=== PATIENT | male | born 1930 | race Caucasian/White ===

== ENCOUNTER → 2016-05-09 | Outpatient (CLI) | payer MEDICARE, BC ==
[2016-05-09 14:53] LABS: CHLORIDE,CL 103 mmol/L (98-110); SODIUM,NA 140 mmol/L (136-146)
== END ==
LOC: MW.CHIM 14:20
PROVIDERS: ATTEND Internal Medicine
DX: E11.9 Type 2 diabetes mellitus without complications (principal); I10 Essential (primary) hypertension; M19.90 Unspecified osteoarthritis, unspecified site; J44.9 Chronic obstructive pulmonary disease, unspecified; M25.511 Pain in right shoulder
CPT/HCPCS: 36415; 80053; 80061; 85025; 85652; 86140; 93005; 99214

== ENCOUNTER → 2016-05-18 | Outpatient (CLI) | payer MEDICARE, BC ==
--- NOTE | 2016-05-18 11:11 | NM ---
EXAMINATION: Nuclear medicine myocardial perfusion study HISTORY: Angina. PROCEDURE: Following intravenous administration of 0.4 mg of Lexiscan and 26.9 mCi of technetium 99m sestamib i, stress SPECT images including gating imaging was performed. FINDINGS: Stress myocardial SPECT images demonstrates mildly decreased perfusion along the inferior wall. This may represent diaphragmatic attenuation. Review of gated images demonstrates normal wall motion, contractility and wall thickening. The left ventricular ejection fraction is 56 %. The left ventricular chamber size is normal. IMPRESSION: 1. Mildly decreased uptake along the inferior wall, correlate with rest imaging. 2. Normal ventricular chamber size and function with ejection fraction of 56 %.
--- NOTE | 2016-05-18 16:37 | PCM.PRNOTE ---
- Free Text/Narrative Note: Lexiscan Indication SOB Patient was supervised today during infusion portion of the stress test. The patient received Regadenoson 0.4 mg IV and nuclear agent using standard protocol. Sestamibi Tm99 25 Mci was gievn afterwards Baseline blood pressure is 145/59 with a heart rate 63 EKG sinus rhythm cRBBB without ST abnormalities Vital signs at injection: Peak blood pressure 125/68 with a heart rate of 78 Vital signs at 4 minutes post injection: Peak blood pressure 147/59 with a heart rate of 65 EKG sinus rhythm without further ST changes Patient complains of abdominal cramps and headaches spontaneously resolved Adverse effects from Justa scan none Test done due to end of protocol Impression 1. electrocardiographically nondiagnostic for ischemia due to chemical protocol 2. nuclear imaging pending
== END ==
LOC: MW.NM 08:17
PROVIDERS: ATTEND Internal Medicine
DX: R07.9 Chest pain, unspecified (principal); I20.9 Angina pectoris, unspecified; R06.02 Shortness of breath
CPT/HCPCS: 78451; 93017; A9500; J2785

== ENCOUNTER → 2016-05-25 | Outpatient (CLI) | payer MEDICARE, BC ==
--- NOTE | 2016-05-30 11:39 | NM ---
Addendum: Additional imaging was obtained at rest following the administration of 27.5 mCi of Tech 99m labeled sestamibi. FINDINGS/IMPRESSION: There is stable decreased perfusion along the inferior wall. No evidence of reversible perfusion to suggest myocardial ischemia. Ejection fraction is 58%, wall motion appears similar.
== END ==
LOC: MW.NM 10:58
PROVIDERS: ATTEND Internal Medicine
DX: R07.9 Chest pain, unspecified (principal); I20.9 Angina pectoris, unspecified
CPT/HCPCS: 78451; A9500

== ENCOUNTER → 2016-05-31 | Outpatient (CLI) | payer MEDICARE, BC ==
[2016-05-31 11:35] LABS: CHLORIDE,CL 104 mmol/L (98-110); SODIUM,NA 141 mmol/L (136-146)
== END ==
LOC: MW.CHIM 10:46
PROVIDERS: ATTEND Internal Medicine
DX: I20.9 Angina pectoris, unspecified (principal); I10 Essential (primary) hypertension; E11.9 Type 2 diabetes mellitus without complications; J44.1 Chronic obstructive pulmonary disease with (acute) exacerbation
CPT/HCPCS: 36415; 80048; 85025; 85610; 99215

== ENCOUNTER 2016-06-28 10:36 | Emergency (ER) | payer MEDICARE, BC ==
[2016-06-28] MEDS ORDERED: Aspirin 81 MG Tab.Chew ONE (10:41)
[2016-06-28] MEDS ORDERED: Nitroglycerin 0.4 MG Tab.SL ONE (10:41)
[2016-06-28] MEDS: Nitroglycerin 0.4 MG Tab.SL SL PRN ×3 (10:51→12:03)
[2016-06-28] MEDS ORDERED: Ondansetron 4 MG/2 ML SDV IVPUSH ONE (10:53)
[2016-06-28] MEDS ORDERED: Morphine 2 MG/ML Syringe IVPUSH ONE (10:53)
[2016-06-28] MEDS ORDERED: Aspirin 81 MG Tab.Chew PO ONE (10:54)
--- NOTE | 2016-06-28 10:55 | EDM.PDOC ---
ED HISTORY OF PRESENT ILLNESS - General Chief Complaint: Chest Pain Stated Complaint: CHEST PAIN Time Seen by Provider: 06/28/16 10:40 Source of Information: Reports: Patient History Limitations: Reports: No limitations - History of Present Illness INITIAL COMMENTS - FREE TEXT/NARRATIVE: History of present illness: [] Patient was sitting at home at 8 this morning looking count of a window when he developed sudden chest pain rated 10/10. He says it's worse when he takes a breath. He denies cough. Patient has a history of cardiac disease and is scheduled to go to [facility] on the of this month see a manager compensation. Patient has an ejection fraction of 56% and decreased uptake on the inferior wall on nuclear perfusion scan done in May. Review of systems: As per history of present illness and below otherwise all systems reviewed and negative. Past medical history: As per history of present illness and as reviewed below otherwise noncontributory. Surgical history: As per history of present illness and as reviewed below otherwise noncontributory. Social history: No reported history of drug or alcohol abuse. Family history: As per history of present illness and as reviewed below otherwise noncontributory. Physical exam: General: Well developed, well nourished in NAD HEENT: Atraumatic, normocephalic, pupils reactive, negative for conjunctival pallor or scleral icterus, mucous membranes moist, throat clear, neck supple, nontender, trachea midline. Lungs: Clear to auscultation, breath sounds equal bilaterally, chest nontender. Heart: S1S2, regular, negative for clicks, rubs, or JVD. Abdomen: Soft, nondistended, nontender. Negative for masses or hepatosplenomegaly. Negative for costovertebral tenderness. Pelvis: Stable nontender. Genitourinary: Deferred. Rectal: Deferred. Extremities: Atraumatic, negative for cords or calf pain. Neurovascular unremarkable. Neuro: Awake, alert, oriented. Cranial nerves II through XII unremarkable. Cerebellum unremarkable. Motor and sensory unremarkable throughout. Exam nonfocal. Diagnostics: [] Labs and imaging were done ruled out showing a negative troponin at this time , negative dissection. Therapeutics: [] Aspirin nitroglycerin and pain medicines given minimal relief of his pain. Impression: [] Unstable angina Plan: [] Transfer to [facility], Dr. Cintron accepting. Definitive disposition and diagnosis as appropriate pending reevaluation and review of above. - Related Data Allergies/ADRs: Allergies Allergy/AdvReac Type Severity Reaction Status Date / Time Animal Dander Allergy Mild Cough Uncoded 06/28/16 10:49 smoke Allergy Cough Uncoded 06/28/16 10:49 Home Meds: Home Meds Aspirin [Adult Low Dose Aspirin EC] 81 mg PO DAILY 12/21/13 [History] Latanoprost [Xalatan 0.005% Ophth Soln] 1 drop EYEBOTH BEDTIME 12/21/13 [History ] Multivit-Min/FA/Lycopene/Lut [Centrum Silver] 1 each PO DAILY 12/21/13 [History] Albuterol Sulfate 2.5 mg IH QID PRN 04/15/14 [History] Fluticasone/Salmeterol [Advair 250-50] 1 inhalation IH BID 04/15/14 [History] Ascorbate Calcium [Vitamin C] 500 mg PO DAILY 07/18/14 [History] Lutein 20 mg PO DAILY 07/18/14 [History] Brimonidine Tartrate [Alphagan P] 1 drop EYEBOTH DAILY 08/23/15 [History] Albuterol Sulfate [Proair Hfa] 2 puff IH QID 06/28/16 [History] Erythromycin Base [Erythromycin 0.5% Ophth Oint] 1 applic EYEBOTH BEDTIME [History] Umeclidinium Dexter [Incruse Ellipta] 1 inhalation IH DAILY 06/28/16 [History] Past Medical History HEENT History: Reports: Glaucoma, Macular degeneration Other HEENT History: wears glasses, top and bottom dentures Cardiovascular History: Reports: None Respiratory History: Reports: COPD Other Respiratory History: continuous 02 3l at home Gastrointestinal History: Other Gastrointestinal History: esophogeal cancer, epigastric pain Genitourinary History: Reports: None Musculoskeletal History: Reports: Arthritis Other Musculoskeletal History: neck pain, rt elbow pain Neurological History: Reports: None Psychiatric History: Reports: None Endocrine/Metabolic History: Reports: None Hematologic History: Reports: None Immunologic History: Reports: None 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 Dermatologic History: Reports: Other (see below) Other Dermatologic History: dermatitis - Past Surgical History Head Surgeries/Procedures: Reports: None HEENT Surgical History: Reports: Cataract surgery Other HEENT Surgeries/Procedures: hx sinus surgery GI Surgical History: Reports: Appendectomy Other GI Surgeries/Procedures: 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 Social & Family History - Tobacco Use Smoking Status *Q: Former Smoker Years of Tobacco use: 40 Used Tobacco, but Quit: Yes Month Tobacco Last Used: 1983 Second Hand Smoke Exposure: No - Alcohol Use Days Per Week of Alcohol Use: 3 Number of Drinks Per Day: 1 Total Drinks Per Week: 3 - Recreational Drug Use Recreational Drug Use: No Drug Use in Last 12 Months: No ED ROS GENERAL - Review of Systems Review Of Systems: See Below (See history of present illness) ED EXAM, GENERAL - Physical Exam Exam: See Below (See history of present illness) Course - Vital Signs Last Recorded V/S: Last Vital Signs Temp 36.6 C 06/28/16 10:49 Pulse 78 06/28/16 10:49 Resp 18 06/28/16 12:02 BP 110/61 06/28/16 12:03 Pulse Ox 98 06/28/16 12:02 - Orders/Labs/Meds Orders: Active Orders 24 hr Category Date Time Status EKG 12 Lead [EKG Documentation Completion] [RC] STAT Care 06/28/16 11:13 Active RT Aerosol Therapy [RC] ASDIRECTED Care 06/28/16 12:54 Active HYDROmorphone [Dilaudid] Med 06/28/16 11:21 Active 0.5 mg IVPUSH Q1H PRN Nitroglycerin/D5W [Nitroglycerin 25 MG/D5W 250 ML] 250 Med 06/28/16 12:45 Ordered ml IV TITRATE Medication Orders Hydromorphone HCl (Dilaudid) 0.5 mg IVPUSH Q1H PRN PRN Reason: Pain Last Admin: 06/28/16 11:27 Dose: 0.5 mg Nitroglycerin/Dextrose (Nitroglycerin 25 Mg/D5w 250 Ml) 250 mls @ 3 mls/hr IV TITRATE SHANELL PRN Reason: 5 MCG/MIN Labs: Laboratory Tests 06/28/16 06/28/16 06/28/16 Range/Units 10:40 10:40 10:40 WBC 12.01 H (4.0-11.0) K/uL RBC 4.13 L (4.50-5.90) M/uL Hgb 12.7 L (13.0-17.0) g/dL Hct 38.5 (38.0-50.0) % MCV 93.2 (80.0-98.0) fL MCH 30.8 (27.0-32.0) pg MCHC 33.0 (31.0-37.0) g/dL RDW Std Deviation 44.1 (28.0-62.0) fl RDW Coeff of Juancho 13 (11.0-15.0) % Plt Count 206 (150-400) K/uL MPV 10.30 (7.40-12.00) fL Neut % (Auto) 76.9 (48.0-80.0) % Lymph % (Auto) 14.5 L (16.0-40.0) % [place] % (Auto) 6.7 (0.0-15.0) % Eos % (Auto) 1.7 (0.0-7.0) % Baso % (Auto) 0.2 (0.0-1.5) % Neut # (Auto) 9.2 H (1.4-5.7) K/uL Lymph # (Auto) 1.7 (0.6-2.4) K/uL [place] # (Auto) 0.8 (0.0-0.8) K/uL Eos # (Auto) 0.2 (0.0-0.7) K/uL Baso # (Auto) 0.0 (0.0-0.1) K/uL Nucleated RBC % 0.0 /100WBC Nucleated RBCs # 0 K/uL INR (0.86-1.11) APTT (18.6-31.3) SEC D-Dimer, Quantitative (0.0-0.52) mg/LFEU Sodium 134 L (136-146) mmol/L Potassium 4.1 (3.5-5.1) mmol/L Chloride 99 (98-110) mmol/L Carbon Dioxide 26 (21-31) mmol/L BUN 15 (6.0-23.0) mg/dL Creatinine 1.0 (0.6-1.5) mg/dL Est Cr Clr Drug Dosing 50.49 mL/min Estimated GFR (MDRD) > 60.0 ml/min Glucose 140 H (60-110) mg/dL Calcium 9.5 (8.8-10.8) mg/dL Total Bilirubin 0.8 (0.1-1.5) mg/dL AST 22 (5-40) IU/L ALT 16 (8-54) IU/L Alkaline Phosphatase 81 (40-150) Troponin I < 0.10 (0.0-0.29) NG/ML B-Natriuretic Peptide (<100) PG/ML Total Protein 7.7 (6.0-8.0) g/dL Albumin 4.1 (3.4-4.8) g/dL Globulin 3.6 H (2.0-3.5) g/dL Albumin/Globulin Ratio 1.1 L (1.3-2.8) Blood Type Antibody Screen 06/28/16 06/28/16 06/28/16 Range/Units 10:40 10:40 10:40 WBC (4.0-11.0) K/uL RBC (4.50-5.90) M/uL Hgb (13.0-17.0) g/dL Hct (38.0-50.0) % MCV (80.0-98.0) fL MCH (27.0-32.0) pg MCHC (31.0-37.0) g/dL RDW Std Deviation (28.0-62.0) fl RDW Coeff of Juancho (11.0-15.0) % Plt Count (150-400) K/uL MPV (7.40-12.00) fL Neut % (Auto) (48.0-80.0) % Lymph % (Auto) (16.0-40.0) % [place] % (Auto) (0.0-15.0) % Eos % (Auto) (0.0-7.0) % Baso % (Auto) (0.0-1.5) % Neut # (Auto) (1.4-5.7) K/uL Lymph # (Auto) (0.6-2.4) K/uL [place] # (Auto) (0.0-0.8) K/uL Eos # (Auto) (0.0-0.7) K/uL Baso # (Auto) (0.0-0.1) K/uL Nucleated RBC % /100WBC Nucleated RBCs # K/uL INR 1.05 (0.86-1.11) APTT 33.1 H (18.6-31.3) SEC D-Dimer, Quantitative 3.77 H (0.0-0.52) mg/LFEU Sodium (136-146) mmol/L Potassium (3.5-5.1) mmol/L Chloride (98-110) mmol/L Carbon Dioxide (21-31) mmol/L BUN (6.0-23.0) mg/dL Creatinine (0.6-1.5) mg/dL Est Cr Clr Drug Dosing mL/min Estimated GFR (MDRD) ml/min Glucose (60-110) mg/dL Calcium (8.8-10.8) mg/dL Total Bilirubin (0.1-1.5) mg/dL AST (5-40) IU/L ALT (8-54) IU/L Alkaline Phosphatase (40-150) Troponin I (0.0-0.29) NG/ML B-Natriuretic Peptide 106 H (<100) PG/ML Total Protein (6.0-8.0) g/dL Albumin (3.4-4.8) g/dL Globulin (2.0-3.5) g/dL Albumin/Globulin Ratio (1.3-2.8) Blood Type Antibody Screen 06/28/16 Range/Units 11:15 WBC (4.0-11.0) K/uL RBC (4.50-5.90) M/uL Hgb (13.0-17.0) g/dL Hct (38.0-50.0) % MCV (80.0-98.0) fL MCH (27.0-32.0) pg MCHC (31.0-37.0) g/dL RDW Std Deviation (28.0-62.0) fl RDW Coeff of Juancho (11.0-15.0) % Plt Count (150-400) K/uL MPV (7.40-12.00) fL Neut % (Auto) (48.0-80.0) % Lymph % (Auto) (16.0-40.0) % [place] % (Auto) (0.0-15.0) % Eos % (Auto) (0.0-7.0) % Baso % (Auto) (0.0-1.5) % Neut # (Auto) (1.4-5.7) K/uL Lymph # (Auto) (0.6-2.4) K/uL [place] # (Auto) (0.0-0.8) K/uL Eos # (Auto) (0.0-0.7) K/uL Baso # (Auto) (0.0-0.1) K/uL Nucleated RBC % /100WBC Nucleated RBCs # K/uL INR (0.86-1.11) APTT (18.6-31.3) SEC D-Dimer, Quantitative (0.0-0.52) mg/LFEU Sodium (136-146) mmol/L Potassium (3.5-5.1) mmol/L Chloride (98-110) mmol/L Carbon Dioxide (21-31) mmol/L BUN (6.0-23.0) mg/dL Creatinine (0.6-1.5) mg/dL Est Cr Clr Drug Dosing mL/min Estimated GFR (MDRD) ml/min Glucose (60-110) mg/dL Calcium (8.8-10.8) mg/dL Total Bilirubin (0.1-1.5) mg/dL AST (5-40) IU/L ALT (8-54) IU/L Alkaline Phosphatase (40-150) Troponin I (0.0-0.29) NG/ML B-Natriuretic Peptide (<100) PG/ML Total Protein (6.0-8.0) g/dL Albumin (3.4-4.8) g/dL Globulin (2.0-3.5) g/dL Albumin/Globulin Ratio (1.3-2.8) Blood Type O NEGATIVE Antibody Screen NEGATIVE Meds: Medications Generic Name Dose Route Start Last Admin Trade Name Freq PRN Reason Stop Dose Admin Hydromorphone HCl 0.5 mg 06/28/16 11:21 06/28/16 11:27 Dilaudid IVPUSH 0.5 mg Q1H PRN Administration Pain Nitroglycerin/Dextrose 250 mls @ 3 mls/hr 06/28/16 12:45 Nitroglycerin 25 Mg/D5w 250 Ml IV TITRATE SHANELL 5 MCG/MIN Discontinued Medications Generic Name Dose Route Start Last Admin Trade Name Freq PRN Reason Stop Dose Admin Albuterol/Ipratropium 3 ml 06/28/16 12:54 Duoneb 3.0-0.5 Mg/3 Ml NEB 06/28/16 12:55 ONETIME ONE Aspirin Confirm 06/28/16 10:41 06/28/16 10:57 Aspirin Administered 06/28/16 10:42 Not Given Dose 324 mg .ROUTE .STK-MED ONE Aspirin 324 mg 06/28/16 10:54 06/28/16 10:55 Aspirin PO 06/28/16 10:55 324 mg ONETIME ONE Administration Hydromorphone HCl Confirm 06/28/16 11:20 06/28/16 11:54 Dilaudid Administered 06/28/16 11:21 Not Given Dose 1 mg .ROUTE .STK-MED ONE Sodium Chloride 1,000 mls @ 999 mls/hr 06/28/16 10:59 06/28/16 11:53 Normal Saline IV 06/28/16 11:59 999 mls/hr .Bolus ONE Infusion Iopamidol 100 ml 06/28/16 11:12 06/28/16 11:13 Isovue Multipack-370 (76%) IVPUSH 06/28/16 11:13 100 ml ONETIME STA Administration Morphine Sulfate 2 mg 06/28/16 10:53 06/28/16 11:03 Morphine IVPUSH 06/28/16 10:54 2 mg ONETIME ONE Administration Morphine Sulfate Confirm 06/28/16 11:06 06/28/16 11:57 Morphine Administered 06/28/16 11:07 Not Given Dose 10 mg .ROUTE .STK-MED ONE Morphine Sulfate 10 mg 06/28/16 11:13 06/28/16 11:13 Morphine IVPUSH 06/28/16 11:14 4 mg ONETIME ONE Administration Nitroglycerin Confirm 06/28/16 10:41 06/28/16 10:57 Nitrostat Administered 06/28/16 10:42 Not Given Dose 0.4 mg .ROUTE .STK-MED ONE Nitroglycerin 0.4 mg 06/28/16 10:54 06/28/16 12:03 Nitrostat SL 06/28/16 11:05 0.4 mg Q5M PRN Administration Chest Pain Ondansetron HCl 4 mg 06/28/16 10:53 06/28/16 11:00 Zofran IVPUSH 06/28/16 10:54 4 mg ONETIME ONE Administration Departure - Departure Time of Disposition: 12:58 Disposition: DC/Tfer to Acute Hospital 02 Reason for Transfer *Q: Other Condition: fair Clinical Impression: Unstable angina Forms: ED Department Discharge - My Orders Last 24 Hours: My Active Orders 06/28/16 11:13 EKG 12 Lead [EKG Documentation Completion] [RC] STAT 06/28/16 11:21 HYDROmorphone [Dilaudid] 0.5 mg IVPUSH Q1H PRN 06/28/16 12:45 Nitroglycerin/D5W [Nitroglycerin 25 MG/D5W 250 ML] 250 ml IV TITRATE 06/28/16 12:54 RT Aerosol Therapy [RC] ASDIRECTED - Assessment/Plan Last 24 Hours: My Active Orders 06/28/16 11:13 EKG 12 Lead [EKG Documentation Completion] [RC] STAT 06/28/16 11:21 HYDROmorphone [Dilaudid] 0.5 mg IVPUSH Q1H PRN 06/28/16 12:45 Nitroglycerin/D5W [Nitroglycerin 25 MG/D5W 250 ML] 250 ml IV TITRATE 06/28/16 12:54 RT Aerosol Therapy [RC] ASDIRECTED
[2016-06-28] MEDS ORDERED: Sodium Chloride 0.9% 1,000 ML IV ONE (10:59)
[2016-06-28] MEDS ORDERED: Morphine 10 MG/ML Syringe ONE (11:06)
[2016-06-28] MEDS ORDERED: Iopamidol 755 MG/ML 500 ML Multipack Bottle IVPUSH STA (11:12)
[2016-06-28] MEDS ORDERED: Morphine 10 MG/ML Syringe IVPUSH ONE (11:13)
[2016-06-28] MEDS ORDERED: HYDROmorphone 1 MG/ML Syringe ONE (11:20)
[2016-06-28] MEDS ORDERED: HYDROmorphone 1 MG/ML Syringe IVPUSH PRN (11:21)
--- NOTE | 2016-06-28 11:24 | CR ---
EXAMINATION: Portable chest radiograph. HISTORY: Shortness of breath. Comparison: 01/03/2016. FINDINGS: The trachea is midline. The cardiomediastinal silhouette is stable. There is a chronic interstitial prominence. No focal consolidation, pleural effusion, or pneumothorax. Mild aortic calcifications ar e noted. Osseous structures appear unremarkable. IMPRESSION: Chronic interstitial prominence without an acute cardiopulmonary finding.
[2016-06-28 11:30] LABS: CHLORIDE,CL 99 mmol/L (98-110); SODIUM,NA 134 mmol/L (136-146)
--- NOTE | 2016-06-28 12:06 | CT ---
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 Coronal and sagittal reconstructions obtained. FINDINGS: Severe emphysematous changes are noted within the lungs. Scarring is noted within the lung bases, right greater than left. No pleural effusion or pneumothorax. Moderate atheromatous disease is noted within the aorta extending to the iliac arteries. Thoracic aorta is normal in caliber. No e vidence of a dissection or ulceration. The heart is normal in size with a trace pericardial fluid. C oronary artery calcifications are noted. The main pulmonary arteries appear patent. Nonpathologicall y enlarged mediastinal and hilar lymph nodes are noted. No axillary lymphadenopathy. The central air ways are clear. There is mild stenosis at the origin of the celiac axis and SMA. There is at least moderate to high grade stenosis at the origin of the right renal artery. There are 2 left renal arteries. The liver appears mildly heterogeneous with a tiny area of hyperenhancement within the lower right h epatic lobe, likely an atypical hemangioma given the size. The pancreas and gallbladder appear vinicio l. The adrenal glands are normal. Spleen is normal in size. The kidneys enhance and function symmetr ically without evidence of obstructive uropathy. There is a nonobstructing right renal stone. There are no suspicious osseous abnormalities identified. IMPRESSION: 1. Severe pulmonary emphysema. 2. 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 3. 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 4. Nonobstructing right renal stone.
[2016-06-28 12:29] VITALS: BP 110/61
[2016-06-28] MEDS ORDERED: Nitroglycerin/D5W 25 MG/250 ML BOTTLE IV SCH (12:45)
[2016-06-28] MEDS ORDERED: Albuterol/Ipratropium 3.0-0.5 MG/3 ML Neb Soln NEB ONE (12:54)
[2016-06-28] MEDS ORDERED: Ketorolac 15 MG/ML SDV IVPUSH ONE (13:54)
[2016-06-28] MEDS: Ketorolac 15 MG/ML SDV ONE ×2 (13:54→14:38)
[2016-06-28] MEDS: LORazepam 2 MG/ML MDV ONE ×2 (14:02→14:30)
[2016-06-28] MEDS ORDERED: LORazepam 2 MG/ML MDV IVPUSH ONE (14:02)
== END 2016-06-28 14:20 ==
LOC: MW.ED 10:36
DX: I20.0 Unstable angina (principal); Z91.09 Other allergy status, other than to drugs and biological substances; Z79.82 Long term (current) use of aspirin; Z79.899 Other long term (current) drug therapy; Z98.49 Cataract extraction status, unspecified eye; Z90.49 Acquired absence of other specified parts of digestive tract; Z87.891 Personal history of nicotine dependence; R06.02 Shortness of breath
CPT/HCPCS: 36415; 71010; 71275; 74175; 80053; 83880; 84484; 85025; 85379; 85610; 85730; 86850; 86900; 86901; 93005; 94664; 96361; 96365; 96375; 99291; 99292; A9270; J1170; J1885; J2060; J2270; J2405; J7040; Q9967; 99285

== ENCOUNTER → 2016-07-14 | Outpatient (CLI) | payer MEDICARE, BC | LOC: MW.CHIM 08:00 | PROVIDERS: ATTEND Internal Medicine | DX: R21 Rash and other nonspecific skin eruption (principal); I25.10 Atherosclerotic heart disease of native coronary artery without angina pectoris; J44.9 Chronic obstructive pulmonary disease, unspecified; I10 Essential (primary) hypertension | CPT/HCPCS: 96372; 99214; J1200 ==

== ENCOUNTER → 2016-07-17 | Outpatient (CLI) | payer MEDICARE, BC | LOC: MW.CHIM 08:00 | PROVIDERS: ATTEND Internal Medicine | DX: I25.10 Atherosclerotic heart disease of native coronary artery without angina pectoris (principal); I10 Essential (primary) hypertension; J44.1 Chronic obstructive pulmonary disease with (acute) exacerbation; E11.9 Type 2 diabetes mellitus without complications; J44.9 Chronic obstructive pulmonary disease, unspecified; Z98.61 Coronary angioplasty status; Z87.891 Personal history of nicotine dependence | CPT/HCPCS: 99214; G0463 ==

== ENCOUNTER 2016-12-12 16:08 | Observation (INO) | payer MEDICARE, BC ==
[2016-12-12] MEDS ORDERED: Aspirin 81 MG Tab.Chew PO ONE (16:19)
--- NOTE | 2016-12-12 16:20 | EDM.PDOC ---
ED HPI GENERAL MEDICAL PROBLEM - General Chief Complaint: Chest Pain Stated Complaint: CHEST PAIN Time Seen by Provider: 12/12/16 16:17 Source of Information: Reports: Patient History Limitations: Reports: No Limitations - History of Present Illness INITIAL COMMENTS - FREE TEXT/NARRATIVE: HISTORY AND PHYSICAL: History of present illness: [86-year-old male with a long history of tobacco abuse but quit smoking, COPD with 2 L home O2 dependence as a baseline, known coronary artery disease with stents placed last spring now presents emergent primary complaining of chest pain. Within the last few hours patient had onset of left chest pressure with no nausea vomiting diaphoresis or shortness of air. Patient was concerned that it could be his heart. He has no pleuritic pain. No productive cough or fever. Pain is not reproducible with movement or palpation. Patient takes a baby aspirin per day as well as Plavix with which he is been compliant. His medical leader is in [place]] Patient is currently pain-free Review of systems: As per history of present illness and below otherwise all systems reviewed and negative. Past medical history: As per history of present illness and as reviewed below otherwise noncontributory. Surgical history: As per history of present illness and as reviewed below otherwise noncontributory. Social history: No reported history of drug or alcohol abuse. Family history: As per history of present illness and as reviewed below otherwise noncontributory. Physical exam: 86-year-old male with the appearance of chronic debilitation and long-term tobacco abuse in no acute distress alert communicative supple neck clear lungs regular rate and rhythm no tachycardia nontender chest wall no skin changes benign abdomen normal extremities nonfocal HEENT: Atraumatic, normocephalic, pupils reactive, negative for conjunctival pallor or scleral icterus, mucous membranes moist, throat clear, neck supple, nontender, trachea midline. Lungs: Clear to auscultation, breath sounds equal bilaterally, chest nontender. Heart: S1S2, regular, negative for clicks, rubs, or JVD. Abdomen: Soft, nondistended, nontender. Negative for masses or hepatosplenomegaly. Negative for costovertebral tenderness. Pelvis: Stable nontender. Genitourinary: Deferred. Rectal: Deferred. Extremities: Atraumatic, negative for cords or calf pain. Neurovascular unremarkable. Neuro: Awake, alert, oriented. Cranial nerves II through XII unremarkable. Cerebellum unremarkable. Motor and sensory unremarkable throughout. Exam nonfocal. Diagnostics: [EKG with normal sinus rhythm at 72 normal axis no STEMI Chest x-ray with chronic changes hyperinflation no acute disease interpreted by me] Therapeutics: [Nitro paste applied and aspirin given] Impression: [Chest pain] Plan: [Signs and symptoms consistent with chest pain possible cardiac etiology an elderly male with a known cardiac history. He stable and pain-free. EKG unremarkable. Troponin negative. Chest x-ray benign. Case discussed with Dr. Weston Wise hospitalist internal combustion engine subassembler who is aware history and findings and agrees with observation admission to his service for further workup and treatment Definitive disposition and diagnosis as appropriate pending reevaluation and review of above. Chest Pain Score (Numeric/FACES): 5 - Related Data Allergies Allergy/AdvReac Type Severity Reaction Status Date / Time Animal Dander Allergy Mild Cough Uncoded 09/20/16 21:49 MDT smoke Allergy Cough Uncoded 09/20/16 21:49 MDT Home Meds: Home Meds Aspirin [Adult Low Dose Aspirin EC] 81 mg PO DAILY 12/21/13 [History] Latanoprost [Xalatan 0.005% Ophth Soln] 1 drop EYEBOTH BEDTIME 12/21/13 [History ] Multivit-Min/FA/Lycopene/Lut [Centrum Silver] 1 each PO DAILY 12/21/13 [History] Albuterol Sulfate 2.5 mg IH QID PRN 04/15/14 [History] Fluticasone/Salmeterol [Advair 250-50] 1 inhalation IH BID 04/15/14 [History] Ascorbate Calcium [Vitamin C] 500 mg PO DAILY 07/18/14 [History] Lutein 20 mg PO DAILY 07/18/14 [History] Brimonidine Tartrate [Alphagan P] 1 drop EYEBOTH DAILY 08/23/15 [History] Albuterol Sulfate [Proair Hfa] 2 puff IH QID 06/28/16 [History] Erythromycin Base [Erythromycin 0.5% Ophth Oint] 1 applic EYEBOTH BEDTIME [History] Umeclidinium [place] [Incruse Ellipta] 1 inhalation IH DAILY 06/28/16 [History] Clopidogrel [Plavix] 75 mg PO DAILY 09/20/16 [History] Metoprolol Succinate [Toprol XL] 25 mg PO DAILY 09/20/16 [History] atorvaSTATin [Lipitor] 80 mg PO DAILY 09/20/16 [History] Past Medical History HEENT History: Reports: Glaucoma, Macular Degeneration Other HEENT History: wears glasses, top and bottom dentures Cardiovascular History: Reports: None Respiratory History: Reports: COPD Other Respiratory History: continuous 02 3l at home Gastrointestinal History: Other Gastrointestinal History: esophogeal cancer, epigastric pain Genitourinary History: Reports: None Musculoskeletal History: Reports: Arthritis Other Musculoskeletal History: neck pain, rt elbow pain Neurological History: Reports: None Psychiatric History: Reports: None Endocrine/Metabolic History: Reports: None Hematologic History: Reports: None Immunologic History: Reports: None 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 Dermatologic History: Reports: Other (See Below) Other Dermatologic History: dermatitis - Past Surgical History Head Surgeries/Procedures: Reports: None HEENT Surgical History: Reports: Cataract Surgery GI Surgical History: Reports: Appendectomy Other GI Surgeries/Procedures: 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 Social & Family History - Family History Family Medical History: Noncontributory - Tobacco Use Smoking Status *Q: Never Smoker Years of Tobacco use: 40 Used Tobacco, but Quit: Yes Month Tobacco Last Used: 1983 Second Hand Smoke Exposure: No - Caffeine Use Caffeine Use: Reports: None - Alcohol Use Days Per Week of Alcohol Use: 3 Number of Drinks Per Day: 1 Total Drinks Per Week: 3 - Recreational Drug Use Recreational Drug Use: No Drug Use in Last 12 Months: No ED ROS GENERAL - Review of Systems Review Of Systems: See Below (History of present illness) ED EXAM, GENERAL - Physical Exam Exam: See Below (History of present illness) Course - Vital Signs Last Recorded V/S: Last Vital Signs Temp 36.8 C 12/12/16 16:17 Pulse 63 12/12/16 18:05 Resp 14 12/12/16 18:05 BP 142/76 H 12/12/16 18:05 Pulse Ox 99 12/12/16 18:05 - Orders/Labs/Meds Orders: Active Orders 24 hr Category Date Time Status Admission Status [Patient Status] [ADT] Stat ADT 12/12/16 18:23 Ordered EKG 12 Lead [EKG Documentation Completion] [RC] STAT Care 12/12/16 16:19 Active Chest 1V Frontal [CR] Stat Exams 12/12/16 16:19 Taken Sodium Chloride 0.9% [Normal Saline] 1,000 ml Med 12/12/16 16:30 Active IV ASDIRECTED Medication Orders Sodium Chloride (Normal Saline) 1,000 mls @ 125 mls/hr IV ASDIRECTED SHANELL Last Admin: 12/12/16 16:28 Dose: 125 mls/hr Labs: Laboratory Tests 12/12/16 12/12/16 12/12/16 Range/Units 16:10 16:10 16:10 WBC 7.22 (4.0-11.0) K/uL RBC 3.90 L (4.50-5.90) M/uL Hgb 12.0 L (13.0-17.0) g/dL Hct 36.2 L (38.0-50.0) % MCV 92.8 (80.0-98.0) fL MCH 30.8 (27.0-32.0) pg MCHC 33.1 (31.0-37.0) g/dL RDW Std Deviation 47.1 (28.0-62.0) fl RDW Coeff of [place] 14 (11.0-15.0) % Plt Count 173 (150-400) K/uL MPV 9.80 (7.40-12.00) fL Neut % (Auto) 73.0 (48.0-80.0) % Lymph % (Auto) 17.6 (16.0-40.0) % [place] % (Auto) 5.8 (0.0-15.0) % Eos % (Auto) 3.2 (0.0-7.0) % Baso % (Auto) 0.4 (0.0-1.5) % Neut # (Auto) 5.3 (1.4-5.7) K/uL Lymph # (Auto) 1.3 (0.6-2.4) K/uL [place] # (Auto) 0.4 (0.0-0.8) K/uL Eos # (Auto) 0.2 (0.0-0.7) K/uL Baso # (Auto) 0.0 (0.0-0.1) K/uL Nucleated RBC % 0.0 /100WBC Nucleated RBCs # 0 K/uL Sodium 135 L (136-146) mmol/L Potassium 4.0 (3.5-5.1) mmol/L Chloride 102 (98-110) mmol/L Carbon Dioxide 23 (21-31) mmol/L BUN 10 (6.0-23.0) mg/dL Creatinine 1.0 (0.6-1.5) mg/dL Est Cr Clr Drug Dosing 50.37 mL/min Estimated GFR (MDRD) > 60.0 ml/min Glucose 148 H (60-110) mg/dL Calcium 8.9 (8.8-10.8) mg/dL Total Bilirubin 0.4 (0.1-1.5) mg/dL AST 26 (5-40) IU/L ALT 24 (8-54) IU/L Alkaline Phosphatase 97 (40-150) Troponin I < 0.10 (0.0-0.29) NG/ML Total Protein 7.0 (6.0-8.0) g/dL Albumin 3.8 (3.4-4.8) g/dL Globulin 3.2 (2.0-3.5) g/dL Albumin/Globulin Ratio 1.2 L (1.3-2.8) Meds: Medications Generic Name Dose Route Start Last Admin Trade Name Freq PRN Reason Stop Dose Admin Sodium Chloride 1,000 mls @ 125 mls/hr 12/12/16 16:30 12/12/16 16:28 Normal Saline IV 125 mls/hr ASDIRECTED SHANELL Administration Discontinued Medications Generic Name Dose Route Start Last Admin Trade Name Freq PRN Reason Stop Dose Admin Aspirin 324 mg 12/12/16 16:19 12/12/16 16:26 Aspirin PO 12/12/16 16:20 324 mg ONETIME ONE Administration Nitroglycerin 1 gm 12/12/16 16:29 12/12/16 16:31 Nitro-Bid 2% TOP 12/12/16 16:30 1 gm ONETIME ONE Administration Departure - Departure Time of Disposition: 18:32 Disposition: Refer to Observation Condition: Fair Clinical Impression: Chest pain, Chest pain in adult - My Orders Last 24 Hours: My Active Orders 12/12/16 16:19 EKG 12 Lead [EKG Documentation Completion] [RC] STAT Chest 1V Frontal [CR] Stat 12/12/16 16:30 Sodium Chloride 0.9% [Normal Saline] 1,000 ml IV ASDIRECTED 12/12/16 18:23 Admission Status [Patient Status] [ADT] Stat - Assessment/Plan Last 24 Hours: My Active Orders 12/12/16 16:19 EKG 12 Lead [EKG Documentation Completion] [RC] STAT Chest 1V Frontal [CR] Stat 12/12/16 16:30 Sodium Chloride 0.9% [Normal Saline] 1,000 ml IV ASDIRECTED 12/12/16 18:23 Admission Status [Patient Status] [ADT] Stat
[2016-12-12] MEDS ORDERED: Nitroglycerin 2% Oint 1 GM UD Packet TOP ONE (16:29)
[2016-12-12] MEDS ORDERED: Sodium Chloride 0.9% 1,000 ML IV SCH (16:30)
[2016-12-12 17:01] LABS: CHLORIDE,CL 102 mmol/L (98-110); SODIUM,NA 135 mmol/L (136-146)
[2016-12-13] MEDS ORDERED: Morphine 2 MG/ML Syringe IVPUSH PRN (03:08)
[2016-12-13] MEDS ORDERED: Ondansetron 4 MG/2 ML SDV IVPUSH PRN (03:08)
[2016-12-13] MEDS: Albuterol 8 GM Inhaler INH SCH ×3 (07:49→10:20)
[2016-12-13] MEDS: atorvaSTATin 40 MG Tab PO SCH ×2 (08:10→08:19)
[2016-12-13] MEDS: Metoprolol Succinate 25 MG Tab.ER PO SCH ×2 (08:11→08:20)
[2016-12-13] MEDS: Clopidogrel 75 MG Tab PO SCH ×2 (08:11→08:19)
--- NOTE | 2016-12-13 08:44 | PCM.HP ---
H&P History of Present Illness - General Date of Service: 12/13/16 Admit Problem/Dx: Admission Diagnosis/Problem Admission Diagnosis/Problem Chest pain - History of Present Illness Initial Comments - Free Text/Narative: 86-year-old male with a long history of CAD, Stent Placement last spring, COPD & Respiratory Failure on 2 L home O2 admitted for chest pain. He states he was sitting at home and developed left chest pain. It was pressure quality, 4-5/10 intensity, non-radiating and no associated nausea, vomiting, diaphoresis, sob, vision change, numbness, tingling or weakness. He decided to go to ED where he received Aspirin, Nitrobid & IVF. He states the pain resolved about 30 minutes after presenting to the ED. He was transferred to floor for observation. He has not had any recurrence of pain. He is currently comfortable. He denies fever, chills, night sweats, swelling, cough, headache, abdominal pain, urinary changes , bowel habit changes, recent illness or sick contacts. He sees Dr. Arzate as his PCP and Dr. Varma as his deputy head. Chest Pain Score (Numeric/FACES): 5 - Related Data Allergies/Adverse Reactions: Allergies Allergy/AdvReac Type Severity Reaction Status Date / Time Animal Dander Allergy Mild Cough Uncoded 09/20/16 21:49 MDT smoke Allergy Cough Uncoded 09/20/16 21:49 MDT Home Medications: Home Meds Aspirin [Adult Low Dose Aspirin EC] 81 mg PO DAILY 12/21/13 [History] Latanoprost [Xalatan 0.005% Ophth Soln] 1 drop EYEBOTH BEDTIME 12/21/13 [History ] Multivit-Min/FA/Lycopene/Lut [Centrum Silver] 1 each PO DAILY 12/21/13 [History] Albuterol Sulfate 2.5 mg IH QID PRN 04/15/14 [History] Fluticasone/Salmeterol [Advair 250-50] 1 inhalation IH BID 04/15/14 [History] Ascorbate Calcium [Vitamin C] 500 mg PO DAILY 07/18/14 [History] Lutein 20 mg PO DAILY 07/18/14 [History] Brimonidine Tartrate [Alphagan P] 1 drop EYEBOTH DAILY 08/23/15 [History] Albuterol Sulfate [Proair Hfa] 2 puff IH QID 06/28/16 [History] Erythromycin Base [Erythromycin 0.5% Ophth Oint] 1 applic EYEBOTH BEDTIME [History] Umeclidinium [place] [Incruse Ellipta*] 1 inhalation IH DAILY 06/28/16 [History] Clopidogrel [Plavix] 75 mg PO BEDTIME 09/20/16 [History] Metoprolol Succinate [Toprol XL] 25 mg PO BEDTIME 09/20/16 [History] atorvaSTATin [Lipitor] 80 mg PO BEDTIME 09/20/16 [History] Past Medical History HEENT History: Reports: Glaucoma, Macular Degeneration Other HEENT History: wears glasses, top and bottom dentures Cardiovascular History: Reports: CAD, Stents Other Cardiovascular History: Stents placed "last Spring" Respiratory History: Reports: COPD Other Respiratory History: continuous 02 3L at home Gastrointestinal History: Reports: Other (See Below) Other Gastrointestinal History: esophogeal cancer, epigastric pain Genitourinary History: Reports: None Musculoskeletal History: Reports: Arthritis Other Musculoskeletal History: neck pain, rt elbow pain Neurological History: Reports: None Psychiatric History: Reports: None Endocrine/Metabolic History: Reports: None Hematologic History: Reports: None Immunologic History: Reports: None 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 Dermatologic History: Reports: Other (See Below) Other Dermatologic History: dermatitis - Infectious Disease History Infectious Disease History: Reports: None - Past Surgical History Head Surgeries/Procedures: Reports: None HEENT Surgical History: Reports: Cataract Surgery GI Surgical History: Reports: Appendectomy, Other (See Below) Other GI Surgeries/Procedures: 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 Social & Family History - Family History Family Medical History: Noncontributory - Tobacco Use Smoking Status *Q: Former Smoker Years of Tobacco use: 40 Used Tobacco, but Quit: No Month Tobacco Last Used: 1983 Second Hand Smoke Exposure: No - Caffeine Use Caffeine Use: Reports: None - Alcohol Use Days Per Week of Alcohol Use: 3 Number of Drinks Per Day: 1 Total Drinks Per Week: 3 - Recreational Drug Use Recreational Drug Use: No Drug Use in Last 12 Months: No H&P Review of Systems - Review of Systems: Review Of Systems: See Below General: Reports: No Symptoms HEENT: Reports: No Symptoms Pulmonary: Reports: No Symptoms Cardiovascular: Reports: No Symptoms Gastrointestinal: Reports: No Symptoms Genitourinary: Reports: No Symptoms Musculoskeletal: Reports: No Symptoms Skin: Reports: No Symptoms Psychiatric: Reports: No Symptoms Neurological: Reports: No Symptoms Hematologic/Lymphatic: Reports: No Symptoms Immunologic: Reports: No Symptoms Exam - Exam Exam: See Below - Vital Signs Vital Signs: Last Vital Signs Temp 36.4 C 12/13/16 08:00 Pulse 61 12/13/16 08:00 Resp 22 H 12/13/16 08:00 BP 137/56 L 12/13/16 08:00 Pulse Ox 98 12/13/16 08:00 Weight: 75.07 kg - Exam General: Alert, Oriented HEENT: Conjunctiva Clear, Mucosa Moist & [place], Posterior Pharynx Clear, Pupils Equal, Pupils Reactive Neck: Supple, Trachea Midline, +2 Carotid Pulse wo Bruit. No: JVD Lungs: Decreased Breath Sounds, Crackles, Other (nonfocal. moderate air entry. ) Cardiovascular: Regular Rate, Regular Rhythm GI/Abdominal Exam: Normal Bowel Sounds, Soft, Non-Tender Extremities: Normal Inspection, No Pedal Edema, Normal Capillary Refill Peripheral Pulses: 2+: Radial (L), Radial (R), Dorsalis Pedis (L), Dorsalis Pedis (R) Skin: Intact - Patient Data Lab Results Last 24 hrs: Laboratory Results - last 24 hr 12/12/16 12/13/16 Range/Units 20:07 04:10 Troponin I < 0.10 < 0.10 (0.0-0.29) NG/ML Result Diagrams: 12/12/16 16:10 12/12/16 16:10 *Q Meaningful Use (ADM) - VTE *Q VTE Criteria *Q: - Stroke *Q Stroke Criteria *Q: - AMI *Q AMI Criteria *Q: Problem List Initiated/Reviewed/Updated: Yes Orders Last 24hrs: Active Orders 24 hr Category Date Time Status Telemetry Monitoring [Cardiac Monitoring] [RC] . Care 12/12/16 21:17 Active DIRECTED Heart Healthy Diet [DIET] Diet 12/13/16 Breakfast Active TROPONIN I [CHEM] Q6H Lab 12/13/16 10:10 Ordered Albuterol [Ventolin HFA] Med 12/13/16 00:00 Active 8 gm INH QID Aspirin [Halfprin] Med 12/13/16 09:00 Active 81 mg PO DAILY Clopidogrel [Plavix] Med 12/13/16 09:00 Active 75 mg PO DAILY Fluticasone/Salmeterol [Advair Diskus 250-50] Med 12/13/16 09:00 Active 1 puff INH BID Metoprolol Succinate [Toprol XL] Med 12/13/16 09:00 Active 25 mg PO DAILY Morphine Med 12/13/16 03:08 Active 2 mg IVPUSH Q3H PRN Ondansetron [Zofran] Med 12/13/16 03:08 Active 4 mg IVPUSH Q4H PRN Patient's Own Medication [Ptom] Med 12/13/16 09:00 Active 1 each INH DAILY atorvaSTATin [Lipitor] Med 12/13/16 09:00 Active 80 mg PO DAILY Medication Orders Albuterol (Ventolin Hfa) 8 gm INH QID [facility] Last Admin: 12/13/16 07:49 Dose: Aspirin (Halfprin) 81 mg PO DAILY [facility] Last Admin: 12/13/16 08:10 Dose: 81 mg Atorvastatin Calcium (Lipitor) 80 mg PO DAILY [facility] Last Admin: 12/13/16 08:19 Dose: Not Given Clopidogrel Bisulfate (Plavix) 75 mg PO DAILY [facility] Last Admin: 12/13/16 08:19 Dose: Not Given Metoprolol Succinate (Toprol Xl) 25 mg PO DAILY [facility] Last Admin: 12/13/16 08:20 Dose: Not Given Morphine Sulfate (Morphine) 2 mg IVPUSH Q3H PRN PRN Reason: Chest Pain Ondansetron HCl (Zofran) 4 mg IVPUSH Q4H PRN PRN Reason: Nausea/Vomiting Umeclidinium [place] (1 Inhalation) 1 each INH DAILY [facility] Fluticasone/Salmeterol (Advair Diskus 250-50) 1 puff INH BID [facility] Assessment/Plan Comment:: ED Course: -CBC/CMP/Troponin/EKG/CXR all show no abnormalities -received Aspirin 325 mg, Nitro-Bid & IVF Assessment: 86 yo male with history of CAD, Coronary Stent Placement, HTN & COPD O2 Dependent admitted for chest pain. Plan: 1. Chest Pain, resolved: Cardiac Monitoring. Troponin [id number] x3. 2. CAD & Coronary Stenting: resume Plavix & Lipitor at home doses 3. HTN: resume Toprol at home dose 4. COPD: O2 via [facility]. resume Advair, Umeclidinium & Albuterol as per home doses.
[2016-12-13] MEDS ORDERED: Aspirin 81 MG Tab.EC PO SCH (09:00)
[2016-12-13] MEDS ORDERED: UMECLIDINIUM BROMIDE INH SCH (09:00)
[2016-12-13] MEDS ORDERED: Fluticasone/Salmeterol 250-50 MCG Inhalation Powder 14/Diskus INH SCH (09:00)
--- NOTE | 2016-12-13 10:00 | CR ---
EXAM DATE: 12/12/16 PATIENT'S AGE: 86 Patient: LEILANI SHIPMAN Facility: [place], [place] Site . Site : [id number] Study: XRay Chest [id number]/26/2017 4:50:52 PM Ordering Physician: Hector Pereyra Final Report: INDICATION: Chest pain TECHNIQUE: Chest one view COMPARISON: 11/30/2016 FINDINGS: Cardiovascular and mediastinum: Heart size and vasculature are normal in caliber and appearance. Mediastinum is within normal limits. Lungs and pleural spaces: Stable scarring versus atelectasis right lower lobe. No sign of infiltrate or mass. No sign of pleural effusion. No pneumothorax. Bones and soft tissues: No significant findings. IMPRESSION: Unremarkable chest. Stable appearance of the chest compared to 11/30/16. Dictated by Jas Dupree MD @ 12/12/2016 5:14:32 PM Dictated by: Jas Dupree MD @ 12/12/2016 17:14:38 (Electronic Signature) Report Signed by Proxy. DAVEY
[2016-12-13 11:53] VITALS: BP 129/88
== END 2016-12-13 12:00 | disposition home or self-care (01) ==
LOC: MW.ED 16:08 → MW.MS 18:23
PROVIDERS: ADMIT Internal Medicine; ATTEND Internal Medicine
DX: R07.9 Chest pain, unspecified (principal); I25.10 Atherosclerotic heart disease of native coronary artery without angina pectoris; I10 Essential (primary) hypertension; J44.9 Chronic obstructive pulmonary disease, unspecified; R00.1 Bradycardia, unspecified; J96.90 Respiratory failure, unspecified, unspecified whether with hypoxia or hypercapnia; M19.90 Unspecified osteoarthritis, unspecified site; Z85.01 Personal history of malignant neoplasm of esophagus; Z87.891 Personal history of nicotine dependence; Z91.048 Other nonmedicinal substance allergy status; Z99.81 Dependence on supplemental oxygen; Z79.82 Long term (current) use of aspirin; Z79.51 Long term (current) use of inhaled steroids; Z79.02 Long term (current) use of antithrombotics/antiplatelets; Z79.899 Other long term (current) drug therapy; Z95.5 Presence of coronary angioplasty implant and graft; Z90.49 Acquired absence of other specified parts of digestive tract; Z98.890 Other specified postprocedural states
CPT/HCPCS: 36415; 71010; 80053; 84484; 85025; 93005; 96360; 96361; 99285; A9270; G0378; J7040; 99284

== ENCOUNTER 2018-05-21 10:49 | Emergency (ER) | payer MEDICARE, BC ==
[2018-05-21] MEDS ORDERED: Sodium Chloride 0.9% 2.5 ML Syringe FLUSH PRN (11:00)
[2018-05-21] MEDS ORDERED: Sodium Chloride 0.9% 10 ML Syringe FLUSH PRN (11:00)
[2018-05-21] MEDS ORDERED: Aspirin 81 MG Tab.Chew PO ONE (11:00)
[2018-05-21] MEDS ORDERED: Albuterol/Ipratropium 3.0-0.5 MG/3 ML Neb Soln NEB ONE (11:00)
[2018-05-21] MEDS ORDERED: methylPREDNISolone Sodium Succinate 125 MG/2 ML SDV IVPUSH ONE (11:00)
--- NOTE | 2018-05-21 11:04 | EDM.PDOC ---
ED HPI GENERAL MEDICAL PROBLEM - General Stated Complaint: CHEST PAIN Time Seen by Provider: 05/21/18 10:53 - History of Present Illness INITIAL COMMENTS - FREE TEXT/NARRATIVE: HISTORY AND PHYSICAL: History of present illness: The patient is 88-year-old male who follows in our clinics and was seen last week by Dr. Hernández and also follows with her commercial manager and has a history of coronary artery disease with stents times several episodes the last one 2 years ago in [facility], COPD for which he uses chronic oxygen therapy and nebulizer treatments hypertension and diabetes and presents with complaints of diffuse anterior chest pain that the says he has all the time but seem to be worse last night and a harsh cough with wheezing. The patient was seen last week and had a chest x-ray which I reviewed and was normal as well as a CBC and was placed on prednisone and Zithromax and says he didn't feel much better. The patient doesn't complain of chest pain currently but the says that he had all night and he was complaining but he always seems to have it and "no one can tell us what causes it". He currently says he feels wheezy and tight these had no fevers nausea vomiting or abdominal pain. He has no leg pain or swelling and states compliance with his medications. His last nebulizer treatment was this morning. He currently does feel slightly short of breath but has no pain. Review of systems: As per history of present illness and below otherwise all systems reviewed and negative. Past medical history: As per history of present illness and as reviewed below otherwise noncontributory. Surgical history: As per history of present illness and as reviewed below otherwise noncontributory. Social history: No reported history of drug or alcohol abuse. Family history: As per history of present illness and as reviewed below otherwise noncontributory. Physical exam: Gen.: Well-developed well-nourished thin man who is nontoxic and speaking clearly in the ED. He has audible wheezing on my evaluation. Vital signs are noted by me HEENT: Atraumatic, normocephalic, , negative for conjunctival pallor or scleral icterus, mucous membranes moist, throat clear, neck supple, nontender, trachea midline. Lungs: Breath sounds bilaterally with expiratory wheezing and coarse breath sounds, there is no accessory muscle use or stridor, breath sounds equal bilaterally, chest nontender. Heart: S1S2, regular, negative for clicks, rubs, or JVD. Abdomen: Soft, nondistended, nontender. NABS Negative for costovertebral tenderness. Pelvis: Stable nontender. Genitourinary: Deferred. Rectal: Deferred. Extremities: Atraumatic, negative for cords or calf pain. Neurovascular unremarkable. No pedal edema Neuro: Awake, alert, oriented. Cranial nerves II through XII unremarkable. Cerebellum unremarkable. Motor and sensory unremarkable throughout. Exam nonfocal. Diagnostics: EKG CBC CMP INR BNP troponin chest x-ray UA blood cultures 2 Therapeutics: IV O2 monitor Solu-Medrol duo nab aspirin Patient says he does feel better after the DuoNeb and he is less audibly wheezy. I discussed with the the treatment he is at home and the only use the albuterol. I discussed this case with Dr. Wheatley who does not feel that the patient needs to be admitted from a cardiac standpoint as he just recently had a [employer] scan that was unchanged from old. I will attempt to discuss this case with Dr. Hernández. As the patient has never had any active chest pain here and it is more acute on chronic problem I feel that I will discuss the case with the provider and offer observation admission but did not feel strongly in that capacity. I am unsure if his elevated white cell count is due to his increased prednisone use and will discuss this with Dr. Hernández. 1317: As was discussed with Dr. Hernández who agrees that he is end-stage pulmonary disease and that I can give him a few duo nebs for home to try in his nebulizer machine if this seemed to work better. He is unsure of the elevation in the white cell count without a fever and he would like me to check a urine which I will do. The patient and concur that he has not had any fevers at home. I will write the patient a prescription to repeat his WBC count with differential in 2 days and send that result to Dr. Hernández she has agreed to follow-up and intervene as needed. Sure if the slight elevation in his prednisone dose from 2.5 twice a day 4 mg has caused that to occur but in light of no other systemic complaints I will just follow this as an outpatient and Dr. Hernández as comfortable as is the family and patient. 1345: UA is negative for signs of infection so I will have the patient return in 2 days for repeat CBC with differential and we'll send those results Dr. Hernández to review. I also sent 2 blood cultures to be completely thorough and patient and are aware of reasons to return and signs and symptoms to look for. Impression: Atypical chest pain with history of chronic atypical chest pain stable, bronchospasm with history of end-stage COPD stable, leukocytosis asymptomatic etiology unclear Definitive disposition and diagnosis as appropriate pending reevaluation and review of above. - Related Data Allergies Allergy/AdvReac Type Severity Reaction Status Date / Time Animal Dander Allergy Mild Cough Uncoded 09/20/16 21:49 MDT smoke Allergy Cough Uncoded 09/20/16 21:49 MDT Home Meds: Home Meds Aspirin [Adult Low Dose Aspirin EC] 81 mg PO DAILY 12/21/13 [History] Latanoprost [Xalatan 0.005% Ophth Soln] 1 drop EYEBOTH BEDTIME 12/21/13 [History ] Multivit-Min/FA/Lycopene/Lut [Centrum Silver] 1 each PO DAILY 12/21/13 [History] Albuterol Sulfate 2.5 mg IH QID PRN 04/15/14 [History] Fluticasone/Salmeterol [Advair 250-50] 1 inhalation IH BID 04/15/14 [History] Ascorbate Calcium [Vitamin C] 1,000 mg PO DAILY 07/18/14 [History] Brimonidine Tartrate [Alphagan P] 1 drop EYEBOTH DAILY 08/23/15 [History] Erythromycin Base [Erythromycin 0.5% Ophth Oint] 1 applic EYEBOTH BEDTIME [History] Umeclidinium [place] [Incruse Ellipta*] 1 inhalation IH DAILY 06/28/16 [History] Clopidogrel [Plavix] 75 mg PO BEDTIME 09/20/16 [History] Metoprolol Succinate [Toprol XL] 25 mg PO BEDTIME 09/20/16 [History] Calcium Carbonate [Calcium] 600 mg PO BID 03/20/18 [History] Cholecalciferol (Vitamin D3) [Vitamin D3] 1,000 unit PO DAILY 03/20/18 [History] Isosorbide Mononitrate [Isosorbide Mononitrate ER] 120 mg PO DAILY 03/20/18 [ History] Vit A/Vit C/Vit E/Zinc/Copper [Preservision] 1 each PO BID 03/20/18 [History] predniSONE [Prednisone] 2.5 mg PO BIDMEALS 03/20/18 [History] atorvaSTATin Calcium [Lipitor] 40 mg PO BEDTIME 30 Days #30 tablet 03/21/18 [Rx] Past Medical History HEENT History: Reports: Glaucoma, Macular Degeneration Other HEENT History: wears glasses, top and bottom dentures Cardiovascular History: Reports: CAD, Stents Other Cardiovascular History: Stents placed "last Spring" Respiratory History: Reports: COPD Other Respiratory History: continuous 02 3L at home Gastrointestinal History: Reports: Other (See Below) Other Gastrointestinal History: esophogeal cancer, epigastric pain Genitourinary History: Reports: None Musculoskeletal History: Reports: Arthritis Other Musculoskeletal History: neck pain, rt elbow pain Neurological History: Reports: None Psychiatric History: Reports: None Endocrine/Metabolic History: Reports: None Hematologic History: Reports: None Immunologic History: Reports: None 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 Dermatologic History: Reports: Other (See Below) Other Dermatologic History: dermatitis - Infectious Disease History Infectious Disease History: Reports: None - Past Surgical History Head Surgeries/Procedures: Reports: None HEENT Surgical History: Reports: Cataract Surgery GI Surgical History: Reports: Appendectomy, Other (See Below) Other GI Surgeries/Procedures: 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 ED EXAM, GENERAL - Physical Exam Exam: See Below (See dictation) Course - Vital Signs Last Recorded V/S: Last Vital Signs Temp 36.8 C 05/21/18 11:00 Pulse 89 05/21/18 13:08 Resp 20 05/21/18 13:08 BP 146/59 H 05/21/18 13:08 Pulse Ox 97 05/21/18 13:08 - Orders/Labs/Meds Orders: Active Orders 24 hr Category Date Time Status Cardiac Monitoring [RC] . DIRECTED Care 05/21/18 10:59 Active EKG Documentation Completion [RC] STAT Care 05/21/18 10:59 Active Oxygen Therapy, ED [RC] ASDIRECTED Care 05/21/18 10:59 Active Pulse Oximetry [RC] ASDIRECTED Care 05/21/18 10:59 Active RT Aerosol Therapy [RC] ASDIRECTED Care 05/21/18 11:00 Active CULTURE BLOOD [BC] Stat Lab 05/21/18 13:22 Ordered CULTURE BLOOD [BC] Stat Lab 05/21/18 13:22 Ordered Sodium Chloride 0.9% [Saline Flush] Med 05/21/18 11:00 Active 10 ml FLUSH ASDIRECTED PRN Sodium Chloride 0.9% [Saline Flush] Med 05/21/18 11:00 Active 2.5 ml FLUSH ASDIRECTED PRN Blood Culture x2 Reflex Set [OM.PC] Stat Oth 05/21/18 13:22 Ordered Saline Lock Insert [OM.PC] Stat Ot 05/21/18 10:59 Ordered Medication Orders Sodium Chloride (Saline Flush) 10 ml FLUSH ASDIRECTED PRN PRN Reason: Keep Vein Open Sodium Chloride (Saline Flush) 2.5 ml FLUSH ASDIRECTED PRN PRN Reason: Keep Vein Open Labs: Laboratory Tests 05/21/18 05/21/18 05/21/18 Range/Units 10:55 10:55 10:55 WBC 18.80 H (4.0-11.0) K/uL RBC 4.25 L (4.50-5.90) M/uL Hgb 13.8 (13.0-17.0) g/dL Hct 41.0 (38.0-50.0) % MCV 96.5 (80.0-98.0) fL MCH 32.5 H (27.0-32.0) pg MCHC 33.7 (31.0-37.0) g/dL RDW Std Deviation 49.0 (28.0-62.0) fl RDW Coeff of Juanch[place] 14 (11.0-15.0) % Plt Count 195 (150-400) K/uL MPV 10.10 (7.40-12.00) fL Neut % (Auto) 82.8 H (48.0-80.0) % Lymph % (Auto) 9.1 L (16.0-40.0) % [place] % (Auto) 7.7 (0.0-15.0) % Eos % (Auto) 0.3 (0.0-7.0) % Baso % (Auto) 0.1 (0.0-1.5) % Neut # (Auto) 15.6 H (1.4-5.7) K/uL Lymph # (Auto) 1.7 (0.6-2.4) K/uL Mclennan # (Auto) 1.5 H (0.0-0.8) K/uL Eos # (Auto) 0.1 (0.0-0.7) K/uL Baso # (Auto) 0.0 (0.0-0.1) K/uL Nucleated RBC % 0.0 /100WBC Nucleated RBCs # 0 K/uL INR 0.99 Sodium 138 (136-148) mmol/L Potassium 3.7 (3.5-5.1) mmol/L Chloride 99 (98-107) mmol/L Carbon Dioxide 30.9 (21.0-32.0) mmol/L BUN 8 (7.0-18.0) mg/dL Creatinine 1.0 (0.8-1.3) mg/dL Est Cr Clr Drug Dosing 56.09 mL/min Estimated GFR (MDRD) > 60.0 ml/min Glucose 115 H (74-106) mg/dL Calcium 8.8 (8.5-10.1) mg/dL Total Bilirubin 1.1 H (0.2-1.0) mg/dL AST 18 (15-37) IU/L ALT 25 (14-63) IU/L Alkaline Phosphatase 85 (46-116) U/L Troponin I < 0.050 (0.000-0.056) ng/mL B-Natriuretic Peptide (<100) PG/ML Total Protein 7.2 (6.4-8.2) g/dL Albumin 3.5 (3.4-5.0) g/dL Globulin 3.7 (2.6-4.0) g/dL Albumin/Globulin Ratio 0.9 (0.9-1.6) Urine Color Urine Appearance Urine pH (5.0-8.0) Ur Specific [place] (1.001-1.035) Urine Protein (NEGATIVE) mg/dL Urine Glucose (UA) (NEGATIVE) mg/dL Urine Ketones (NEGATIVE) mg/dL Urine Occult Blood (NEGATIVE) Urine Nitrite (NEGATIVE) Urine Bilirubin (NEGATIVE) Urine Urobilinogen (<2.0) EU/dL Ur Leukocyte Esterase (NEGATIVE) 05/21/18 05/21/18 Range/Units 10:55 13:30 WBC (4.0-11.0) K/uL RBC (4.50-5.90) M/uL Hgb (13.0-17.0) g/dL Hct (38.0-50.0) % MCV (80.0-98.0) fL MCH (27.0-32.0) pg MCHC (31.0-37.0) g/dL RDW Std Deviation (28.0-62.0) fl RDW Coeff of Juancho (11.0-15.0) % Plt Count (150-400) K/uL MPV (7.40-12.00) fL Neut % (Auto) (48.0-80.0) % Lymph % (Auto) (16.0-40.0) % [place]cl[place] % (Auto) (0.0-15.0) % Eos % (Auto) (0.0-7.0) % Baso % (Auto) (0.0-1.5) % Neut # (Auto) (1.4-5.7) K/uL Lymph # (Auto) (0.6-2.4) K/uL [place] # (Auto) (0.0-0.8) K/uL Eos # (Auto) (0.0-0.7) K/uL Baso # (Auto) (0.0-0.1) K/uL Nucleated RBC % /100WBC Nucleated RBCs # K/uL INR Sodium (136-148) mmol/L Potassium (3.5-5.1) mmol/L Chloride (98-107) mmol/L Carbon Dioxide (21.0-32.0) mmol/L BUN (7.0-18.0) mg/dL Creatinine (0.8-1.3) mg/dL Est Cr Clr Drug Dosing mL/min Estimated GFR (MDRD) ml/min Glucose (74-106) mg/dL Calcium (8.5-10.1) mg/dL Total Bilirubin (0.2-1.0) mg/dL AST (15-37) IU/L ALT (14-63) IU/L Alkaline Phosphatase (46-116) U/L Troponin I (0.000-0.056) ng/mL B-Natriuretic Peptide 133 H (<100) PG/ML Total Protein (6.4-8.2) g/dL Albumin (3.4-5.0) g/dL Globulin (2.6-4.0) g/dL Albumin/Globulin Ratio (0.9-1.6) Urine Color YELLOW Urine Appearance CLEAR Urine pH 6.5 (5.0-8.0) Ur Specific [place] 1.010 (1.001-1.035) Urine Protein NEGATIVE (NEGATIVE) mg/dL Urine Glucose (UA) NEGATIVE (NEGATIVE) mg/dL Urine Ketones NEGATIVE (NEGATIVE) mg/dL Urine Occult Blood NEGATIVE (NEGATIVE) Urine Nitrite NEGATIVE (NEGATIVE) Urine Bilirubin NEGATIVE (NEGATIVE) Urine Urobilinogen 0.2 (<2.0) EU/dL Ur Leukocyte Esterase NEGATIVE (NEGATIVE) Meds: Medications Generic Name Dose Route Start Last Admin Trade Name Freq PRN Reason Stop Dose Admin Sodium Chloride 10 ml 05/21/18 11:00 Saline Flush FLUSH ASDIRECTED PRN Keep Vein Open Sodium Chloride 2.5 ml 05/21/18 11:00 Saline Flush FLUSH ASDIRECTED PRN Keep Vein Open Discontinued Medications Generic Name Dose Route Start Last Admin Trade Name Freq PRN Reason Stop Dose Admin Albuterol/Ipratropium 3 ml 05/21/18 11:00 05/21/18 11:10 Duoneb 3.0-0.5 Mg/3 Ml NEB 05/21/18 11:01 3 ml ONETIME ONE Administration Aspirin 324 mg 05/21/18 11:00 05/21/18 11:14 Aspirin PO 05/21/18 11:01 324 mg ONETIME ONE Administration Methylprednisolone Sodium Succinate 125 mg 05/21/18 11:00 05/21/18 11:16 Solu-Medrol IVPUSH 05/21/18 11:01 125 mg ONETIME ONE Administration Departure - Departure Time of Disposition: 13:48 Disposition: Home, Self-Care 01 Condition: Good Clinical Impression: Chronic chest pain COPD (chronic obstructive pulmonary disease) Qualifiers: COPD type: unspecified COPD Qualified Code(s): J44.9 - Chronic obstructive pulmonary disease, unspecified Leukocytosis Qualifiers: Leukocytosis type: other Qualified Code(s): D72.828 - Other elevated white blood cell count - Discharge Information Referrals: Derek Hernández MD [Primary Care Provider] - Additional Instructions: The following information is given to patients seen in the emergency department who are being discharged to home. This information is to outline your options for follow-up care. We provide all patients seen in our emergency department with a follow-up referral. The need for follow-up, as well as the timing and circumstances, are variable depending upon the specifics of your emergency department visit. If you don't have a primary care physician on staff, we will provide you with a referral. We always advise you to contact your personal physician following an emergency department visit to inform them of the circumstance of the visit and for follow-up with them and/or the need for any referrals to a consulting specialist. The emergency department will also refer you to a specialist when appropriate. This referral assures that you have the opportunity for followup care with a specialist. All of these measure are taken in an effort to provide you with optimal care, which includes your followup. Under all circumstances we always encourage you to contact your private physician who remains a resource for coordinating your care. When calling for followup care, please make the office aware that this follow-up is from your recent emergency room visit. If for any reason you are refused follow-up, please contact the [facility] emergency department at and ask to speak to the emergency department charge nurse. [facility] Primary care- Internal Medicine and Family [address] Hernández in the clinic for further instructions about home care plan as needed. Continue all home medications and add the DuoNeb to nebulizer to try to see if that helps your wheezing and chest discomfort more than just the plain albuterol. Please return to the hospital on to have repeat labs taken and Dr. Hernández will follow those up. If you do not hear from Dr. Hernández by 11 AM on Sunday please call his nurse to ask for those test results and for any recommendations. Return to ER as needed and as discussed - My Orders Last 24 Hours: My Active Orders 05/21/18 10:59 Cardiac Monitoring [RC] . DIRECTED EKG Documentation Completion [RC] STAT Oxygen Therapy, ED [RC] ASDIRECTED Pulse Oximetry [RC] ASDIRECTED Saline Lock Insert [OM.PC] Stat 05/21/18 11:00 RT Aerosol Therapy [RC] ASDIRECTED Sodium Chloride 0.9% [Saline Flush] 10 ml FLUSH ASDIRECTED PRN Sodium Chloride 0.9% [Saline Flush] 2.5 ml FLUSH ASDIRECTED PRN 05/21/18 13:22 CULTURE BLOOD [BC] Stat CULTURE BLOOD [BC] Stat Blood Culture x2 Reflex Set [OM.PC] Stat - Assessment/Plan Last 24 Hours: My Active Orders 05/21/18 10:59 Cardiac Monitoring [RC] . DIRECTED EKG Documentation Completion [RC] STAT Oxygen Therapy, ED [RC] ASDIRECTED Pulse Oximetry [RC] ASDIRECTED Saline Lock Insert [OM.PC] Stat 05/21/18 11:00 RT Aerosol Therapy [RC] ASDIRECTED Sodium Chloride 0.9% [Saline Flush] 10 ml FLUSH ASDIRECTED PRN Sodium Chloride 0.9% [Saline Flush] 2.5 ml FLUSH ASDIRECTED PRN 05/21/18 13:22 CULTURE BLOOD [BC] Stat CULTURE BLOOD [BC] Stat Blood Culture x2 Reflex Set [OM.PC] Stat
[2018-05-21 11:49] LABS: CHLORIDE,CL 99 mmol/L (98-107); SODIUM,NA 138 mmol/L (136-148)
--- NOTE | 2018-05-21 12:36 | CR ---
INDICATION: Cough x6 days HISTORY: Cough for 6 days. COMPARISON: 05/14/2018. TECHNIQUE: Chest, 2 views. FINDINGS: Diffuse pulmonary hyperinflation, compatible with obstructive pulmonary disease. Reticular type opacities at the lung bases, likely scar, stable from 05/14/2018. There is no acute airspace disease. There is no pneumothorax. The central airway is normal. The osseous structures are intact. Arterial calcifications of the thoracic aortic arch and descending thoracic aorta. IMPRESSION: Stable exam when compared with 05/14/2018. Dictated by Moo Madrigal MD @ 05/21/2018 12:34:50 PM Dictated by: Moo Madrigal MD @ 05/21/2018 12:34:57 (Electronically Signed)
[2018-05-21 14:13] VITALS: BP 151/62
== END 2018-05-21 14:13 | disposition home or self-care (01) ==
LOC: MW.ED 10:49
DX: J98.01 Acute bronchospasm (principal); R07.89 Other chest pain; J44.9 Chronic obstructive pulmonary disease, unspecified; I10 Essential (primary) hypertension; E11.9 Type 2 diabetes mellitus without complications; D72.829 Elevated white blood cell count, unspecified; I25.10 Atherosclerotic heart disease of native coronary artery without angina pectoris; Z91.09 Other allergy status, other than to drugs and biological substances; Z79.82 Long term (current) use of aspirin; Z79.899 Other long term (current) drug therapy; Z95.5 Presence of coronary angioplasty implant and graft; Z98.49 Cataract extraction status, unspecified eye; Z90.49 Acquired absence of other specified parts of digestive tract
CPT/HCPCS: 36415; 71046; 80053; 81003; 83880; 84484; 85025; 85610; 87040; 93005; 94640; 96374; 99284; A9270; J2930; J7620-GY

== ENCOUNTER 2018-07-22 11:26 | Observation (INO) | payer MEDICARE, BC ==
[2018-07-22] MEDS ORDERED: Sodium Chloride 0.9% 2.5 ML Syringe FLUSH PRN (11:33)
[2018-07-22] MEDS ORDERED: methylPREDNISolone Sodium Succinate 125 MG/2 ML SDV IVPUSH ONE (11:33)
[2018-07-22] MEDS ORDERED: Sodium Chloride 0.9% 10 ML Syringe FLUSH PRN (11:33)
--- NOTE | 2018-07-22 11:35 | EDM.PDOC ---
ED HPI GENERAL MEDICAL PROBLEM - General Stated Complaint: CAN'T BREATH AN CHEST PAIN Time Seen by Provider: 07/22/18 11:30 Source of Information: Reports: Patient History Limitations: Reports: No Limitations - History of Present Illness INITIAL COMMENTS - FREE TEXT/NARRATIVE: History of present illness: [] Review of systems: As per history of present illness and below otherwise all systems reviewed and negative. Past medical history: As per history of present illness and as reviewed below otherwise noncontributory. Surgical history: As per history of present illness and as reviewed below otherwise noncontributory. Social history: No reported history of drug or alcohol abuse. Family history: As per history of present illness and as reviewed below otherwise noncontributory. Physical exam: General: Well developed, well nourished in mild respiratory distress HEENT: Atraumatic, normocephalic, pupils reactive, negative for conjunctival pallor or scleral icterus, mucous membranes moist, throat clear, neck supple, nontender, trachea midline. Lungs: wheezing bilaterally, positive accessory muscle use chest nontender. Heart: S1S2, regular, negative for clicks, rubs, or JVD. No peripheral edema Abdomen: NABS, Soft, nondistended, nontender. Negative for masses or hepatosplenomegaly. Negative for costovertebral tenderness. Pelvis: Stable nontender. Genitourinary: Deferred. Rectal: Deferred. Extremities: Atraumatic, negative for cords or calf pain. Neurovascular unremarkable. Neuro: Awake, alert, oriented. Cranial nerves II through XII unremarkable. Cerebellum unremarkable. Motor and sensory unremarkable throughout. Exam nonfocal. Skin:warm and dry Diagnostics: EKG, CBC, chemistry, troponin, chest x-ray Therapeutics: DuoNeb, Solu-Medrol ED Course: Stable, workup negative Impression: COPD exacerbation, chest pain Prescriptions: Plan: Admit for rule out ND and further care Definitive disposition and diagnosis as appropriate pending reevaluation and review of above. - Related Data Allergies Allergy/AdvReac Type Severity Reaction Status Date / Time Animal Dander Allergy Mild Cough Uncoded 07/22/18 11:40 smoke Allergy Cough Uncoded 09/20/16 21:49 MDT Home Meds: Home Meds Aspirin [Adult Low Dose Aspirin EC] 81 mg PO DAILY 12/21/13 [History] Latanoprost [Xalatan 0.005% Ophth Soln] 1 drop EYEBOTH BEDTIME 12/21/13 [History ] Multivit-Min/FA/Lycopene/Lut [Centrum Silver] 1 each PO DAILY 12/21/13 [History] Albuterol Sulfate 2.5 mg IH QID PRN 04/15/14 [History] Fluticasone/Salmeterol [Advair 250-50] 1 inhalation IH BID 04/15/14 [History] Ascorbate Calcium [Vitamin C] 1,000 mg PO DAILY 07/18/14 [History] Brimonidine Tartrate [Alphagan P] 1 drop EYEBOTH DAILY 08/23/15 [History] Erythromycin Base [Erythromycin 0.5% Ophth Oint] 1 applic EYEBOTH BEDTIME [History] Umeclidinium [place] [Incruse Ellipta*] 1 inhalation IH DAILY 06/28/16 [History] Clopidogrel [Plavix] 75 mg PO BEDTIME 09/20/16 [History] Metoprolol Succinate [Toprol XL] 25 mg PO BEDTIME 09/20/16 [History] Calcium Carbonate [Calcium] 600 mg PO BID 03/20/18 [History] Cholecalciferol (Vitamin D3) [Vitamin D3] 1,000 unit PO DAILY 03/20/18 [History] Isosorbide Mononitrate [Isosorbide Mononitrate ER] 120 mg PO DAILY 03/20/18 [ History] Vit A/Vit C/Vit E/Zinc/Copper [Preservision] 1 each PO BID 03/20/18 [History] predniSONE [Prednisone] 2.5 mg PO BIDMEALS 03/20/18 [History] atorvaSTATin Calcium [Lipitor] 40 mg PO BEDTIME 30 Days #30 tablet 03/21/18 [Rx] Past Medical History HEENT History: Reports: Glaucoma, Macular Degeneration Other HEENT History: wears glasses, top and bottom dentures Cardiovascular History: Reports: CAD, Stents Other Cardiovascular History: Stents placed "last Spring" Respiratory History: Reports: COPD Other Respiratory History: continuous 02 3L at home Gastrointestinal History: Reports: Other (See Below) Other Gastrointestinal History: esophogeal cancer, epigastric pain Genitourinary History: Reports: None Musculoskeletal History: Reports: Arthritis Other Musculoskeletal History: neck pain, rt elbow pain Neurological History: Reports: None Psychiatric History: Reports: None Endocrine/Metabolic History: Reports: None Hematologic History: Reports: None Immunologic History: Reports: None 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 Dermatologic History: Reports: Other (See Below) Other Dermatologic History: dermatitis - Infectious Disease History Infectious Disease History: Reports: None - Past Surgical History Head Surgeries/Procedures: Reports: None HEENT Surgical History: Reports: Cataract Surgery GI Surgical History: Reports: Appendectomy, Other (See Below) Other GI Surgeries/Procedures: 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 ED EXAM, GENERAL - Physical Exam Exam: See Below (See history of present illness) Course - Vital Signs Last Recorded V/S: Last Vital Signs Temp 97.3 F 07/22/18 11:40 Pulse 90 07/22/18 13:00 Resp 20 07/22/18 13:00 BP 136/66 07/22/18 13:00 Pulse Ox 94 L 07/22/18 13:00 - Orders/Labs/Meds Orders: Active Orders 24 hr Category Date Time Status Patient Status [ADT] Stat ADT 07/22/18 13:18 Active EKG Documentation Completion [RC] STAT Care 07/22/18 11:33 Active RT Aerosol Therapy [RC] ASDIRECTED Care 07/22/18 11:46 Active Sodium Chloride 0.9% [Saline Flush] Med 07/22/18 11:33 Active 10 ml FLUSH ASDIRECTED PRN Sodium Chloride 0.9% [Saline Flush] Med 07/22/18 11:33 Active 2.5 ml FLUSH ASDIRECTED PRN Saline Lock Insert [OM.PC] Stat Oth 07/22/18 11:33 Ordered Medication Orders Sodium Chloride (Saline Flush) 10 ml FLUSH ASDIRECTED PRN PRN Reason: Keep Vein Open Last Admin: 07/22/18 11:57 Dose: 10 ml Sodium Chloride (Saline Flush) 2.5 ml FLUSH ASDIRECTED PRN PRN Reason: Keep Vein Open Last Admin: 07/22/18 11:56 Dose: 2.5 ml Labs: Laboratory Tests 07/22/18 07/22/18 Range/Units 11:35 11:35 WBC 10.29 (4.0-11.0) K/uL RBC 4.02 L (4.50-5.90) M/uL Hgb 12.6 L (13.0-17.0) g/dL Hct 39.1 (38.0-50.0) % MCV 97.3 (80.0-98.0) fL MCH 31.3 (27.0-32.0) pg MCHC 32.2 (31.0-37.0) g/dL RDW Std Deviation 47.5 (28.0-62.0) fl RDW Coeff of Juancho 13 (11.0-15.0) % Plt Count 174 (150-400) K/uL MPV 10.30 (7.40-12.00) fL Neut % (Auto) 82.0 H (48.0-80.0) % Lymph % (Auto) 11.5 L (16.0-40.0) % [place] % (Auto) 5.3 (0.0-15.0) % Eos % (Auto) 0.9 (0.0-7.0) % Baso % (Auto) 0.3 (0.0-1.5) % Neut # (Auto) 8.4 H (1.4-5.7) K/uL Lymph # (Auto) 1.2 (0.6-2.4) K/uL [place] # (Auto) 0.6 (0.0-0.8) K/uL Eos # (Auto) 0.1 (0.0-0.7) K/uL Baso # (Auto) 0.0 (0.0-0.1) K/uL Nucleated RBC % 0.0 /100WBC Nucleated RBCs # 0 K/uL Sodium 141 (136-148) mmol/L Potassium 3.4 L (3.5-5.1) mmol/L Chloride 103 (98-107) mmol/L Carbon Dioxide 28.7 (21.0-32.0) mmol/L BUN 13 (7.0-18.0) mg/dL Creatinine 1.2 (0.8-1.3) mg/dL Est Cr Clr Drug Dosing 46.86 mL/min Estimated GFR (MDRD) 57.3 ml/min Glucose 132 H (74-106) mg/dL Calcium 8.9 (8.5-10.1) mg/dL Total Bilirubin 0.7 (0.2-1.0) mg/dL AST 19 (15-37) IU/L ALT 20 (14-63) IU/L Alkaline Phosphatase 77 (46-116) U/L Troponin I < 0.050 (0.000-0.056) ng/mL Total Protein 7.2 (6.4-8.2) g/dL Albumin 3.6 (3.4-5.0) g/dL Globulin 3.6 (2.6-4.0) g/dL Albumin/Globulin Ratio 1.0 (0.9-1.6) Meds: Medications Generic Name Dose Route Start Last Admin Trade Name Freq PRN Reason Stop Dose Admin Sodium Chloride 10 ml 07/22/18 11:33 07/22/18 11:57 Saline Flush FLUSH 10 ml ASDIRECTED PRN Administration Keep Vein Open Sodium Chloride 2.5 ml 07/22/18 11:33 07/22/18 11:56 Saline Flush FLUSH 2.5 ml ASDIRECTED PRN Administration Keep Vein Open Discontinued Medications Generic Name Dose Route Start Last Admin Trade Name Freq PRN Reason Stop Dose Admin Albuterol/Ipratropium 3 ml 07/22/18 11:45 07/22/18 11:52 Duoneb 3.0-0.5 Mg/3 Ml NEB 07/22/18 11:46 3 ml ONETIME ONE Administration Methylprednisolone Sodium Succinate 125 mg 07/22/18 11:33 07/22/18 11:56 Solu-Medrol IVPUSH 07/22/18 11:34 125 mg ONETIME ONE Administration Departure - Departure Time of Disposition: 14:22 Disposition: Home, Self-Care 01 Condition: Good Clinical Impression: Chest pain Qualifiers: Chest pain type: unspecified Qualified Code(s): R07.9 - Chest pain, unspecified - Discharge Information *PRESCRIPTION DRUG MONITORING PROGRAM REVIEWED*: No *COPY OF PRESCRIPTION DRUG MONITORING REPORT IN PATIENT JOELLE: No - My Orders Last 24 Hours: My Active Orders 07/22/18 11:33 EKG Documentation Completion [RC] STAT Sodium Chloride 0.9% [Saline Flush] 10 ml FLUSH ASDIRECTED PRN Sodium Chloride 0.9% [Saline Flush] 2.5 ml FLUSH ASDIRECTED PRN Saline Lock Insert [OM.PC] Stat 07/22/18 11:46 RT Aerosol Therapy [RC] ASDIRECTED 07/22/18 13:18 Patient Status [ADT] Stat - Assessment/Plan Last 24 Hours: My Active Orders 07/22/18 11:33 EKG Documentation Completion [RC] STAT Sodium Chloride 0.9% [Saline Flush] 10 ml FLUSH ASDIRECTED PRN Sodium Chloride 0.9% [Saline Flush] 2.5 ml FLUSH ASDIRECTED PRN Saline Lock Insert [OM.PC] Stat 07/22/18 11:46 RT Aerosol Therapy [RC] ASDIRECTED 07/22/18 13:18 Patient Status [ADT] Stat
[2018-07-22] MEDS ORDERED: Albuterol/Ipratropium 3.0-0.5 MG/3 ML Neb Soln NEB ONE (11:45)
[2018-07-22 12:38] LABS: CHLORIDE,CL 103 mmol/L (98-107); SODIUM,NA 141 mmol/L (136-148)
--- NOTE | 2018-07-22 12:45 | CR ---
EXAMINATION: Portable chest radiograph. HISTORY: Shortness of breath. FINDINGS: The trachea is midline. The cardiomediastinal silhouette is within normal limits. Chronic interstitial prominence and hyperinflation. No focal consolidation or pleural effusion. No pneumothorax. Osseous structures appear unremarkable. IMPRESSION: Emphysematous changes without an acute cardiopulmonary finding.
--- NOTE | 2018-07-22 14:25 | PCM.HP ---
H&P History of Present Illness - General Date of Service: 07/22/18 Admit Problem/Dx: Admission Diagnosis/Problem Admission Diagnosis/Problem Chest pain Source of Information: Patient, Family (, meenakshi at bedside) History Limitations: Reports: No Limitations ("forgetful" per . helps which much of history) - History of Present Illness Initial Comments - Free Text/Narative: This 88 year old male with pmh of CAD with stenting, DM Type 2, COPD on continuous oxygen presented to the ED today with complaints of worsening shortness of breath and chest tightness. He reports this has been worsening over the last couple days, cough is congested and productive, with white to green phlegm. He denies fevers or chills. No URI symptoms. He denies associated symptoms with chest pain, actually he then denied having chest pain, but reports he was complaining of a tightness with coughing. No palpitations, radiation of pain or abdominal pain. No dysuria. No black or bloody BMs, reports mild constipation. Meenakshi reports they recently saw Dr Penaloza, pulmonology in [place], who changed inhalers but they have not filled them yet. He used to smoke but quit many years ago. Rare alcohol use. In the ED no leukocytosis noted, K= 3.4. Glucose 132. Troponin negative. 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 CXR revealed chronic emphysematous changes, no acute cardiopulmonary process. BP on arrival 174/144, RR 22, 94% on normal 3 L NC. He was given Solumedrol and Duonebs in the ED. He will be admitted for atypical chest pain and COPD exacerbation. PCP, Dr Hernández. - Related Data Allergies/Adverse Reactions: Allergies Allergy/AdvReac Type Severity Reaction Status Date / Time Animal Dander Allergy Mild Cough Uncoded 07/22/18 11:40 smoke Allergy Cough Uncoded 09/20/16 21:49 MDT Home Medications: Home Meds Aspirin [Adult Low Dose Aspirin EC] 81 mg PO DAILY 12/21/13 [History] Latanoprost [Xalatan 0.005% Ophth Soln] 1 drop EYEBOTH BEDTIME 12/21/13 [History ] Multivit-Min/FA/Lycopene/Lut [Centrum Silver] 1 each PO DAILY 12/21/13 [History] Albuterol Sulfate 2.5 mg IH QID PRN 04/15/14 [History] Fluticasone/Salmeterol [Advair 250-50] 1 inhalation IH BID 04/15/14 [History] Ascorbate Calcium [Vitamin C] 1,000 mg PO DAILY 07/18/14 [History] Brimonidine Tartrate [Alphagan P] 1 drop EYEBOTH DAILY 08/23/15 [History] Erythromycin Base [Erythromycin 0.5% Ophth Oint] 1 applic EYEBOTH BEDTIME [History] Umeclidinium [place] [Incruse Ellipta*] 62.5 mcg IH DAILY 06/28/16 [History] Clopidogrel [Plavix] 75 mg PO BEDTIME 09/20/16 [History] Metoprolol Succinate [Toprol XL] 25 mg PO BEDTIME 09/20/16 [History] Calcium Carbonate [Calcium] 600 mg PO BID 03/20/18 [History] Cholecalciferol (Vitamin D3) [Vitamin D3] 1,000 unit PO DAILY 03/20/18 [History] Isosorbide Mononitrate [Isosorbide Mononitrate ER] 120 mg PO DAILY 03/20/18 [ History] Vit A/Vit C/Vit E/Zinc/Copper [Preservision] 1 each PO BID 03/20/18 [History] predniSONE [Prednisone] 2.5 mg PO BIDMEALS 03/20/18 [History] atorvaSTATin Calcium [Lipitor] 40 mg PO BEDTIME 30 Days #30 tablet 03/21/18 [Rx] Roflumilast [Daliresp] 250 mcg PO DAILY 07/22/18 [History] Past Medical History HEENT History: Reports: Glaucoma, Macular Degeneration Other HEENT History: wears glasses, top and bottom dentures Cardiovascular History: Reports: CAD, Stents (2016) Respiratory History: Reports: COPD Other Respiratory History: continuous 02 3L at home Gastrointestinal History: Reports: Other (See Below) Other Gastrointestinal History: esophogeal cancer, epigastric pain Genitourinary History: Reports: None Musculoskeletal History: Reports: Arthritis Other Musculoskeletal History: neck pain, rt elbow pain Neurological History: Reports: TIA. 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 Dermatologic History: Reports: Other (See Below) Other Dermatologic History: dermatitis - Infectious Disease History Infectious Disease History: Reports: Other (See Below) Other Infectious Disease History: unknown - Past Surgical History Head Surgeries/Procedures: Reports: None HEENT Surgical History: Reports: Cataract Surgery Cardiovascular Surgical History: Reports: Coronary Artery Stent GI Surgical History: Reports: Appendectomy, Other (See Below) Other GI Surgeries/Procedures: 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 Social & Family History - Family History Family Medical History: Noncontributory - Tobacco Use Smoking Status *Q: Former Smoker Used Tobacco, but Quit: Yes Month/Year Tobacco Last Used: 45 years ago - Caffeine Use Caffeine Use: Reports: Coffee - Alcohol Use Alcohol Use Frequency: Rarely - Recreational Drug Use Recreational Drug Use: No - Living Situation & Occupation Living situation: Reports: Occupation: Retired H&P Review of Systems - Review of Systems: Review Of Systems: See Below General: Reports: No Symptoms. Denies: Fever, Chills, Malaise, Weakness HEENT: Denies: Headaches, Sinus Congestion, Sore Throat, Vertigo Pulmonary: Reports: Shortness of Breath, Wheezing, Pleuritic Chest Pain, Cough, Sputum. Denies: Hemoptysis Cardiovascular: Reports: Chest Pain (tightness with cough), Dyspnea on Exertion. Denies: Edema, Lightheadedness Gastrointestinal: Reports: Constipation. Denies: Abdominal Pain, Black Stool, Bloody Stool, Diarrhea, Nausea, Vomiting Genitourinary: Reports: No Symptoms. Denies: Dysuria, Frequency, Burning Musculoskeletal: Reports: No Symptoms Skin: Reports: No Symptoms Psychiatric: Reports: No Symptoms Neurological: Reports: No Symptoms Hematologic/Lymphatic: Reports: No Symptoms Immunologic: Reports: No Symptoms Exam - Exam Exam: See Below - Vital Signs Vital Signs: Last Vital Signs Temp 97.3 F 07/22/18 11:40 Pulse 90 07/22/18 13:00 Resp 20 07/22/18 13:00 BP 136/66 07/22/18 13:00 Pulse Ox 94 L 07/22/18 13:00 Weight: 76.385 kg - Exam General: Alert, Oriented, Cooperative HEENT: Conjunctiva Clear, Mucosa Moist & [place], Posterior Pharynx Clear Neck: Supple, Trachea Midline, Full Range of Motion. No: JVD Lungs: Rhonchi (throughout), Wheezing. No: Normal Respiratory Effort (dyspnea noted with some speech) Cardiovascular: Regular Rate, Regular Rhythm, Normal S1, Normal S2. No: Systolic Murmur GI/Abdominal Exam: Normal Bowel Sounds, Soft, Non-Tender, No Distention Extremities: Normal Inspection, Normal Range of Motion, Non-Tender, Pedal Edema (+1 edema) Neuro Extensive - Mental Status: Alert, Oriented x3, Normal Mood/Affect, Memory Loss-Remote Events (wqife reports this has been happening), Memory Loss-Recent Events Neuro Extensive - Motor, Sensory, Reflexes: CN II-XII Intact Psychiatric: Alert, Normal Affect, Normal Mood - Patient Data Lab Results Last 24 hrs: Laboratory Results - last 24 hr 07/22/18 07/22/18 Range/Units 11:35 11:35 WBC 10.29 (4.0-11.0) K/uL RBC 4.02 L (4.50-5.90) M/uL Hgb 12.6 L (13.0-17.0) g/dL Hct 39.1 (38.0-50.0) % MCV 97.3 (80.0-98.0) fL MCH 31.3 (27.0-32.0) pg MCHC 32.2 (31.0-37.0) g/dL RDW Std Deviation 47.5 (28.0-62.0) fl RDW Coeff of [place] 13 (11.0-15.0) % Plt Count 174 (150-400) K/uL MPV 10.30 (7.40-12.00) fL Neut % (Auto) 82.0 H (48.0-80.0) % Lymph % (Auto) 11.5 L (16.0-40.0) % [place] % (Auto) 5.3 (0.0-15.0) % Eos % (Auto) 0.9 (0.0-7.0) % Baso % (Auto) 0.3 (0.0-1.5) % Neut # (Auto) 8.4 H (1.4-5.7) K/uL Lymph # (Auto) 1.2 (0.6-2.4) K/uL [place] # (Auto) 0.6 (0.0-0.8) K/uL Eos # (Auto) 0.1 (0.0-0.7) K/uL Baso # (Auto) 0.0 (0.0-0.1) K/uL Nucleated RBC % 0.0 /100WBC Nucleated RBCs # 0 K/uL Sodium 141 (136-148) mmol/L Potassium 3.4 L (3.5-5.1) mmol/L Chloride 103 (98-107) mmol/L Carbon Dioxide 28.7 (21.0-32.0) mmol/L BUN 13 (7.0-18.0) mg/dL Creatinine 1.2 (0.8-1.3) mg/dL Est Cr Clr Drug Dosing 46.86 mL/min Estimated GFR (MDRD) 57.3 ml/min Glucose 132 H (74-106) mg/dL Calcium 8.9 (8.5-10.1) mg/dL Total Bilirubin 0.7 (0.2-1.0) mg/dL AST 19 (15-37) IU/L ALT 20 (14-63) IU/L Alkaline Phosphatase 77 (46-116) U/L Troponin I < 0.050 (0.000-0.056) ng/mL Total Protein 7.2 (6.4-8.2) g/dL Albumin 3.6 (3.4-5.0) g/dL Globulin 3.6 (2.6-4.0) g/dL Albumin/Globulin Ratio 1.0 (0.9-1.6) Result Diagrams: 07/22/18 11:35 07/22/18 11:35 EKG INTERPRETATION EKG Date: 07/22/18 Rhythm: NSR P-Wave: Present QRS: RBBB ST-T: Normal QT: Normal Comparison: No Change - Problem List (1) Chest pain SNOMED Code(s): 03083392 ICD Code: R07.9 - CHEST PAIN, UNSPECIFIED Status: Acute Current Visit: No Qualifiers: Chest pain type: chest pain on breathing Qualified Code(s): R07.1 - Chest pain on breathing; R07.81 - Pleurodynia (2) COPD (chronic obstructive pulmonary disease) SNOMED Code(s): 69968770 ICD Code: J44.9 - CHRONIC OBSTRUCTIVE PULMONARY DISEASE, UNSPECIFIED Status : Acute Current Visit: No Qualifiers: COPD type: emphysema (3) CAD (coronary artery disease) SNOMED Code(s): 31670843 ICD Code: I25.10 - ATHSCL HEART DISEASE OF [place] CORONARY ARTERY W/O ANG PCTRS Status: Chronic Current Visit: Yes Qualifiers: Coronary Disease-Associated Artery/Lesion type: [place] artery [place] vs. transplanted heart: [place] heart Associated angina: without angina Qualified Code(s): I25.10 - Atherosclerotic heart disease of [place] coronary artery without angina pectoris (4) HTN (hypertension) SNOMED Code(s): 58234336 ICD Code: I10 - ESSENTIAL (PRIMARY) HYPERTENSION Status: Chronic Current Visit: Yes Qualifiers: Hypertension type: essential hypertension Qualified Code(s): I10 - Essential (primary) hypertension (5) DM type 2 (diabetes mellitus, type 2) SNOMED Code(s): 44857501 ICD Code: E11.9 - TYPE 2 DIABETES MELLITUS WITHOUT COMPLICATIONS Status: Chronic Current Visit: Yes Qualifiers: Diabetes mellitus rat exterminator insulin use: without alf use Diabetes mellitus complication status: without complication Qualified Code(s): E11.9 - Type 2 diabetes mellitus without complications (6) Hx-TIA (transient ischemic attack) SNOMED Code(s): 119077962 ICD Code: Z86.73 - PRSNL HX OF TIA (TIA), AND CEREB INFRC W/O RESID DEFICITS Status: Chronic Current Visit: Yes (7) Osteoarthritis SNOMED Code(s): 752549294 ICD Code: M19.90 - UNSPECIFIED OSTEOARTHRITIS, UNSPECIFIED SITE Status: Chronic Current Visit: Yes (8) Inflammatory polyarthritis SNOMED Code(s): 516922668 ICD Code: M06.4 - INFLAMMATORY POLYARTHROPATHY Status: Chronic Current Visit: Yes (9) Dyspnea SNOMED Code(s): 199206065 ICD Code: R06.00 - DYSPNEA, UNSPECIFIED Status: Acute Current Visit: No (10) Pulmonary emphysema SNOMED Code(s): 70710710 ICD Code: J43.9 - EMPHYSEMA, UNSPECIFIED Status: Acute Current Visit: No Problem List Initiated/Reviewed/Updated: Yes Orders Last 24hrs: Active Orders 24 hr Category Date Time Status Patient Status [ADT] Stat ADT 07/22/18 13:18 Active EKG Documentation Completion [RC] STAT Care 07/22/18 11:33 Active RT Aerosol Therapy [RC] ASDIRECTED Care 07/22/18 11:46 Active CULTURE SPUTUM + SMEAR [RM] Routine Lab 07/22/18 14:18 Ordered Sodium Chloride 0.9% [Saline Flush] Med 07/22/18 11:33 Active 10 ml FLUSH ASDIRECTED PRN Sodium Chloride 0.9% [Saline Flush] Med 07/22/18 11:33 Active 2.5 ml FLUSH ASDIRECTED PRN Saline Lock Insert [OM.PC] Stat Oth 07/22/18 11:33 Ordered Medication Orders Sodium Chloride (Saline Flush) 10 ml FLUSH ASDIRECTED PRN PRN Reason: Keep Vein Open Last Admin: 07/22/18 11:57 Dose: 10 ml Sodium Chloride (Saline Flush) 2.5 ml FLUSH ASDIRECTED PRN PRN Reason: Keep Vein Open Last Admin: 07/22/18 11:56 Dose: 2.5 ml Assessment/Plan Comment:: This 88 year old male admitted with atypical chest pain and COPD exacerbation 1. Atypical chest pain: tightness with breathing and coughing. Will trend troponins due to history, likely secondary to COPD exacerbation. 2. COPD exacerbation: Review Dr Penaloza's note and placed on chart. Trelegy was prescribed in place on Advair and Incruse, but they have not filled yet. Continue Advair and Incruse. Add Solumedrol 125 mg IV Q6hr, Duonebs Q4 hrs. RT consult for IS and flutter valve. Sputum culture. Will add Levaquin due to productive cough and COPD exacerbation. 3. DM Type 2: Diet controlled, will place on Novolog SSI due to steroid administration and likely to elevate BS. 4. CAD; Stable, will rule out ASC as above. Continue Plavix ASA and statin as well as Imdur. 5. HTN: Initially elevated on arrival to ED, but since then has normalized. Continue Metoprolol and Lasix VTE prophylaxis: Heparin. Dispo: 1-2 days pending improvement.
[2018-07-22] MEDS ORDERED: Ondansetron 4 MG Tab.DIS PO PRN (14:27)
[2018-07-22] MEDS ORDERED: Acetaminophen 325 MG Tab PO PRN (14:27)
[2018-07-22] MEDS ORDERED: Albuterol 0.5% 5 MG/ML Neb Soln 20 ML Bottle NEB PRN (14:30)
[2018-07-22] MEDS ORDERED: Levofloxacin/Dextrose 5%-Water 750 MG in Premix Bag 1 BAG IV SCH ×2 (14:45→17:15)
[2018-07-22] MEDS: Albuterol/Ipratropium 3.0-0.5 MG/3 ML Neb Soln NEB SCH ×2 (17:23→21:08)
[2018-07-22] MEDS: Heparin Sodium 5,000 Units/ML Vial SUBCUT SCH (17:23)
[2018-07-22] MEDS: Insulin Aspart 100 Units/ML 3 ML Pen SUBCUT SCH (17:24)
[2018-07-22] MEDS: methylPREDNISolone Sodium Succinate 125 MG/2 ML SDV IVPUSH SCH ×2 (17:24→22:33)
[2018-07-22] MEDS ORDERED: Calcium Carbonate 500 MG Tab.Chew PO PRN (20:12)
[2018-07-22] MEDS ORDERED: Metoprolol Succinate 25 MG Tab.ER PO SCH (21:00)
[2018-07-22] MEDS ORDERED: Latanoprost 0.005% Ophth Soln 2.5 ML Bottle EYEBOTH SCH (21:00)
[2018-07-22] MEDS ORDERED: Clopidogrel 75 MG Tab PO SCH (21:00)
[2018-07-22] MEDS ORDERED: atorvaSTATin 40 MG Tab PO SCH (21:00)
[2018-07-22] MEDS ORDERED: Erythromycin Base 0.5% Ophth Oint 1 GM Tube EYEBOTH SCH (21:00)
[2018-07-22] MEDS: Fluticasone/Salmeterol 250-50 MCG Inhalation Powder 14/Diskus INH SCH (22:28)
[2018-07-22] MEDS: PRESERVISION PO SCH (22:28)
[2018-07-22] MEDS: Docusate Sodium 100 MG Cap PO SCH (22:28)
[2018-07-23] MEDS: Albuterol/Ipratropium 3.0-0.5 MG/3 ML Neb Soln NEB SCH ×3 (02:50→09:36)
[2018-07-23] MEDS: Heparin Sodium 5,000 Units/ML Vial SUBCUT SCH (02:50)
[2018-07-23] MEDS: methylPREDNISolone Sodium Succinate 125 MG/2 ML SDV IVPUSH SCH (07:39)
[2018-07-23] MEDS ORDERED: Latanoprost 0.005% Ophth Soln 2.5 ML Bottle EYEBOTH SCH (07:54)
[2018-07-23 07:57] VITALS: BP 150/77
[2018-07-23] MEDS ORDERED: LATANOPROST OPTH EYEBOTH SCH (07:57)
[2018-07-23] MEDS: Insulin Aspart 100 Units/ML 3 ML Pen SUBCUT SCH (08:45)
[2018-07-23] MEDS: Docusate Sodium 100 MG Cap PO SCH (08:51)
--- NOTE | 2018-07-23 08:58 | PCM.DCSUM1 ---
Discharge Summary - Hospital Course Brief History: This 88 year old male with pmh of CAD with stenting, DM Type 2, COPD on continuous oxygen presented to the ED with complaints of worsening shortness of breath and chest tightness. He reports this has been worsening over the last couple days, cough is congested and productive, with white to green phlegm. He denies fevers or chills. No URI symptoms. He denies associated symptoms with chest pain, actually he then denied having chest pain, but reports he was complaining of a tightness with coughing. No palpitations, radiation of pain or abdominal pain. No dysuria. No black or bloody BMs, reports mild constipation. Shelby reports they recently saw Dr Penaloza, pulmonology in [place], who changed inhalers but they have not filled them yet. He used to smoke but quit many years ago. Rare alcohol use. In the ED no leukocytosis noted, K= 3.4. Glucose 132. Troponin negative. 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 CXR revealed chronic emphysematous changes , no acute cardiopulmonary process. BP on arrival 174/144, RR 22, 94% on normal 3 L NC. He was given Solumedrol and Duonebs in the ED. He will be admitted for atypical chest pain and COPD exacerbation. PCP, Dr Hernández. Diagnosis: Stroke: No - Discharge Data Discharge Date: 07/23/18 Discharge Disposition: Home, Self-Care 01 Condition: Good - Discharge Diagnosis/Problem(s) (1) Chest pain SNOMED Code(s): 65199034 ICD Code: R07.9 - CHEST PAIN, UNSPECIFIED Status: Acute Current Visit: No Qualifiers: Chest pain type: chest pain on breathing Qualified Code(s): R07.1 - Chest pain on breathing; R07.81 - Pleurodynia (2) COPD (chronic obstructive pulmonary disease) SNOMED Code(s): 77863202 ICD Code: J44.9 - CHRONIC OBSTRUCTIVE PULMONARY DISEASE, UNSPECIFIED Status : Acute Current Visit: No Qualifiers: COPD type: emphysema (3) CAD (coronary artery disease) SNOMED Code(s): 26422166 ICD Code: I25.10 - ATHSCL HEART DISEASE OF [place] CORONARY ARTERY W/O ANG PCTRS Status: Chronic Current Visit: Yes Qualifiers: Coronary Disease-Associated Artery/Lesion type: [place] artery [place] vs. transplanted heart: [place] heart Associated angina: without angina Qualified Code(s): I25.10 - Atherosclerotic heart disease of [place] coronary artery without angina pectoris (4) HTN (hypertension) SNOMED Code(s): 61160400 ICD Code: I10 - ESSENTIAL (PRIMARY) HYPERTENSION Status: Chronic Current Visit: Yes Qualifiers: Hypertension type: essential hypertension Qualified Code(s): I10 - Essential (primary) hypertension (5) DM type 2 (diabetes mellitus, type 2) SNOMED Code(s): 16728706 ICD Code: E11.9 - TYPE 2 DIABETES MELLITUS WITHOUT COMPLICATIONS Status: Chronic Current Visit: Yes Qualifiers: Diabetes mellitus [employer] insulin use: without [employer] use Diabetes mellitus complication status: without complication Qualified Code(s): E11.9 - Type 2 diabetes mellitus without complications (6) Hx-TIA (transient ischemic attack) SNOMED Code(s): 315143457 ICD Code: Z86.73 - PRSNL HX OF TIA (TIA), AND CEREB INFRC W/O RESID DEFICITS Status: Chronic Current Visit: Yes (7) Osteoarthritis SNOMED Code(s): 972667463 ICD Code: M19.90 - UNSPECIFIED OSTEOARTHRITIS, UNSPECIFIED SITE Status: Chronic Current Visit: Yes (8) Inflammatory polyarthritis SNOMED Code(s): 556929580 ICD Code: M06.4 - INFLAMMATORY POLYARTHROPATHY Status: Chronic Current Visit: Yes (9) Dyspnea SNOMED Code(s): 072571574 ICD Code: R06.00 - DYSPNEA, UNSPECIFIED Status: Acute Current Visit: No (10) Pulmonary emphysema SNOMED Code(s): 58537427 ICD Code: J43.9 - EMPHYSEMA, UNSPECIFIED Status: Acute Current Visit: No - Patient Summary/Data Consults: Consultations 07/22/18 14:27 Respiratory Care Assess and Treatment [CONS] Routine - Patient Instructions Diet: Heart Healthy Diet, Diabetic Diet Activity: As Tolerated Driving: Do Not Drive Showering/Bathing: May Shower Notify Provider of: Fever, Increased Pain, Swelling and Redness, Drainage, Nausea and/or Vomiting - Discharge Plan *PRESCRIPTION DRUG MONITORING PROGRAM REVIEWED*: No *COPY OF PRESCRIPTION DRUG MONITORING REPORT IN PATIENT JOELLE: No Prescriptions/Med Rec: levoFLOXacin [Levaquin] 750 mg PO Q48H #2 tab predniSONE [Prednisone] 40 mg PO DAILY #6 tablet Home Medications: Home Meds Aspirin [Adult Low Dose Aspirin EC] 81 mg PO DAILY 12/21/13 [History] Latanoprost [Xalatan 0.005% Ophth Soln] 1 drop EYEBOTH BEDTIME 12/21/13 [History ] Multivit-Min/FA/Lycopene/Lut [Centrum Silver] 1 each PO DAILY 12/21/13 [History] Albuterol Sulfate 2.5 mg IH QID PRN 04/15/14 [History] Fluticasone/Salmeterol [Advair 250-50] 1 inhalation IH BID 04/15/14 [History] Ascorbate Calcium [Vitamin C] 1,000 mg PO BID 07/18/14 [History] Brimonidine Tartrate [Alphagan P] 1 drop EYEBOTH DAILY 08/23/15 [History] Erythromycin Base [Erythromycin 0.5% Ophth Oint] 1 applic EYEBOTH BEDTIME [History] Umeclidinium [place] [Incruse Ellipta*] 62.5 mcg IH DAILY 06/28/16 [History] Clopidogrel [Plavix] 75 mg PO BEDTIME 09/20/16 [History] Metoprolol Succinate [Toprol XL] 25 mg PO BEDTIME 09/20/16 [History] Calcium Carbonate [Calcium] 600 mg PO ASDIRECTED PRN 03/20/18 [History] Cholecalciferol (Vitamin D3) [Vitamin D3] 1,000 unit PO DAILY 03/20/18 [History] Isosorbide Mononitrate [Isosorbide Mononitrate ER] 120 mg PO DAILY 03/20/18 [ History] Vit A/Vit C/Vit E/Zinc/Copper [Preservision] 1 each PO BID 03/20/18 [History] predniSONE [Prednisone] 2.5 mg PO BIDMEALS 03/20/18 [History] atorvaSTATin Calcium [Lipitor] 40 mg PO BEDTIME 30 Days #30 tablet 03/21/18 [Rx] Roflumilast [Daliresp] 250 mcg PO DAILY 07/22/18 [History] levoFLOXacin [Levaquin] 750 mg PO Q48H #2 tab 07/23/18 [Rx] predniSONE [Prednisone] 40 mg PO DAILY #6 tablet 07/23/18 [Rx] Oxygen Therapy Mode: Nasal Cannula Oxygen Flow Rate (L/min): 3 Referrals: PCP,Unknown [Primary Care Provider] - (1 week) - Discharge Summary/Plan Comment DC Time >30 min.: No Discharge Summary/Plan Comment: Admitting Diagnoses: COPD exacerbation Atypical chest pain- pleuritic Discharge Diagnoses: COPD exacerbation Other PMH: CAD HTN DM Type 2 Hx TIA Dementia Bill was admitted and treated for mild COPD exacerbation with Solumedrol and Duonebs. He was also placed on Levaquin due to productive cough. He is feeling much better this morning, remains on 3 L NC, which is his baseline. Cough is better and less congested feeling. He has no further chest pain, troponins were trended due to history. But chest pain was likely pleuritis in nature, as it worsened with cough and deep breathing. He is to follow up with PCP, Dr Hernández in 1 week. He will be sent home with Levaquin for 4 more days and 3 more days of Prednisone. is comfortable going home and he is alert and oriented, anxious to go home. They are to return to ED or clinic if concerns should arise. - General Info Date of Service: 07/23/18 Admission Dx/Problem (Free Text: Admission Diagnosis/Problem Admission Diagnosis/Problem Chest pain Subjective Update: Sitting on edge of bed, just finished breakfast. No chest pain and reports he is feeling much better. Cough has improved. Asking to go home. Functional Status: Reports: Pain Controlled, Tolerating Diet, Ambulating, Urinating - Review of Systems General: Reports: No Symptoms. Denies: Fever, Weakness HEENT: Reports: No Symptoms. Denies: Headaches, Sore Throat, Visual Changes Pulmonary: Reports: No Symptoms. Denies: Shortness of Breath Cardiovascular: Reports: No Symptoms. Denies: Chest Pain Gastrointestinal: Reports: No Symptoms. Denies: Abdominal Pain, Nausea, Vomiting Genitourinary: Reports: No Symptoms. Denies: Dysuria, Frequency Musculoskeletal: Reports: No Symptoms Skin: Reports: No Symptoms Neurological: Reports: No Symptoms Psychiatric: Reports: No Symptoms - Patient Data Vitals - Most Recent: Last Vital Signs Temp 97.5 F 07/23/18 07:15 Pulse 104 H 07/23/18 07:15 Resp 18 07/23/18 07:15 BP 150/77 H 07/23/18 07:15 Pulse Ox 95 07/23/18 07:15 Weight - Most Recent: 76.385 kg I&O - Last 24 hours: Intake & Output 07/22/18 07/23/18 07/23/18 22:59 06:59 14:59 Intake Total 100 780 Output Total 100 125 Balance 0 655 Lab Results - Last 24 hrs: Laboratory Results - last 24 hr 07/22/18 07/22/18 07/22/18 Range/Units 11:35 11:35 17:15 WBC 10.29 (4.0-11.0) K/uL RBC 4.02 L (4.50-5.90) M/uL Hgb 12.6 L (13.0-17.0) g/dL Hct 39.1 (38.0-50.0) % MCV 97.3 (80.0-98.0) fL MCH 31.3 (27.0-32.0) pg MCHC 32.2 (31.0-37.0) g/dL RDW Std Deviation 47.5 (28.0-62.0) fl RDW Coeff of [place] 13 (11.0-15.0) % Plt Count 174 (150-400) K/uL MPV 10.30 (7.40-12.00) fL Neut % (Auto) 82.0 H (48.0-80.0) % Lymph % (Auto) 11.5 L (16.0-40.0) % [place] % (Auto) 5.3 (0.0-15.0) % Eos % (Auto) 0.9 (0.0-7.0) % Baso % (Auto) 0.3 (0.0-1.5) % Neut # (Auto) 8.4 H (1.4-5.7) K/uL Lymph # (Auto) 1.2 (0.6-2.4) K/uL [place] # (Auto) 0.6 (0.0-0.8) K/uL Eos # (Auto) 0.1 (0.0-0.7) K/uL Baso # (Auto) 0.0 (0.0-0.1) K/uL Nucleated RBC % 0.0 /100WBC Nucleated RBCs # 0 K/uL Sodium 141 (136-148) mmol/L Potassium 3.4 L (3.5-5.1) mmol/L Chloride 103 (98-107) mmol/L Carbon Dioxide 28.7 (21.0-32.0) mmol/L BUN 13 (7.0-18.0) mg/dL Creatinine 1.2 (0.8-1.3) mg/dL Est Cr Clr Drug Dosing 46.86 mL/min Estimated GFR (MDRD) 57.3 ml/min Glucose 132 H (74-106) mg/dL POC Glucose 201 H (60-110) mg/dL Calcium 8.9 (8.5-10.1) mg/dL Total Bilirubin 0.7 (0.2-1.0) mg/dL AST 19 (15-37) IU/L ALT 20 (14-63) IU/L Alkaline Phosphatase 77 (46-116) U/L Troponin I < 0.050 (0.000-0.056) ng/mL Total Protein 7.2 (6.4-8.2) g/dL Albumin 3.6 (3.4-5.0) g/dL Globulin 3.6 (2.6-4.0) g/dL Albumin/Globulin Ratio 1.0 (0.9-1.6) 07/22/18 07/22/18 07/22/18 Range/Units 17:29 20:43 23:31 WBC (4.0-11.0) K/uL RBC (4.50-5.90) M/uL Hgb (13.0-17.0) g/dL Hct (38.0-50.0) % MCV (80.0-98.0) fL MCH (27.0-32.0) pg MCHC (31.0-37.0) g/dL RDW Std Deviation (28.0-62.0) fl RDW Coeff of [place] (11.0-15.0) % Plt Count (150-400) K/uL MPV (7.40-12.00) fL Neut % (Auto) (48.0-80.0) % Lymph % (Auto) (16.0-40.0) % [place] % (Auto) (0.0-15.0) % Eos % (Auto) (0.0-7.0) % Baso % (Auto) (0.0-1.5) % Neut # (Auto) (1.4-5.7) K/uL Lymph # (Auto) (0.6-2.4) K/uL [place] # (Auto) (0.0-0.8) K/uL Eos # (Auto) (0.0-0.7) K/uL Baso # (Auto) (0.0-0.1) K/uL Nucleated RBC % /100WBC Nucleated RBCs # K/uL Sodium (136-148) mmol/L Potassium (3.5-5.1) mmol/L Chloride (98-107) mmol/L Carbon Dioxide (21.0-32.0) mmol/L BUN (7.0-18.0) mg/dL Creatinine (0.8-1.3) mg/dL Est Cr Clr Drug Dosing mL/min Estimated GFR (MDRD) ml/min Glucose (74-106) mg/dL POC Glucose 211 H (60-110) mg/dL Calcium (8.5-10.1) mg/dL Total Bilirubin (0.2-1.0) mg/dL AST (15-37) IU/L ALT (14-63) IU/L Alkaline Phosphatase (46-116) U/L Troponin I < 0.050 < 0.050 (0.000-0.056) ng/mL Total Protein (6.4-8.2) g/dL Albumin (3.4-5.0) g/dL Globulin (2.6-4.0) g/dL Albumin/Globulin Ratio (0.9-1.6) 07/23/18 07/23/18 07/23/18 Range/Units 04:33 04:33 06:46 WBC 8.78 (4.0-11.0) K/uL RBC 4.03 L (4.50-5.90) M/uL Hgb 12.6 L (13.0-17.0) g/dL Hct 38.5 (38.0-50.0) % MCV 95.5 (80.0-98.0) fL MCH 31.3 (27.0-32.0) pg MCHC 32.7 (31.0-37.0) g/dL RDW Std Deviation 45.8 (28.0-62.0) fl RDW Coeff of [place] 13 (11.0-15.0) % Plt Count 165 (150-400) K/uL MPV 10.70 (7.40-12.00) fL Neut % (Auto) 92.5 H (48.0-80.0) % Lymph % (Auto) 6.5 L (16.0-40.0) % [place] % (Auto) 1.0 (0.0-15.0) % Eos % (Auto) 0.0 (0.0-7.0) % Baso % (Auto) 0.0 (0.0-1.5) % Neut # (Auto) 8.1 H (1.4-5.7) K/uL Lymph # (Auto) 0.6 (0.6-2.4) K/uL [place] # (Auto) 0.1 (0.0-0.8) K/uL Eos # (Auto) 0.0 (0.0-0.7) K/uL Baso # (Auto) 0.0 (0.0-0.1) K/uL Nucleated RBC % 0.0 /100WBC Nucleated RBCs # 0 K/uL Sodium 137 (136-148) mmol/L Potassium 3.6 (3.5-5.1) mmol/L Chloride 101 (98-107) mmol/L Carbon Dioxide 27.2 (21.0-32.0) mmol/L BUN 16 (7.0-18.0) mg/dL Creatinine 1.3 (0.8-1.3) mg/dL Est Cr Clr Drug Dosing 43.25 mL/min Estimated GFR (MDRD) 52.2 ml/min Glucose 194 H (74-106) mg/dL POC Glucose 214 H (60-110) mg/dL Calcium 8.5 (8.5-10.1) mg/dL Total Bilirubin (0.2-1.0) mg/dL AST (15-37) IU/L ALT (14-63) IU/L Alkaline Phosphatase (46-116) U/L Troponin I (0.000-0.056) ng/mL Total Protein (6.4-8.2) g/dL Albumin (3.4-5.0) g/dL Globulin (2.6-4.0) g/dL Albumin/Globulin Ratio (0.9-1.6) SHELIA Results - Last 24 hrs: Microbiology 07/22/18 14:56 Gram Stain - Preliminary Sputum - Expectorated Med Orders - Current: Current Medications Acetaminophen (Tylenol) 650 mg PO Q4H PRN PRN Reason: Pain (mild 1-3) Albuterol (Proventil Neb Soln) 2.5 mg NEB Q2H PRN PRN Reason: SOB/Wheezing Albuterol/Ipratropium (Duoneb 3.0-0.5 Mg/3 Ml) 3 ml NEB Q4HRRT [facility] Last Admin: 07/23/18 06:17 Dose: 3 ml Aspirin (Halfprin) 81 mg PO DAILY [facility] Last Admin: 07/23/18 08:50 Dose: 81 mg Atorvastatin Calcium (Lipitor) 40 mg PO BEDTIME [facility] Last Admin: 07/22/18 22:05 Dose: 40 mg Calcium Carbonate/Glycine (Tums) 500 mg PO TID PRN PRN Reason: Indigestion Last Admin: 07/22/18 22:05 Dose: 500 mg Clopidogrel Bisulfate (Plavix) 75 mg PO BEDTIME [facility] Last Admin: 07/22/18 22:28 Dose: 75 mg Docusate Sodium (Colace) 100 mg PO BID [facility] Last Admin: 07/23/18 08:51 Dose: 100 mg Erythromycin (Erythromycin 0.5% Ophth Oint) 1 gm EYEBOTH BEDTIME [facility] Last Admin: 07/22/18 22:28 Dose: Not Given Heparin Sodium (Porcine) (Heparin Sodium) 5,000 units SUBCUT Q8H [facility] Levofloxacin/Dextrose 750 mg/ (Premix) 150 mls @ 100 mls/hr IV Q48H [facility] Last Admin: 07/22/18 17:49 Dose: 100 mls/hr Insulin Aspart (Novolog) 0 unit SUBCUT TIDAC [facility]; Protocol Last Admin: 07/23/18 08:45 Dose: 2 units Isosorbide Mononitrate (Imdur) 120 mg PO DAILY [facility] Last Admin: 07/23/18 08:51 Dose: 120 mg Methylprednisolone Sodium Succinate (Solu-Medrol) 125 mg IVPUSH Q6H [facility] Last Admin: 07/23/18 07:39 Dose: 125 mg Metoprolol Succinate (Toprol Xl) 25 mg PO BEDTIME [facility] Last Admin: 07/22/18 22:28 Dose: 25 mg Multivitamins/Minerals/Vitamin C (Tab-A-Samantha) 1 tab PO DAILY [facility] Last Admin: 07/23/18 08:51 Dose: 1 tab Ondansetron HCl (Zofran Odt) 4 mg PO Q4H PRN PRN Reason: nausea, able to take PO Brimonidine Tartrate (0.1% 1 Drop) 1 each EYEBOTH DAILY [facility] (Umeclidinium ([place] 62.5 Mcg)) 1 each INH DAILY [facility] [Preservision] 1 (Each) 1 each PO BID [facility] Last Admin: 07/22/18 22:28 Dose: Not Given Latanoprost Opth (Drops) 0 each EYEBOTH BEDTIME [facility] Fluticasone/Salmeterol (Advair Diskus 250-50) 1 puff INH BID [facility] Last Admin: 07/22/18 22:28 Dose: Not Given Sodium Chloride (Saline Flush) 10 ml FLUSH ASDIRECTED PRN PRN Reason: Keep Vein Open Last Admin: 07/22/18 11:57 Dose: 10 ml Sodium Chloride (Saline Flush) 2.5 ml FLUSH ASDIRECTED PRN PRN Reason: Keep Vein Open Last Admin: 07/22/18 11:56 Dose: 2.5 ml Discontinued Medications Albuterol/Ipratropium (Duoneb 3.0-0.5 Mg/3 Ml) 3 ml NEB ONETIME ONE Stop: 07/22/18 11:46 Last Admin: 07/22/18 11:52 Dose: 3 ml Heparin Sodium (Porcine) (Heparin Sodium) 5,000 units SUBCUT Q12H [facility] Last Admin: 07/23/18 02:50 Dose: 5,000 units Levofloxacin/Dextrose 750 mg/ (Premix) 150 mls @ 100 mls/hr IV Q48H [facility] Last Admin: 07/22/18 14:45 Dose: Not Given Latanoprost (Xalatan 0.005% Ophth Soln) 2.5 ml EYEBOTH BEDTIME [facility] Last Admin: 07/22/18 22:29 Dose: Not Given Latanoprost (Xalatan 0.005% Ophth Soln) 0 ml EYEBOTH BEDTIME [facility] Methylprednisolone Sodium Succinate (Solu-Medrol) 125 mg IVPUSH ONETIME ONE Stop: 07/22/18 11:34 Last Admin: 07/22/18 11:56 Dose: 125 mg - Exam General: Reports: Alert, Oriented HEENT: Reports: Pupils Equal, Pupils Reactive Lungs: Reports: Clear to Auscultation Cardiovascular: Reports: Regular Rate, Regular Rhythm GI/Abdominal Exam: Normal Bowel Sounds, Soft, Non-Tender Extremities: Normal Inspection, Normal Range of Motion Neurological: Reports: No New Focal Deficit Psy/Mental Status: Reports: Alert, Normal Mood, Anxious
[2018-07-23] MEDS ORDERED: UMECLIDINIUM BROMIDE 62.5 MCG INH SCH (09:00)
[2018-07-23] MEDS ORDERED: Multivitamin Tab PO SCH (09:00)
[2018-07-23] MEDS ORDERED: BRIMONIDINE TARTRATE 0.1% EYEBOTH SCH (09:00)
[2018-07-23] MEDS ORDERED: Isosorbide Mononitrate 60 MG Tab.ER PO SCH (09:00)
[2018-07-23] MEDS ORDERED: Aspirin 81 MG Tab.EC PO SCH (09:00)
[2018-07-23] MEDS: Fluticasone/Salmeterol 250-50 MCG Inhalation Powder 14/Diskus INH SCH (11:03)
[2018-07-23] MEDS: PRESERVISION PO SCH (11:03)
[2018-07-23] MEDS ORDERED: Heparin Sodium 5,000 Units/ML Vial SUBCUT SCH (14:00)
== END 2018-07-23 10:32 | disposition home or self-care (01) ==
LOC: MW.ED 11:26 → MW.MS 14:03
PROVIDERS: ADMIT Internal Medicine; ATTEND Internal Medicine
DX: J43.9 Emphysema, unspecified (principal); R07.81 Pleurodynia; I25.10 Atherosclerotic heart disease of native coronary artery without angina pectoris; I10 Essential (primary) hypertension; E11.9 Type 2 diabetes mellitus without complications; M19.90 Unspecified osteoarthritis, unspecified site; M06.4 Inflammatory polyarthropathy; Z95.5 Presence of coronary angioplasty implant and graft; Z86.73 Personal history of transient ischemic attack (TIA), and cerebral infarction without residual deficits; Z79.51 Long term (current) use of inhaled steroids; Z79.52 Long term (current) use of systemic steroids; Z79.82 Long term (current) use of aspirin; Z79.899 Other long term (current) drug therapy; Z91.048 Other nonmedicinal substance allergy status
CPT/HCPCS: 36415; 71045; 80048; 80053; 82962; 84484; 85025; 87070; 87077; 87205; 93005; 94640; 96372; 96374; 96375; 96376; 99285; A9270; G0378; J1644; J1815; J1956; J2930; 99284; J7620-GY

== ENCOUNTER 2018-10-02 20:02 | Emergency (ER) | payer MEDICARE, BC ==
--- NOTE | 2018-10-02 20:15 | EDM.PDOC ---
ED HPI GENERAL MEDICAL PROBLEM - General Chief Complaint: General Stated Complaint: HAS SOMETHING STUCK IN THROAT Time Seen by Provider: 10/02/18 20:15 Source of Information: Reports: Patient History Limitations: Reports: No Limitations - History of Present Illness INITIAL COMMENTS - FREE TEXT/NARRATIVE: HISTORY AND PHYSICAL: History of present illness: Patient is an 88-year-old male presents to the ED with concern of food bolus stuck in his esophagus. He states he was eating dinner 1/2 hour prior to arrival when he had a piece of pork and feels like it got stuck. He has tried drinking water and coffee since but vomits this up but unable to clear food bolus. He is able to swallow his saliva. states that he has a history of this and has needed to have EGD to push it down. She states he frequently has this problem but is usually able to get it down after drinking coffee. Past medical history of COPD normally on 3L O2. Review of systems: As per history of present illness and below otherwise all systems reviewed and negative. Past medical history: As per history of present illness and as reviewed below otherwise noncontributory. Surgical history: As per history of present illness and as reviewed below otherwise noncontributory. Social history: No reported history of drug or alcohol abuse. Family history: As per history of present illness and as reviewed below otherwise noncontributory. Physical exam: General: Patient sitting comfortably in no acute distress and nontoxic appearing HEENT: Atraumatic, normocephalic, pupils reactive, negative for conjunctival pallor or scleral icterus, mucous membranes moist, throat clear, neck supple, nontender, trachea midline. No meningeal signs. Lungs: Rhonchi throughout, breath sounds equal bilaterally, chest nontender. Heart: S1S2, regular, negative for clicks, rubs, or overt murmur. Abdomen: Soft, nondistended, nontender. Negative for masses or hepatosplenomegaly. Negative for costovertebral tenderness. No rigidity, rebound , guarding. Pelvis: Stable nontender. Genitourinary: Deferred. Rectal: Deferred. Extremities: Atraumatic, negative for cords or calf pain. Neurovascular unremarkable. Neuro: Awake, alert, oriented. Cranial nerves II through XII unremarkable. Cerebellum unremarkable. Motor and sensory unremarkable throughout. Exam nonfocal. Notes: 2019 - Dr. Melendez called for consult. 2039 - Dr. Melendez is in ED evaluating patient 2100 - Patient vomited in the ED after attempting to take his pills. Dr. Melendez and anesthesiologist evaluated patient in the ED and advise patient be transferred secondary to risk factors. Patient reports he is feeling better and would like to be discharged home and will follow up in [place]. Diagnostics: CBC, CMP, troponin, EKG, CXR Therapeutics: 1mg Glucagon IV Prescriptions: None Impression: Food bolus Plan: 1. Follow up with your primary care provider 2. Return to ED as needed as discussed Definitive disposition and diagnosis as appropriate pending reevaluation and review of above. Chest Pain Score (Numeric/FACES): 3 - Related Data Allergies Allergy/AdvReac Type Severity Reaction Status Date / Time Animal Dander Allergy Mild Cough Uncoded 10/02/18 20:14 smoke Allergy Cough Uncoded 10/02/18 20:14 Home Meds: Home Meds Aspirin [Adult Low Dose Aspirin EC] 81 mg PO DAILY 12/21/13 [History] Latanoprost [Xalatan 0.005% Ophth Soln] 1 drop EYEBOTH BEDTIME 12/21/13 [History ] Multivit-Min/FA/Lycopene/Lut [Centrum Silver] 1 each PO DAILY 12/21/13 [History] Albuterol Sulfate 2.5 mg IH QID PRN 04/15/14 [History] Fluticasone/Salmeterol [Advair 250-50] 1 inhalation IH BID 04/15/14 [History] Ascorbate Calcium [Vitamin C] 1,000 mg PO BID 07/18/14 [History] Brimonidine Tartrate [Alphagan P] 1 drop EYEBOTH DAILY 08/23/15 [History] Erythromycin Base [Erythromycin 0.5% Ophth Oint] 1 applic EYEBOTH BEDTIME [History] Umeclidinium [place] [Incruse Ellipta*] 62.5 mcg IH DAILY 06/28/16 [History] Clopidogrel [Plavix] 75 mg PO BEDTIME 09/20/16 [History] Metoprolol Succinate [Toprol XL] 25 mg PO BEDTIME 09/20/16 [History] Calcium Carbonate [Calcium] 600 mg PO ASDIRECTED PRN 03/20/18 [History] Cholecalciferol (Vitamin D3) [Vitamin D3] 1,000 unit PO DAILY 03/20/18 [History] Isosorbide Mononitrate [Isosorbide Mononitrate ER] 120 mg PO DAILY 03/20/18 [ History] Vit A/Vit C/Vit E/Zinc/Copper [Preservision] 1 each PO BID 03/20/18 [History] predniSONE [Prednisone] 2.5 mg PO BIDMEALS 03/20/18 [History] atorvaSTATin Calcium [Lipitor] 40 mg PO BEDTIME 30 Days #30 tablet 03/21/18 [Rx] Roflumilast [Daliresp] 250 mcg PO DAILY 07/22/18 [History] levoFLOXacin [Levaquin] 750 mg PO Q48H #2 tab 07/23/18 [Rx] predniSONE [Prednisone] 40 mg PO DAILY #6 tablet 07/23/18 [Rx] Past Medical History HEENT History: Reports: Glaucoma, Macular Degeneration Other HEENT History: wears glasses, top and bottom dentures Cardiovascular History: Reports: CAD, Stents (2015) Other Cardiovascular History: Stents placed "last Spring" Respiratory History: Reports: COPD Other Respiratory History: continuous 02 3L at home Gastrointestinal History: Reports: Other (See Below) Other Gastrointestinal History: esophogeal cancer, epigastric pain Genitourinary History: Reports: None Musculoskeletal History: Reports: Arthritis Other Musculoskeletal History: neck pain, rt elbow pain Neurological History: Reports: TIA. 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 Dermatologic History: Reports: Other (See Below) Other Dermatologic History: dermatitis - Infectious Disease History Infectious Disease History: Reports: Other (See Below) Other Infectious Disease History: unknown - Past Surgical History Head Surgeries/Procedures: Reports: None HEENT Surgical History: Reports: Cataract Surgery Cardiovascular Surgical History: Reports: Coronary Artery Stent GI Surgical History: Reports: Appendectomy, Other (See Below) Other GI Surgeries/Procedures: 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 ED EXAM, GENERAL - Physical Exam Exam: See Below (see dictation) Course - Vital Signs Last Recorded V/S: Last Vital Signs Temp 99.3 F 10/02/18 20:15 Pulse 85 10/02/18 20:28 Resp 20 10/02/18 20:28 BP 108/52 L 10/02/18 20:28 Pulse Ox 96 10/02/18 20:28 - Orders/Labs/Meds Orders: Active Orders 24 hr Category Date Time Status EKG Documentation Completion [RC] STAT Care 10/02/18 20:16 Active Labs: Laboratory Tests 10/02/18 10/02/18 Range/Units 20:11 20:11 WBC 7.51 (4.0-11.0) K/uL RBC 3.97 L (4.50-5.90) M/uL Hgb 12.3 L (13.0-17.0) g/dL Hct 37.0 L (38.0-50.0) % MCV 93.2 (80.0-98.0) fL MCH 31.0 (27.0-32.0) pg MCHC 33.2 (31.0-37.0) g/dL RDW Std Deviation 43.8 (28.0-62.0) fl RDW Coeff of Juancho 13 (11.0-15.0) % Plt Count 213 (150-400) K/uL MPV 9.80 (7.40-12.00) fL Neut % (Auto) 76.5 (48.0-80.0) % Lymph % (Auto) 16.0 (16.0-40.0) % Lassen % (Auto) 4.4 (0.0-15.0) % Eos % (Auto) 2.8 (0.0-7.0) % Baso % (Auto) 0.3 (0.0-1.5) % Neut # (Auto) 5.8 H (1.4-5.7) K/uL Lymph # (Auto) 1.2 (0.6-2.4) K/uL Lassen # (Auto) 0.3 (0.0-0.8) K/uL Eos # (Auto) 0.2 (0.0-0.7) K/uL Baso # (Auto) 0.0 (0.0-0.1) K/uL Nucleated RBC % 0.0 /100WBC Nucleated RBCs # 0 K/uL Sodium 139 (136-148) mmol/L Potassium 3.9 (3.5-5.1) mmol/L Chloride 103 (98-107) mmol/L Carbon Dioxide 24.5 (21.0-32.0) mmol/L BUN 10 (7.0-18.0) mg/dL Creatinine 1.1 (0.8-1.3) mg/dL Est Cr Clr Drug Dosing 50.99 mL/min Estimated GFR (MDRD) > 60.0 ml/min Glucose 143 H (74-106) mg/dL Calcium 8.7 (8.5-10.1) mg/dL Total Bilirubin 0.4 (0.2-1.0) mg/dL AST 18 (15-37) IU/L ALT 21 (14-63) IU/L Alkaline Phosphatase 92 (46-116) U/L Troponin I < 0.050 (0.000-0.056) ng/mL Total Protein 7.1 (6.4-8.2) g/dL Albumin 3.7 (3.4-5.0) g/dL Globulin 3.4 (2.6-4.0) g/dL Albumin/Globulin Ratio 1.1 (0.9-1.6) Meds: Medications Discontinued Medications Generic Name Dose Route Start Last Admin Trade Name Freq PRN Reason Stop Dose Admin Glucagon 1 mg 10/02/18 20:18 10/02/18 20:26 Glucagen IVPUSH 10/02/18 20:19 1 mg ONETIME ONE Administration Departure - Departure Time of Disposition: 21:12 Disposition: Home, Self-Care 01 Condition: Good Clinical Impression: Food impaction of esophagus - Discharge Information Referrals: Derek Hernández MD [Primary Care Provider] - Forms: ED Department Discharge Additional Instructions: The following information is given to patients seen in the emergency department who are being discharged to home. This information is to outline your options for follow-up care. We provide all patients seen in our emergency department with a follow-up referral. The need for follow-up, as well as the timing and circumstances, are variable depending upon the specifics of your emergency department visit. If you don't have a primary care physician on staff, we will provide you with a referral. We always advise you to contact your personal physician following an emergency department visit to inform them of the circumstance of the visit and for follow-up with them and/or the need for any referrals to a consulting specialist. The emergency department will also refer you to a specialist when appropriate. This referral assures that you have the opportunity for follow-up care with a specialist. All of these measure are taken in an effort to provide you with optimal care, which includes your follow-up. Under all circumstances we always encourage you to contact your private physician who remains a resource for coordinating your care. When calling for follow-up care, please make the office aware that this follow-up is from your recent emergency room visit. If for any reason you are refused follow-up, please contact the [facility] Emergency Department at and asked to speak to the emergency department charge nurse. [facility] Primary Care [address] [place] [id number] [id number] 1. Follow up with your primary care provider 2. Return to ED as needed as discussed - My Orders Last 24 Hours: My Active Orders 10/02/18 20:16 EKG Documentation Completion [RC] STAT - Assessment/Plan Last 24 Hours: My Active Orders 10/02/18 20:16 EKG Documentation Completion [RC] STAT
[2018-10-02] MEDS ORDERED: Glucagon,Human Recombinant 1 MG Vial IVPUSH ONE (20:18)
--- NOTE | 2018-10-02 20:39 | CR ---
INDICATION: Chest pain after having pork stuck in throat TECHNIQUE: Chest radiograph 1 view on 2 films COMPARISON: 07/22/2018 FINDINGS: Mediastinum: The mediastinum is normal in appearance. The heart silhouette is normal in size and morphology. Lung: Bilateral pulmonary hyperinflation and lucency noted, suggestive of severe, stable pulmonary emphysema. Bibasilar fibrosis and atelectasis noted. No sign of pleural effusion seen. No pneumothorax is identified. IMPRESSIONS: 1. Bilateral pulmonary hyperinflation and lucency noted, suggestive of severe, stable pulmonary emphysema. 2. If there is clinical concern for food impaction in esophagus, evaluation with endoscopy or barium swallow is recommended. Dictated by Dawit Bliss MD @ 10/02/2018 8:38:51 PM Dictated by: Dawit Bliss MD @ 10/02/2018 20:38:53 (Electronically Signed)
[2018-10-02 20:42] LABS: CHLORIDE,CL 103 mmol/L (98-107); SODIUM,NA 139 mmol/L (136-148)
[2018-10-02 21:34] VITALS: BP 128/64
--- NOTE | 2018-10-03 01:15 | CONS ---
DATE OF CONSULTATION: 10/02/2018 DATE OF : 1930 PRIMARY CARE PHYSICIAN: Derek Hernández Consult from Dr. Roddy Johnson. CONCERNING QUESTION: Food stuck in the throat. HISTORY OF PRESENT ILLNESS: The patient is an 88-year-old gentleman, on home oxygen, and taking 4 different kind of lung medications and on 5 mg of prednisone every day for his breathing problem. Had a piece of meat stuck in the throat, felt like stuck in the epigastrium area. However, the patient did not have any airway compromise and is able to swallow a small amount of water. He was kept in the emergency room, and General Surgery was consulted for possible endoscopy with foreign body extraction. The patient's mentioned this has been going on for a long time. Every now and then, he needs an EGD for extraction. Last time was 3 years ago and currently, the patient's and the patient agree that they can hardly take 2 steps without shortness of breath. ALLERGIES: Please refer nursing for details. MEDICATIONS: Please refer nursing for details. PAST MEDICAL HISTORY: Significant for no [place], significant pulmonary situation. PAST SURGICAL HISTORY: Please refer to chart. PHYSICAL EXAMINATION: GENERAL: A very pleasant gentleman but obviously holding aback for nauseated. HEENT: Normocephalic, atraumatic. Sclerae anicteric. LUNGS: Clear to auscultation with some coarse rales. HEART: Regular rate and rhythm. ABDOMEN: Soft, nondistended. No pulsating tender midline abdominal structure. ASSESSMENT AND PLAN: A long discussion with family and the patient. The patient is on 5 different kind of breathing medications and on 5 mg of prednisone every day and on home oxygen 3 L and is taking Plavix and aspirin for his cardiac stent 2 years ago. The patient is very high risk for procedure while in this [facility] and at the same time even if we can do him with concern about the bleeding risk, Anesthesiology thinks they cannot extubate him after procedure. The patient awaits our facility, and the patient should benefit to be serviced in the either a tertiary care center or higher facility. While we discussed above treatment plan, the patient is able to cough up a piece of meat and he thinks he is doing a lot better, and family prefer to drive to [place] which they get most of the health care by themselves, and the patient feels better and the patient's family prefer to go by private car. I discussed the treatment plan with Dr. Roddy Johnson, the ER provider. Everybody is on the same page, and the patient can check back to the ER on an as needed basis. Recommend not to have any solid food for 24 hours because possible inflammation. AMANUEL / MARGRET /[id number]
== END 2018-10-02 21:34 | disposition home or self-care (01) ==
LOC: MW.ED 20:02
DX: T18.128A Food in esophagus causing other injury, initial encounter (principal); J44.9 Chronic obstructive pulmonary disease, unspecified; E11.9 Type 2 diabetes mellitus without complications; I25.10 Atherosclerotic heart disease of native coronary artery without angina pectoris; Z86.73 Personal history of transient ischemic attack (TIA), and cerebral infarction without residual deficits; Z79.82 Long term (current) use of aspirin; Z79.899 Other long term (current) drug therapy; Z91.09 Other allergy status, other than to drugs and biological substances
CPT/HCPCS: 36415; 71045; 80053; 84484; 85025; 93005; 96374; 99284; J1610

== ENCOUNTER 2018-11-11 11:34 | Observation (INO) | payer MEDICARE, BC ==
[2018-11-11] MEDS ORDERED: Sodium Chloride 0.9% 2.5 ML Syringe FLUSH PRN (11:42)
[2018-11-11] MEDS ORDERED: Sodium Chloride 0.9% 10 ML Syringe FLUSH PRN (11:42)
[2018-11-11] MEDS ORDERED: methylPREDNISolone Sodium Succinate 125 MG/2 ML SDV IVPUSH ONE (11:51)
[2018-11-11] MEDS ORDERED: Albuterol/Ipratropium 3.0-0.5 MG/3 ML Neb Soln NEB ONE (11:51)
--- NOTE | 2018-11-11 12:16 | EDM.PDOC ---
ED HPI GENERAL MEDICAL PROBLEM - General Chief Complaint: Respiratory Problem Stated Complaint: TROUBLE BREATHING Time Seen by Provider: 11/11/18 11:44 - History of Present Illness INITIAL COMMENTS - FREE TEXT/NARRATIVE: HISTORY AND PHYSICAL: History of present illness: Patient is 88-year-old white male with history of coronary artery disease including stenting type 2 diabetes COPD who is on home O2 who presents with concern of cough and shortness of breath today. He denies fever chills nausea vomiting he denies chest pain and there's been no other complaints. Review of systems: As per history of present illness and below otherwise all systems reviewed and negative. Past medical history: As per history of present illness and as reviewed below otherwise noncontributory. Surgical history: As per history of present illness and as reviewed below otherwise noncontributory. Social history: No reported history of drug or alcohol abuse. Family history: As per history of present illness and as reviewed below otherwise noncontributory. Physical exam: HEENT: Atraumatic, normocephalic, pupils reactive, negative for conjunctival pallor or scleral icterus, mucous membranes moist, throat clear, neck supple, nontender, trachea midline. Lungs: Diminished and coarse throughout inspiratory and expiratory wheezing noted breath sounds equal bilaterally, chest nontender. Heart: S1S2, regular, negative for clicks, rubs, or JVD. Abdomen: Soft, nondistended, nontender. Negative for masses or hepatosplenomegaly. Negative for costovertebral tenderness. Pelvis: Stable nontender. Genitourinary: Deferred. Rectal: Deferred. Extremities: Atraumatic, negative for cords or calf pain. Neurovascular unremarkable. Neuro: Awake, alert, oriented. Cranial nerves II through XII unremarkable. Cerebellum unremarkable. Motor and sensory unremarkable throughout. Exam nonfocal. Diagnostics: CBC CMP troponin PT/INR ABG blood culture 2 lactic acid chest x-ray Therapeutics: IV O2 monitor albuterol ipratropium nebulizer Solu-Medrol 125 mg IV Impression: #1 acute dyspnea #2 COPD #3 history of coronary artery disease #4 history of diabetes Definitive disposition and diagnosis as appropriate pending reevaluation and review of above. - Related Data Allergies Allergy/AdvReac Type Severity Reaction Status Date / Time levofloxacin [From Levaquin] Allergy Severe Hives Verified 11/11/18 15:02 Animal Dander Allergy Mild Cough Uncoded 11/11/18 15:02 smoke Allergy Cough Uncoded 11/11/18 15:02 Home Meds: Home Meds Aspirin [Adult Low Dose Aspirin EC] 81 mg PO DAILY 12/21/13 [History] Latanoprost [Xalatan 0.005% Ophth Soln] 1 drop EYEBOTH BEDTIME 12/21/13 [History ] Multivit-Min/FA/Lycopene/Lut [Centrum Silver] 1 each PO DAILY 12/21/13 [History] Albuterol Sulfate 2.5 mg IH QID 04/15/14 [History] Fluticasone/Salmeterol [Advair 250-50] 1 inhalation IH BID 04/15/14 [History] Ascorbate Calcium [Vitamin C] 1,000 mg PO DAILY 07/18/14 [History] Brimonidine Tartrate [Alphagan P] 1 drop EYEBOTH DAILY 08/23/15 [History] Erythromycin Base [Erythromycin 0.5% Ophth Oint] 1 applic EYEBOTH BEDTIME [History] Umeclidinium [place] [Incruse Ellipta*] 62.5 mcg IH DAILY 06/28/16 [History] Clopidogrel [Plavix] 75 mg PO DAILY 09/20/16 [History] Metoprolol Succinate [Toprol XL] 25 mg PO DAILY 09/20/16 [History] Cholecalciferol (Vitamin D3) [Vitamin D3] 1,000 unit PO DAILY 03/20/18 [History] Isosorbide Mononitrate [Isosorbide Mononitrate ER] 120 mg PO DAILY 03/20/18 [ History] predniSONE [Prednisone] 2.5 mg PO BIDMEALS 03/20/18 [History] atorvaSTATin Calcium [Lipitor] 40 mg PO BEDTIME 30 Days #30 tablet 03/21/18 [Rx] Calcium Carbonate [Calcium] 1,200 mg PO DAILY 11/11/18 [History] Clopidogrel Bisulfate [Clopidogrel] 75 tab PO DAILY 11/11/18 [History] Vit C/E/Zn/Coppr/Lutein/Zeaxan [Preservision Areds 2 Softgel] 2 each PO DAILY [History] Past Medical History HEENT History: Reports: Glaucoma, Macular Degeneration Other HEENT History: wears glasses, top and bottom dentures Cardiovascular History: Reports: CAD, Stents Other Cardiovascular History: Stents placed "last Spring" Respiratory History: Reports: COPD Other Respiratory History: continuous 02 3L at home Gastrointestinal History: Reports: Other (See Below) Other Gastrointestinal History: epigastric pain Genitourinary History: Reports: None Musculoskeletal History: Reports: Arthritis Other Musculoskeletal History: neck pain, rt elbow pain Neurological History: Reports: TIA Psychiatric History: Reports: Dementia Endocrine/Metabolic History: Reports: Diabetes, Type II Hematologic History: Reports: None Immunologic History: Reports: None Oncologic (Cancer) History: Reports: None Dermatologic History: Reports: Other (See Below) Other Dermatologic History: dermatitis - Infectious Disease History Infectious Disease History: Reports: Other (See Below) Other Infectious Disease History: unknown - Past Surgical History Head Surgeries/Procedures: Reports: None HEENT Surgical History: Reports: Cataract Surgery Cardiovascular Surgical History: Reports: Coronary Artery Stent Respiratory Surgical History: Reports: None GI Surgical History: Reports: Appendectomy, Other (See Below) Other GI Surgeries/Procedures: laryngoscopy with stripping of vocal cords Male Surgical History: Reports: None Endocrine Surgical History: Reports: None Neurological Surgical History: Reports: None Musculoskeletal Surgical History: Reports: None Oncologic Surgical History: Reports: None Dermatological Surgical History: Reports: None Social & Family History - Family History Family Medical History: Noncontributory - Tobacco Use Smoking Status *Q: Former Smoker Used Tobacco, but Quit: Yes Month/Year Tobacco Last Used: 1970 - Caffeine Use Caffeine Use: Reports: Coffee - Recreational Drug Use Recreational Drug Use: No - Living Situation & Occupation Living situation: Reports: Occupation: Retired ED ROS GENERAL - Review of Systems Review Of Systems: ROS reveals no pertinent complaints other than HPI. ED EXAM, GENERAL - Physical Exam Exam: See Below (See dictation) Course - Vital Signs Last Recorded V/S: Last Vital Signs Temp 36.8 C 11/11/18 19:13 Pulse 93 11/11/18 19:13 Resp 20 11/11/18 19:13 BP 143/64 H 11/11/18 19:13 Pulse Ox 96 11/11/18 19:13 - Orders/Labs/Meds Orders: Active Orders 24 hr Category Date Time Status Cardiac Monitoring [RC] Q8H Care 11/11/18 11:50 Active Pulse Oximetry [RC] ASDIRECTED Care 11/11/18 11:50 Active RT Aerosol Therapy [RC] ASDIRECTED Care 11/11/18 11:51 Active CULTURE BLOOD [BC] Stat Lab 11/11/18 12:07 Received CULTURE BLOOD [BC] Stat Lab 11/11/18 12:14 Received Sodium Chloride 0.9% [Saline Flush] Med 11/11/18 11:42 Active 10 ml FLUSH ASDIRECTED PRN Sodium Chloride 0.9% [Saline Flush] Med 11/11/18 11:42 Active 2.5 ml FLUSH ASDIRECTED PRN Blood Culture x2 Reflex Set [OM.PC] Stat Oth 11/11/18 11:50 Ordered Saline Lock Insert [OM.PC] Stat Oth 11/11/18 11:42 Ordered Medication Orders Acetaminophen (Tylenol) 650 mg PO Q4H PRN PRN Reason: Pain/Fever Last Admin: 11/11/18 18:42 Dose: 650 mg Albuterol/Ipratropium (Duoneb 3.0-0.5 Mg/3 Ml) 3 ml NEB Q6HRRT [facility] Last Admin: 11/12/18 00:10 Dose: 3 ml Admin: 11/11/18 17:39 Dose: 3 ml Aspirin (Halfprin) 81 mg PO DAILY [facility] Atorvastatin Calcium (Lipitor) 40 mg PO BEDTIME [facility] Last Admin: 11/11/18 21:02 Dose: 40 mg Clopidogrel Bisulfate (Plavix) 75 mg PO DAILY [facility] Enoxaparin Sodium (Lovenox) 40 mg SUBCUT Q24H [facility] Last Admin: 11/11/18 15:31 Dose: 40 mg Sodium Chloride (Normal Saline) 1,000 mls @ 100 mls/hr IV ASDIRECTED [facility] Last Admin: 11/11/18 15:37 Dose: 100 mls/hr Piperacillin Sod/Tazobactam (Sod 4.5 gm/ Sodium Chloride) 100 mls @ 100 mls/hr IV Q6H [facility] Last Admin: 11/11/18 21:30 Dose: 100 mls/hr Infusion: 11/11/18 17:17 Dose: 100 mls/hr Admin: 11/11/18 16:17 Dose: 100 mls/hr Insulin Aspart (Novolog) 0 unit SUBCUT WITHMEALSANDBED [facility]; Protocol Last Admin: 11/11/18 21:13 Dose: 3 units Admin: 11/11/18 18:53 Dose: 3 units Latanoprost (Xalatan 0.005% Ophth Soln) 0 ml EYEBOTH BEDTIME [facility] Last Admin: 11/11/18 21:01 Dose: 1 drop Methylprednisolone Sodium Succinate (Solu-Medrol) 125 mg IVPUSH Q8H [facility] Last Admin: 11/11/18 22:33 Dose: 125 mg Admin: 11/11/18 15:37 Dose: 125 mg Metoprolol Succinate (Toprol Xl) 25 mg PO DAILY [facility] Non-Formulary Medication (Ascorbate Calcium [Vitamin C]) 1,000 mg PO DAILY [facility] Brimonidine Tartrate (Alphagan-P) Own Med 0 drop EYEBOTH DAILY [facility] Non-Formulary Medication (Calcium Carbonate) 1,200 mg PO DAILY [facility] Non-Formulary Medication (Cholecalciferol (Vitamin D3) [Vitamin D3]) 1,000 unit PO DAILY [facility] Non-Formulary Medication (Erythromycin Base) 1 applic EYEBOTH BEDTIME [facility] Last Admin: 11/11/18 21:02 Dose: Isosorbide Mononitrate Er 120 Mg Tab Own Med 0 mg PO DAILY [facility] Non-Formulary Medication (Multivit-Min/Fa/Lycopene/Lut [Centrum Silver]) 1 each PO DAILY [facility] Ondansetron HCl (Zofran) 4 mg IVPUSH Q4H PRN PRN Reason: Nausea/Vomiting Sodium Chloride (Saline Flush) 10 ml FLUSH ASDIRECTED PRN PRN Reason: Keep Vein Open Sodium Chloride (Saline Flush) 2.5 ml FLUSH ASDIRECTED PRN PRN Reason: Keep Vein Open Labs: Laboratory Tests 11/11/18 11/11/18 11/11/18 Range/Units 11:50 11:50 11:51 WBC 15.82 H (4.0-11.0) K/uL RBC 4.03 L (4.50-5.90) M/uL Hgb 12.5 L (13.0-17.0) g/dL Hct 38.0 (38.0-50.0) % MCV 94.3 (80.0-98.0) fL MCH 31.0 (27.0-32.0) pg MCHC 32.9 (31.0-37.0) g/dL RDW Std Deviation 46.3 (28.0-62.0) fl RDW Coeff of Juancho 14 (11.0-15.0) % Plt Count 196 (150-400) K/uL MPV 10.10 (7.40-12.00) fL Neut % (Auto) 89.6 H (48.0-80.0) % Lymph % (Auto) 5.1 L (16.0-40.0) % [place] % (Auto) 5.1 (0.0-15.0) % Eos % (Auto) 0.1 (0.0-7.0) % Baso % (Auto) 0.1 (0.0-1.5) % Neut # (Auto) 14.2 H (1.4-5.7) K/uL Lymph # (Auto) 0.8 (0.6-2.4) K/uL [place] # (Auto) 0.8 (0.0-0.8) K/uL Eos # (Auto) 0.0 (0.0-0.7) K/uL Baso # (Auto) 0.0 (0.0-0.1) K/uL Nucleated RBC % 0.0 /100WBC Nucleated RBCs # 0 K/uL INR ABG pH (7.35-7.45) ABG pCO2 (35-45) mmHG ABG pO2 (75-100) mmHG ABG HCO3 (22-26) mEq/L ABG Total CO2 ABG Base Excess (-2.0-2.0) Lactate 1.5 (0.20-2.00) mmol/L Sodium 138 (136-148) mmol/L Potassium 4.1 (3.5-5.1) mmol/L Chloride 103 (98-107) mmol/L Carbon Dioxide 25.4 (21.0-32.0) mmol/L BUN 9 (7.0-18.0) mg/dL Creatinine 1.0 (0.8-1.3) mg/dL Est Cr Clr Drug Dosing 56.36 mL/min Estimated GFR (MDRD) > 60.0 ml/min Glucose 150 H (74-106) mg/dL Calcium 8.6 (8.5-10.1) mg/dL Total Bilirubin 0.7 (0.2-1.0) mg/dL AST 26 (15-37) IU/L ALT 33 (14-63) IU/L Alkaline Phosphatase 102 (46-116) U/L Troponin I (0.000-0.056) ng/mL B-Natriuretic Peptide (<100) PG/ML Total Protein 6.6 (6.4-8.2) g/dL Albumin 3.5 (3.4-5.0) g/dL Globulin 3.1 (2.6-4.0) g/dL Albumin/Globulin Ratio 1.1 (0.9-1.6) Lipase 84 (73-393) U/L 11/11/18 11/11/18 11/11/18 Range/Units 11:55 12:14 12:14 WBC (4.0-11.0) K/uL RBC (4.50-5.90) M/uL Hgb (13.0-17.0) g/dL Hct (38.0-50.0) % MCV (80.0-98.0) fL MCH (27.0-32.0) pg MCHC (31.0-37.0) g/dL RDW Std Deviation (28.0-62.0) fl RDW Coeff of Juancho (11.0-15.0) % Plt Count (150-400) K/uL MPV (7.40-12.00) fL Neut % (Auto) (48.0-80.0) % Lymph % (Auto) (16.0-40.0) % [place] % (Auto) (0.0-15.0) % Eos % (Auto) (0.0-7.0) % Baso % (Auto) (0.0-1.5) % Neut # (Auto) (1.4-5.7) K/uL Lymph # (Auto) (0.6-2.4) K/uL [place] # (Auto) (0.0-0.8) K/uL Eos # (Auto) (0.0-0.7) K/uL Baso # (Auto) (0.0-0.1) K/uL Nucleated RBC % /100WBC Nucleated RBCs # K/uL INR 1.03 ABG pH 7.436 (7.35-7.45) ABG pCO2 37 (35-45) mmHG ABG pO2 97 (75-100) mmHG ABG HCO3 25 (22-26) mEq/L ABG Total CO2 22.8 ABG Base Excess 1.0 (-2.0-2.0) Lactate (0.20-2.00) mmol/L Sodium 138 (136-148) mmol/L Potassium 4.3 (3.5-5.1) mmol/L Chloride 103 (98-107) mmol/L Carbon Dioxide 26.3 (21.0-32.0) mmol/L BUN 8 (7.0-18.0) mg/dL Creatinine 1.0 (0.8-1.3) mg/dL Est Cr Clr Drug Dosing 56.36 mL/min Estimated GFR (MDRD) > 60.0 ml/min Glucose 145 H (74-106) mg/dL Calcium 8.5 (8.5-10.1) mg/dL Total Bilirubin 0.6 (0.2-1.0) mg/dL AST 25 (15-37) IU/L ALT 25 (14-63) IU/L Alkaline Phosphatase 98 (46-116) U/L Troponin I < 0.050 (0.000-0.056) ng/mL B-Natriuretic Peptide (<100) PG/ML Total Protein 6.4 (6.4-8.2) g/dL Albumin 3.4 (3.4-5.0) g/dL Globulin 3.0 (2.6-4.0) g/dL Albumin/Globulin Ratio 1.1 (0.9-1.6) Lipase (73-393) U/L 11/11/18 Range/Units 12:14 WBC (4.0-11.0) K/uL RBC (4.50-5.90) M/uL Hgb (13.0-17.0) g/dL Hct (38.0-50.0) % MCV (80.0-98.0) fL MCH (27.0-32.0) pg MCHC (31.0-37.0) g/dL RDW Std Deviation (28.0-62.0) fl RDW Coeff of Juancho (11.0-15.0) % Plt Count (150-400) K/uL MPV (7.40-12.00) fL Neut % (Auto) (48.0-80.0) % Lymph % (Auto) (16.0-40.0) % [place] % (Auto) (0.0-15.0) % Eos % (Auto) (0.0-7.0) % Baso % (Auto) (0.0-1.5) % Neut # (Auto) (1.4-5.7) K/uL Lymph # (Auto) (0.6-2.4) K/uL [place] # (Auto) (0.0-0.8) K/uL Eos # (Auto) (0.0-0.7) K/uL Baso # (Auto) (0.0-0.1) K/uL Nucleated RBC % /100WBC Nucleated RBCs # K/uL INR ABG pH (7.35-7.45) ABG pCO2 (35-45) mmHG ABG pO2 (75-100) mmHG ABG HCO3 (22-26) mEq/L ABG Total CO2 ABG Base Excess (-2.0-2.0) Lactate (0.20-2.00) mmol/L Sodium (136-148) mmol/L Potassium (3.5-5.1) mmol/L Chloride (98-107) mmol/L Carbon Dioxide (21.0-32.0) mmol/L BUN (7.0-18.0) mg/dL Creatinine (0.8-1.3) mg/dL Est Cr Clr Drug Dosing mL/min Estimated GFR (MDRD) ml/min Glucose (74-106) mg/dL Calcium (8.5-10.1) mg/dL Total Bilirubin (0.2-1.0) mg/dL AST (15-37) IU/L ALT (14-63) IU/L Alkaline Phosphatase (46-116) U/L Troponin I (0.000-0.056) ng/mL B-Natriuretic Peptide 113 H (<100) PG/ML Total Protein (6.4-8.2) g/dL Albumin (3.4-5.0) g/dL Globulin (2.6-4.0) g/dL Albumin/Globulin Ratio (0.9-1.6) Lipase (73-393) U/L Meds: Medications Generic Name Dose Route Start Last Admin Trade Name Freq PRN Reason Stop Dose Admin Acetaminophen 650 mg 11/11/18 15:05 11/11/18 18:42 Tylenol PO 650 mg Q4H PRN Administration Pain/Fever Albuterol/Ipratropium 3 ml 11/11/18 18:00 11/12/18 00:10 Duoneb 3.0-0.5 Mg/3 Ml NEB 3 ml Q6HRRT [facility] Administration Aspirin 81 mg 11/12/18 09:00 Halfprin PO DAILY [facility] Atorvastatin Calcium 40 mg 11/11/18 21:00 11/11/18 21:02 Lipitor PO 40 mg BEDTIME [facility] Administration Clopidogrel Bisulfate 75 mg 11/12/18 09:00 Plavix PO DAILY [facility] Enoxaparin Sodium 40 mg 11/11/18 15:00 11/11/18 15:31 Lovenox SUBCUT 40 mg Q24H [facility] Administration Sodium Chloride 1,000 mls @ 100 mls/hr 11/11/18 15:15 11/11/18 15:37 Normal Saline IV 100 mls/hr ASDIRECTED [facility] Administration Piperacillin Sod/Tazobactam 100 mls @ 100 mls/hr 11/11/18 15:30 11/11/18 21: 30 Sod 4.5 gm/ Sodium Chloride IV 100 mls/hr Q6H [facility] Administration Insulin Aspart 0 unit 11/11/18 18:45 11/11/18 21:13 Novolog SUBCUT 3 units WITHMEALSANDBED [facility] Administration Protocol Latanoprost 0 ml 11/11/18 21:00 11/11/18 21:01 Xalatan 0.005% Ophth Soln EYEBOTH 1 drop BEDTIME [facility] Administration Methylprednisolone Sodium Succinate 125 mg 11/11/18 15:00 11/11/18 22:33 Solu-Medrol IVPUSH 125 mg Q8H [facility] Administration Metoprolol Succinate 25 mg 11/12/18 09:00 Toprol Xl PO DAILY [facility] Non-Formulary Medication 1,000 mg 11/12/18 09:00 Ascorbate Calcium [Vitamin C] PO DAILY [facility] Brimonidine Tartrate 0 drop 11/12/18 09:00 (Alphagan-P) Own EYEBOTH Med DAILY [facility] Non-Formulary Medication 1,200 mg 11/12/18 09:00 Calcium Carbonate PO DAILY [facility] Non-Formulary Medication 1,000 unit 11/12/18 09:00 Cholecalciferol (Vitamin D3) [Vitamin D3] PO DAILY [facility] Non-Formulary Medication 1 applic 11/11/18 21:00 11/11/18 21:02 Erythromycin Base EYEBOTH Not Given BEDTIME [facility] Isosorbide 0 mg 11/12/18 09:00 Mononitrate Er 120 PO Mg Tab Own Med DAILY [facility] Non-Formulary Medication 1 each 11/12/18 09:00 Multivit-Min/Fa/Lycopene/Lut [Centrum Silver] PO DAILY [facility] Ondansetron HCl 4 mg 11/11/18 15:05 Zofran IVPUSH Q4H PRN Nausea/Vomiting Sodium Chloride 10 ml 11/11/18 11:42 Saline Flush FLUSH ASDIRECTED PRN Keep Vein Open Sodium Chloride 2.5 ml 11/11/18 11:42 Saline Flush FLUSH ASDIRECTED PRN Keep Vein Open Discontinued Medications Generic Name Dose Route Start Last Admin Trade Name Freq PRN Reason Stop Dose Admin Albuterol/Ipratropium 3 ml 11/11/18 11:51 11/11/18 12:06 Duoneb 3.0-0.5 Mg/3 Ml NEB 11/11/18 11:52 3 ml ONETIME ONE Administration Diphenhydramine HCl 25 mg 11/11/18 13:44 11/11/18 13:57 Benadryl IVPUSH 11/11/18 13:45 25 mg ONETIME ONE Administration Levofloxacin/Dextrose 750 mg/ 150 mls @ 100 mls/hr 11/11/18 13:03 11/11/18 13 :11 Premix IV 11/11/18 14:32 100 mls/hr ONETIME ONE Administration Ceftriaxone Sodium/Dextrose 1 50 mls @ 100 mls/hr 11/11/18 13:43 11/11/18 13: 57 gm/ Premix IV 11/11/18 14:12 100 mls/hr ONETIME ONE Administration Levofloxacin/Dextrose 750 mg/ 150 mls @ 100 mls/hr 11/11/18 15:00 11/11/18 17 :47 Premix IV Not Given Q24H [facility] Insulin Aspart 0 unit 11/11/18 21:00 Novolog SUBCUT ACBREAKFASTANDBED [facility] Protocol Latanoprost 0.05 ml 11/11/18 21:00 Xalatan 0.005% Ophth Soln EYEBOTH BEDTIME [facility] Methylprednisolone Sodium Succinate 125 mg 11/11/18 11:51 11/11/18 12:21 Solu-Medrol IVPUSH 11/11/18 11:52 125 mg ONETIME ONE Administration Departure - Departure Time of Disposition: 00:25 Disposition: Refer to Observation Clinical Impression: Dyspnea COPD (chronic obstructive pulmonary disease) Qualifiers: COPD type: emphysema Chest pain Qualifiers: Chest pain type: chest pain on breathing Qualified Code(s): R07.1 - Chest pain on breathing - Discharge Information - My Orders Last 24 Hours: My Active Orders 11/11/18 11:50 Cardiac Monitoring [RC] Q8H Pulse Oximetry [RC] ASDIRECTED Blood Culture x2 Reflex Set [OM.PC] Stat 11/11/18 11:51 RT Aerosol Therapy [RC] ASDIRECTED 11/11/18 12:07 CULTURE BLOOD [BC] Stat 11/11/18 12:14 CULTURE BLOOD [BC] Stat - Assessment/Plan Last 24 Hours: My Active Orders 11/11/18 11:50 Cardiac Monitoring [RC] Q8H Pulse Oximetry [RC] ASDIRECTED Blood Culture x2 Reflex Set [OM.PC] Stat 11/11/18 11:51 RT Aerosol Therapy [RC] ASDIRECTED 11/11/18 12:07 CULTURE BLOOD [BC] Stat 11/11/18 12:14 CULTURE BLOOD [BC] Stat
[2018-11-11 12:47] LABS: CHLORIDE,CL 103 mmol/L (98-107); SODIUM,NA 138 mmol/L (136-148)
[2018-11-11] MEDS ORDERED: Levofloxacin/Dextrose 5%-Water 750 MG in Premix Bag 1 BAG IV ONE (13:03)
[2018-11-11 13:07] LABS: CHLORIDE,CL 103 mmol/L (98-107); SODIUM,NA 138 mmol/L (136-148)
--- NOTE | 2018-11-11 13:28 | CR ---
INDICATION: Pain. Shortness of breath. FINDINGS: Two PA chest x-rays show a normal cardiac silhouette. Atherosclerotic aorta. The lungs show no focal pulmonary opacities. Sharp pleural margins. No pneumothorax. IMPRESSION: No evidence of acute pulmonary abnormalities. Dictated by Ketan Chavez MD @ 11/11/2018 1:26:25 PM Dictated by: Ketan Chavez MD @ 11/11/2018 13:26:41 (Electronically Signed)
[2018-11-11] MEDS ORDERED: cefTRIAXone 1 GM in Premix Bag 1 BAG IV ONE (13:43)
[2018-11-11] MEDS ORDERED: diphenhydrAMINE 50 MG/ML SDV IVPUSH ONE (13:44)
--- NOTE | 2018-11-11 14:44 | PCM.HP.2 ---
H&P History of Present Illness - General Date of Service: 11/11/18 Admit Problem/Dx: Admission Diagnosis/Problem Admission Diagnosis/Problem Dyspnea Source of Information: Patient, Family - History of Present Illness Initial Comments - Free Text/Narative: The patient is an 88-year-old male with past medical historyof oxygen- dependent COPD and CAD. He presented to the ER with increased shortness of breath and productive cough 3 days. He's on oxygen at home, requires 3 L. He hasn't had to increase that at home. He reports chills but no fever. He denies chest pain, abdominal pain, nausea, vomiting, constipation, diarrhea, burning with urination. He followed up with his impregnator helper in [place], and they switched his inhaler to Incruse Ellipta and told him he had a poor prognosis and needed to get his affairs in order In the ER, initial workup showed a negative chest x-ray, elevated white count of 15.8. He is on prednisone 2.5 mg BID. ABG within normal limits, lactate of 1.5, CMP within normal limits. The troponin was negative. A BNP of 113, denies history of heart failure. EKG showed normal sinus rhythm with right bundle block branch block but no ST changes. In the ER, he was started on IV fluids, given DuoNeb treatment, dose of steroids, and dose of Rocephin and Levaquin. - Related Data Allergies/Adverse Reactions: Allergies Allergy/AdvReac Type Severity Reaction Status Date / Time levofloxacin [From Levaquin] Allergy Severe Hives Verified 11/11/18 15:02 Animal Dander Allergy Mild Cough Uncoded 11/11/18 15:02 smoke Allergy Cough Uncoded 11/11/18 15:02 Home Medications: Home Meds Aspirin [Adult Low Dose Aspirin EC] 81 mg PO DAILY 12/21/13 [History] Latanoprost [Xalatan 0.005% Ophth Soln] 1 drop EYEBOTH BEDTIME 12/21/13 [History ] Multivit-Min/FA/Lycopene/Lut [Centrum Silver] 1 each PO DAILY 12/21/13 [History] Albuterol Sulfate 2.5 mg IH QID PRN 04/15/14 [History] Fluticasone/Salmeterol [Advair 250-50] 1 inhalation IH BID 04/15/14 [History] Ascorbate Calcium [Vitamin C] 1,000 mg PO DAILY 07/18/14 [History] Brimonidine Tartrate [Alphagan P] 1 drop EYEBOTH DAILY 08/23/15 [History] Erythromycin Base [Erythromycin 0.5% Ophth Oint] 1 applic EYEBOTH BEDTIME [History] Umeclidinium Dorothy [Incruse Ellipta*] 62.5 mcg IH DAILY 06/28/16 [History] Clopidogrel [Plavix] 75 mg PO DAILY 09/20/16 [History] Metoprolol Succinate [Toprol XL] 25 mg PO DAILY 09/20/16 [History] Cholecalciferol (Vitamin D3) [Vitamin D3] 1,000 unit PO DAILY 03/20/18 [History] Isosorbide Mononitrate [Isosorbide Mononitrate ER] 120 mg PO DAILY 03/20/18 [ History] predniSONE [Prednisone] 2.5 mg PO BIDMEALS 03/20/18 [History] atorvaSTATin Calcium [Lipitor] 40 mg PO BEDTIME 30 Days #30 tablet 03/21/18 [Rx] Calcium Carbonate [Calcium] 1,200 mg PO DAILY 11/11/18 [History] Vit C/E/Zn/Coppr/Lutein/Zeaxan [Preservision Areds 2 Softgel] 2 each PO DAILY [History] Past Medical History HEENT History: Reports: Glaucoma, Macular Degeneration Other HEENT History: wears glasses, top and bottom dentures Cardiovascular History: Reports: CAD, Stents Other Cardiovascular History: Stents placed "last Spring" Respiratory History: Reports: COPD Other Respiratory History: continuous 02 3L at home Gastrointestinal History: Reports: Other (See Below) Other Gastrointestinal History: epigastric pain Genitourinary History: Reports: None Musculoskeletal History: Reports: Arthritis Other Musculoskeletal History: neck pain, rt elbow pain Neurological History: Reports: TIA Psychiatric History: Reports: Dementia Endocrine/Metabolic History: Reports: Diabetes, Type II Hematologic History: Reports: None Immunologic History: Reports: None Oncologic (Cancer) History: Reports: None Dermatologic History: Reports: Other (See Below) Other Dermatologic History: dermatitis - Infectious Disease History Infectious Disease History: Reports: Other (See Below) Other Infectious Disease History: unknown - Past Surgical History Head Surgeries/Procedures: Reports: None HEENT Surgical History: Reports: Cataract Surgery Cardiovascular Surgical History: Reports: Coronary Artery Stent Respiratory Surgical History: Reports: None GI Surgical History: Reports: Appendectomy, Other (See Below) Other GI Surgeries/Procedures: laryngoscopy with stripping of vocal cords Male Surgical History: Reports: None Endocrine Surgical History: Reports: None Neurological Surgical History: Reports: None Musculoskeletal Surgical History: Reports: None Oncologic Surgical History: Reports: None Dermatological Surgical History: Reports: None Social & Family History - Family History Family Medical History: Noncontributory - Tobacco Use Smoking Status *Q: Former Smoker Used Tobacco, but Quit: Yes Month/Year Tobacco Last Used: 1970 - Caffeine Use Caffeine Use: Reports: Coffee - Recreational Drug Use Recreational Drug Use: No - Living Situation & Occupation Living situation: Reports: Occupation: Retired H&P Review of Systems - Review of Systems: Review Of Systems: See Below General: Reports: Chills, Decreased Appetite. 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) Pulmonary: Reports: Shortness of Breath, Wheezing, Cough, Sputum Cardiovascular: Reports: No Symptoms Gastrointestinal: Reports: No Symptoms Genitourinary: Reports: No Symptoms Musculoskeletal: Reports: No Symptoms Skin: Reports: No Symptoms Neurological: Reports: No Symptoms Hematologic/Lymphatic: Reports: No Symptoms Immunologic: Reports: No Symptoms Exam - Exam Exam: See Below - Vital Signs Vital Signs: Last Vital Signs Temp Pulse 70 11/11/18 13:40 Resp 16 11/11/18 13:40 BP 140/66 11/11/18 13:40 Pulse Ox 91 L 11/11/18 13:40 Weight: 76.566 kg - Exam General: Alert, Cooperative Neck: Supple, Trachea Midline Lungs: Normal Respiratory Effort, Decreased Breath Sounds, Wheezing Cardiovascular: Regular Rate, Regular Rhythm GI/Abdominal Exam: Normal Bowel Sounds, Soft, Non-Tender, No Distention Extremities: No Pedal Edema Skin: Warm, Dry, Intact Psychiatric: Alert, Normal Affect, Normal Mood - Patient Data Lab Results Last 24 hrs: Laboratory Results - last 24 hr 11/11/18 11/11/18 11/11/18 Range/Units 11:50 11:50 11:51 WBC 15.82 H (4.0-11.0) K/uL RBC 4.03 L (4.50-5.90) M/uL Hgb 12.5 L (13.0-17.0) g/dL Hct 38.0 (38.0-50.0) % MCV 94.3 (80.0-98.0) fL MCH 31.0 (27.0-32.0) pg MCHC 32.9 (31.0-37.0) g/dL RDW Std Deviation 46.3 (28.0-62.0) fl RDW Coeff of Juancho 14 (11.0-15.0) % Plt Count 196 (150-400) K/uL MPV 10.10 (7.40-12.00) fL Neut % (Auto) 89.6 H (48.0-80.0) % Lymph % (Auto) 5.1 L (16.0-40.0) % [place] % (Auto) 5.1 (0.0-15.0) % Eos % (Auto) 0.1 (0.0-7.0) % Baso % (Auto) 0.1 (0.0-1.5) % Neut # (Auto) 14.2 H (1.4-5.7) K/uL Lymph # (Auto) 0.8 (0.6-2.4) K/uL [place] # (Auto) 0.8 (0.0-0.8) K/uL Eos # (Auto) 0.0 (0.0-0.7) K/uL Baso # (Auto) 0.0 (0.0-0.1) K/uL Nucleated RBC % 0.0 /100WBC Nucleated RBCs # 0 K/uL INR ABG pH (7.35-7.45) ABG pCO2 (35-45) mmHG ABG pO2 (75-100) mmHG ABG HCO3 (22-26) mEq/L ABG Total CO2 ABG Base Excess (-2.0-2.0) Lactate 1.5 (0.20-2.00) mmol/L Sodium 138 (136-148) mmol/L Potassium 4.1 (3.5-5.1) mmol/L Chloride 103 (98-107) mmol/L Carbon Dioxide 25.4 (21.0-32.0) mmol/L BUN 9 (7.0-18.0) mg/dL Creatinine 1.0 (0.8-1.3) mg/dL Est Cr Clr Drug Dosing 56.36 mL/min Estimated GFR (MDRD) > 60.0 ml/min Glucose 150 H (74-106) mg/dL Calcium 8.6 (8.5-10.1) mg/dL Total Bilirubin 0.7 (0.2-1.0) mg/dL AST 26 (15-37) IU/L ALT 33 (14-63) IU/L Alkaline Phosphatase 102 (46-116) U/L Troponin I (0.000-0.056) ng/mL B-Natriuretic Peptide (<100) PG/ML Total Protein 6.6 (6.4-8.2) g/dL Albumin 3.5 (3.4-5.0) g/dL Globulin 3.1 (2.6-4.0) g/dL Albumin/Globulin Ratio 1.1 (0.9-1.6) Lipase 84 (73-393) U/L 11/11/18 11/11/18 11/11/18 Range/Units 11:55 12:14 12:14 WBC (4.0-11.0) K/uL RBC (4.50-5.90) M/uL Hgb (13.0-17.0) g/dL Hct (38.0-50.0) % MCV (80.0-98.0) fL MCH (27.0-32.0) pg MCHC (31.0-37.0) g/dL RDW Std Deviation (28.0-62.0) fl RDW Coeff of Juancho (11.0-15.0) % Plt Count (150-400) K/uL MPV (7.40-12.00) fL Neut % (Auto) (48.0-80.0) % Lymph % (Auto) (16.0-40.0) % [place] % (Auto) (0.0-15.0) % Eos % (Auto) (0.0-7.0) % Baso % (Auto) (0.0-1.5) % Neut # (Auto) (1.4-5.7) K/uL Lymph # (Auto) (0.6-2.4) K/uL [place] # (Auto) (0.0-0.8) K/uL Eos # (Auto) (0.0-0.7) K/uL Baso # (Auto) (0.0-0.1) K/uL Nucleated RBC % /100WBC Nucleated RBCs # K/uL INR 1.03 ABG pH 7.436 (7.35-7.45) ABG pCO2 37 (35-45) mmHG ABG pO2 97 (75-100) mmHG ABG HCO3 25 (22-26) mEq/L ABG Total CO2 22.8 ABG Base Excess 1.0 (-2.0-2.0) Lactate (0.20-2.00) mmol/L Sodium 138 (136-148) mmol/L Potassium 4.3 (3.5-5.1) mmol/L Chloride 103 (98-107) mmol/L Carbon Dioxide 26.3 (21.0-32.0) mmol/L BUN 8 (7.0-18.0) mg/dL Creatinine 1.0 (0.8-1.3) mg/dL Est Cr Clr Drug Dosing 56.36 mL/min Estimated GFR (MDRD) > 60.0 ml/min Glucose 145 H (74-106) mg/dL Calcium 8.5 (8.5-10.1) mg/dL Total Bilirubin 0.6 (0.2-1.0) mg/dL AST 25 (15-37) IU/L ALT 25 (14-63) IU/L Alkaline Phosphatase 98 (46-116) U/L Troponin I < 0.050 (0.000-0.056) ng/mL B-Natriuretic Peptide (<100) PG/ML Total Protein 6.4 (6.4-8.2) g/dL Albumin 3.4 (3.4-5.0) g/dL Globulin 3.0 (2.6-4.0) g/dL Albumin/Globulin Ratio 1.1 (0.9-1.6) Lipase (73-393) U/L 11/11/18 Range/Units 12:14 WBC (4.0-11.0) K/uL RBC (4.50-5.90) M/uL Hgb (13.0-17.0) g/dL Hct (38.0-50.0) % MCV (80.0-98.0) fL MCH (27.0-32.0) pg MCHC (31.0-37.0) g/dL RDW Std Deviation (28.0-62.0) fl RDW Coeff of Juancho (11.0-15.0) % Plt Count (150-400) K/uL MPV (7.40-12.00) fL Neut % (Auto) (48.0-80.0) % Lymph % (Auto) (16.0-40.0) % [place] % (Auto) (0.0-15.0) % Eos % (Auto) (0.0-7.0) % Baso % (Auto) (0.0-1.5) % Neut # (Auto) (1.4-5.7) K/uL Lymph # (Auto) (0.6-2.4) K/uL [place] # (Auto) (0.0-0.8) K/uL Eos # (Auto) (0.0-0.7) K/uL Baso # (Auto) (0.0-0.1) K/uL Nucleated RBC % /100WBC Nucleated RBCs # K/uL INR ABG pH (7.35-7.45) ABG pCO2 (35-45) mmHG ABG pO2 (75-100) mmHG ABG HCO3 (22-26) mEq/L ABG Total CO2 ABG Base Excess (-2.0-2.0) Lactate (0.20-2.00) mmol/L Sodium (136-148) mmol/L Potassium (3.5-5.1) mmol/L Chloride (98-107) mmol/L Carbon Dioxide (21.0-32.0) mmol/L BUN (7.0-18.0) mg/dL Creatinine (0.8-1.3) mg/dL Est Cr Clr Drug Dosing mL/min Estimated GFR (MDRD) ml/min Glucose (74-106) mg/dL Calcium (8.5-10.1) mg/dL Total Bilirubin (0.2-1.0) mg/dL AST (15-37) IU/L ALT (14-63) IU/L Alkaline Phosphatase (46-116) U/L Troponin I (0.000-0.056) ng/mL B-Natriuretic Peptide 113 H (<100) PG/ML Total Protein (6.4-8.2) g/dL Albumin (3.4-5.0) g/dL Globulin (2.6-4.0) g/dL Albumin/Globulin Ratio (0.9-1.6) Lipase (73-393) U/L Result Diagrams: 11/11/18 11:50 11/11/18 12:14 Problem List Initiated/Reviewed/Updated: Yes Orders Last 24hrs: Active Orders 24 hr Category Date Time Status Patient Status [ADT] Stat ADT 11/11/18 13:07 Active Cardiac Monitoring [RC] . DIRECTED Care 11/11/18 11:50 Active EKG Documentation Completion [RC] STAT Care 11/11/18 11:42 Active EKG Documentation Completion [RC] STAT Care 11/11/18 11:50 Active Oxygen Therapy, ED [RC] ASDIRECTED Care 11/11/18 11:50 Active Pulse Oximetry [RC] ASDIRECTED Care 11/11/18 11:50 Active RT Aerosol Therapy [RC] ASDIRECTED Care 11/11/18 11:51 Active CULTURE BLOOD [BC] Stat Lab 11/11/18 12:07 Received CULTURE BLOOD [BC] Stat Lab 11/11/18 12:14 Received UA RFX SHELIA AND CULT IF INDIC [URIN] Stat Lab 11/11/18 11:42 Ordered Sodium Chloride 0.9% [Saline Flush] Med 11/11/18 11:42 Active 10 ml FLUSH ASDIRECTED PRN Sodium Chloride 0.9% [Saline Flush] Med 11/11/18 11:42 Active 2.5 ml FLUSH ASDIRECTED PRN Blood Culture x2 Reflex Set [OM.PC] Stat Oth 11/11/18 11:50 Ordered Saline Lock Insert [OM.PC] Stat Oth 11/11/18 11:42 Ordered Medication Orders Sodium Chloride (Saline Flush) 10 ml FLUSH ASDIRECTED PRN PRN Reason: Keep Vein Open Sodium Chloride (Saline Flush) 2.5 ml FLUSH ASDIRECTED PRN PRN Reason: Keep Vein Open Assessment/Plan Comment:: 1. Admit for observation 2. Code Status- full 3. Vitals per routine 4. I/Os per routine 5. Diet- heart healthy 6. DVT prophylaxis- lovenox 7.COPD exacerbation with possible CAP- UA/BC pending, will get SC. Will continue Levaquin 750 mg IV daily. Will continue solu-medrol 125 mg q8. Will continue duonebs and encourage incentive spirometry. 8. CAD- continue home meds, monitor on telemetry 9. Hx DMII-will check hemoglobin a1c, will monitor with accuchecks and sliding scale
[2018-11-11] MEDS ORDERED: Levofloxacin/Dextrose 5%-Water 750 MG in Premix Bag 1 BAG IV SCH (15:00)
[2018-11-11] MEDS ORDERED: Acetaminophen 325 MG Tab PO PRN (15:05)
[2018-11-11] MEDS ORDERED: Ondansetron 4 MG/2 ML SDV IVPUSH PRN (15:05)
[2018-11-11] MEDS: Enoxaparin 40 MG/0.4 ML Syringe SUBCUT SCH (15:31)
[2018-11-11] MEDS: Sodium Chloride 0.9% 1,000 ML IV SCH (15:37)
[2018-11-11] MEDS: methylPREDNISolone Sodium Succinate 125 MG/2 ML SDV IVPUSH SCH ×2 (15:37→22:33)
[2018-11-11] MEDS: Piperacillin/Tazobactam 4.5 GM in Sodium Chloride 0.9% 100 ML IV SCH ×2 (16:17→21:30)
[2018-11-11] MEDS: Albuterol/Ipratropium 3.0-0.5 MG/3 ML Neb Soln NEB SCH (17:39)
[2018-11-11] MEDS: Insulin Aspart 100 Units/ML 3 ML Pen SUBCUT SCH ×2 (18:53→21:13)
[2018-11-11] MEDS ORDERED: Latanoprost 0.005% Ophth Soln 2.5 ML Bottle EYEBOTH SCH (21:00)
[2018-11-11] MEDS ORDERED: Insulin Aspart 100 Units/ML 3 ML Pen SUBCUT SCH (21:00)
[2018-11-11] MEDS ORDERED: Latanoprost 0.005% Ophth Soln 2.5 ML Bottle **OWN MED EYEBOTH SCH (21:00)
[2018-11-11] MEDS ORDERED: ERYTHROMYCIN BASE EYEBOTH SCH (21:00)
[2018-11-11] MEDS ORDERED: atorvaSTATin 40 MG Tab **OWN MED PO SCH (21:00)
[2018-11-12] MEDS: Albuterol/Ipratropium 3.0-0.5 MG/3 ML Neb Soln NEB SCH ×4 (00:10→17:36)
[2018-11-12] MEDS: Piperacillin/Tazobactam 4.5 GM in Sodium Chloride 0.9% 100 ML IV SCH ×3 (02:48→14:49)
[2018-11-12] MEDS: Sodium Chloride 0.9% 1,000 ML IV SCH (02:55)
[2018-11-12] MEDS: methylPREDNISolone Sodium Succinate 125 MG/2 ML SDV IVPUSH SCH ×2 (06:05→14:49)
[2018-11-12 06:41] LABS: HEMOGLOBIN A1C 6.1 % (4.5-6.2)
[2018-11-12 06:47] LABS: CHLORIDE,CL 104 mmol/L (98-107); SODIUM,NA 138 mmol/L (136-148)
[2018-11-12] MEDS: Insulin Aspart 100 Units/ML 3 ML Pen SUBCUT SCH ×3 (07:58→17:42)
[2018-11-12] MEDS: Metoprolol Succinate 25 MG Tab.ER **OWN MED PO SCH ×2 (08:07→13:19)
[2018-11-12] MEDS: ISOSORBIDE MONONITRATE 120 MG PO SCH ×2 (08:18→13:19)
--- NOTE | 2018-11-12 08:49 | PCM.DCSUM1 ---
<Pam Lemons - Last Filed: 11/12/18 17:45> Discharge Summary - Hospital Course HPI Initial Comments: Admission Date: 11/11/18 Discharge Date: 11/12/18 Admission Diagnosis: 1. COPD exacerbation 2. CAD 3. DMII Discharge Diagnosis: 1. COPD exacerbation 2. CAD 3. DMII Procedures: None Consults: None Hospital Course: The patient is an 88-year-old male presented to the ER with increased shortness of breath and increased sputum production. He has a past medical history of CAD, oxygen dependent COPD, and type 2 diabetes. Initial workup in the ER showed elevated white count of 15.8, a negative troponin, and chest x-ray that showed no acute cardiopulmonary process. In the ER he was given IV fluids, a dose of steroids, DuoNeb treatment, dose of Levaquin which he had a allergic reaction (increased erythema and swelling of the arm) and then received a dose of ceftriaxone. He is admitted to the medical surgical floor for observation. On the floor, ming was treated with Zosyn, Solu-Medrol, duo nebs and he was continued on oxygen. Sputum culture was ordered but the patient was unable to provide us with a sample. White count was trended and resolved and he reported he was feeling a little bit better. He was continued on his home meds for his coronary artery disease. He reported a has a history of type 2 diabetes, but it was controlling it with diet. While he was admitted , he was placed on Accu-Cheks and sliding scale. Hemoglobin A1c was 6.1%. The morning of discharge, he got up to use the bathroom and developed sharp chest pain that improved when he sat down and rested. EKG and troponin were obtained, no ST elevation and troponin negative. Repeat troponin six hours later was also negative and no further episodes of chest pain. At this time the patient and his both wanted to be discharged home. Disposition: Home Discharge Condition: vitals stable, tolerating oral diet, ambulating without difficulty, symptom improvement Discharge Instructions: regular diet as tolerated, activity as tolerated, take medications as prescribed. Symptoms to report to physician include fever/chills , chest pain, shortness of breath, abdominal pain, erythema, drainage/discharge , or not improving as expected. Discharge Medications: Aspirin [Adult Low Dose Aspirin EC] 81 mg PO DAILY Latanoprost [Xalatan 0.005% Ophth Soln] 1 drop EYEBOTH BEDTIME Multivit-Min/FA/Lycopene/Lut [Centrum Silver] 1 each PO DAILY Albuterol Sulfate 2.5 mg IH QID Fluticasone/Salmeterol [Advair 250-50] 1 inhalation IH BID Ascorbate Calcium [Vitamin C] 1,000 mg PO DAILY Brimonidine Tartrate [Alphagan P] 1 drop EYEBOTH DAILY Erythromycin Base [Erythromycin 0.5% Ophth Oint] 1 applic EYEBOTH BEDTIME Umeclidinium [place] [Incruse Ellipta*] 62.5 mcg IH DAILY Clopidogrel [Plavix] 75 mg PO DAILY Metoprolol Succinate [Toprol XL] 25 mg PO DAILY Cholecalciferol (Vitamin D3) [Vitamin D3] 1,000 unit PO DAILY Isosorbide Mononitrate [Isosorbide Mononitrate ER] 120 mg PO DAILY atorvaSTATin Calcium [Lipitor] 40 mg PO BEDTIME Calcium Carbonate [Calcium] 1,200 mg PO DAILY Clopidogrel Bisulfate [Clopidogrel] 75 tab PO DAILY Vit C/E/Zn/Coppr/Lutein/Zeaxan [Preservision Areds 2 Softgel] 2 each PO DAILY Amoxicillin/Potassium Clav [Augmentin 875-125 Tablet] 1 each PO BID predniSONE [Prednisone] 2.5 mg PO BIDMEALS predniSONE [Prednisone] 40 mg PO DAILY 3 Days Follow-up: 1. PCP- Dr. Hernández - Discharge Data Discharge Date: 11/12/18 Discharge Disposition: Home, Self-Care 01 Condition: Fair - Discharge Plan Prescriptions/Med Rec: Amoxicillin/Potassium Clav [Augmentin 875-125 Tablet] 1 each PO BID 5 Days #10 tablet predniSONE [Prednisone] 40 mg PO DAILY 3 Days #6 tablet Home Medications: Home Meds Aspirin [Adult Low Dose Aspirin EC] 81 mg PO DAILY 12/21/13 [History] Latanoprost [Xalatan 0.005% Ophth Soln] 1 drop EYEBOTH BEDTIME 12/21/13 [History ] Multivit-Min/FA/Lycopene/Lut [Centrum Silver] 1 each PO DAILY 12/21/13 [History] Albuterol Sulfate 2.5 mg IH QID 04/15/14 [History] Fluticasone/Salmeterol [Advair 250-50] 1 inhalation IH BID 04/15/14 [History] Ascorbate Calcium [Vitamin C] 1,000 mg PO DAILY 07/18/14 [History] Brimonidine Tartrate [Alphagan P] 1 drop EYEBOTH DAILY 08/23/15 [History] Erythromycin Base [Erythromycin 0.5% Ophth Oint] 1 applic EYEBOTH BEDTIME [History] Umeclidinium [place] [Incruse Ellipta*] 62.5 mcg IH DAILY 06/28/16 [History] Clopidogrel [Plavix] 75 mg PO DAILY 09/20/16 [History] Metoprolol Succinate [Toprol XL] 25 mg PO DAILY 09/20/16 [History] Cholecalciferol (Vitamin D3) [Vitamin D3] 1,000 unit PO DAILY 03/20/18 [History] Isosorbide Mononitrate [Isosorbide Mononitrate ER] 120 mg PO DAILY 03/20/18 [ History] atorvaSTATin Calcium [Lipitor] 40 mg PO BEDTIME 30 Days #30 tablet 03/21/18 [Rx] Calcium Carbonate [Calcium] 1,200 mg PO DAILY 11/11/18 [History] Clopidogrel Bisulfate [Clopidogrel] 75 tab PO DAILY 11/11/18 [History] Vit C/E/Zn/Coppr/Lutein/Zeaxan [Preservision Areds 2 Softgel] 2 each PO DAILY [History] Amoxicillin/Potassium Clav [Augmentin 875-125 Tablet] 1 each PO BID 5 Days #10 tablet 11/12/18 [Rx] predniSONE [Prednisone] 2.5 mg PO BIDMEALS #0 11/12/18 [Rx] predniSONE [Prednisone] 40 mg PO DAILY 3 Days #6 tablet 11/12/18 [Rx] Patient Handouts: Amoxicillin; Clavulanic Acid tablets, Shortness of Breath, Adult, [id number], Chronic Obstructive Pulmonary Disease, [id number], Nonspecific Chest Pain, [id number], Prednisone tablets Referrals: Laura Garcia,Quinn [Ordering Only Provider] - Derek Hernández MD [Physician] - 11/25/18 2:30 pm - Discharge Summary/Plan Comment DC Time >30 min.: No - Patient Data Vitals - Most Recent: Last Vital Signs Temp 98.3 F 11/12/18 07:46 Pulse 99 08/27/19 08:07 Resp 19 11/12/18 07:46 BP 143/66 H 11/12/18 08:07 Pulse Ox 97 11/12/18 07:46 Weight - Most Recent: 76.067 kg I&O - Last 24 hours: Intake & Output 11/11/18 11/12/18 11/12/18 22:59 06:59 14:59 Intake Total 107 1537 Output Total 270 400 Balance -163 1137 Lab Results - Last 24 hrs: Laboratory Results - last 24 hr 11/11/18 11/11/18 11/11/18 Range/Units 11:50 11:50 11:51 WBC 15.82 H (4.0-11.0) K/uL RBC 4.03 L (4.50-5.90) M/uL Hgb 12.5 L (13.0-17.0) g/dL Hct 38.0 (38.0-50.0) % MCV 94.3 (80.0-98.0) fL MCH 31.0 (27.0-32.0) pg MCHC 32.9 (31.0-37.0) g/dL RDW Std Deviation 46.3 (28.0-62.0) fl RDW Coeff of Juancho 14 (11.0-15.0) % Plt Count 196 (150-400) K/uL MPV 10.10 (7.40-12.00) fL Neut % (Auto) 89.6 H (48.0-80.0) % Lymph % (Auto) 5.1 L (16.0-40.0) % [place] % (Auto) 5.1 (0.0-15.0) % Eos % (Auto) 0.1 (0.0-7.0) % Baso % (Auto) 0.1 (0.0-1.5) % Neut # (Auto) 14.2 H (1.4-5.7) K/uL Lymph # (Auto) 0.8 (0.6-2.4) K/uL [place] # (Auto) 0.8 (0.0-0.8) K/uL Eos # (Auto) 0.0 (0.0-0.7) K/uL Baso # (Auto) 0.0 (0.0-0.1) K/uL Nucleated RBC % 0.0 /100WBC Nucleated RBCs # 0 K/uL INR ABG pH (7.35-7.45) ABG pCO2 (35-45) mmHG ABG pO2 (75-100) mmHG ABG HCO3 (22-26) mEq/L ABG Total CO2 ABG Base Excess (-2.0-2.0) Lactate 1.5 (0.20-2.00) mmol/L Sodium 138 (136-148) mmol/L Potassium 4.1 (3.5-5.1) mmol/L Chloride 103 (98-107) mmol/L Carbon Dioxide 25.4 (21.0-32.0) mmol/L BUN 9 (7.0-18.0) mg/dL Creatinine 1.0 (0.8-1.3) mg/dL Est Cr Clr Drug Dosing 56.36 mL/min Estimated GFR (MDRD) > 60.0 ml/min Glucose 150 H (74-106) mg/dL POC Glucose (60-110) mg/dL Hemoglobin A1c (4.5-6.2) % Calcium 8.6 (8.5-10.1) mg/dL Total Bilirubin 0.7 (0.2-1.0) mg/dL AST 26 (15-37) IU/L ALT 33 (14-63) IU/L Alkaline Phosphatase 102 (46-116) U/L Troponin I (0.000-0.056) ng/mL B-Natriuretic Peptide (<100) PG/ML Total Protein 6.6 (6.4-8.2) g/dL Albumin 3.5 (3.4-5.0) g/dL Globulin 3.1 (2.6-4.0) g/dL Albumin/Globulin Ratio 1.1 (0.9-1.6) Lipase 84 (73-393) U/L Urine Color Urine Appearance Urine pH (5.0-8.0) Ur Specific [place] (1.001-1.035) Urine Protein (NEGATIVE) mg/dL Urine Glucose (UA) (NEGATIVE) mg/dL Urine Ketones (NEGATIVE) mg/dL Urine Occult Blood (NEGATIVE) Urine Nitrite (NEGATIVE) Urine Bilirubin (NEGATIVE) Urine Urobilinogen (<2.0) EU/dL Ur Leukocyte Esterase (NEGATIVE) 11/11/18 11/11/18 11/11/18 Range/Units 11:55 12:14 12:14 WBC (4.0-11.0) K/uL RBC (4.50-5.90) M/uL Hgb (13.0-17.0) g/dL Hct (38.0-50.0) % MCV (80.0-98.0) fL MCH (27.0-32.0) pg MCHC (31.0-37.0) g/dL RDW Std Deviation (28.0-62.0) fl RDW Coeff of Juancho (11.0-15.0) % Plt Count (150-400) K/uL MPV (7.40-12.00) fL Neut % (Auto) (48.0-80.0) % Lymph % (Auto) (16.0-40.0) % [place] % (Auto) (0.0-15.0) % Eos % (Auto) (0.0-7.0) % Baso % (Auto) (0.0-1.5) % Neut # (Auto) (1.4-5.7) K/uL Lymph # (Auto) (0.6-2.4) K/uL [place] # (Auto) (0.0-0.8) K/uL Eos # (Auto) (0.0-0.7) K/uL Baso # (Auto) (0.0-0.1) K/uL Nucleated RBC % /100WBC Nucleated RBCs # K/uL INR 1.03 ABG pH 7.436 (7.35-7.45) ABG pCO2 37 (35-45) mmHG ABG pO2 97 (75-100) mmHG ABG HCO3 25 (22-26) mEq/L ABG Total CO2 22.8 ABG Base Excess 1.0 (-2.0-2.0) Lactate (0.20-2.00) mmol/L Sodium 138 (136-148) mmol/L Potassium 4.3 (3.5-5.1) mmol/L Chloride 103 (98-107) mmol/L Carbon Dioxide 26.3 (21.0-32.0) mmol/L BUN 8 (7.0-18.0) mg/dL Creatinine 1.0 (0.8-1.3) mg/dL Est Cr Clr Drug Dosing 56.36 mL/min Estimated GFR (MDRD) > 60.0 ml/min Glucose 145 H (74-106) mg/dL POC Glucose (60-110) mg/dL Hemoglobin A1c (4.5-6.2) % Calcium 8.5 (8.5-10.1) mg/dL Total Bilirubin 0.6 (0.2-1.0) mg/dL AST 25 (15-37) IU/L ALT 25 (14-63) IU/L Alkaline Phosphatase 98 (46-116) U/L Troponin I < 0.050 (0.000-0.056) ng/mL B-Natriuretic Peptide (<100) PG/ML Total Protein 6.4 (6.4-8.2) g/dL Albumin 3.4 (3.4-5.0) g/dL Globulin 3.0 (2.6-4.0) g/dL Albumin/Globulin Ratio 1.1 (0.9-1.6) Lipase (73-393) U/L Urine Color Urine Appearance Urine pH (5.0-8.0) Ur Specific [place] (1.001-1.035) Urine Protein (NEGATIVE) mg/dL Urine Glucose (UA) (NEGATIVE) mg/dL Urine Ketones (NEGATIVE) mg/dL Urine Occult Blood (NEGATIVE) Urine Nitrite (NEGATIVE) Urine Bilirubin (NEGATIVE) Urine Urobilinogen (<2.0) EU/dL Ur Leukocyte Esterase (NEGATIVE) 11/11/18 11/11/18 11/11/18 Range/Units 12:14 16:35 17:53 WBC (4.0-11.0) K/uL RBC (4.50-5.90) M/uL Hgb (13.0-17.0) g/dL Hct (38.0-50.0) % MCV (80.0-98.0) fL MCH (27.0-32.0) pg MCHC (31.0-37.0) g/dL RDW Std Deviation (28.0-62.0) fl RDW Coeff of Juancho (11.0-15.0) % Plt Count (150-400) K/uL MPV (7.40-12.00) fL Neut % (Auto) (48.0-80.0) % Lymph % (Auto) (16.0-40.0) % [place] % (Auto) (0.0-15.0) % Eos % (Auto) (0.0-7.0) % Baso % (Auto) (0.0-1.5) % Neut # (Auto) (1.4-5.7) K/uL Lymph # (Auto) (0.6-2.4) K/uL [place] # (Auto) (0.0-0.8) K/uL Eos # (Auto) (0.0-0.7) K/uL Baso # (Auto) (0.0-0.1) K/uL Nucleated RBC % /100WBC Nucleated RBCs # K/uL INR ABG pH (7.35-7.45) ABG pCO2 (35-45) mmHG ABG pO2 (75-100) mmHG ABG HCO3 (22-26) mEq/L ABG Total CO2 ABG Base Excess (-2.0-2.0) Lactate (0.20-2.00) mmol/L Sodium (136-148) mmol/L Potassium (3.5-5.1) mmol/L Chloride (98-107) mmol/L Carbon Dioxide (21.0-32.0) mmol/L BUN (7.0-18.0) mg/dL Creatinine (0.8-1.3) mg/dL Est Cr Clr Drug Dosing mL/min Estimated GFR (MDRD) ml/min Glucose (74-106) mg/dL POC Glucose 263 H (60-110) mg/dL Hemoglobin A1c (4.5-6.2) % Calcium (8.5-10.1) mg/dL Total Bilirubin (0.2-1.0) mg/dL AST (15-37) IU/L ALT (14-63) IU/L Alkaline Phosphatase (46-116) U/L Troponin I (0.000-0.056) ng/mL B-Natriuretic Peptide 113 H (<100) PG/ML Total Protein (6.4-8.2) g/dL Albumin (3.4-5.0) g/dL Globulin (2.6-4.0) g/dL Albumin/Globulin Ratio (0.9-1.6) Lipase (73-393) U/L Urine Color YELLOW Urine Appearance CLEAR Urine pH 7.5 (5.0-8.0) Ur Specific [place] 1.010 (1.001-1.035) Urine Protein NEGATIVE (NEGATIVE) mg/dL Urine Glucose (UA) NEGATIVE (NEGATIVE) mg/dL Urine Ketones NEGATIVE (NEGATIVE) mg/dL Urine Occult Blood NEGATIVE (NEGATIVE) Urine Nitrite NEGATIVE (NEGATIVE) Urine Bilirubin NEGATIVE (NEGATIVE) Urine Urobilinogen 0.2 (<2.0) EU/dL Ur Leukocyte Esterase NEGATIVE (NEGATIVE) 11/11/18 11/12/18 11/12/18 Range/Units 21:11 05:43 05:43 WBC 9.66 (4.0-11.0) K/uL RBC 3.91 L (4.50-5.90) M/uL Hgb 12.1 L (13.0-17.0) g/dL Hct 36.9 L (38.0-50.0) % MCV 94.4 (80.0-98.0) fL MCH 30.9 (27.0-32.0) pg MCHC 32.8 (31.0-37.0) g/dL RDW Std Deviation 46.2 (28.0-62.0) fl RDW Coeff of Juancho 14 (11.0-15.0) % Plt Count 176 (150-400) K/uL MPV 10.40 (7.40-12.00) fL Neut % (Auto) 93.4 H (48.0-80.0) % Lymph % (Auto) 5.2 L (16.0-40.0) % [place] % (Auto) 1.4 (0.0-15.0) % Eos % (Auto) 0.0 (0.0-7.0) % Baso % (Auto) 0.0 (0.0-1.5) % Neut # (Auto) 9.0 H (1.4-5.7) K/uL Lymph # (Auto) 0.5 L (0.6-2.4) K/uL [place] # (Auto) 0.1 (0.0-0.8) K/uL Eos # (Auto) 0.0 (0.0-0.7) K/uL Baso # (Auto) 0.0 (0.0-0.1) K/uL Nucleated RBC % 0.0 /100WBC Nucleated RBCs # 0 K/uL INR ABG pH (7.35-7.45) ABG pCO2 (35-45) mmHG ABG pO2 (75-100) mmHG ABG HCO3 (22-26) mEq/L ABG Total CO2 ABG Base Excess (-2.0-2.0) Lactate (0.20-2.00) mmol/L Sodium (136-148) mmol/L Potassium (3.5-5.1) mmol/L Chloride (98-107) mmol/L Carbon Dioxide (21.0-32.0) mmol/L BUN (7.0-18.0) mg/dL Creatinine (0.8-1.3) mg/dL Est Cr Clr Drug Dosing mL/min Estimated GFR (MDRD) ml/min Glucose (74-106) mg/dL POC Glucose 292 H (60-110) mg/dL Hemoglobin A1c 6.1 (4.5-6.2) % Calcium (8.5-10.1) mg/dL Total Bilirubin (0.2-1.0) mg/dL AST (15-37) IU/L ALT (14-63) IU/L Alkaline Phosphatase (46-116) U/L Troponin I (0.000-0.056) ng/mL B-Natriuretic Peptide (<100) PG/ML Total Protein (6.4-8.2) g/dL Albumin (3.4-5.0) g/dL Globulin (2.6-4.0) g/dL Albumin/Globulin Ratio (0.9-1.6) Lipase (73-393) U/L Urine Color Urine Appearance Urine pH (5.0-8.0) Ur Specific [place] (1.001-1.035) Urine Protein (NEGATIVE) mg/dL Urine Glucose (UA) (NEGATIVE) mg/dL Urine Ketones (NEGATIVE) mg/dL Urine Occult Blood (NEGATIVE) Urine Nitrite (NEGATIVE) Urine Bilirubin (NEGATIVE) Urine Urobilinogen (<2.0) EU/dL Ur Leukocyte Esterase (NEGATIVE) 11/12/18 11/12/18 Range/Units 05:43 06:18 WBC (4.0-11.0) K/uL RBC (4.50-5.90) M/uL Hgb (13.0-17.0) g/dL Hct (38.0-50.0) % MCV (80.0-98.0) fL MCH (27.0-32.0) pg MCHC (31.0-37.0) g/dL RDW Std Deviation (28.0-62.0) fl RDW Coeff of Juancho (11.0-15.0) % Plt Count (150-400) K/uL MPV (7.40-12.00) fL Neut % (Auto) (48.0-80.0) % Lymph % (Auto) (16.0-40.0) % [place] % (Auto) (0.0-15.0) % Eos % (Auto) (0.0-7.0) % Baso % (Auto) (0.0-1.5) % Neut # (Auto) (1.4-5.7) K/uL Lymph # (Auto) (0.6-2.4) K/uL [place] # (Auto) (0.0-0.8) K/uL Eos # (Auto) (0.0-0.7) K/uL Baso # (Auto) (0.0-0.1) K/uL Nucleated RBC % /100WBC Nucleated RBCs # K/uL INR ABG pH (7.35-7.45) ABG pCO2 (35-45) mmHG ABG pO2 (75-100) mmHG ABG HCO3 (22-26) mEq/L ABG Total CO2 ABG Base Excess (-2.0-2.0) Lactate (0.20-2.00) mmol/L Sodium 138 (136-148) mmol/L Potassium 3.7 (3.5-5.1) mmol/L Chloride 104 (98-107) mmol/L Carbon Dioxide 25.5 (21.0-32.0) mmol/L BUN 11 (7.0-18.0) mg/dL Creatinine 1.0 (0.8-1.3) mg/dL Est Cr Clr Drug Dosing 55.99 mL/min Estimated GFR (MDRD) > 60.0 ml/min Glucose 215 H (74-106) mg/dL POC Glucose 199 H (60-110) mg/dL Hemoglobin A1c (4.5-6.2) % Calcium 8.0 L (8.5-10.1) mg/dL Total Bilirubin (0.2-1.0) mg/dL AST (15-37) IU/L ALT (14-63) IU/L Alkaline Phosphatase (46-116) U/L Troponin I (0.000-0.056) ng/mL B-Natriuretic Peptide (<100) PG/ML Total Protein (6.4-8.2) g/dL Albumin (3.4-5.0) g/dL Globulin (2.6-4.0) g/dL Albumin/Globulin Ratio (0.9-1.6) Lipase (73-393) U/L Urine Color Urine Appearance Urine pH (5.0-8.0) Ur Specific [place] (1.001-1.035) Urine Protein (NEGATIVE) mg/dL Urine Glucose (UA) (NEGATIVE) mg/dL Urine Ketones (NEGATIVE) mg/dL Urine Occult Blood (NEGATIVE) Urine Nitrite (NEGATIVE) Urine Bilirubin (NEGATIVE) Urine Urobilinogen (<2.0) EU/dL Ur Leukocyte Esterase (NEGATIVE) Med Orders - Current: Current Medications Acetaminophen (Tylenol) 650 mg PO Q4H PRN PRN Reason: Pain/Fever Last Admin: 11/11/18 18:42 Dose: 650 mg Albuterol/Ipratropium (Duoneb 3.0-0.5 Mg/3 Ml) 3 ml NEB Q6HRRT [facility] Last Admin: 11/12/18 05:53 Dose: 3 ml Ascorbic Acid (Vitamin C) 1,000 mg PO DAILY [facility] Last Admin: 11/12/18 08:15 Dose: Not Given Aspirin (Halfprin) 81 mg PO DAILY [facility] Last Admin: 11/12/18 08:04 Dose: Not Given Atorvastatin Calcium (Lipitor) 40 mg PO BEDTIME [facility] Last Admin: 11/11/18 21:02 Dose: 40 mg Calcium Carbonate/Glycine (Oyster Shell Calcium) 1,000 mg PO DAILY [facility] Last Admin: 11/12/18 08:16 Dose: Not Given Cholecalciferol (Vitamin D3) 10 mcg PO DAILY [facility] Last Admin: 11/12/18 08:18 Dose: Not Given Enoxaparin Sodium (Lovenox) 40 mg SUBCUT Q24H [facility] Last Admin: 11/11/18 15:31 Dose: 40 mg Sodium Chloride (Normal Saline) 1,000 mls @ 100 mls/hr IV ASDIRECTED [facility] Last Admin: 11/12/18 02:55 Dose: 100 mls/hr Piperacillin Sod/Tazobactam (Sod 4.5 gm/ Sodium Chloride) 100 mls @ 100 mls/hr IV Q6H [facility] Last Admin: 11/12/18 08:41 Dose: 100 mls/hr Insulin Aspart (Novolog) 0 unit SUBCUT WITHMEALSANDBED [facility]; Protocol Last Admin: 11/12/18 07:58 Dose: 1 unit Latanoprost (Xalatan 0.005% Oph Soln) 0 ml EYEBOTH BEDTIME [facility] Last Admin: 11/11/18 21:01 Dose: 1 drop Methylprednisolone Sodium Succinate (Solu-Medrol) 125 mg IVPUSH Q8H [facility] Last Admin: 11/12/18 06:05 Dose: 125 mg Metoprolol Succinate (Toprol Xl) 25 mg PO DAILY [facility] Last Admin: 11/12/18 08:07 Dose: Not Given Multivitamins/Minerals (Prosight) 1 tab PO DAILY [facility] Last Admin: 11/12/18 08:20 Dose: Not Given Ondansetron HCl (Zofran) 4 mg IVPUSH Q4H PRN PRN Reason: Nausea/Vomiting Clopidogrel 75 Mg (Tab Own Med) 1 each PO DAILY [facility] Last Admin: 11/12/18 08:14 Dose: 1 each Brimonidine Tartrate (Alphagan-P) Own Med 0 each EYEBOTH DAILY [facility] Last Admin: 11/12/18 08:19 Dose: 1 each Erythromycin (Opthalmic Ointment) 1 each EYEBOTH BEDTIME [facility] Isosorbide Mononitrate Er 120 Mg Tab Own Med 1 each PO DAILY [facility] Last Admin: 11/12/18 08:18 Dose: Not Given Sodium Chloride (Saline Flush) 10 ml FLUSH ASDIRECTED PRN PRN Reason: Keep Vein Open Sodium Chloride (Saline Flush) 2.5 ml FLUSH ASDIRECTED PRN PRN Reason: Keep Vein Open Discontinued Medications Albuterol/Ipratropium (Duoneb 3.0-0.5 Mg/3 Ml) 3 ml NEB ONETIME ONE Stop: 11/11/18 11:52 Last Admin: 11/11/18 12:06 Dose: 3 ml Clopidogrel Bisulfate (Plavix) 75 mg PO DAILY [facility] Last Admin: 11/12/18 08:06 Dose: Not Given Diphenhydramine HCl (Benadryl) 25 mg IVPUSH ONETIME ONE Stop: 11/11/18 13:45 Last Admin: 11/11/18 13:57 Dose: 25 mg Levofloxacin/Dextrose 750 mg/ (Premix) 150 mls @ 100 mls/hr IV ONETIME ONE Stop: 11/11/18 14:32 Last Admin: 11/11/18 13:11 Dose: 100 mls/hr Ceftriaxone Sodium/Dextrose 1 (gm/ Premix) 50 mls @ 100 mls/hr IV ONETIME ONE Stop: 11/11/18 14:12 Last Admin: 11/11/18 13:57 Dose: 100 mls/hr Levofloxacin/Dextrose 750 mg/ (Premix) 150 mls @ 100 mls/hr IV Q24H [facility] Last Admin: 11/11/18 17:47 Dose: Not Given Insulin Aspart (Novolog) 0 unit SUBCUT ACBREAKFASTANDBED [facility]; Protocol [facility] 0.05 ml EYEBOTH BEDTIME [facility] Methylprednisolone Sodium Succinate (Solu-Medrol) 125 mg IVPUSH ONETIME ONE Stop: 11/11/18 11:52 Last Admin: 11/11/18 12:21 Dose: 125 mg Non-Formulary Medication (Ascorbate Calcium [Vitamin C]) 1,000 mg PO DAILY [facility] Last Admin: 11/12/18 08:02 Dose: Not Given Brimonidine Tartrate (Alphagan-P) Own Med 0 drop EYEBOTH DAILY [facility] Last Admin: 11/12/18 08:11 Dose: 1 drop Non-Formulary Medication (Calcium Carbonate) 1,200 mg PO DAILY [facility] Last Admin: 11/12/18 08:02 Dose: Not Given Non-Formulary Medication (Cholecalciferol (Vitamin D3) [Vitamin D3]) 1,000 unit PO DAILY [facility] Last Admin: 11/12/18 08:04 Dose: Not Given Non-Formulary Medication (Erythromycin Base) 1 applic EYEBOTH BEDTIME [facility] Last Admin: 11/11/18 21:02 Dose: Not Given Isosorbide Mononitrate Er 120 Mg Tab Own Med 0 mg PO DAILY [facility] Last Admin: 11/12/18 08:06 Dose: Not Given Non-Formulary Medication (Multivit-Min/Fa/Lycopene/Lut [Centrum Silver]) 1 each PO DAILY [facility] Last Admin: 11/12/18 08:06 Dose: 1 each <Weston Wise [place] - Last Filed: 11/12/18 18:01> - Patient Data Vitals - Most Recent: Last Vital Signs Temp 37.1 C 11/12/18 12:00 Pulse 95 11/12/18 13:19 Resp 20 11/12/18 12:00 BP 129/84 11/12/18 13:19 Pulse Ox 98 11/12/18 12:27 I&O - Last 24 hours: Intake & Output 11/12/18 11/12/18 11/12/18 06:59 14:59 22:59 Intake Total 1537 100 Output Total 400 Balance 1137 100 Lab Results - Last 24 hrs: Laboratory Results - last 24 hr 11/11/18 11/12/18 11/12/18 Range/Units 21:11 05:43 05:43 WBC 9.66 (4.0-11.0) K/uL RBC 3.91 L (4.50-5.90) M/uL Hgb 12.1 L (13.0-17.0) g/dL Hct 36.9 L (38.0-50.0) % MCV 94.4 (80.0-98.0) fL MCH 30.9 (27.0-32.0) pg MCHC 32.8 (31.0-37.0) g/dL RDW Std Deviation 46.2 (28.0-62.0) fl RDW Coeff of Juancho 14 (11.0-15.0) % Plt Count 176 (150-400) K/uL MPV 10.40 (7.40-12.00) fL Neut % (Auto) 93.4 H (48.0-80.0) % Lymph % (Auto) 5.2 L (16.0-40.0) % [place] % (Auto) 1.4 (0.0-15.0) % Eos % (Auto) 0.0 (0.0-7.0) % Baso % (Auto) 0.0 (0.0-1.5) % Neut # (Auto) 9.0 H (1.4-5.7) K/uL Lymph # (Auto) 0.5 L (0.6-2.4) K/uL Canadian # (Auto) 0.1 (0.0-0.8) K/uL Eos # (Auto) 0.0 (0.0-0.7) K/uL Baso # (Auto) 0.0 (0.0-0.1) K/uL Nucleated RBC % 0.0 /100WBC Nucleated RBCs # 0 K/uL Sodium (136-148) mmol/L Potassium (3.5-5.1) mmol/L Chloride (98-107) mmol/L Carbon Dioxide (21.0-32.0) mmol/L BUN (7.0-18.0) mg/dL Creatinine (0.8-1.3) mg/dL Est Cr Clr Drug Dosing mL/min Estimated GFR (MDRD) ml/min Glucose (74-106) mg/dL POC Glucose 292 H (60-110) mg/dL Hemoglobin A1c 6.1 (4.5-6.2) % Calcium (8.5-10.1) mg/dL Troponin I (0.000-0.056) ng/mL 11/12/18 11/12/18 11/12/18 Range/Units 05:43 06:18 09:56 WBC (4.0-11.0) K/uL RBC (4.50-5.90) M/uL Hgb (13.0-17.0) g/dL Hct (38.0-50.0) % MCV (80.0-98.0) fL MCH (27.0-32.0) pg MCHC (31.0-37.0) g/dL RDW Std Deviation (28.0-62.0) fl RDW Coeff of Juancho (11.0-15.0) % Plt Count (150-400) K/uL MPV (7.40-12.00) fL Neut % (Auto) (48.0-80.0) % Lymph % (Auto) (16.0-40.0) % Canadian % (Auto) (0.0-15.0) % Eos % (Auto) (0.0-7.0) % Baso % (Auto) (0.0-1.5) % Neut # (Auto) (1.4-5.7) K/uL Lymph # (Auto) (0.6-2.4) K/uL Canadian # (Auto) (0.0-0.8) K/uL Eos # (Auto) (0.0-0.7) K/uL Baso # (Auto) (0.0-0.1) K/uL Nucleated RBC % /100WBC Nucleated RBCs # K/uL Sodium 138 (136-148) mmol/L Potassium 3.7 (3.5-5.1) mmol/L Chloride 104 (98-107) mmol/L Carbon Dioxide 25.5 (21.0-32.0) mmol/L BUN 11 (7.0-18.0) mg/dL Creatinine 1.0 (0.8-1.3) mg/dL Est Cr Clr Drug Dosing 55.99 mL/min Estimated GFR (MDRD) > 60.0 ml/min Glucose 215 H (74-106) mg/dL POC Glucose 199 H (60-110) mg/dL Hemoglobin A1c (4.5-6.2) % Calcium 8.0 L (8.5-10.1) mg/dL Troponin I < 0.050 (0.000-0.056) ng/mL 11/12/18 11/12/18 11/12/18 Range/Units 11:39 16:04 17:27 WBC (4.0-11.0) K/uL RBC (4.50-5.90) M/uL Hgb (13.0-17.0) g/dL Hct (38.0-50.0) % MCV (80.0-98.0) fL MCH (27.0-32.0) pg MCHC (31.0-37.0) g/dL RDW Std Deviation (28.0-62.0) fl RDW Coeff of Juancho (11.0-15.0) % Plt Count (150-400) K/uL MPV (7.40-12.00) fL Neut % (Auto) (48.0-80.0) % Lymph % (Auto) (16.0-40.0) % Canadian % (Auto) (0.0-15.0) % Eos % (Auto) (0.0-7.0) % Baso % (Auto) (0.0-1.5) % Neut # (Auto) (1.4-5.7) K/uL Lymph # (Auto) (0.6-2.4) K/uL Canadian # (Auto) (0.0-0.8) K/uL Eos # (Auto) (0.0-0.7) K/uL Baso # (Auto) (0.0-0.1) K/uL Nucleated RBC % /100WBC Nucleated RBCs # K/uL Sodium (136-148) mmol/L Potassium (3.5-5.1) mmol/L Chloride (98-107) mmol/L Carbon Dioxide (21.0-32.0) mmol/L BUN (7.0-18.0) mg/dL Creatinine (0.8-1.3) mg/dL Est Cr Clr Drug Dosing mL/min Estimated GFR (MDRD) ml/min Glucose (74-106) mg/dL POC Glucose 228 H 141 H (60-110) mg/dL Hemoglobin A1c (4.5-6.2) % Calcium (8.5-10.1) mg/dL Troponin I < 0.050 (0.000-0.056) ng/mL [facility] Results - Last 24 hrs: Microbiology 11/12/18 14:05 Gram Stain - Preliminary Sputum - Expectorated 11/11/18 12:14 Aerobic Blood Culture - Preliminary Blood - Venous - Lab Draw NO GROWTH AFTER 1 DAY Anaerobic Blood Culture - Preliminary NO GROWTH AFTER 1 DAY 11/11/18 12:07 Aerobic Blood Culture - Preliminary Blood - Venous NO GROWTH AFTER 1 DAY Anaerobic Blood Culture - Preliminary NO GROWTH AFTER 1 DAY Med Orders - Current: Current Medications Acetaminophen (Tylenol) 650 mg PO Q4H PRN PRN Reason: Pain/Fever Last Admin: 11/11/18 18:42 Dose: 650 mg Albuterol/Ipratropium (Duoneb 3.0-0.5 Mg/3 Ml) 3 ml NEB Q6HRRT SHANELL Last Admin: 11/12/18 17:36 Dose: 3 ml Ascorbic Acid (Vitamin C) 1,000 mg PO DAILY SHANELL Last Admin: 11/12/18 08:15 Dose: Not Given Aspirin (Halfprin) 81 mg PO DAILY [facility] Last Admin: 11/12/18 08:04 Dose: Not Given Atorvastatin Calcium (Lipitor) 40 mg PO BEDTIME [facility] Last Admin: 11/11/18 21:02 Dose: 40 mg Calcium Carbonate/Glycine (Oyster Shell Calcium) 1,000 mg PO DAILY [facility] Last Admin: 11/12/18 08:16 Dose: Not Given Cholecalciferol (Vitamin D3) 10 mcg PO DAILY [facility] Last Admin: 11/12/18 08:18 Dose: Not Given Enoxaparin Sodium (Lovenox) 40 mg SUBCUT Q24H [facility] Last Admin: 11/12/18 14:48 Dose: 40 mg Piperacillin Sod/Tazobactam (Sod 4.5 gm/ Sodium Chloride) 100 mls @ 100 mls/hr IV Q6H [facility] Last Admin: 11/12/18 14:49 Dose: 100 mls/hr Insulin Aspart (Novolog) 0 unit SUBCUT WITHMEALSANDBED [facility]; Protocol Last Admin: 11/12/18 17:42 Dose: Not Given Latanoprost (Xalatan 0.005% Ophth Soln) 0 ml EYEBOTH BEDTIME [facility] Last Admin: 11/11/18 21:01 Dose: 1 drop Methylprednisolone Sodium Succinate (Solu-Medrol) 125 mg IVPUSH Q8H [facility] Last Admin: 11/12/18 14:49 Dose: 125 mg Metoprolol Succinate (Toprol Xl) 25 mg PO DAILY [facility] Last Admin: 11/12/18 13:19 Dose: 25 mg Multivitamins/Minerals (Prosight) 1 tab PO DAILY [facility] Last Admin: 11/12/18 08:20 Dose: Not Given Ondansetron HCl (Zofran) 4 mg IVPUSH Q4H PRN PRN Reason: Nausea/Vomiting Clopidogrel 75 Mg (Tab Own Med) 1 each PO DAILY [facility] Last Admin: 11/12/18 08:14 Dose: 1 each Brimonidine Tartrate (Alphagan-P) Own Med 0 each EYEBOTH DAILY [facility] Last Admin: 11/12/18 08:19 Dose: 1 each Erythromycin (Opthalmic Ointment) 1 each EYEBOTH BEDTIME [facility] Isosorbide Mononitrate Er 120 Mg Tab Own Med 1 each PO DAILY [facility] Last Admin: 11/12/18 13:19 Dose: 1 each Sodium Chloride (Saline Flush) 10 ml FLUSH ASDIRECTED PRN PRN Reason: Keep Vein Open Sodium Chloride (Saline Flush) 2.5 ml FLUSH ASDIRECTED PRN PRN Reason: Keep Vein Open Discontinued Medications Albuterol/Ipratropium (Duoneb 3.0-0.5 Mg/3 Ml) 3 ml NEB ONETIME ONE Stop: 11/11/18 11:52 Last Admin: 11/11/18 12:06 Dose: 3 ml Clopidogrel Bisulfate (Plavix) 75 mg PO DAILY [facility] Last Admin: 11/12/18 08:06 Dose: Not Given Diphenhydramine HCl (Benadryl) 25 mg IVPUSH ONETIME ONE Stop: 11/11/18 13:45 Last Admin: 11/11/18 13:57 Dose: 25 mg Levofloxacin/Dextrose 750 mg/ (Premix) 150 mls @ 100 mls/hr IV ONETIME ONE Stop: 11/11/18 14:32 Last Admin: 11/11/18 13:11 Dose: 100 mls/hr Ceftriaxone Sodium/Dextrose 1 (gm/ Premix) 50 mls @ 100 mls/hr IV ONETIME ONE Stop: 11/11/18 14:12 Last Admin: 11/11/18 13:57 Dose: 100 mls/hr Levofloxacin/Dextrose 750 mg/ (Premix) 150 mls @ 100 mls/hr IV Q24H SHANELL Last Admin: 11/11/18 17:47 Dose: Not Given Sodium Chloride (Normal Saline) 1,000 mls @ 100 mls/hr IV ASDIRECTED SHANELL Last Admin: 11/12/18 02:55 Dose: 100 mls/hr Insulin Aspart (Novolog) 0 unit SUBCUT ACBREAKFASTANDBED [facility]; Protocol Latanoprost (Xalatan 0.005% Ophth Soln) 0.05 ml EYEBOTH BEDTIME [facility] Methylprednisolone Sodium Succinate (Solu-Medrol) 125 mg IVPUSH ONETIME ONE Stop: 11/11/18 11:52 Last Admin: 11/11/18 12:21 Dose: 125 mg Non-Formulary Medication (Ascorbate Calcium [Vitamin C]) 1,000 mg PO DAILY [facility] Last Admin: 11/12/18 08:02 Dose: Not Given Brimonidine Tartrate (Alphagan-P) Own Med 0 drop EYEBOTH DAILY [facility] Last Admin: 11/12/18 08:11 Dose: 1 drop Non-Formulary Medication (Calcium Carbonate) 1,200 mg PO DAILY [facility] Last Admin: 11/12/18 08:02 Dose: Not Given Non-Formulary Medication (Cholecalciferol (Vitamin D3) [Vitamin D3]) 1,000 unit PO DAILY [facility] Last Admin: 11/12/18 08:04 Dose: Not Given Non-Formulary Medication (Erythromycin Base) 1 applic EYEBOTH BEDTIME [facility] Last Admin: 11/11/18 21:02 Dose: Not Given Isosorbide Mononitrate Er 120 Mg Tab Own Med 0 mg PO DAILY [facility] Last Admin: 11/12/18 08:06 Dose: Not Given Non-Formulary Medication (Multivit-Min/Fa/Lycopene/Lut [Centrum Silver]) 1 each PO DAILY [facility] Last Admin: 11/12/18 08:06 Dose: 1 each - Free Text/Narrative Note: I have evaluated the patient. I have discussed findings and treatment plan with resident. I agree with the assessment and plan outlined in the following note.
[2018-11-12] MEDS ORDERED: [UNRECOGNIZED DRUG - OTHER] PO SCH (09:00)
[2018-11-12] MEDS ORDERED: Non-Formulary Medication 1 Each (Cholecalciferol (Vitamin D3) [Vitamin D3] 1,000 UNIT) PO SCH (09:00)
[2018-11-12] MEDS ORDERED: CALCIUM CARBONATE 1200 MG PO SCH (09:00)
[2018-11-12] MEDS ORDERED: Clopidogrel 75 MG Tab **OWN MED PO SCH ×2 (09:00)
[2018-11-12] MEDS ORDERED: LUT PO SCH (09:00)
[2018-11-12] MEDS ORDERED: LYCOPENE PO SCH (09:00)
[2018-11-12] MEDS ORDERED: ASCORBATE CALCIUM 1000 MG PO SCH (09:00)
[2018-11-12] MEDS ORDERED: Beta-Carotene (Vitamin A) w/Vitamin C & E plus Minerals Tab PO SCH (09:00)
[2018-11-12] MEDS ORDERED: BRIMONIDINE TARTRATE EYEBOTH SCH ×2 (09:00)
[2018-11-12] MEDS ORDERED: ISOSORBIDE MONONITRATE 120 MG PO SCH (09:00)
[2018-11-12] MEDS ORDERED: Ascorbic Acid 500 MG Tab PO SCH (09:00)
[2018-11-12] MEDS ORDERED: Calcium Carbonate 500 MG Tablet PO SCH (09:00)
[2018-11-12] MEDS ORDERED: MULTIVIT MIN PO SCH (09:00)
[2018-11-12] MEDS ORDERED: Aspirin 81 MG Tab.EC PO SCH (09:00)
[2018-11-12] MEDS ORDERED: Cholecalciferol (Vitamin D3) 10 MCG Tab PO SCH (09:00)
[2018-11-12] MEDS: Enoxaparin 40 MG/0.4 ML Syringe SUBCUT SCH (14:48)
[2018-11-12 19:18] VITALS: BP 123/66
[2018-11-12] MEDS ORDERED: [UNRECOGNIZED DRUG - OTHER] EYEBOTH SCH (21:00)
== END 2018-11-12 18:45 | disposition home or self-care (01) ==
LOC: MW.ED 11:34 → MW.MS 13:07
PROVIDERS: ADMIT Internal Medicine; ATTEND Internal Medicine
DX: J44.1 Chronic obstructive pulmonary disease with (acute) exacerbation (principal); I25.10 Atherosclerotic heart disease of native coronary artery without angina pectoris; M19.90 Unspecified osteoarthritis, unspecified site; F03.90 Unspecified dementia, unspecified severity, without behavioral disturbance, psychotic disturbance, mood disturbance, and anxiety; E11.39 Type 2 diabetes mellitus with other diabetic ophthalmic complication; H40.9 Unspecified glaucoma; H42 Glaucoma in diseases classified elsewhere; Z95.5 Presence of coronary angioplasty implant and graft; Z99.81 Dependence on supplemental oxygen; Z87.891 Personal history of nicotine dependence; Z86.73 Personal history of transient ischemic attack (TIA), and cerebral infarction without residual deficits; Z91.048 Other nonmedicinal substance allergy status; Z88.1 Allergy status to other antibiotic agents; Z79.02 Long term (current) use of antithrombotics/antiplatelets; Z79.51 Long term (current) use of inhaled steroids; Z79.52 Long term (current) use of systemic steroids; Z79.82 Long term (current) use of aspirin; Z79.899 Other long term (current) drug therapy
CPT/HCPCS: 36415; 36600; 71045; 80048; 80053; 81003; 82803; 82962; 83036; 83605; 83690; 83880; 84484; 85025; 85610; 87040; 87070; 87205; 93005; 94640; 96365; 96375; 99285; A9270; J0696; J1200; J1650; J1815; J1956; J2543; J2930; J7030; J7040; 96361; 96366; 96367; 96372; 96376; G0378; J7620-GY

== ENCOUNTER 2018-12-12 01:13 | Observation (INO) | payer MEDICARE, BC ==
[2018-12-12] MEDS ORDERED: Albuterol/Ipratropium 3.0-0.5 MG/3 ML Neb Soln NEB ONE (01:17)
[2018-12-12] MEDS ORDERED: methylPREDNISolone Sodium Succinate 125 MG/2 ML SDV IVPUSH ONE (01:17)
--- NOTE | 2018-12-12 01:18 | EDM.PDOC ---
ED HPI GENERAL MEDICAL PROBLEM - General Chief Complaint: Chest Pain Stated Complaint: SEVERE CHESTB PAINS Time Seen by Provider: 12/12/18 01:18 Source of Information: Reports: Patient - History of Present Illness INITIAL COMMENTS - FREE TEXT/NARRATIVE: HISTORY AND PHYSICAL: History of present illness: [Patient with COPD and home oxygen dependence presents with shortness of breath has audible crackles as some improvement with DuoNeb and Solu-Medrol no fever nausea vomiting chills sweats ] Review of systems: As per history of present illness and below otherwise all systems reviewed and negative. Past medical history: As per history of present illness and as reviewed below otherwise noncontributory. Surgical history: As per history of present illness and as reviewed below otherwise noncontributory. Social history: No reported history of drug or alcohol abuse. Family history: As per history of present illness and as reviewed below otherwise noncontributory. Physical exam: HEENT: Atraumatic, normocephalic, pupils reactive, negative for conjunctival pallor or scleral icterus, mucous membranes moist, throat clear, neck supple, nontender, trachea midline. Lungs: Crackles at base bilateral, breath sounds equal bilaterally, chest nontender. Heart: S1S2, regular, negative for clicks, rubs, or JVD. Abdomen: Soft, nondistended, nontender. Negative for masses or hepatosplenomegaly. Negative for costovertebral tenderness. Pelvis: Stable nontender. Genitourinary: Deferred. Rectal: Deferred. Extremities: Atraumatic, negative for cords or calf pain. Neurovascular unremarkable. Neuro: Awake, alert, oriented. Cranial nerves II through XII unremarkable. Cerebellum unremarkable. Motor and sensory unremarkable throughout. Exam nonfocal. 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 chest Pain Score (Numeric/FACES): 10 - Related Data Allergies Allergy/AdvReac Type Severity Reaction Status Date / Time levofloxacin [From Levaquin] Allergy Severe Hives Verified 12/12/18 01:20 Animal Dander Allergy Mild Cough Uncoded 12/12/18 01:20 smoke Allergy Cough Uncoded 12/12/18 01:20 Home Meds: Home Meds Aspirin [Adult Low Dose Aspirin EC] 81 mg PO DAILY 12/21/13 [History] Latanoprost [Xalatan 0.005% Ophth Soln] 1 drop EYEBOTH BEDTIME 12/21/13 [History ] Multivit-Min/FA/Lycopene/Lut [Centrum Silver] 1 each PO DAILY 12/21/13 [History] Albuterol Sulfate 2.5 mg IH QID 04/15/14 [History] Ascorbate Calcium [Vitamin C] 1,000 mg PO DAILY 07/18/14 [History] Brimonidine Tartrate [Alphagan P] 1 drop EYEBOTH DAILY 08/23/15 [History] Erythromycin Base [Erythromycin 0.5% Ophth Oint] 1 applic EYEBOTH BEDTIME [History] Umeclidinium Clover [Incruse Ellipta*] 1 puff IH DAILY 06/28/16 [History] Metoprolol Succinate [Toprol XL] 25 mg PO DAILY 09/20/16 [History] Cholecalciferol (Vitamin D3) [Vitamin D3] 1,000 unit PO DAILY 03/20/18 [History] Isosorbide Mononitrate [Isosorbide Mononitrate ER] 120 mg PO DAILY 03/20/18 [ History] Calcium Carbonate [Calcium] 600 mg PO BID 11/11/18 [History] Clopidogrel Bisulfate [Clopidogrel] 75 tab PO DAILY 11/11/18 [History] Vit C/E/Zn/Coppr/Lutein/Zeaxan [Preservision Areds 2 Softgel] 2 each PO DAILY [History] predniSONE [Prednisone] 2.5 mg PO BIDMEALS #0 11/12/18 [Rx] atorvaSTATin Calcium [Lipitor] 40 mg PO DAILY 12/12/18 [History] Past Medical History HEENT History: Reports: Glaucoma, Macular Degeneration Other HEENT History: wears glasses, top and bottom dentures Cardiovascular History: Reports: CAD, Stents Other Cardiovascular History: Stents placed "last Spring" Respiratory History: Reports: COPD Other Respiratory History: continuous 02 3L at home Gastrointestinal History: Reports: Other (See Below) Other Gastrointestinal History: epigastric pain Genitourinary History: Reports: None Musculoskeletal History: Reports: Arthritis Other Musculoskeletal History: neck pain, rt elbow pain Neurological History: Reports: TIA Psychiatric History: Reports: Dementia Endocrine/Metabolic History: Reports: Diabetes, Type II Hematologic History: Reports: None Immunologic History: Reports: None Oncologic (Cancer) History: Reports: None Dermatologic History: Reports: Other (See Below) Other Dermatologic History: dermatitis - Infectious Disease History Infectious Disease History: Reports: Other (See Below) Other Infectious Disease History: unknown - Past Surgical History Head Surgeries/Procedures: Reports: None HEENT Surgical History: Reports: Cataract Surgery Cardiovascular Surgical History: Reports: Coronary Artery Stent Respiratory Surgical History: Reports: None GI Surgical History: Reports: Appendectomy, Other (See Below) Other GI Surgeries/Procedures: laryngoscopy with stripping of vocal cords Male Surgical History: Reports: None Endocrine Surgical History: Reports: None Neurological Surgical History: Reports: None Musculoskeletal Surgical History: Reports: None Oncologic Surgical History: Reports: None Dermatological Surgical History: Reports: None Social & Family History - Family History Family Medical History: Noncontributory - Caffeine Use Caffeine Use: Reports: Coffee - Living Situation & Occupation Living situation: Reports: Occupation: Retired ED ROS GENERAL - Review of Systems Review Of Systems: See Below ED EXAM, GENERAL - Physical Exam Exam: See Below Course - Vital Signs Last Recorded V/S: Last Vital Signs Temp 97.8 F 12/12/18 01:16 Pulse 66 12/12/18 01:40 Resp 22 H 12/12/18 01:40 BP 168/78 H 12/12/18 01:40 Pulse Ox 100 12/12/18 01:40 - Orders/Labs/Meds Orders: Active Orders 24 hr Category Date Time Status EKG Documentation Completion [RC] STAT Care 12/12/18 01:17 Active RT Aerosol Therapy [RC] ASDIRECTED Care 12/12/18 01:17 Active CULTURE BLOOD [BC] Stat Lab 12/12/18 01:25 Received CULTURE BLOOD [BC] Stat Lab 12/12/18 01:52 Received UA RFX SHELIA AND CULT IF INDIC [URIN] Stat Lab 12/12/18 01:17 Ordered Sodium Chloride 0.9% [Normal Saline] 1,000 ml Med 12/12/18 01:30 Active IV STAT Blood Culture x2 Reflex Set [OM.PC] Stat Oth 12/12/18 01:17 Ordered Medication Orders Sodium Chloride (Normal Saline) 1,000 mls @ 125 mls/hr IV STAT SHANELL Last Admin: 12/12/18 01:31 Dose: 125 mls/hr Labs: Laboratory Tests 12/12/18 12/12/18 12/12/18 Range/Units 01:25 01:25 01:25 WBC 9.85 (4.0-11.0) K/uL RBC 4.25 L (4.50-5.90) M/uL Hgb 13.3 (13.0-17.0) g/dL Hct 40.2 (38.0-50.0) % MCV 94.6 (80.0-98.0) fL MCH 31.3 (27.0-32.0) pg MCHC 33.1 (31.0-37.0) g/dL RDW Std Deviation 45.1 (28.0-62.0) fl RDW Coeff of Juancho 14 (11.0-15.0) % Plt Count 191 (150-400) K/uL MPV 9.70 (7.40-12.00) fL Neut % (Auto) 72.7 (48.0-80.0) % Lymph % (Auto) 17.1 (16.0-40.0) % [place] % (Auto) 7.0 (0.0-15.0) % Eos % (Auto) 2.9 (0.0-7.0) % Baso % (Auto) 0.3 (0.0-1.5) % Neut # (Auto) 7.2 H (1.4-5.7) K/uL Lymph # (Auto) 1.7 (0.6-2.4) K/uL [place] # (Auto) 0.7 (0.0-0.8) K/uL Eos # (Auto) 0.3 (0.0-0.7) K/uL Baso # (Auto) 0.0 (0.0-0.1) K/uL INR 1.01 Sodium 141 (136-148) mmol/L Potassium 4.7 (3.5-5.1) mmol/L Chloride 104 (98-107) mmol/L Carbon Dioxide 27.4 (21.0-32.0) mmol/L BUN 8 (7.0-18.0) mg/dL Creatinine 1.1 (0.8-1.3) mg/dL Est Cr Clr Drug Dosing 50.86 mL/min Estimated GFR (MDRD) > 60.0 ml/min Glucose 113 H (74-106) mg/dL Calcium 8.8 (8.5-10.1) mg/dL Total Bilirubin 0.8 (0.2-1.0) mg/dL AST 28 (15-37) IU/L ALT 31 (14-63) IU/L Alkaline Phosphatase 101 (46-116) U/L Troponin I < 0.050 (0.000-0.056) ng/mL B-Natriuretic Peptide (<100) PG/ML Total Protein 7.0 (6.4-8.2) g/dL Albumin 3.8 (3.4-5.0) g/dL Globulin 3.2 (2.6-4.0) g/dL Albumin/Globulin Ratio 1.2 (0.9-1.6) 12/12/18 Range/Units 01:25 WBC (4.0-11.0) K/uL RBC (4.50-5.90) M/uL Hgb (13.0-17.0) g/dL Hct (38.0-50.0) % MCV (80.0-98.0) fL MCH (27.0-32.0) pg MCHC (31.0-37.0) g/dL RDW Std Deviation (28.0-62.0) fl RDW Coeff of Juancho (11.0-15.0) % Plt Count (150-400) K/uL MPV (7.40-12.00) fL Neut % (Auto) (48.0-80.0) % Lymph % (Auto) (16.0-40.0) % [place] % (Auto) (0.0-15.0) % Eos % (Auto) (0.0-7.0) % Baso % (Auto) (0.0-1.5) % Neut # (Auto) (1.4-5.7) K/uL Lymph # (Auto) (0.6-2.4) K/uL [place] # (Auto) (0.0-0.8) K/uL Eos # (Auto) (0.0-0.7) K/uL Baso # (Auto) (0.0-0.1) K/uL INR Sodium (136-148) mmol/L Potassium (3.5-5.1) mmol/L Chloride (98-107) mmol/L Carbon Dioxide (21.0-32.0) mmol/L BUN (7.0-18.0) mg/dL Creatinine (0.8-1.3) mg/dL Est Cr Clr Drug Dosing mL/min Estimated GFR (MDRD) ml/min Glucose (74-106) mg/dL Calcium (8.5-10.1) mg/dL Total Bilirubin (0.2-1.0) mg/dL AST (15-37) IU/L ALT (14-63) IU/L Alkaline Phosphatase (46-116) U/L Troponin I (0.000-0.056) ng/mL B-Natriuretic Peptide 146 H (<100) PG/ML Total Protein (6.4-8.2) g/dL Albumin (3.4-5.0) g/dL Globulin (2.6-4.0) g/dL Albumin/Globulin Ratio (0.9-1.6) Meds: Medications Generic Name Dose Route Start Last Admin Trade Name Freq PRN Reason Stop Dose Admin Sodium Chloride 1,000 mls @ 125 mls/hr 12/12/18 01:30 12/12/18 01:31 Normal Saline IV 125 mls/hr STAT SHANELL Administration Discontinued Medications Generic Name Dose Route Start Last Admin Trade Name Freq PRN Reason Stop Dose Admin Albuterol/Ipratropium 3 ml 12/12/18 01:17 12/12/18 01:22 Duoneb 3.0-0.5 Mg/3 Ml NEB 12/12/18 01:18 3 ml ONETIME ONE Administration Furosemide 20 mg 12/12/18 02:10 12/12/18 02:15 Lasix IVPUSH 12/12/18 02:11 Not Given ONETIME ONE Furosemide Confirm 12/12/18 02:13 12/12/18 02:16 Lasix Administered 12/12/18 02:14 Not Given Dose 40 mg .ROUTE .STK-MED ONE Furosemide 20 mg 12/12/18 02:15 12/12/18 02:17 Lasix IVPUSH 12/12/18 02:16 20 mg NOW ONE Administration Methylprednisolone Sodium Succinate 125 mg 12/12/18 01:17 12/12/18 01:22 Solu-Medrol IVPUSH 12/12/18 01:18 125 mg ONETIME ONE Administration Departure - Departure Time of Disposition: 02:33 Disposition: Refer to Observation Condition: Poor Clinical Impression: Dyspnea COPD (chronic obstructive pulmonary disease) Qualifiers: COPD type: emphysema DM type 2 (diabetes mellitus, type 2) Qualifiers: Diabetes mellitus longterm insulin use: without longterm use Diabetes mellitus complication status: without complication Qualified Code(s): E11.9 - Type 2 diabetes mellitus without complications Clinical Impression: (Ruled Out): Chest pain - Discharge Information Referrals: PCP,None [Primary Care Provider] - Forms: ED Department Discharge - My Orders Last 24 Hours: My Active Orders 12/12/18 01:17 EKG Documentation Completion [RC] STAT RT Aerosol Therapy [RC] ASDIRECTED UA RFX SHELIA AND CULT IF INDIC [URIN] Stat Blood Culture x2 Reflex Set [OM.PC] Stat 12/12/18 01:25 CULTURE BLOOD [BC] Stat 12/12/18 01:30 Sodium Chloride 0.9% [Normal Saline] 1,000 ml IV STAT 12/12/18 01:52 CULTURE BLOOD [BC] Stat - Assessment/Plan Last 24 Hours: My Active Orders 12/12/18 01:17 EKG Documentation Completion [RC] STAT RT Aerosol Therapy [RC] ASDIRECTED UA RFX SHELIA AND CULT IF INDIC [URIN] Stat Blood Culture x2 Reflex Set [OM.PC] Stat 12/12/18 01:25 CULTURE BLOOD [BC] Stat 12/12/18 01:30 Sodium Chloride 0.9% [Normal Saline] 1,000 ml IV STAT 12/12/18 01:52 CULTURE BLOOD [BC] Stat
[2018-12-12] MEDS ORDERED: Sodium Chloride 0.9% 1,000 ML IV SCH (01:30)
--- NOTE | 2018-12-12 01:57 | CR ---
Indication: Chest pain. Dyspnea Technique: Chest 1 view Comparison: 11/11/2018 Findings/Impression: Cardiovascular and mediastinum: Stable cardiomediastinal silhouette. Lungs and pleural space: Left hilar prominence again seen which may be related to central pulmonary vasculature. Probable mild right basilar subsegmental atelectasis. Correlate clinically and follow-up to exclude a small evolving infiltrate. An apparent faint 8 mm nodular opacity in the lateral left base on the 2nd image, not well seen on the prior study, which could represent a nipple shadow. Follow-up with nipple markers. No pleural effusions. Bones and soft tissues: No significant change. Dictated by Jose Hayward MD @ 12/12/2018 1:57:02 AM Dictated by: Jose Hayward MD @ 12/12/2018 01:57:07 (Electronically Signed)
[2018-12-12 01:58] LABS: BLOOD UREA NITROGEN,BUN 8 mg/dL (7.0-18.0); CARBON DIOXIDE,CO2 27.4 mmol/L (21.0-32.0); CHLORIDE,CL 104 mmol/L (98-107); GLUCOSE RANDOM 113 mg/dL (74-106); POTASSIUM,K 4.7 mmol/L (3.5-5.1); SODIUM,NA 141 mmol/L (136-148)
[2018-12-12] MEDS ORDERED: Furosemide 20 MG/2 ML VIAL IVPUSH ONE (02:10)
[2018-12-12] MEDS ORDERED: Furosemide 40 MG/4 ML VIAL ONE (02:13)
[2018-12-12] MEDS ORDERED: Furosemide 40 MG/4 ML VIAL IVPUSH ONE (02:15)
[2018-12-12] MEDS ORDERED: Sodium Chloride 0.9% 2.5 ML Syringe FLUSH PRN (03:47)
[2018-12-12] MEDS ORDERED: Sodium Chloride 0.9% 10 ML Syringe FLUSH PRN (03:47)
[2018-12-12] MEDS: Insulin Aspart 100 Units/ML 3 ML Pen SUBCUT SCH ×3 (06:40→17:47)
--- NOTE | 2018-12-12 09:06 | PCM.HP.2 ---
H&P History of Present Illness - General Date of Service: 12/12/18 Admit Problem/Dx: Admission Diagnosis/Problem Admission Diagnosis/Problem CHF, Congestive heart failure Patient is a 88 y/o M who came to ER with c/o chest pain, cough and shortness of breath. Patient has PMH of CAD s/p stent, COPD on home oxygen, type 2 DM, who came into the ER secondary to left-sided chest pain and shortness of breath. Patient states that he fell in his garage today is back on his left side. Patient states that it was a mechanical fall. In the ED chest x-ray and EKG were done which showed no acute findings, troponin was negative. Physical exam was significant for audible crackles, and peripheral edema which improved after patient received DuoNeb, steroids and lasix. Patient denied nausea, vomiting, fever, chills, abdominal pain, diarrhea, constipation. Patient was admitted for similar complaints of shortness of breath last month in October during that time patient was treated for COPD exacerbation. Patient is a former smoker and states that he stopped smoking in 1969. Patient received normal saline, DuoNebs, steroids and Lasix in the ER patient was admitted to the hospital for further management. Source of Information: Patient History Limitations: Reports: Other (hearing barrier) - History of Present Illness Initial Comments - Free Text/Narative: Patient is a 88 y/o M who came to ER with c/o chest pain, cough and shortness of breath. Patient has PMH of CAD s/p stent, COPD on home oxygen, type 2 DM, who came into the ER secondary to left-sided chest pain and shortness of breath. Patient states that he fell in his garage today is back on his left side. Patient states that it was a mechanical fall. He is in the ED chest x-ray and EKG were done which showed no acute findings. Physical exam was significant for audible crackles, and peripheral edema which improved after patient received DuoNeb and steroids. Patient denied nausea, vomiting, fever, chills, abdominal pain, diarrhea, constipation. Patient was admitted for similar complaints of shortness of breath last month in October during that time patient was treated for COPD exacerbation. Patient is a former smoker and states that he stopped smoking in 1969. Patient received normal saline, DuoNebs, steroids and Lasix in the ER patient was admitted to the hospital for further management. Onset of Symptoms: Reports: Sudden, Gradual ( a he is a he will he is he is in a as IS a low-grade) Duration of Symptoms: Reports: Day(s): Location: Reports: Chest Severity: Moderate Improves with: Reports: Rest Worsens with: Reports: Other (cough) Associated Symptoms: Reports: Chest Pain, Cough, Shortness of Breath. Denies: Confusion, Fever/Chills, Headaches, Loss of Appetite, Malaise, Nausea/Vomiting, Seizure chest Pain Score (Numeric/FACES): 10 - Related Data Allergies/Adverse Reactions: Allergies Allergy/AdvReac Type Severity Reaction Status Date / Time levofloxacin [From Levaquin] Allergy Severe Hives Verified 12/12/18 03:20 Animal Dander Allergy Mild Cough Uncoded 12/12/18 03:20 smoke Allergy Cough Uncoded 12/12/18 03:20 Home Medications: Home Meds Aspirin [Adult Low Dose Aspirin EC] 81 mg PO DAILY 12/21/13 [History] Latanoprost [Xalatan 0.005% Ophth Soln] 1 drop EYEBOTH BEDTIME 12/21/13 [History ] Multivit-Min/FA/Lycopene/Lut [Centrum Silver] 1 each PO DAILY 12/21/13 [History] Albuterol Sulfate 2.5 mg IH QID 04/15/14 [History] Erythromycin Base [Erythromycin 0.5% Ophth Oint] 1 applic EYEBOTH BEDTIME [History] Metoprolol Succinate [Toprol XL] 25 mg PO DAILY 09/20/16 [History] Cholecalciferol (Vitamin D3) [Vitamin D3] 25 mcg PO DAILY 03/20/18 [History] Isosorbide Mononitrate [Isosorbide Mononitrate ER] 120 mg PO DAILY 03/20/18 [ History] Calcium Carbonate [Calcium] 600 mg PO BID 11/11/18 [History] Clopidogrel Bisulfate [Clopidogrel] 75 tab PO DAILY 11/11/18 [History] Vit C/E/Zn/Coppr/Lutein/Zeaxan [Preservision Areds 2 Softgel] 1,000 mg PO DAILY 11/11/18 [History] predniSONE [Prednisone] 2.5 mg PO BIDMEALS #0 11/12/18 [Rx] Brimonidine [Alphagan P 0.15% Ophth Soln] 1 drop EYEBOTH ACBREAKFAST 12/12/18 [ History] atorvaSTATin Calcium [Lipitor] 40 mg PO DAILY 12/12/18 [History] Furosemide [Lasix] 20 mg PO DAILY #30 tab 12/13/18 [Rx] guaiFENesin/Dextromethorphan [Adult Robitussin Peak Cold Dm] 10 ml PO BID PRN # 1 bottle 12/13/18 [Rx] Past Medical History HEENT History: Reports: Glaucoma, Macular Degeneration Other HEENT History: wears glasses, top and bottom dentures Cardiovascular History: Reports: CAD, High Cholesterol, Hypertension, Stents Other Cardiovascular History: Stents placed "last Spring" Respiratory History: Reports: COPD Other Respiratory History: continuous 02 3L at home Gastrointestinal History: Reports: Other (See Below) Other Gastrointestinal History: epigastric pain Genitourinary History: Reports: None Musculoskeletal History: Reports: Arthritis Other Musculoskeletal History: neck pain, rt elbow pain Neurological History: Reports: TIA Other Neuro History: "several TIAs", "memory issues" Psychiatric History: Reports: Dementia Endocrine/Metabolic History: Reports: Diabetes, Type II Hematologic History: Reports: None Immunologic History: Reports: None Oncologic (Cancer) History: Reports: None Dermatologic History: Reports: Other (See Below) Other Dermatologic History: dermatitis - Infectious Disease History Infectious Disease History: Reports: Other (See Below) Other Infectious Disease History: unknown - Past Surgical History Head Surgeries/Procedures: Reports: None HEENT Surgical History: Reports: Cataract Surgery Other HEENT Surgeries/Procedures: laryngoscopy with stripping of vocal cords, vocal cord dysfunction s/p stripping Cardiovascular Surgical History: Reports: Coronary Artery Stent Respiratory Surgical History: Reports: None GI Surgical History: Reports: Appendectomy, Other (See Below) Other GI Surgeries/Procedures: laryngoscopy with stripping of vocal cords Male Surgical History: Reports: None Endocrine Surgical History: Reports: None Neurological Surgical History: Reports: None Musculoskeletal Surgical History: Reports: None Oncologic Surgical History: Reports: None Dermatological Surgical History: Reports: None Social & Family History - Family History Family Medical History: Noncontributory - Tobacco Use Smoking Status *Q: Former Smoker (quit ) Tobacco Use Within Last Twelve Months: Cigarettes Years of Tobacco use: 20 Packs/Tins Daily: 1 Used Tobacco, but Quit: Yes Month/Year Tobacco Last Used: 1970 Second Hand Smoke Exposure: No - Caffeine Use Caffeine Use: Reports: Coffee Caffeine Use Comment: 2 cups a day - Recreational Drug Use Recreational Drug Use: No - Living Situation & Occupation Living situation: Reports: Occupation: Retired H&P Review of Systems - Review of Systems: Review Of Systems: See Below General: Reports: Weakness. Denies: Fever, Chills, Malaise, Fatigue, Night Sweats HEENT: Denies: Ear Pain, Eye Pain Pulmonary: Reports: Shortness of Breath Cardiovascular: Reports: Chest Pain, Orthopnea, PND, Edema. Denies: Lightheadedness, Syncope, Claudication Gastrointestinal: Denies: No Symptoms, Abdominal Pain, Distension, Hematochezia , Melena Genitourinary: Denies: Dysuria, Frequency, Pain Musculoskeletal: Denies: Neck Pain, Shoulder Pain Skin: Denies: Cyanosis, Jaundice, Mottled Psychiatric: Denies: Confusion, Depression, Agitation Neurological: Denies: Confusion, Headache, Numbness Exam - Exam Exam: See Below - Vital Signs Vital Signs: Last Vital Signs Temp 36.9 C 12/12/18 07:51 Pulse 90 12/12/18 07:51 Resp 20 12/12/18 07:51 BP 176/95 H 12/12/18 07:51 Pulse Ox 97 12/12/18 07:51 Weight: 165 lb 12.8 oz - Exam Quality Assessment: Supplemental Oxygen General: Alert, Oriented, Cooperative HEENT: Conjunctiva Clear Neck: Supple, Trachea Midline Lungs: Crackles (mild) Cardiovascular: Regular Rate, Regular Rhythm GI/Abdominal Exam: Normal Bowel Sounds, Soft, Non-Tender Back Exam: Normal Inspection. No: CVA Tenderness (L), CVA Tenderness (R) Extremities: Normal Inspection, Normal Range of Motion Peripheral Pulses: 3+: Radial (L), Radial (R), Dorsalis Pedis (L), Dorsalis Pedis (R) Neurological: Cranial Nerves Intact, Normal Tone Neuro Extensive - Mental Status: Alert, Oriented x3 DTR: 2+: Patella (L), Patella (R) - Patient Data Lab Results Last 24 hrs: Laboratory Results - last 24 hr 12/12/18 12/12/18 12/12/18 Range/Units 01:25 01:25 01:25 WBC 9.85 (4.0-11.0) K/uL RBC 4.25 L (4.50-5.90) M/uL Hgb 13.3 (13.0-17.0) g/dL Hct 40.2 (38.0-50.0) % MCV 94.6 (80.0-98.0) fL MCH 31.3 (27.0-32.0) pg MCHC 33.1 (31.0-37.0) g/dL RDW Std Deviation 45.1 (28.0-62.0) fl RDW Coeff of Juancho 14 (11.0-15.0) % Plt Count 191 (150-400) K/uL MPV 9.70 (7.40-12.00) fL Neut % (Auto) 72.7 (48.0-80.0) % Lymph % (Auto) 17.1 (16.0-40.0) % [place] % (Auto) 7.0 (0.0-15.0) % Eos % (Auto) 2.9 (0.0-7.0) % Baso % (Auto) 0.3 (0.0-1.5) % Neut # (Auto) 7.2 H (1.4-5.7) K/uL Lymph # (Auto) 1.7 (0.6-2.4) K/uL [place] # (Auto) 0.7 (0.0-0.8) K/uL Eos # (Auto) 0.3 (0.0-0.7) K/uL Baso # (Auto) 0.0 (0.0-0.1) K/uL INR 1.01 Sodium 141 (136-148) mmol/L Potassium 4.7 (3.5-5.1) mmol/L Chloride 104 (98-107) mmol/L Carbon Dioxide 27.4 (21.0-32.0) mmol/L BUN 8 (7.0-18.0) mg/dL Creatinine 1.1 (0.8-1.3) mg/dL Est Cr Clr Drug Dosing 50.86 mL/min Estimated GFR (MDRD) > 60.0 ml/min Glucose 113 H (74-106) mg/dL POC Glucose (60-110) mg/dL Calcium 8.8 (8.5-10.1) mg/dL Total Bilirubin 0.8 (0.2-1.0) mg/dL AST 28 (15-37) IU/L ALT 31 (14-63) IU/L Alkaline Phosphatase 101 (46-116) U/L Troponin I < 0.050 (0.000-0.056) ng/mL B-Natriuretic Peptide (<100) PG/ML Total Protein 7.0 (6.4-8.2) g/dL Albumin 3.8 (3.4-5.0) g/dL Globulin 3.2 (2.6-4.0) g/dL Albumin/Globulin Ratio 1.2 (0.9-1.6) Urine Color Urine Appearance Urine pH (5.0-8.0) Ur Specific Web[place] (1.001-1.035) Urine Protein (NEGATIVE) mg/dL Urine Glucose (UA) (NEGATIVE) mg/dL Urine Ketones (NEGATIVE) mg/dL Urine Occult Blood (NEGATIVE) Urine Nitrite (NEGATIVE) Urine Bilirubin (NEGATIVE) Urine Urobilinogen (<2.0) EU/dL Ur Leukocyte Esterase (NEGATIVE) 12/12/18 12/12/18 12/12/18 Range/Units 01:25 02:30 06:37 WBC (4.0-11.0) K/uL RBC (4.50-5.90) M/uL Hgb (13.0-17.0) g/dL Hct (38.0-50.0) % MCV (80.0-98.0) fL MCH (27.0-32.0) pg MCHC (31.0-37.0) g/dL RDW Std Deviation (28.0-62.0) fl RDW Coeff of Juancho (11.0-15.0) % Plt Count (150-400) K/uL MPV (7.40-12.00) fL Neut % (Auto) (48.0-80.0) % Lymph % (Auto) (16.0-40.0) % [place] % (Auto) (0.0-15.0) % Eos % (Auto) (0.0-7.0) % Baso % (Auto) (0.0-1.5) % Neut # (Auto) (1.4-5.7) K/uL Lymph # (Auto) (0.6-2.4) K/uL [place] # (Auto) (0.0-0.8) K/uL Eos # (Auto) (0.0-0.7) K/uL Baso # (Auto) (0.0-0.1) K/uL INR Sodium (136-148) mmol/L Potassium (3.5-5.1) mmol/L Chloride (98-107) mmol/L Carbon Dioxide (21.0-32.0) mmol/L BUN (7.0-18.0) mg/dL Creatinine (0.8-1.3) mg/dL Est Cr Clr Drug Dosing mL/min Estimated GFR (MDRD) ml/min Glucose (74-106) mg/dL POC Glucose 139 H (60-110) mg/dL Calcium (8.5-10.1) mg/dL Total Bilirubin (0.2-1.0) mg/dL AST (15-37) IU/L ALT (14-63) IU/L Alkaline Phosphatase (46-116) U/L Troponin I (0.000-0.056) ng/mL B-Natriuretic Peptide 146 H (<100) PG/ML Total Protein (6.4-8.2) g/dL Albumin (3.4-5.0) g/dL Globulin (2.6-4.0) g/dL Albumin/Globulin Ratio (0.9-1.6) Urine Color YELLOW Urine Appearance CLEAR Urine pH 8.0 (5.0-8.0) Ur Specific [place] 1.015 (1.001-1.035) Urine Protein NEGATIVE (NEGATIVE) mg/dL Urine Glucose (UA) NEGATIVE (NEGATIVE) mg/dL Urine Ketones NEGATIVE (NEGATIVE) mg/dL Urine Occult Blood NEGATIVE (NEGATIVE) Urine Nitrite NEGATIVE (NEGATIVE) Urine Bilirubin NEGATIVE (NEGATIVE) Urine Urobilinogen 0.2 (<2.0) EU/dL Ur Leukocyte Esterase NEGATIVE (NEGATIVE) Result Diagrams: 12/13/18 07:15 12/13/18 07:15 EKG INTERPRETATION EKG Date: 12/12/18 (NSR with RBBB) QRS: Wide *Q Meaningful Use (ADM) - VTE Risk Assess *Q Each Risk Factor Represents 1 Point: Congestive heart failure (CHF) Total Score 1 Point Risk Factors: 1 - Problem List (1) COPD (chronic obstructive pulmonary disease) SNOMED Code(s): 01666460 ICD Code: J44.9 - CHRONIC OBSTRUCTIVE PULMONARY DISEASE, UNSPECIFIED Status : Acute Qualifiers: COPD type: emphysema (2) DM type 2 (diabetes mellitus, type 2) SNOMED Code(s): 00546617 ICD Code: E11.9 - TYPE 2 DIABETES MELLITUS WITHOUT COMPLICATIONS Status: Chronic Qualifiers: Diabetes mellitus longterm insulin use: without longterm use Diabetes mellitus complication status: without complication Qualified Code(s): E11.9 - Type 2 diabetes mellitus without complications (3) HTN (hypertension) SNOMED Code(s): 70398052 ICD Code: I10 - ESSENTIAL (PRIMARY) HYPERTENSION Status: Acute (4) HTN (hypertension) SNOMED Code(s): 32588715 ICD Code: I10 - ESSENTIAL (PRIMARY) HYPERTENSION Status: Chronic Qualifiers: Hypertension type: essential hypertension Qualified Code(s): I10 - Essential (primary) hypertension Problem List Initiated/Reviewed/Updated: Yes Orders Last 24hrs: Active Orders 24 hr Category Date Time Status Admission Status [Patient Status] [ADT] Stat ADT 12/12/18 02:34 Active Accu Check [Blood Glucose Check, Bedside] [RC] TIDMEALS Care 12/12/18 06:41 Active RT Aerosol Therapy [RC] ASDIRECTED Care 12/12/18 01:17 Active ADA Diabetic [[place] [employer] Diet] [DIET Diet 12/12/18 Breakfast Active ] CULTURE BLOOD [BC] Stat Lab 12/12/18 01:25 Received CULTURE BLOOD [BC] Stat Lab 12/12/18 01:52 Received Insulin Aspart [NovoLOG] Med 12/12/18 07:30 Active See Protocol SUBCUT TIDAC Sodium Chloride 0.9% [Saline Flush] Med 12/12/18 03:47 Active 10 ml FLUSH ASDIRECTED PRN Sodium Chloride 0.9% [Saline Flush] Med 12/12/18 03:47 Active 2.5 ml FLUSH ASDIRECTED PRN Blood Culture x2 Reflex Set [OM.PC] Stat Oth 12/12/18 01:17 Ordered Convert IV to Saline Lock [OM.PC] Routine Oth 12/12/18 03:47 Ordered Medication Orders Insulin Aspart (Novolog) 0 unit SUBCUT TIDAC SHANELL; Protocol Last Admin: 12/12/18 06:40 Dose: Not Given Sodium Chloride (Saline Flush) 10 ml FLUSH ASDIRECTED PRN PRN Reason: Keep Vein Open Sodium Chloride (Saline Flush) 2.5 ml FLUSH ASDIRECTED PRN PRN Reason: Keep Vein Open Assessment/Plan Comment:: 1) CHF: Patients BP was extremely elevated upon admission along with dyspnea, ProBNP is eleavted, last 2D ECHO showed Diastolic impairment. Likely secondary to uncontrolled HTN ACS ruled out Will cont IV lasix 20mg BID, wean down to PO as able Resume home meds including metoprolol cont to monitor Ins and outs Fluid restriction f/u on 2D echo 2) COPD exacerbation: Patient comes in with cough and SOB, EKG,, CXR didjt show any acute process received steroids and DuoNebs, symptoms have improved cont DuoNebs, cont steroids, cont supplemental oxygen cont incentive spirometry PT on board 3)DM2: cont SSI cont POC glucose checks 4) CAD: s/p PCI cont ASA. statin, metoprolol 5) HTN: cont home meds, will titrate the dose up if continues to be high
[2018-12-12] MEDS: Metoprolol Succinate 25 MG Tab.ER PO SCH (12:47)
[2018-12-12] MEDS: Albuterol/Ipratropium 3.0-0.5 MG/3 ML Neb Soln NEB SCH ×2 (13:28→17:18)
[2018-12-12] MEDS ORDERED: guaiFENesin/Dextromethorphan 100-10 MG/5 ML Soln 10 ML Cup PO PRN (14:19)
[2018-12-12] MEDS: Furosemide 20 MG/2 ML VIAL IVPUSH SCH (14:39)
[2018-12-12] MEDS: Enoxaparin 40 MG/0.4 ML Syringe SUBCUT SCH (14:39)
[2018-12-12] MEDS: Aspirin 81 MG Tab.EC PO SCH (20:05)
[2018-12-12] MEDS: Clopidogrel 75 MG Tab PO SCH (20:05)
[2018-12-12] MEDS: methylPREDNISolone Sodium Succinate 40 MG/1 ML SDV IVPUSH SCH (20:05)
[2018-12-12] MEDS: atorvaSTATin 40 MG Tab PO SCH (20:05)
[2018-12-12] MEDS ORDERED: Latanoprost 0.005% Ophth Soln 2.5 ML Bottle EYEBOTH SCH (21:00)
[2018-12-13] MEDS: Albuterol/Ipratropium 3.0-0.5 MG/3 ML Neb Soln NEB SCH ×3 (00:57→11:51)
[2018-12-13] MEDS: Insulin Aspart 100 Units/ML 3 ML Pen SUBCUT SCH ×2 (06:58→12:32)
[2018-12-13] MEDS ORDERED: Brimonidine 0.15% Ophth Soln 5 ML Bottle EYEBOTH SCH (07:30)
[2018-12-13 07:53] LABS: BLOOD UREA NITROGEN,BUN 17 mg/dL (7.0-18.0); CHLORIDE,CL 99 mmol/L (98-107); GLUCOSE RANDOM 190 mg/dL (74-106); SODIUM,NA 137 mmol/L (136-148)
[2018-12-13] MEDS: Furosemide 20 MG/2 ML VIAL IVPUSH SCH ×2 (08:34→15:01)
[2018-12-13] MEDS: methylPREDNISolone Sodium Succinate 40 MG/1 ML SDV IVPUSH SCH (08:34)
[2018-12-13] MEDS: Clopidogrel 75 MG Tab PO SCH (08:41)
[2018-12-13] MEDS: atorvaSTATin 40 MG Tab PO SCH (08:41)
[2018-12-13] MEDS: Metoprolol Succinate 25 MG Tab.ER PO SCH (08:41)
[2018-12-13] MEDS: Aspirin 81 MG Tab.EC PO SCH (08:42)
[2018-12-13] MEDS ORDERED: LUT PO SCH (09:00)
[2018-12-13] MEDS ORDERED: [UNRECOGNIZED DRUG - OTHER] PO SCH (09:00)
[2018-12-13] MEDS ORDERED: ISOSORBIDE MONONITRATE 120 MG PO SCH (09:00)
[2018-12-13] MEDS ORDERED: CHOLECALCIFEROL 25 MCG PO SCH (09:00)
[2018-12-13] MEDS ORDERED: LYCOPENE PO SCH (09:00)
[2018-12-13] MEDS ORDERED: MULTIVIT MIN PO SCH (09:00)
[2018-12-13 12:30] VITALS: BP 138/90; PULSE 82
--- NOTE | 2018-12-13 13:26 | PCM.DCSUM1 ---
Discharge Summary - Hospital Course HPI Initial Comments: Patient is a 88 y/o M who came to ER with c/o chest pain, cough, SOB. Patient has PMH of CAD s/p stents, COPD on home O2,Type 2 DM, vocal cord dysfunction, recurrent food impaction. Patient had a fall 2 days back before presentation,. Chest pain was attributed to musculoskeletal cause. ACS was ruled out, Patient was found to be in Volume overload and was hence started on lasix. 2D ECHO was done as well. No evident diastolic/systolic dysfunction. Patient also received DuoNebs and steroids for COPD exacerbation. Physical therapy assessed the patient. Patient was medically stable for dc to home and recommended to follow up with PCP and cardiology on OP basis. Diagnosis: Stroke: No - Discharge Data Discharge Date: 12/13/18 Discharge Disposition: Home, Self-Care 01 Condition: Fair - Referral to Home Health Primary Care Physician: PCP None - Discharge Diagnosis/Problem(s) (1) COPD (chronic obstructive pulmonary disease) SNOMED Code(s): 98430120 ICD Code: J44.9 - CHRONIC OBSTRUCTIVE PULMONARY DISEASE, UNSPECIFIED Status : Acute Current Visit: Yes Qualifiers: COPD type: emphysema (2) DM type 2 (diabetes mellitus, type 2) SNOMED Code(s): 57294890 ICD Code: E11.9 - TYPE 2 DIABETES MELLITUS WITHOUT COMPLICATIONS Status: Chronic Current Visit: Yes Qualifiers: Diabetes mellitus vermin exterminator insulin use: without senior living use Diabetes mellitus complication status: without complication Qualified Code(s): E11.9 - Type 2 diabetes mellitus without complications (3) HTN (hypertension) SNOMED Code(s): 31041142 ICD Code: I10 - ESSENTIAL (PRIMARY) HYPERTENSION Status: Acute Current Visit: Yes (4) Cardiac volume overload SNOMED Code(s): 47837698 ICD Code: E87.79 - OTHER FLUID OVERLOAD Status: Acute Current Visit: Yes Problem Details: likely sec to uncontrolled BP on admission, BP was stable through rest of the stay. - Patient Summary/Data Consults: Consultations 12/12/18 12:08 Consult to Physical Therapy [PT Evaluation and Treatment] [CONS] Routine - Discharge Plan Prescriptions/Med Rec: Furosemide [Lasix] 20 mg PO DAILY #30 tab guaiFENesin/Dextromethorphan [Adult Robitussin Peak Cold Dm] 10 ml PO BID PRN # 1 bottle PRN Reason: Cough Home Medications: Home Meds Aspirin [Adult Low Dose Aspirin EC] 81 mg PO DAILY 12/21/13 [History] Latanoprost [Xalatan 0.005% Ophth Soln] 1 drop EYEBOTH BEDTIME 12/21/13 [History ] Multivit-Min/FA/Lycopene/Lut [Centrum Silver] 1 each PO DAILY 12/21/13 [History] Albuterol Sulfate 2.5 mg IH QID 04/15/14 [History] Erythromycin Base [Erythromycin 0.5% Ophth Oint] 1 applic EYEBOTH BEDTIME [History] Metoprolol Succinate [Toprol XL] 25 mg PO DAILY 09/20/16 [History] Cholecalciferol (Vitamin D3) [Vitamin D3] 25 mcg PO DAILY 03/20/18 [History] Isosorbide Mononitrate [Isosorbide Mononitrate ER] 120 mg PO DAILY 03/20/18 [ History] Calcium Carbonate [Calcium] 600 mg PO BID 11/11/18 [History] Clopidogrel Bisulfate [Clopidogrel] 75 tab PO DAILY 11/11/18 [History] Vit C/E/Zn/Coppr/Lutein/Zeaxan [Preservision Areds 2 Softgel] 1,000 mg PO DAILY 11/11/18 [History] predniSONE [Prednisone] 2.5 mg PO BIDMEALS #0 11/12/18 [Rx] Brimonidine [Alphagan P 0.15% Ophth Soln] 1 drop EYEBOTH ACBREAKFAST 12/12/18 [ History] atorvaSTATin Calcium [Lipitor] 40 mg PO DAILY 12/12/18 [History] Furosemide [Lasix] 20 mg PO DAILY #30 tab 12/13/18 [Rx] guaiFENesin/Dextromethorphan [Adult Robitussin Peak Cold Dm] 10 ml PO BID PRN # 1 bottle 12/13/18 [Rx] Patient Handouts: Furosemide tablets, Shortness of Breath, Adult, [id number] , Dextromethorphan; Guaifenesin oral solution, Heart Failure, Bvof-go-Dvct Referrals: Oracio Varma MD [Physician] - 12/19/18 Aaron Zamarripa MD [Resident] - 12/23/18 1:30 pm (You appointment was not able to be made with Dr. Hernández because he will be out of the clinic this week. Arrive 15 minutes early with photo ID and insurance card.) - Discharge Summary/Plan Comment DC Time >30 min.: Yes Discharge Summary/Plan Comment: Patient is a 88 y/o M who came to ER with c/o chest pain, cough, SOB. Patient has PMH of CAD s/p stents, COPD on home O2,Type 2 DM, vocal cord dysfunction, recurrent food impaction. Patient had a fall 2 days back before presentation,. Chest pain was attributed to musculoskeletal cause. ACS was ruled out, Patient was found to be in Volume overload and was hence started on lasix. 2D ECHO was done as well. No evident diastolic/systolic dysfunction. Patient also received DuoNebs and steroids for COPD exacerbation. Steroids were discontinued upon d/ c. Lasix 20mg was continued, would defer to PCP/Cardiology for further care. Physical therapy assessed the patient. Patient was medically stable for dc to home and recommended to follow up with PCP and cardiology on OP basis. Speech therapy consult for speech assessment was also provided. - Patient Data Vitals - Most Recent: Last Vital Signs Temp 36.6 C 12/13/18 12:00 Pulse 82 12/13/18 12:00 Resp 20 12/13/18 12:00 BP 138/90 12/13/18 12:00 Pulse Ox 95 12/13/18 12:00 Weight - Most Recent: 165 lb 12.8 oz I&O - Last 24 hours: Intake & Output 12/12/18 12/13/18 12/13/18 22:59 06:59 14:59 Intake Total 850 450 Output Total 625 200 Balance 225 250 Lab Results - Last 24 hrs: Laboratory Results - last 24 hr 12/12/18 12/13/18 12/13/18 Range/Units 16:55 05:58 07:15 WBC 15.53 H (4.0-11.0) K/uL RBC 4.45 L (4.50-5.90) M/uL Hgb 13.7 (13.0-17.0) g/dL Hct 41.6 (38.0-50.0) % MCV 93.5 (80.0-98.0) fL MCH 30.8 (27.0-32.0) pg MCHC 32.9 (31.0-37.0) g/dL RDW Std Deviation 48.6 (28.0-62.0) fl RDW Coeff of Juancho 14 (11.0-15.0) % Plt Count 208 (150-400) K/uL MPV 9.80 (7.40-12.00) fL Neut % (Auto) 90.3 H (48.0-80.0) % Lymph % (Auto) 5.6 L (16.0-40.0) % [place] % (Auto) 4.1 (0.0-15.0) % Eos % (Auto) 0.0 (0.0-7.0) % Baso % (Auto) 0.0 (0.0-1.5) % Neut # (Auto) 14.0 H (1.4-5.7) K/uL Lymph # (Auto) 0.9 (0.6-2.4) K/uL [place] # (Auto) 0.6 (0.0-0.8) K/uL Eos # (Auto) 0.0 (0.0-0.7) K/uL Baso # (Auto) 0.0 (0.0-0.1) K/uL Nucleated RBC % 0.0 /100WBC Nucleated RBCs # 0 K/uL Sodium (136-148) mmol/L Potassium (3.5-5.1) mmol/L Chloride (98-107) mmol/L Carbon Dioxide (21.0-32.0) mmol/L BUN (7.0-18.0) mg/dL Creatinine (0.8-1.3) mg/dL Est Cr Clr Drug Dosing mL/min Estimated GFR (MDRD) ml/min Glucose (74-106) mg/dL POC Glucose 171 H 159 H (60-110) mg/dL Calcium (8.5-10.1) mg/dL Phosphorus (2.6-4.7) mg/dL Magnesium (1.8-2.4) mg/dL 12/13/18 12/13/18 Range/Units 07:15 12:04 WBC (4.0-11.0) K/uL RBC (4.50-5.90) M/uL Hgb (13.0-17.0) g/dL Hct (38.0-50.0) % MCV (80.0-98.0) fL MCH (27.0-32.0) pg MCHC (31.0-37.0) g/dL RDW Std Deviation (28.0-62.0) fl RDW Coeff of Juancho (11.0-15.0) % Plt Count (150-400) K/uL MPV (7.40-12.00) fL Neut % (Auto) (48.0-80.0) % Lymph % (Auto) (16.0-40.0) % [place] % (Auto) (0.0-15.0) % Eos % (Auto) (0.0-7.0) % Baso % (Auto) (0.0-1.5) % Neut # (Auto) (1.4-5.7) K/uL Lymph # (Auto) (0.6-2.4) K/uL [place] # (Auto) (0.0-0.8) K/uL Eos # (Auto) (0.0-0.7) K/uL Baso # (Auto) (0.0-0.1) K/uL Nucleated RBC % /100WBC Nucleated RBCs # K/uL Sodium 137 (136-148) mmol/L Potassium 4.0 (3.5-5.1) mmol/L Chloride 99 (98-107) mmol/L Carbon Dioxide 28.0 (21.0-32.0) mmol/L BUN 17 (7.0-18.0) mg/dL Creatinine 1.1 (0.8-1.3) mg/dL Est Cr Clr Drug Dosing 49.57 mL/min Estimated GFR (MDRD) > 60.0 ml/min Glucose 190 H (74-106) mg/dL POC Glucose 133 H (60-110) mg/dL Calcium 8.4 L (8.5-10.1) mg/dL Phosphorus 2.9 (2.6-4.7) mg/dL Magnesium 1.9 (1.8-2.4) mg/dL SHELIA Results - Last 24 hrs: Microbiology 12/12/18 01:52 Aerobic Blood Culture - Preliminary Blood - Venous - Lab Draw NO GROWTH AFTER 1 DAY Anaerobic Blood Culture - Preliminary NO GROWTH AFTER 1 DAY 12/12/18 01:25 Aerobic Blood Culture - Preliminary Blood - Venous NO GROWTH AFTER 1 DAY Anaerobic Blood Culture - Preliminary NO GROWTH AFTER 1 DAY Med Orders - Current: Current Medications Albuterol/Ipratropium (Duoneb 3.0-0.5 Mg/3 Ml) 3 ml NEB Q6HRRT [facility] Last Admin: 12/13/18 11:51 Dose: 3 ml Aspirin (Halfprin) 81 mg PO DAILY [facility] Last Admin: 12/13/18 08:42 Dose: 81 mg Atorvastatin Calcium (Lipitor) 40 mg PO DAILY [facility] Last Admin: 12/13/18 08:41 Dose: 40 mg Brimonidine Tartrate (Alphagan P 0.15% Oph Soln) 0 ml EYEBOTH ACBREAKFAST [facility] Last Admin: 12/13/18 07:00 Dose: Not Given Clopidogrel Bisulfate (Plavix) 75 mg PO DAILY [facility] Last Admin: 12/13/18 08:41 Dose: 75 mg Enoxaparin Sodium (Lovenox) 40 mg SUBCUT Q24H [facility] Last Admin: 12/12/18 14:39 Dose: 40 mg Furosemide (Lasix) 20 mg IVPUSH BIDDIURETIC [facility] Last Admin: 12/13/18 08:34 Dose: 20 mg Guaifenesin/Dextromethorphan (Robitussin Dm) 10 ml PO Q6H PRN PRN Reason: Cough Insulin Aspart (Novolog) 0 unit SUBCUT TIDAC [facility]; Protocol Last Admin: 12/13/18 12:32 Dose: Not Given Latanoprost (Xalatan 0.005% Oph Soln) 0 ml EYEBOTH BEDTIME [facility] Last Admin: 12/12/18 20:10 Dose: Not Given Methylprednisolone Sodium Succinate (Solu-Medrol) 40 mg IVPUSH BID [facility] Last Admin: 12/13/18 08:34 Dose: 40 mg Metoprolol Succinate (Toprol Xl) 25 mg PO DAILY [facility] Last Admin: 12/13/18 08:41 Dose: 25 mg Calcium Carbonate (600 Mg) 1 each PO BID [facility] Last Admin: 12/13/18 08:43 Dose: 1 each Cholecalciferol ( Vitamin D3) [Vitamin D3] 25 Mcg 1 each PO DAILY [facility] Last Admin: 12/13/18 08:43 Dose: 1 each Erythromycin Base 1 each EYEBOTH BEDTIME [facility] Last Admin: 12/12/18 20:10 Dose: Not Given Isosorbide Mononitrate [ Isosorbide Mononitrate Er] 120 Mg 1 each PO DAILY [facility] Last Admin: 12/13/18 08:43 Dose: 1 each Multivit-Min/Fa/Lycopene/Lut [ Centrum Silver] 1 each PO DAILY [facility] Last Admin: 12/13/18 08:43 Dose: 1 each Sodium Chloride (Saline Flush) 10 ml FLUSH ASDIRECTED PRN PRN Reason: Keep Vein Open Sodium Chloride (Saline Flush) 2.5 ml FLUSH ASDIRECTED PRN PRN Reason: Keep Vein Open Discontinued Medications Albuterol/Ipratropium (Duoneb 3.0-0.5 Mg/3 Ml) 3 ml NEB ONETIME ONE Stop: 12/12/18 01:18 Last Admin: 12/12/18 01:22 Dose: 3 ml Furosemide (Lasix) 20 mg IVPUSH ONETIME ONE Stop: 12/12/18 02:11 Last Admin: 12/12/18 02:15 Dose: Not Given Furosemide (Lasix) Confirm Administered Dose 40 mg .ROUTE .STK-MED ONE Stop: 12/12/18 02:14 Last Admin: 12/12/18 02:16 Dose: Not Given Furosemide (Lasix) 20 mg IVPUSH NOW ONE Stop: 12/12/18 02:16 Last Admin: 12/12/18 02:17 Dose: 20 mg Sodium Chloride (Normal Saline) 1,000 mls @ 125 mls/hr IV STAT [facility] Last Admin: 12/12/18 01:31 Dose: 125 mls/hr Methylprednisolone Sodium Succinate (Solu-Medrol) 125 mg IVPUSH ONETIME ONE Stop: 12/12/18 01:18 Last Admin: 12/12/18 01:22 Dose: 125 mg
[2018-12-13] MEDS: Enoxaparin 40 MG/0.4 ML Syringe SUBCUT SCH (15:01)
== END 2018-12-13 16:05 | disposition home or self-care (01) ==
LOC: MW.ED 01:13 → MW.MS 02:34
PROVIDERS: ADMIT Internal Medicine; ATTEND Internal Medicine
DX: R07.89 Other chest pain (principal); J43.9 Emphysema, unspecified; E87.79 Other fluid overload; I10 Essential (primary) hypertension; I25.10 Atherosclerotic heart disease of native coronary artery without angina pectoris; E11.9 Type 2 diabetes mellitus without complications; E78.00 Pure hypercholesterolemia, unspecified; J38.3 Other diseases of vocal cords; Z88.1 Allergy status to other antibiotic agents; Z91.09 Other allergy status, other than to drugs and biological substances; Z99.81 Dependence on supplemental oxygen; Z95.5 Presence of coronary angioplasty implant and graft; Z87.891 Personal history of nicotine dependence; Z79.82 Long term (current) use of aspirin; Z79.02 Long term (current) use of antithrombotics/antiplatelets; Z79.52 Long term (current) use of systemic steroids; Z79.899 Other long term (current) drug therapy
CPT/HCPCS: 36415; 71045; 80048; 80053; 81003; 82962; 83735; 83880; 84100; 84484; 85025; 85610; 87040; 93005; 93306; 94640; 96361; 96374; 97161; 99285; A9270; J1650; J1815; J1940; J2920; J2930; J7040; J7620-GY

== ENCOUNTER 2019-02-18 14:03 | Emergency (ER) | payer MEDICARE, BC ==
--- NOTE | 2019-02-18 14:31 | EDM.PDOC ---
ED HPI GENERAL MEDICAL PROBLEM - General Chief Complaint: Respiratory Problem Stated Complaint: chest pain Time Seen by Provider: 02/18/19 14:11 Source of Information: Reports: Patient History Limitations: Reports: No Limitations - History of Present Illness INITIAL COMMENTS - FREE TEXT/NARRATIVE: Presents reporting left precordial chest pain and left arm pain. The patient states that he has this pain off-and-on most of the time and has none at the time of the interview. He did not take anything for it at home. He also had some mild shortness of breath but upon inquiry denies shortness of breath. He has COPD and is oxygen dependent at home. His states that he has rattling in his upper chest off-and-on often. She brought him in today because "he sounded different on the phone". The patient did have his seasonal flu shot and has had both the Prevnar 13 and the Pneumovax 23. - Related Data Allergies Allergy/AdvReac Type Severity Reaction Status Date / Time levofloxacin [From Levaquin] Allergy Severe Hives Verified 12/12/18 03:20 Animal Dander Allergy Mild Cough Uncoded 12/12/18 03:20 smoke Allergy Cough Uncoded 12/12/18 03:20 Home Meds: Home Meds Aspirin [Adult Low Dose Aspirin EC] 81 mg PO DAILY 12/21/13 [History] Latanoprost [Xalatan 0.005% Ophth Soln] 1 drop EYEBOTH BEDTIME 12/21/13 [History ] Multivit-Min/FA/Lycopene/Lut [Centrum Silver] 1 each PO DAILY 12/21/13 [History] Albuterol Sulfate 2.5 mg IH QID 04/15/14 [History] Erythromycin Base [Erythromycin 0.5% Ophth Oint] 1 applic EYEBOTH BEDTIME [History] Metoprolol Succinate [Toprol XL] 25 mg PO DAILY 09/20/16 [History] Cholecalciferol (Vitamin D3) [Vitamin D3] 25 mcg PO DAILY 03/20/18 [History] Isosorbide Mononitrate [Isosorbide Mononitrate ER] 120 mg PO DAILY 03/20/18 [ History] Calcium Carbonate [Calcium] 600 mg PO BID 11/11/18 [History] Clopidogrel Bisulfate [Clopidogrel] 75 tab PO DAILY 11/11/18 [History] Vit C/E/Zn/Coppr/Lutein/Zeaxan [Preservision Areds 2 Softgel] 1,000 mg PO DAILY 11/11/18 [History] predniSONE [Prednisone] 2.5 mg PO BIDMEALS #0 11/12/18 [Rx] Brimonidine [Alphagan P 0.15% Ophth Soln] 1 drop EYEBOTH ACBREAKFAST 12/12/18 [ History] atorvaSTATin Calcium [Lipitor] 40 mg PO DAILY 12/12/18 [History] Furosemide [Lasix] 20 mg PO DAILY #30 tab 12/13/18 [Rx] guaiFENesin/Dextromethorphan [Adult Robitussin Peak Cold Dm] 10 ml PO BID PRN # 1 bottle 12/13/18 [Rx] Past Medical History HEENT History: Reports: Glaucoma, Macular Degeneration Other HEENT History: wears glasses, top and bottom dentures Cardiovascular History: Reports: CAD, High Cholesterol, Hypertension, Stents Other Cardiovascular History: Stents placed "last Spring" Respiratory History: Reports: COPD Other Respiratory History: continuous 02 3L at home Gastrointestinal History: Reports: Other (See Below) Other Gastrointestinal History: epigastric pain Genitourinary History: Reports: None Musculoskeletal History: Reports: Arthritis Other Musculoskeletal History: neck pain, rt elbow pain Neurological History: Reports: TIA Other Neuro History: "several TIAs", "memory issues" Psychiatric History: Reports: Dementia Endocrine/Metabolic History: Reports: Diabetes, Type II Hematologic History: Reports: None Immunologic History: Reports: None Oncologic (Cancer) History: Reports: None Dermatologic History: Reports: Other (See Below) Other Dermatologic History: dermatitis - Infectious Disease History Infectious Disease History: Reports: Other (See Below) Other Infectious Disease History: unknown - Past Surgical History Head Surgeries/Procedures: Reports: None HEENT Surgical History: Reports: Cataract Surgery Other HEENT Surgeries/Procedures: laryngoscopy with stripping of vocal cords, vocal cord dysfunction s/p stripping Cardiovascular Surgical History: Reports: Coronary Artery Stent Respiratory Surgical History: Reports: None GI Surgical History: Reports: Appendectomy, Other (See Below) Other GI Surgeries/Procedures: laryngoscopy with stripping of vocal cords Male Surgical History: Reports: None Endocrine Surgical History: Reports: None Neurological Surgical History: Reports: None Musculoskeletal Surgical History: Reports: None Oncologic Surgical History: Reports: None Dermatological Surgical History: Reports: None Social & Family History - Family History Family Medical History: Noncontributory - Caffeine Use Caffeine Use: Reports: Coffee Caffeine Use Comment: 2 cups a day - Living Situation & Occupation Living situation: Reports: Occupation: Retired ED ROS GENERAL - Review of Systems Review Of Systems: Comprehensive ROS is negative, except as noted in HPI. Musculoskeletal: Reports: Other (Long-standing bilateral inguinal hernias) ED EXAM, GENERAL - Physical Exam Exam: See Below Exam Limited By: No Limitations General Appearance: Alert, No Apparent Distress Ears: Normal External Exam Nose: Normal Inspection Throat/Mouth: Normal Inspection Head: Atraumatic, Normocephalic Neck: Normal Inspection Respiratory/Chest: No Respiratory Distress, Chest Non-Tender, Other Cardiovascular: Regular Rate, Rhythm, No Edema, No Murmur Peripheral Pulses: 1+: Posterior Tibial (L), Posterior Tibial (R) GI/Abdominal: Soft, Non-Tender, No Distention Extremities: Normal Inspection. No: Pedal Edema Neurological: Alert, Oriented, Normal Cognition Skin Exam: Warm, Dry, Intact, Normal Color, No Rash Course - Vital Signs Last Recorded V/S: Last Vital Signs Temp 36.3 C 02/18/19 14:10 Pulse 95 02/18/19 14:10 Resp 24 H 02/18/19 14:10 BP 160/82 H 02/18/19 14:10 Pulse Ox 80 L 02/18/19 14:10 - Orders/Labs/Meds Orders: Active Orders 24 hr Category Date Time Status EKG 12 Lead [EKG Documentation Completion] [RC] STAT Care 02/18/19 14:23 Ordered RT Aerosol Therapy [RC] ASDIRECTED Care 02/18/19 15:30 Ordered Medication Orders Budesonide (Pulmicort) 0.5 mg NEB ONETIME ONE Stop: 02/18/19 15:30 Labs: Laboratory Tests 02/18/19 02/18/19 Range/Units 14:35 14:35 WBC 11.52 H (4.0-11.0) K/uL RBC 4.02 L (4.50-5.90) M/uL Hgb 12.9 L (13.0-17.0) g/dL Hct 38.2 (38.0-50.0) % MCV 95.0 (80.0-98.0) fL MCH 32.1 H (27.0-32.0) pg MCHC 33.8 (31.0-37.0) g/dL RDW Std Deviation 44.1 (28.0-62.0) fl RDW Coeff of Juancho 13 (11.0-15.0) % Plt Count 158 (150-400) K/uL MPV 10.30 (7.40-12.00) fL Neut % (Auto) 83.0 H (48.0-80.0) % Lymph % (Auto) 9.5 L (16.0-40.0) % [place] % (Auto) 6.8 (0.0-15.0) % Eos % (Auto) 0.4 (0.0-7.0) % Baso % (Auto) 0.3 (0.0-1.5) % Neut # (Auto) 9.6 H (1.4-5.7) K/uL Lymph # (Auto) 1.1 (0.6-2.4) K/uL [place] # (Auto) 0.8 (0.0-0.8) K/uL Eos # (Auto) 0.1 (0.0-0.7) K/uL Baso # (Auto) 0.0 (0.0-0.1) K/uL Sodium 141 (136-148) mmol/L Potassium 3.7 (3.5-5.1) mmol/L Chloride 102 (98-107) mmol/L Carbon Dioxide 30.0 (21.0-32.0) mmol/L BUN 7 (7.0-18.0) mg/dL Creatinine 1.3 (0.8-1.3) mg/dL Est Cr Clr Drug Dosing TNP Estimated GFR (MDRD) 52.1 ml/min Glucose 148 H (74-106) mg/dL Calcium 8.9 (8.5-10.1) mg/dL Total Bilirubin 0.7 (0.2-1.0) mg/dL AST 23 (15-37) IU/L ALT 27 (14-63) IU/L Alkaline Phosphatase 80 (46-116) U/L Troponin I < 0.050 (0.000-0.056) ng/mL Total Protein 7.1 (6.4-8.2) g/dL Albumin 3.7 (3.4-5.0) g/dL Globulin 3.4 (2.6-4.0) g/dL Albumin/Globulin Ratio 1.1 (0.9-1.6) Meds: Medications Generic Name Dose Route Start Last Admin Trade Name [place] PRN Reason Stop Dose Admin Budesonide 0.5 mg 02/18/19 15:29 Pulmicort NEB 02/18/19 15:30 ONETIME ONE Departure - Departure Time of Disposition: 15:30 Disposition: Home, Self-Care 01 Condition: Good Clinical Impression: Bronchitis - Discharge Information Referrals: Derek Hernández MD [Primary Care Provider] - Forms: ED Department Discharge Additional Instructions: The following information is given to patients seen in the emergency department who are being discharged to home. This information is to outline your options for follow-up care. We provide all patients seen in our emergency department with a follow-up referral. The need for follow-up, as well as the timing and circumstances, are variable depending upon the specifics of your emergency department visit. If you don't have a primary care physician on staff, we will provide you with a referral. We always advise you to contact your personal physician following an emergency department visit to inform them of the circumstance of the visit and for follow-up with them and/or the need for any referrals to a consulting specialist. The emergency department will also refer you to a specialist when appropriate. This referral assures that you have the opportunity for follow-up care with a specialist. All of these measure are taken in an effort to provide you with optimal care, which includes your follow-up. Under all circumstances we always encourage you to contact your private physician who remains a resource for coordinating your care. When calling for follow-up care, please make the office aware that this follow-up is from your recent emergency room visit. If for any reason you are refused follow-up, please contact the [facility] Emergency Department at and asked to speak to the emergency department charge nurse. 1. Pulmicort nebs 3 times a day at home for exacerbations of cough or bronchitis. 2. Next 3 days prednisone 20 mg 2 tabs daily on top of usual 2.5 mg daily 3. All up with your primary provider for your recurrent chest discomfort, inguinal hernias, chronic chest rattling. - My Orders Last 24 Hours: My Active Orders 02/18/19 14:23 EKG 12 Lead [EKG Documentation Completion] [RC] STAT 02/18/19 15:30 RT Aerosol Therapy [RC] ASDIRECTED - Assessment/Plan Last 24 Hours: My Active Orders 02/18/19 14:23 EKG 12 Lead [EKG Documentation Completion] [RC] STAT 02/18/19 15:30 RT Aerosol Therapy [RC] ASDIRECTED
[2019-02-18 15:19] LABS: BLOOD UREA NITROGEN,BUN 7 mg/dL (7.0-18.0); CHLORIDE,CL 102 mmol/L (98-107); GLUCOSE RANDOM 148 mg/dL (74-106); POTASSIUM,K 3.7 mmol/L (3.5-5.1); SODIUM,NA 141 mmol/L (136-148)
--- NOTE | 2019-02-18 15:24 | CR ---
Chest: AP view of the chest is obtained. Comparison: Prior chest x-ray of 12/23/18. Increased lung markings are noted on the right side which are more prominent than on prior study. Most of this appears chronic but mild superimposed bronchitis is possible. Left lung shows minimal atelectasis within the left base but otherwise is clear. Heart size is normal. Tortuous thoracic aorta is seen. Bony structures are grossly intact. Impression: 1. Slight increased lung markings within the right chest. Some of this is chronic but mild superimposed bronchitis is possible. 2. Mild left basilar atelectasis. Diagnostic code #3 This report was dictated in [place] Standard Time MTDD
[2019-02-18] MEDS ORDERED: Budesonide 0.5 MG/2 ML Neb Susp NEB ONE (15:29)
[2019-02-18 16:02] VITALS: BP 150/74; PULSE 87
== END 2019-02-18 16:03 | disposition home or self-care (01) ==
LOC: MW.ED 14:03
DX: J40 Bronchitis, not specified as acute or chronic (principal); I10 Essential (primary) hypertension; E11.9 Type 2 diabetes mellitus without complications; I25.10 Atherosclerotic heart disease of native coronary artery without angina pectoris; E78.00 Pure hypercholesterolemia, unspecified; M19.90 Unspecified osteoarthritis, unspecified site; Z86.73 Personal history of transient ischemic attack (TIA), and cerebral infarction without residual deficits; Z95.5 Presence of coronary angioplasty implant and graft; Z88.8 Allergy status to other drugs, medicaments and biological substances; Z91.048 Other nonmedicinal substance allergy status; Z79.82 Long term (current) use of aspirin; Z79.899 Other long term (current) drug therapy; Z79.02 Long term (current) use of antithrombotics/antiplatelets
CPT/HCPCS: 36415; 71045; 71045-26; 80053; 84484; 85025; 93005; 94640; 99285-25

== ENCOUNTER 2020-06-21 18:01 | Emergency (ER) | payer MEDICARE, BC ==
[2020-06-21] MEDS ORDERED: Sodium Chloride 0.9% 2.5 ML Syringe FLUSH PRN (18:07)
[2020-06-21] MEDS ORDERED: Sodium Chloride 0.9% 10 ML Syringe FLUSH PRN (18:07)
--- NOTE | 2020-06-21 18:07 | EDM.PDOC ---
<Didier Barnes - Last Filed: 06/21/20 18:42> ED HPI GENERAL MEDICAL PROBLEM - General Stated Complaint: LT LEG PROBLEM, DR Brock FOX REFERRAL Time Seen by Provider: 06/21/20 18:04 Source of Information: Reports: Patient History Limitations: Reports: No Limitations - History of Present Illness INITIAL COMMENTS - FREE TEXT/NARRATIVE: 89-year-old male past medical history CHF, CAD, COPD, PAD s/p left femoral stenting presents for left leg pain. Patient was seen in the clinic earlier today and had arterial Doppler ultrasound which revealed very low flow. He is being sent to the emergency department for further work-up. The patient is a rather poor historian. His provides most of the history. She states that he had femoral stenting in December of last year. He began to complain of pain in his leg last night. He mentioned this to the clinic doctor today who ordered the arterial Doppler ultrasound which was concerning for limb ischemia. Patient currently does feel pain in the leg but tells me that this has been going on for about 10 years and is not acutely worse today. He denies any weakness in the leg, shortness of breath, chest pain. - Related Data Allergies Allergy/AdvReac Type Severity Reaction Status Date / Time levofloxacin [From Levaquin] Allergy Severe Hives Verified 06/21/20 18:20 Animal Dander Allergy Mild Cough Uncoded 06/21/20 18:20 smoke Allergy Cough Uncoded 06/21/20 18:20 Home Meds: Home Meds Aspirin [Adult Low Dose Aspirin EC] 81 mg PO DAILY 12/21/13 [History] Latanoprost [Xalatan 0.005% Ophth Soln] 1 drop EYEBOTH BEDTIME 12/21/13 [History] Multivit-Min/FA/Lycopene/Lut [Centrum Silver] 1 each PO DAILY 12/21/13 [History] Albuterol Sulfate 2.5 mg IH QID 04/15/14 [History] Erythromycin Base [Erythromycin 0.5% Ophth Oint] 1 applic EYEBOTH BEDTIME 06/28/16 [History] Metoprolol Succinate [Toprol XL] 25 mg PO DAILY 09/20/16 [History] Cholecalciferol (Vitamin D3) [Vitamin D3] 25 mcg PO DAILY 03/20/18 [History] Isosorbide Mononitrate [Isosorbide Mononitrate ER] 120 mg PO DAILY 03/20/18 [History] Calcium Carbonate [Calcium] 600 mg PO BID 11/11/18 [History] Clopidogrel Bisulfate [Clopidogrel] 75 tab PO DAILY 11/11/18 [History] Vit C/E/Zn/Coppr/Lutein/Zeaxan [Preservision Areds 2 Softgel] 1,000 mg PO DAILY 11/11/18 [History] predniSONE [Prednisone] 2.5 mg PO BIDMEALS #0 11/12/18 [Rx] Brimonidine [Alphagan P 0.15% Ophth Soln] 1 drop EYEBOTH ACBREAKFAST 12/12/18 [History] atorvaSTATin Calcium [Lipitor] 40 mg PO DAILY 12/12/18 [History] Furosemide [Lasix] 20 mg PO DAILY #30 tab 12/13/18 [Rx] guaiFENesin/Dextromethorphan [Adult Robitussin Peak Cold Dm] 10 ml PO BID PRN #1 bottle 12/13/18 [Rx] Budesonide [Pulmicort] 0.5 mg IH TID PRN #10 neb 02/18/19 [Rx] predniSONE [Prednisone] 2 tab PO DAILY #10 tablet 02/18/19 [Rx] Past Medical History HEENT History: Reports: Glaucoma, Macular Degeneration Other HEENT History: wears glasses, top and bottom dentures Cardiovascular History: Reports: CAD, High Cholesterol, Hypertension, Stents Other Cardiovascular History: Stents placed "last Spring" Respiratory History: Reports: COPD Other Respiratory History: continuous 02 3L at home Gastrointestinal History: Reports: Other (See Below) Other Gastrointestinal History: epigastric pain Genitourinary History: Reports: None Musculoskeletal History: Reports: Arthritis Other Musculoskeletal History: neck pain, rt elbow pain Neurological History: Reports: TIA Other Neuro History: "several TIAs", "memory issues" Psychiatric History: Reports: Dementia Endocrine/Metabolic History: Reports: Diabetes, Type II Hematologic History: Reports: None Immunologic History: Reports: None Oncologic (Cancer) History: Reports: None Dermatologic History: Reports: Other (See Below) Other Dermatologic History: dermatitis - Infectious Disease History Infectious Disease History: Reports: Other (See Below) Other Infectious Disease History: unknown - Past Surgical History Head Surgeries/Procedures: Reports: None HEENT Surgical History: Reports: Cataract Surgery Other HEENT Surgeries/Procedures: laryngoscopy with stripping of vocal cords, vocal cord dysfunction s/p stripping Cardiovascular Surgical History: Reports: Coronary Artery Stent Respiratory Surgical History: Reports: None GI Surgical History: Reports: Appendectomy, Other (See Below) Other GI Surgeries/Procedures: laryngoscopy with stripping of vocal cords Male Surgical History: Reports: None Endocrine Surgical History: Reports: None Neurological Surgical History: Reports: None Musculoskeletal Surgical History: Reports: None Oncologic Surgical History: Reports: None Dermatological Surgical History: Reports: None Social & Family History - Family History Family Medical History: No Pertinent Family History - Caffeine Use Caffeine Use: Reports: Coffee Caffeine Use Comment: 2 cups a day - Living Situation & Occupation Living situation: Reports: Occupation: Retired ED ROS GENERAL - Review of Systems Review Of Systems: Comprehensive ROS is negative, except as noted in HPI. ED EXAM, GENERAL - Physical Exam Exam: See Below Exam Limited By: No Limitations General Appearance: Alert, WD/WN, No Apparent Distress Throat/Mouth: Normal Voice, No Airway Compromise Head: Atraumatic, Normocephalic Neck: Normal Inspection Respiratory/Chest: No Respiratory Distress, Lungs Clear, Normal Breath Sounds, No Accessory Muscle Use Cardiovascular: Normal Peripheral Pulses, Regular Rate, Rhythm Back Exam: Normal Inspection Extremities: Normal Inspection, Other (Left leg is cool to the touch about midway from knee to foot; normal muscle strength in LE b/l, normal color/sensation to the LLE, no palpable dorsalis pedis pulse) Neurological: Alert Psychiatric: Normal Affect, Normal Mood Skin Exam: Warm, Dry, Intact, Normal Color Course - Re-Assessments/Exams Free Text/Narrative Re-Assessment/Exam: 06/21/20 18:20 We will get labs. Will get CTA of the left lower extremity. 06/21/20 19:00 Patient care transition to Dr. Fields to follow-up labs, CT imaging results, reassessment, disposition. Departure - Departure Disposition: DC/Tfer to Acute Hospital 02 Clinical Impression: Acute occlusion of artery of lower extremity - Discharge Information Referrals: Rebeka Fox MD [Primary Care Provider] - <Jasiel Fields - Last Filed: 06/21/20 22:47> ED ROS GENERAL - Review of Systems Review Of Systems: Comprehensive ROS is negative, except as noted in HPI. ED EXAM, GENERAL - Physical Exam Exam: See Below Free Text/Narrative:: The physical exam is in the HPI Course - Vital Signs Text/Narrative:: 1821 hrs. the patient is signed out to me by my partner who his shift has ended. The patient is poor historian because he is hard of hearing and also defers to the to answer questions. The patient has pain in his left lower extremity. The patient does not describe it is worse today than it has been 4 weeks. He had a femoral artery stent in December 2019. The says the foot is cooler today. At the clinic a Doppler arterial study showed poor flow to the arteries of the left lower extremity. CT angio has been done tonight and we are awaiting the results. 145 the radiologist called me and said there is a complete occlusion at least of the popliteal and really severe calcification above that in the left lower extremity. I discussed the case with Dr. Zamarripa on-call for vascular surgery at [facility]. She wants the patient heparinized and sent to the hospital and she would like him to come to the ER. Discussed with Dr. Crowder child emergency physician who accepts the patient. Heparin orders are given and transport arrangements initiated. Last Recorded V/S: Last Vital Signs Temp 37.1 C 06/21/20 18:21 Pulse 83 06/21/20 19:22 Resp 18 06/21/20 19:22 BP 147/112 H 06/21/20 19:22 Pulse Ox 99 06/21/20 19:22 - Orders/Labs/Meds Orders: Active Orders 24 hr Category Date Time Status PTT,PARTIAL THROMBOPLSTIN TIME [COAG] Q6 Lab 06/21/20 21:45 Ordered PTT,PARTIAL THROMBOPLSTIN TIME [COAG] Q6 Lab 06/22/20 03:45 Ordered PTT,PARTIAL THROMBOPLSTIN TIME [COAG] Q6 Lab 06/22/20 09:45 Ordered PTT,PARTIAL THROMBOPLSTIN TIME [COAG] Q6 Lab 06/22/20 15:45 Ordered PTT,PARTIAL THROMBOPLSTIN TIME [COAG] Q6 Lab 06/22/20 21:45 Ordered PTT,PARTIAL THROMBOPLSTIN TIME [COAG] Q6 Lab 06/23/20 03:45 Ordered PTT,PARTIAL THROMBOPLSTIN TIME [COAG] Q6 Lab 06/23/20 09:45 Ordered Heparin Sodium/0.45% NaCl [Heparin 25,000 Units in 1/2 Med 06/21/20 21:35 Active NS 500 ML] 500 ml IV STAT Sodium Chloride 0.9% [Saline Flush] Med 06/21/20 18:07 Active 10 ml FLUSH ASDIRECTED PRN Sodium Chloride 0.9% [Saline Flush] Med 06/21/20 18:07 Active 2.5 ml FLUSH ASDIRECTED PRN Saline Lock Insert [OM.PC] Stat Oth 06/21/20 18:07 Ordered Medication Orders Heparin Sodium/Sodium Chloride (Heparin 25,000 Units In 1/2 Ns 500 Ml) 500 mls @ 21.636 mls/hr IV STAT STA Stop: 06/22/20 20:41 Last Admin: 06/21/20 22:32 Dose: 15 units/kg/hr, 21.636 mls/hr Documented by: DESTIN Cosigned by: SILAS Sodium Chloride (Sodium Chloride 0.9% 10 Ml Syringe) 10 ml FLUSH ASDIRECTED PRN PRN Reason: Keep Vein Open Last Admin: 06/21/20 18:30 Dose: 10 ml Documented by: ОЛЬГА Sodium Chloride (Sodium Chloride 0.9% 2.5 Ml Syringe) 2.5 ml FLUSH ASDIRECTED PRN PRN Reason: Keep Vein Open Last Admin: 06/21/20 18:30 Dose: 2.5 ml Documented by: ОЛЬГА Labs: Laboratory Tests 06/21/20 06/21/20 06/21/20 Range/Units 18:29 18:29 18:29 WBC 9.90 (4.0-11.0) K/uL RBC 3.98 L (4.50-5.90) M/uL Hgb 12.2 L (13.0-17.0) g/dL Hct 37.7 L (38.0-50.0) % MCV 94.7 (80.0-98.0) fL MCH 30.7 (27.0-32.0) pg MCHC 32.4 (31.0-37.0) g/dL RDW Std Deviation 47.3 (28.0-62.0) fl RDW Coeff of Juancho 14 (11.0-15.0) % Plt Count 207 (150-400) K/uL MPV 10.10 (7.40-12.00) fL Neut % (Auto) 84.8 H (48.0-80.0) % Lymph % (Auto) 10.1 L (16.0-40.0) % [place] % (Auto) 5.1 (0.0-15.0) % Eos % (Auto) 0.0 (0.0-7.0) % Baso % (Auto) 0.0 (0.0-1.5) % Neut # (Auto) 8.4 H (1.4-5.7) K/uL Lymph # (Auto) 1.0 (0.6-2.4) K/uL [place] # (Auto) 0.5 (0.0-0.8) K/uL Eos # (Auto) 0.0 (0.0-0.7) K/uL Baso # (Auto) 0.0 (0.0-0.1) K/uL Nucleated RBC % 0.0 /100WBC Nucleated RBCs # 0 K/uL INR 1.03 APTT 24.5 (18.6-31.3) SEC Lactate 1.3 (0.20-2.00) mmol/L Sodium (136-148) mmol/L Potassium (3.5-5.1) mmol/L Chloride (98-107) mmol/L Carbon Dioxide (21.0-32.0) mmol/L BUN (7.0-18.0) mg/dL Creatinine (0.8-1.3) mg/dL Est Cr Clr Drug Dosing mL/min Estimated GFR (MDRD) ml/min Glucose (74-106) mg/dL Calcium (8.5-10.1) mg/dL Total Bilirubin (0.2-1.0) mg/dL AST (15-37) IU/L ALT (14-63) IU/L Alkaline Phosphatase (46-116) U/L Total Protein (6.4-8.2) g/dL Albumin (3.4-5.0) g/dL Globulin (2.6-4.0) g/dL Albumin/Globulin Ratio (0.9-1.6) SARS CoV-2 RNA Rapid WILFRED (NEGATIVE) 06/21/20 06/21/20 06/21/20 Range/Units 18:29 21:55 22:20 WBC (4.0-11.0) K/uL RBC (4.50-5.90) M/uL Hgb (13.0-17.0) g/dL Hct (38.0-50.0) % MCV (80.0-98.0) fL MCH (27.0-32.0) pg MCHC (31.0-37.0) g/dL RDW Std Deviation (28.0-62.0) fl RDW Coeff of Juancho (11.0-15.0) % Plt Count (150-400) K/uL MPV (7.40-12.00) fL Neut % (Auto) (48.0-80.0) % Lymph % (Auto) (16.0-40.0) % [place] % (Auto) (0.0-15.0) % Eos % (Auto) (0.0-7.0) % Baso % (Auto) (0.0-1.5) % Neut # (Auto) (1.4-5.7) K/uL Lymph # (Auto) (0.6-2.4) K/uL [place] # (Auto) (0.0-0.8) K/uL Eos # (Auto) (0.0-0.7) K/uL Baso # (Auto) (0.0-0.1) K/uL Nucleated RBC % /100WBC Nucleated RBCs # K/uL INR APTT 24.7 (18.6-31.3) SEC Lactate (0.20-2.00) mmol/L Sodium 136 (136-148) mmol/L Potassium 4.2 (3.5-5.1) mmol/L Chloride 101 (98-107) mmol/L Carbon Dioxide 30.2 (21.0-32.0) mmol/L BUN 13 (7.0-18.0) mg/dL Creatinine 1.3 (0.8-1.3) mg/dL Est Cr Clr Drug Dosing 39.30 mL/min Estimated GFR (MDRD) 52.0 ml/min Glucose 170 H (74-106) mg/dL Calcium 8.5 (8.5-10.1) mg/dL Total Bilirubin 0.4 (0.2-1.0) mg/dL AST 20 (15-37) IU/L ALT 30 (14-63) IU/L Alkaline Phosphatase 110 (46-116) U/L Total Protein 7.2 (6.4-8.2) g/dL Albumin 3.7 (3.4-5.0) g/dL Globulin 3.5 (2.6-4.0) g/dL Albumin/Globulin Ratio 1.1 (0.9-1.6) SARS CoV-2 RNA Rapid WILFRED NEGATIVE (NEGATIVE) Meds: Medications Generic Name Dose Route Start Last Admin Trade Name Heaven PRN Reason Stop Dose Admin Heparin Sodium/Sodium Chloride 500 mls @ 21.636 mls/hr 06/21/20 21:35 06/21/20 22:32 Heparin 25,000 Units In 03/20 Ns 500 Ml IV 06/22/20 20:41 15 units/kg/hr STAT STA 21.636 mls/hr Administration 15 UNITS/KG/HR Sodium Chloride 10 ml 06/21/20 18:07 06/21/20 18:30 Sodium Chloride 0.9% 10 Ml Syringe FLUSH 10 ml ASDIRECTED PRN Administration Keep Vein Open Sodium Chloride 2.5 ml 06/21/20 18:07 06/21/20 18:30 Sodium Chloride 0.9% 2.5 Ml Syringe FLUSH 2.5 ml ASDIRECTED PRN Administration Keep Vein Open Discontinued Medications Generic Name Dose Route Start Last Admin Trade Name Heaven PRN Reason Stop Dose Admin Heparin Sodium (Porcine) 4,000 units 06/21/20 21:34 06/21/20 22:32 Heparin Sodium 5,000 Units/Ml Vial IVPUSH 06/21/20 21:35 4,000 units .BOLUS ONE Administration Iopamidol 100 ml 06/21/20 20:30 06/21/20 20:31 Iopamidol 755 Mg/Ml 500 Ml Multipack Bottle IVPUSH 06/21/20 20:31 100 ml ONETIME STA Administration Departure - Departure Time of Disposition: 23:30 Condition: Good Sepsis Event Note (ED) - Focused Exam Vital Signs: Vital Signs Temp Pulse Resp BP Pulse Ox 06/21/20 19:22 83 18 147/112 H 99 06/21/20 18:21 37.1 C 70 18 171/87 H 94 L - My Orders Last 24 Hours: My Active Orders 06/21/20 21:35 Heparin Sodium/0.45% NaCl [Heparin 25,000 Units in 1/2 NS 500 ML] 500 ml IV STAT 06/21/20 21:45 PTT,PARTIAL THROMBOPLSTIN TIME [COAG] Q6H 06/22/20 03:45 PTT,PARTIAL THROMBOPLSTIN TIME [COAG] Q6H 06/22/20 09:45 PTT,PARTIAL THROMBOPLSTIN TIME [COAG] Q6H 06/22/20 15:45 PTT,PARTIAL THROMBOPLSTIN TIME [COAG] Q6H 06/22/20 21:45 PTT,PARTIAL THROMBOPLSTIN TIME [COAG] Q6H 06/23/20 03:45 PTT,PARTIAL THROMBOPLSTIN TIME [COAG] Q6H 06/23/20 09:45 PTT,PARTIAL THROMBOPLSTIN TIME [COAG] Q6H - Assessment/Plan Last 24 Hours: My Active Orders 06/21/20 21:35 Heparin Sodium/0.45% NaCl [Heparin 25,000 Units in 1/2 NS 500 ML] 500 ml IV STAT 06/21/20 21:45 PTT,PARTIAL THROMBOPLSTIN TIME [COAG] Q6H 06/22/20 03:45 PTT,PARTIAL THROMBOPLSTIN TIME [COAG] Q6H 06/22/20 09:45 PTT,PARTIAL THROMBOPLSTIN TIME [COAG] Q6H 06/22/20 15:45 PTT,PARTIAL THROMBOPLSTIN TIME [COAG] Q6H 06/22/20 21:45 PTT,PARTIAL THROMBOPLSTIN TIME [COAG] Q6H 06/23/20 03:45 PTT,PARTIAL THROMBOPLSTIN TIME [COAG] Q6H 06/23/20 09:45 PTT,PARTIAL THROMBOPLSTIN TIME [COAG] Q6H
[2020-06-21 19:16] LABS: CARBON DIOXIDE,CO2 30.2 mmol/L (21.0-32.0); POTASSIUM,K 4.2 mmol/L (3.5-5.1)
[2020-06-21 19:22] VITALS: PULSE 83
[2020-06-21] MEDS ORDERED: Iopamidol 755 MG/ML 500 ML Multipack Bottle IVPUSH STA (20:30)
--- NOTE | 2020-06-21 21:19 | CT ---
CT ANGIOGRAM LEFT LOWER EXTREMITY, 06/21/2020 CLINICAL HISTORY: 89-year-old male with left lower leg ischemia and no flow detected on ultrasound. COMPARISON: Duplex arterial ultrasound left lower extremity dated 06/21/2020. TECHNIQUE: Following the administration of intravenous contrast, contiguous axial images were obtained through the pelvis and left lower leg. The images were centered on the left lower leg and a portion of the right was visualized. FINDINGS: There is poor contrast opacification in the arterial phase. PELVIS: The visualized portion of the pelvis demonstrates no free air. The prostate is enlarged with some coarse calcifications. The seminal vesicles are symmetric. No lymphadenopathy. There is sigmoid diverticulosis without evidence of diverticulitis. Colon containing right inguinal hernia. No evidence of obstruction or strangulation. BILATERAL LOWER EXTREMITIES: There is no soft tissue mass in the visualized bilateral lower extremities. Only a portion of the right is seen. No acute bony lytic or blastic lesions. VASCULATURE: The visualized distal abdominal aorta is heavily calcified but patent. The origin of the inferior mesenteric artery is patent. The pires in the bilateral common iliac arteries are heavily calcified but patent. Heavy calcifications along the bilateral internal iliac arteries with a probable high-grade stenosis at the origin of the left. The right appears patent. The visualized right external iliac artery is patent with heavy calcifications along the wall. The left external iliac artery has heavy calcifications but no definite focal stenosis. There may be mild stenosis in the proximal left external iliac artery. RIGHT LOWER EXTREMITY: Only a portion of the right lower extremity is visualized. Heavy calcifications in the common femoral artery are nearly occlusive. The deep femoral artery appears patent. High-grade stenosis or occlusion in the proximal superficial femoral artery. Scattered disease along the superficial femoral artery with heavy calcifications and probable areas of occlusion. There is probable reconstitution in the distal superficial femoral and proximal popliteal artery but there are heavy calcifications. Again, the vasculature on the right is not included. It is difficult to determine patency given the heavy calcifications in the visualized runoff vessels. LEFT LOWER EXTREMITY: There are heavy calcifications in the common femoral artery which appears to have a stent across the deep femoral artery. The common femoral artery has high-grade stenosis or occlusion. The origin of the deep femoral artery is heavily calcified. There are stents along the superficial femoral and popliteal artery. Patency is difficult to ascertain given the heavy calcifications and metallic artifact. The runoff vessels are heavily calcified. It is unclear if they are patent. There appears to be some flow in the distal peroneal artery at the ankle. No definite flow in the dorsalis pedis artery. IMPRESSION: 1.Suboptimal examination. There is poor contrast opacification of the arteries. 2.Aorta/inflow: A.Heavy calcifications. No evidence of abdominal aortic aneurysm in the distal abdominal aorta. B.Heavy calcification along bilateral common and external iliac arteries with perhaps a mild focal stenosis in the proximal left external iliac artery. 3.Right lower extremity: The entire right lower extremity was not included in the provided images. Heavy calcification in the right common femoral artery which is likely nearly occlusive. Severe disease along the superficial femoral artery. 4.Left lower extremity: Heavy calcifications in the common femoral artery which has been stented . The patency of the stents along the superficial femoral artery and into the popliteal artery is uncertain as given the metallic artifact and heavy calcification. The runoff vessels are not well evaluated. Duplex ultrasound of the left lower extremity arterial system, done concurrently, demonstrates no flow in the common femoral and superficial femoral or posterior tibial arteries. 5. Sigmoid diverticulosis without evidence of diverticulitis. 6. Colon-containing right inguinal hernia without evidence of obstruction or strangulation. 7. Enlarged prostate gland. Please note that all CT scans at this facility use dose modulation, iterative reconstruction and/or weight-based dosing when appropriate to reduce radiation dose to as low as reasonably achievable. Samir Chino M.D. Vascular [facility] Inter[email or web address] CS/pjt PT/Dictated by: Samir Chino MD @ 06/22/2020 9:33:00 AM (Electronically Signed)
[2020-06-21] MEDS ORDERED: Heparin Sodium 5,000 Units/ML Vial IVPUSH ONE (21:34)
[2020-06-21] MEDS ORDERED: Heparin Sodium/0.45% NaCl 500 ML IV STA (21:35)
[2020-06-21 23:50] VITALS: BP 165/86
== END 2020-06-21 23:47 ==
LOC: MW.ED 18:01
DX: I70.202 Unspecified atherosclerosis of native arteries of extremities, left leg (principal); I25.10 Atherosclerotic heart disease of native coronary artery without angina pectoris; I11.0 Hypertensive heart disease with heart failure; I50.9 Heart failure, unspecified; J44.9 Chronic obstructive pulmonary disease, unspecified; E78.00 Pure hypercholesterolemia, unspecified; M19.90 Unspecified osteoarthritis, unspecified site; F03.90 Unspecified dementia, unspecified severity, without behavioral disturbance, psychotic disturbance, mood disturbance, and anxiety; E11.9 Type 2 diabetes mellitus without complications; Z79.02 Long term (current) use of antithrombotics/antiplatelets; Z88.1 Allergy status to other antibiotic agents; Z91.048 Other nonmedicinal substance allergy status; Z79.82 Long term (current) use of aspirin; Z79.899 Other long term (current) drug therapy; Z86.73 Personal history of transient ischemic attack (TIA), and cerebral infarction without residual deficits; Z20.822 Contact with and (suspected) exposure to COVID-19
CPT/HCPCS: 36415; 73706; 80053; 83605; 85025; 85610; 85730; 96365; 99285; J1644; Q9967; U0002; 99284

== ENCOUNTER 2020-07-20 16:20 | Observation (INO) | payer MEDICARE, BC ==
[2020-07-20] MEDS ORDERED: Albuterol/Ipratropium 3.0-0.5 MG/3 ML Neb Soln ONE (16:36)
[2020-07-20] MEDS ORDERED: Albuterol/Ipratropium 3.0-0.5 MG/3 ML Neb Soln NEB ONE (16:42)
[2020-07-20 17:09] LABS: BLOOD UREA NITROGEN,BUN 18 mg/dL (7.0-18.0); CARBON DIOXIDE,CO2 26.3 mmol/L (21.0-32.0); CHLORIDE,CL 103 mmol/L (98-107); GLUCOSE RANDOM 137 mg/dL (74-106); POTASSIUM,K 4.2 mmol/L (3.5-5.1); SODIUM,NA 139 mmol/L (136-148)
--- NOTE | 2020-07-20 17:43 | CT ---
INDICATION: Slurred speech TECHNIQUE: CT head without contrast. COMPARISON: March 20, 2018 FINDINGS: CSF spaces: Within normal limits for age. Brain parenchyma and extra-axial spaces: The long-white differentiation is normal. No sign of mass, hemorrhage, or midline shift. No extra-axial fluid collection. Skull base and calvarium: Persistent right maxillary inflammatory sinus disease. The visualized orbits are grossly unremarkable. No skull fractures. IMPRESSION: No acute findings and no changes from the prior exam. No sign of CVA or intracranial hemorrhage. There is persistent right maxillary inflammatory sinus disease. Please note that all CT scans at this facility use dose modulation, iterative reconstruction, and/or weight-based dosing when appropriate to reduce radiation dose to as low as reasonably achievable. Dictated by Calixto Henley MD @ 07/20/2020 5:41:[address] Calixto Henley @ Jul 20 2020 5:41PM
--- NOTE | 2020-07-20 17:51 | CR ---
INDICATION: Shortness of breath TECHNIQUE: Portable upright AP view of the chest COMPARISON: AP chest radiograph 04/29/2020 FINDINGS: Advanced emphysematous changes, more pronounced on the right. No appreciable pneumothorax. Stable focal opacity in the right midlung likely representing scarring. No sizable pleural effusion. Normal cardiomediastinal silhouette. No significant thoracic osseous abnormality. IMPRESSION: Advanced emphysematous changes and stable right lung scarring. No superimposed acute process demonstrated. Dictated by Griselda Granados MD @ 07/20/2020 5:50:[address] Griselda Granados @ Jul 20 2020 5:50PM
--- NOTE | 2020-07-20 18:33 | CT ---
DATE: 07/20/2020. CLINICAL HISTORY: Patient with slurred speech. TECHNIQUE: Standard helical CT image acquisition through the head and neck was performed after intravenous contrast bolus enhancement. Multiplanar reconstructed images were performed and interpreted. COMPARISON: Head CT dated 03/20/2018. FINDINGS: The origins of the great vessels from the aortic arch are patent. Mild to moderate atherosclerotic luminal stenosis of the origin of the right subclavian artery. Severe atherosclerotic stenosis of the origin of the right vertebral artery. The origin of the left vertebral artery is patent. The common carotid arteries are patent. Moderate (approximately 50 percent) and mild (less than 50 percent) atherosclerotic luminal stenoses of the origins of the right and left internal carotid arteries, respectively. The rest of the cervical segments of the internal carotid arteries are patent up to their intracranial segments. The left vertebral artery is dominant. The cervical segments of the vertebral arteries are patent. Mild atherosclerotic luminal stenosis of the proximal cavernous right internal carotid artery. No intracranial proximal large vessel occlusion. There is normal opacification of major intracranial venous structures. Advanced emphysematous changes of the visualized upper lungs. The thyroid gland is unremarkable. There are degenerative changes in the cervical spine. IMPRESSION: 1. No intracranial proximal large vessel occlusion. 2. Intracranial atherosclerotic disease with resulting mild luminal stenosis of the proximal cavernous right ICA. 3. Moderate (approximately 50 percent) and mild (less than 50 percent) atherosclerotic luminal stenoses of the origins of the right and left internal carotid arteries, respectively. 4. Severe atherosclerotic stenosis of the origin of the right vertebral artery. Please note that all CT scans at this facility use dose modulation, iterative reconstruction, and/or weight-based dosing when appropriate to reduce radiation dose to as low as reasonably achievable. Dictated by Héctor Sandoval MD @ 07/21/2020 10:01:[address] Héctor Sandoval @ Jul 21 2020 10:01AM
[2020-07-20] MEDS ORDERED: predniSONE 20 MG Tab PO ONE (18:48)
--- NOTE | 2020-07-20 18:59 | EDM.PDOC ---
<Henrry Curtis - Last Filed: 07/20/20 20:36> ED HPI GENERAL MEDICAL PROBLEM - General Chief Complaint: Neuro Symptoms/Deficits Stated Complaint: HEART ATTACK Time Seen by Provider: 07/20/20 16:38 - Related Data Allergies Allergy/AdvReac Type Severity Reaction Status Date / Time levofloxacin [From Levaquin] Allergy Severe Hives Verified 07/21/20 03:32 Animal Dander Allergy Mild Cough Uncoded 07/21/20 03:32 smoke Allergy Cough Uncoded 07/21/20 03:32 Home Meds: Home Meds Albuterol Sulfate 1 dose INH QID 07/20/20 [History] Apixaban [Eliquis] 2.5 mg PO BID 07/20/20 [History] Ascorbic Acid [Vitamin C] 1,000 mg PO DAILY 07/20/20 [History] Aspirin [Esme Chewable Aspirin] 81 mg PO DAILY 07/20/20 [History] Azithromycin 250 mg PO MOWEFR 07/20/20 [History] Brimonidine [Alphagan P 0.15% Ophth Soln] 1 drop EYEBOTH ACBREAKFAST 07/20/20 [History] Cholecalciferol (Vitamin D3) [Vitamin D] 25 mcg PO DAILY 07/20/20 [History] Clopidogrel [Plavix] 75 mg PO DAILY 07/20/20 [History] Erythromycin Base [Erythromycin 0.5% Ophth Oint] 1 drop EYEBOTH DAILY 07/20/20 [History] Fluticasone/Umeclidin/Vilanter [Trelegy Ellipta 100-62.5-25] 1 puff INH DAILY 07/20/20 [History] Furosemide [Lasix] 20 mg PO DAILY 07/20/20 [History] Ipratropium [Atrovent] 2.5 ml INH TID 07/20/20 [History] Isosorbide Mononitrate [Imdur] 120 mg PO DAILY 07/20/20 [History] Latanoprost/Pf [Latanoprost 0.005% Eye Drop] 1 drop EYEBOTH DAILY 07/20/20 [History] Metoprolol Succinate [Kapspargo Sprinkle] 25 mg PO DAILY 07/20/20 [History] Multivit-Min/FA/Lycopen/Lutein [Centrum Silver Men Tablet] 1 tab PO DAILY 07/20/20 [History] Pantoprazole [ProTONIX IV] 40 mg PO DAILY 07/20/20 [History] Potassium Chloride 20 meq PO DAILY 07/20/20 [History] Vit A/Vit C/Vit E/Zinc/Copper [Preservision Areds Softgel] 2 tab PO DAILY 07/20/20 [History] amLODIPine [Norvasc] 2.5 mg PO DAILY 07/20/20 [History] atorvaSTATin [Lipitor] 40 mg PO DAILY 07/20/20 [History] cilostazoL [Cilostazol] 100 mg PO BID 07/20/20 [History] oxyCODONE 7.5 mg PO Q4HR PRN 07/20/20 [History] traMADol [Ultram] 50 mg PO BID 07/20/20 [History] predniSONE 2.5 mg PO BID #0 07/21/20 [Rx] predniSONE 40 mg PO WITHBREAKFAST #6 tablet 07/21/20 [Rx] ED ROS GENERAL - Review of Systems Review Of Systems: See Below ED EXAM, GENERAL - Physical Exam Exam: See Below Departure - Departure Time of Disposition: 20:42 Disposition: Refer to Observation Condition: Good Clinical Impression: Hypoxia, COPD exacerbation - Discharge Information *PRESCRIPTION DRUG MONITORING PROGRAM REVIEWED*: Not Applicable *COPY OF PRESCRIPTION DRUG MONITORING REPORT IN PATIENT JOELLE: Not Applicable - Assessment/Plan Assessment:: Pt received in sign out from Dr. Camarena. Patient's second troponin is negative. Covid remains pending. On reassessment his work of breathing is norm al. Given the severity of his presenting symptoms the severity of his encephalopathy and hypoxia severity of his work of breathing prior to neb treatment and steroids. On my reassessment he is awake and alert he is at his neurologic baseline I do think he is stable for the floor. Patient discussed in full with Dr. Wise and we will add admit for observation and ongoing treatment. 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 Per EMS: The patient's called EMS for altered mental status and possible stroke. On EMS arrival the patient was unresponsive with gurgling breath sounds. They stated that in route his sugar was within normal limits and they brought him immediately to the emergency department. Otherwise history is limited at this time secondary patient clinical condition REVIEW OF SYSTEMS: Unable to obtain secondary patient clinical condition PAST MEDICAL HISTORY: As per history of present illness and as reviewed below otherwise noncontributory. SURGICAL HISTORY: As per history of present illness and as reviewed below otherwise noncontributory. SOCIAL HISTORY: As per history of present illness and as reviewed below otherwise noncontributory. FAMILY HISTORY: As per history of present illness and as reviewed below otherwise noncontributory. EXAMINATION OF ORGAN SYSTEMS/BODY AREAS: Constitutional: Blood pressure was 165/74, heart rate 99, respiratory rate 23 with an oxygen saturation of 99% on 3 L nasal cannula. Temperature 36.6 General: Elderly man who is somnolent but arousable with gurgling breath sounds Psychiatric: Appropriate mood and affect. Eyes: No scleral icterus or conjunctival erythema pupils were 2 mm and reactive bilaterally. ENMT: Moist mucous membranes. No pharyngeal erythema there is some yellow mucus in the patient's mouth. Otherwise airway is patent. No stridor. No drooling. Cardiovascular: Regular, rate, and rhythm. No gallops, murmurs, or rubs. Bilateral upper extremity pulses are symmetric and intact. There is 2+ lower extremity pitting edema. No JVD. Respiratory: Bilateral rhonchorous breath sounds who is tachypneic. Gastrointestinal: Soft, nontender, mildly distended. No rebound or guarding. Normoactive bowel sounds Genitourinary: No suprapubic tenderness Musculoskeletal: Normal range of motion. Skin: No lesions or abrasions. Neurological: Alert and oriented x2. Strength is 5 out of 5 in bilateral upper and lower extremities. Sensation is intact in upper and lower extremities. Facies are symmetrical. Mildly slurred speech. 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 Immediately upon entering the resuscitation room the patient was disrobed, placed on continuous cardiac monitoring, and IV access was established by nursing. Patient is able to speak thus displaying a patent airway, breath sounds are equal bilaterally, and patient has palpable pulses in all 4 extremities. At this time the patient does have an NIH stroke scale of 2 for some altered mentation and mild slurring of the speech. Full neurological examination limited secondary to patient ability to see given his bilateral peripheral field vision loss possibly legally blind. However the patient is moving all other extremities appropriately. At this time the patient is pretty tachypneic therefore we will provide the patient with 1 DuoNeb treatment and obtain an ABG. Differential at this time does include CVA, TIA or hypoxic encephalopathy. Cardiac monitoring did reveal sinus rhythm and pulse oximetry with good waveform was approximately 96%. EKG was obtained which did not reveal any changes from prior. There was a delay in CT although a stroke code was called due to patient's inability to lay flat. Anytime the patient was laying flat he became severely tachypneic. We will obtain CTA head and neck, CT without contrast given the slurred speech and reported history of instability with walking. We will obtain a cardiac work-up and basic laboratory analysis and a chest x-ray. After DuoNeb treatment the patient was no longer tachypneic, was tolerating being laying flat and his encephalopathy seemed to improve. Therefore we did go to CT. Laboratory: CBC reveals a normocytic anemia with a hemoglobin of 12 and hematocrit of 36.1, this appears to be around the patient's baseline. CMP reveals elevated creatinine of 1.4 which appears to be around the patient's baseline, hyperglycemia at 137, hypocalcemia at 8.3 otherwise unremarkable. Troponin is negative. BNP is 107. AB.44/42/51/28 The radiological images were viewed by myself along with reading the report from the radiologist. Chest x-ray reveals advanced emphysematous changes and stable right lung scarring. No superimposed acute process demonstrated.. CT head without contrast does not reveal any acute findings or changes from prior exam. No sign of intracranial hemorrhage or CVA. There is persistent right maxillary inflammatory sinus disease. CTA of the head and neck does not reveal any sign of occlusion or aneurysm. After CTs I did contact [facility] in [place] and spoke with Dr. Cerna. At the time of contacting neurology the patient had returned to baseline. The patient was at his baseline per his . At this time given the degree of hypoxia on ABG, his initial tachypnea I do believe that his encephalopathy is likely secondary to hypoxia. I did discuss this with Dr. Cerna and she agrees. She stated that the patient is on maximal medical therapy at this time and his ABCD score is low and recommends follow-up outpatient with his primary care physician for outpatient echocardiogram. Time: 1632 Twelve-lead EKG interpreted by myself. Sinus rhythm at a rate of 97 beats per minute. Left axis. ID interval is 159 ms. QRS duration is [address] segments are normal without elevations or depressions. No T wave inversions no Q waves present. Hypertrophy not noted. No changes demonstrated from prior EKG dated 03/17/2019. 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 Normal sinus rhythm at a rate of 95 beats per minute. Normal axis. ID interval is 163 ms. QRS duration is [address] segments are normal without elevations or depressions. No T wave inversions no Q waves present. Hypertrophy not noted. No changes demonstrated from prior EKG dated today. 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 He was still saturating appropriately. We did provide the patient with prednisone by mouth. Patient was signed out to oncoming night team physician pending repeat troponin and final disposition Procedures: Cardiac monitoring interpretation, pulse oximetry interpretation FINAL IMPRESSION(S)/DIAGNOSES: 1. Acute encephalopathy likely secondary to hypoxic encephalopathy, resolved 2. Acute hypoxic respiratory failure likely secondary to acute COPD exacerbation Critical Care Procedure Note Authorized and performed by: Candido Camarena M.D. Critical Care Time: 55 minutes Due to a high probability of clinically significant, life threatening deterioration, the patient required my highest level of preparedness to intervene emergently and I personally spent this critical care time directly and personally managing the patient. This critical care time included obtaining a history, examining the patient, pulse oximetry; ordering and review of studies; arranging urgent treatment with development of a management plan; evaluation of a patients reponse to treatment; frequent assessment; and discussions with other providers. This critical care time was performed to assess and manage the high probability of imminent, life threatening deterioration that could result in multiorgan failure. It was exclusive of separate billable procedures and tr eating other patients. Please see MDM section and rest of the note for further information on patient assessment and treatment. Please see MDM section and rest of the note for further information on patient assessment and treatment. Past Medical History HEENT History: Reports: Glaucoma, Macular Degeneration Other HEENT History: wears glasses, top and bottom dentures Cardiovascular History: Reports: CAD, High Cholesterol, Hypertension, Stents Other Cardiovascular History: Stents placed "last Spring" Respiratory History: Reports: COPD Other Respiratory History: continuous 02 3L at home Gastrointestinal History: Reports: Other (See Below) Other Gastrointestinal History: epigastric pain Genitourinary History: Reports: None Musculoskeletal History: Reports: Arthritis Other Musculoskeletal History: neck pain, rt elbow pain Neurological History: Reports: TIA Other Neuro History: "several TIAs", "memory issues" Psychiatric History: Reports: Dementia Endocrine/Metabolic History: Reports: Diabetes, Type II Hematologic History: Reports: None Immunologic History: Reports: None Oncologic (Cancer) History: Reports: None Dermatologic History: Reports: Other (See Below) Other Dermatologic History: dermatitis - Infectious Disease History Infectious Disease History: Reports: Other (See Below) Other Infectious Disease History: unknown - Past Surgical History Head Surgeries/Procedures: Reports: None HEENT Surgical History: Reports: Cataract Surgery Other HEENT Surgeries/Procedures: laryngoscopy with stripping of vocal cords, vocal cord dysfunction s/p stripping Cardiovascular Surgical History: Reports: Coronary Artery Stent Respiratory Surgical History: Reports: None GI Surgical History: Reports: Appendectomy, Other (See Below) Other GI Surgeries/Procedures: laryngoscopy with stripping of vocal cords Male Surgical History: Reports: None Endocrine Surgical History: Reports: None Neurological Surgical History: Reports: None Musculoskeletal Surgical History: Reports: None Oncologic Surgical History: Reports: None Dermatological Surgical History: Reports: None Social & Family History - Family History Family Medical History: No Pertinent Family History - Tobacco Use Tobacco Use Status *Q: Never Tobacco User Second Hand Smoke Exposure: No - Caffeine Use Caffeine Use: Reports: None Caffeine Use Comment: 2 cups a day - Recreational Drug Use Recreational Drug Use: No - Living Situation & Occupation Living situation: Reports: Occupation: Retired Course - Vital Signs Last Recorded V/S: Last Vital Signs Temp 36.6 C 07/21/20 07:33 Pulse 107 H 07/21/20 08:14 Resp 22 H 07/21/20 07:33 BP 144/77 H 07/21/20 08:14 Pulse Ox 95 07/21/20 07:33 - Orders/Labs/Meds Orders: Active Orders 24 hr Category Date Time Status Patient Status [ADT] Routine ADT 07/20/20 20:43 Active Labs: Laboratory Tests 07/20/20 07/20/20 07/20/20 Range/Units 16:32 16:33 16:33 WBC 9.40 (4.0-11.0) K/uL RBC 3.79 L (4.50-5.90) M/uL Hgb 12.0 L (13.0-17.0) g/dL Hct 36.1 L (38.0-50.0) % MCV 95.3 (80.0-98.0) fL MCH 31.7 (27.0-32.0) pg MCHC 33.2 (31.0-37.0) g/dL RDW Std Deviation 48.3 (28.0-62.0) fl RDW Coeff of Juancho 14 (11.0-15.0) % Plt Count 207 (150-400) K/uL MPV 9.70 (7.40-12.00) fL Neut % (Auto) 70.1 (48.0-80.0) % Lymph % (Auto) 14.5 L (16.0-40.0) % [place] % (Auto) 9.1 (0.0-15.0) % Eos % (Auto) 6.0 (0.0-7.0) % Baso % (Auto) 0.3 (0.0-1.5) % Neut # (Auto) 6.6 H (1.4-5.7) K/uL Lymph # (Auto) 1.4 (0.6-2.4) K/uL [place] # (Auto) 0.9 H (0.0-0.8) K/uL Eos # (Auto) 0.6 (0.0-0.7) K/uL Baso # (Auto) 0.0 (0.0-0.1) K/uL Nucleated RBC % 0.0 /100WBC Nucleated RBCs # 0 K/uL ABG pH 7.44 (7.35-7.45) ABG pCO2 42 (35-45) mmHG ABG pO2 51 L (80-105) mmHG ABG HCO3 28 H (22-26) mEq/L ABG Total CO2 25.9 (23-27) mmol/L ABG Base Excess 3.7 H (-2.0-3.0) Sodium 139 (136-148) mmol/L Potassium 4.2 (3.5-5.1) mmol/L Chloride 103 (98-107) mmol/L Carbon Dioxide 26.3 (21.0-32.0) mmol/L BUN 18 (7.0-18.0) mg/dL Creatinine 1.4 H (0.8-1.3) mg/dL Est Cr Clr Drug Dosing TNP Estimated GFR (MDRD) 47.7 ml/min Glucose 137 H (74-106) mg/dL Calcium 8.3 L (8.5-10.1) mg/dL Magnesium 2.1 (1.8-2.4) mg/dL Total Bilirubin 0.6 (0.2-1.0) mg/dL AST 18 (15-37) IU/L ALT 26 (14-63) IU/L Alkaline Phosphatase 87 (46-116) U/L Troponin I < 0.050 (0.000-0.056) ng/mL B-Natriuretic Peptide (<100) PG/ML Total Protein 7.5 (6.4-8.2) g/dL Albumin 3.5 (3.4-5.0) g/dL Globulin 4.0 (2.6-4.0) g/dL Albumin/Globulin Ratio 0.9 (0.9-1.6) SARS-CoV-2 RNA (WILFRED) (NEGATIVE) 07/20/20 07/20/20 07/20/20 Range/Units 16:57 19:29 19:59 WBC (4.0-11.0) K/uL RBC (4.50-5.90) M/uL Hgb (13.0-17.0) g/dL Hct (38.0-50.0) % MCV (80.0-98.0) fL MCH (27.0-32.0) pg MCHC (31.0-37.0) g/dL RDW Std Deviation (28.0-62.0) fl RDW Coeff of Juancho (11.0-15.0) % Plt Count (150-400) K/uL MPV (7.40-12.00) fL Neut % (Auto) (48.0-80.0) % Lymph % (Auto) (16.0-40.0) % [place] % (Auto) (0.0-15.0) % Eos % (Auto) (0.0-7.0) % Baso % (Auto) (0.0-1.5) % Neut # (Auto) (1.4-5.7) K/uL Lymph # (Auto) (0.6-2.4) K/uL [place] # (Auto) (0.0-0.8) K/uL Eos # (Auto) (0.0-0.7) K/uL Baso # (Auto) (0.0-0.1) K/uL Nucleated RBC % /100WBC Nucleated RBCs # K/uL ABG pH (7.35-7.45) ABG pCO2 (35-45) mmHG ABG pO2 (80-105) mmHG ABG HCO3 (22-26) mEq/L ABG Total CO2 (23-27) mmol/L ABG Base Excess (-2.0-3.0) Sodium (136-148) mmol/L Potassium (3.5-5.1) mmol/L Chloride (98-107) mmol/L Carbon Dioxide (21.0-32.0) mmol/L BUN (7.0-18.0) mg/dL Creatinine (0.8-1.3) mg/dL Est Cr Clr Drug Dosing Estimated GFR (MDRD) ml/min Glucose (74-106) mg/dL Calcium (8.5-10.1) mg/dL Magnesium (1.8-2.4) mg/dL Total Bilirubin (0.2-1.0) mg/dL AST (15-37) IU/L ALT (14-63) IU/L Alkaline Phosphatase (46-116) U/L Troponin I < 0.050 (0.000-0.056) ng/mL B-Natriuretic Peptide 107 H (<100) PG/ML Total Protein (6.4-8.2) g/dL Albumin (3.4-5.0) g/dL Globulin (2.6-4.0) g/dL Albumin/Globulin Ratio (0.9-1.6) SARS-CoV-2 RNA (WILFRED) NEGATIVE (NEGATIVE) Meds: Medications Discontinued Medications Generic Name Dose Route Start Last Admin Trade Name Freq PRN Reason Stop Dose Admin Albuterol/Ipratropium Confirm 07/20/20 16:36 07/20/20 16:45 Albuterol/Ipratropium 3.0-0.5 Mg/3 Ml Neb Soln Administered 07/20/20 16:37 Not Given Dose 3 ml .ROUTE .STK-MED ONE Albuterol/Ipratropium 3 ml 07/20/20 16:42 07/20/20 16:45 Albuterol/Ipratropium 3.0-0.5 Mg/3 Ml Neb Soln NEB 07/20/20 16:43 3 ml ONETIME ONE Administration Albuterol/Ipratropium 3 ml 07/21/20 02:00 07/21/20 09:53 Albuterol/Ipratropium 3.0-0.5 Mg/3 Ml Neb Soln NEB 3 ml Q4HRRT SHANELL Administration Amlodipine Besylate 2.5 mg 07/21/20 09:00 07/21/20 08:13 Amlodipine 2.5 Mg Tab PO 2.5 mg DAILY SHANELL Administration Apixaban 2.5 mg 07/21/20 09:00 07/21/20 08:13 Apixaban 2.5 Mg Tab PO 2.5 mg BID SHANELL Administration Atorvastatin Calcium 40 mg 07/21/20 09:00 07/21/20 08:13 Atorvastatin 40 Mg Tab PO 40 mg DAILY SHANELL Administration Azithromycin 250 mg 07/21/20 09:00 07/21/20 08:48 Azithromycin 250 Mg Tab PO Not Given MoWeFr SHANELL Clopidogrel Bisulfate 75 mg 07/21/20 09:00 07/21/20 08:13 Clopidogrel 75 Mg Tab PO 75 mg DAILY SHANELL Administration Dextrose/Water 50 ml 07/20/20 23:40 50% Dextrose In Water 50 Ml Syringe IV ASDIRECTED PRN Hypoglycemia Furosemide 20 mg 07/21/20 09:00 07/21/20 08:14 Furosemide 20 Mg Tab PO 20 mg DAILY SHANELL Administration Glucagon 1 mg 07/20/20 23:40 Glucagon,Human Recombinant 1 Mg Vial IM ASDIRECTED PRN Hypoglycemia Insulin Aspart 0 unit 07/21/20 07:30 07/21/20 08:21 Insulin Aspart 100 Units/Ml 3 Ml Pen SUBCUT 2 units TIDAC SHANELL Administration Protocol Isosorbide Mononitrate 120 mg 07/21/20 09:00 07/21/20 08:13 Isosorbide Mononitrate 60 Mg Tab.Er PO 120 mg DAILY SHANELL Administration Metoprolol Succinate 25 mg 07/21/20 09:00 07/21/20 08:14 Metoprolol Succinate 25 Mg Tab.Er PO 25 mg DAILY SHANELL Administration Cilostazol 100 Mg 1 each 07/21/20 07:30 07/21/20 08:24 Tablet PO Not Given ACBREAKFAST SHANELL Potassium Chloride 20 meq 07/21/20 09:00 07/21/20 08:21 Potassium Chloride 20 Meq Tab.Er PO 20 meq DAILY SHANELL Administration Prednisone 60 mg 07/20/20 18:48 07/20/20 19:11 Prednisone 20 Mg Tab PO 07/20/20 18:49 60 mg ONETIME ONE Administration Prednisone 2.5 mg 07/21/20 09:00 07/21/20 08:13 Prednisone 5 Mg Tab PO 2.5 mg BID SHANELL Administration Prednisone 40 mg 07/21/20 09:23 07/21/20 09:48 Prednisone 20 Mg Tab PO 40 mg WITHBREAKFAST SHANELL Administration Tramadol HCl 50 mg 07/20/20 23:35 Tramadol 50 Mg Tab PO BID PRN Pain Sepsis Event Note (ED) - Evaluation Sepsis Screening Result: No Definite Risk
[2020-07-20] MEDS ORDERED: traMADol 50 MG Tab PO PRN (23:35)
[2020-07-20] MEDS ORDERED: Glucagon,Human Recombinant 1 MG Vial IM PRN (23:40)
[2020-07-20] MEDS ORDERED: 50% Dextrose in Water 50 ML Syringe IV PRN (23:40)
--- NOTE | 2020-07-20 23:42 | PCM.HP.2 ---
H&P History of Present Illness - General Date of Service: 07/20/20 Admit Problem/Dx: Admission Diagnosis/Problem Admission Diagnosis/Problem COPD, Moderate chronic obstructive pulmonary disease - History of Present Illness Initial Comments - Free Text/Narative: 89 yo male with pmh of severe emphysema on chronic steroids, home oxygen and azithromycin, TIA, CAD, s/s stents, PVD, DM, HTN, dementia who presented to the ED with complaints of altered mental status and hypoxia. at bedside reports patient had increased work of breathing for several hours before becoming unresponsive at home. IN the ED patient was noted to be tachypnic with some respiratory distress. A stroke code was called in the ED but it was later thought he was encephalopathic from his hypoxia. He was treated with duonebs and prednisone it did have improvement in his breathing and his mental status. - Related Data Allergies/Adverse Reactions: Allergies Allergy/AdvReac Type Severity Reaction Status Date / Time levofloxacin [From Levaquin] Allergy Severe Hives Verified 07/21/20 03:32 Animal Dander Allergy Mild Cough Uncoded 07/21/20 03:32 smoke Allergy Cough Uncoded 07/21/20 03:32 Home Medications: Home Meds Albuterol Sulfate 1 dose INH QID 07/20/20 [History] Apixaban [Eliquis] 2.5 mg PO BID 07/20/20 [History] Ascorbic Acid [Vitamin C] 1,000 mg PO DAILY 07/20/20 [History] Aspirin [Esme Chewable Aspirin] 81 mg PO DAILY 07/20/20 [History] Azithromycin 250 mg PO MOWEFR 07/20/20 [History] Brimonidine [Alphagan P 0.15% Ophth Soln] 1 drop EYEBOTH ACBREAKFAST 07/20/20 [History] Cholecalciferol (Vitamin D3) [Vitamin D] 25 mcg PO DAILY 07/20/20 [History] Clopidogrel [Plavix] 75 mg PO DAILY 07/20/20 [History] Erythromycin Base [Erythromycin 0.5% Ophth Oint] 1 drop EYEBOTH DAILY 07/20/20 [History] Fluticasone/Umeclidin/Vilanter [Trelegy Ellipta 100-62.5-25] 1 puff INH DAILY 07/20/20 [History] Furosemide [Lasix] 20 mg PO DAILY 07/20/20 [History] Ipratropium [Atrovent] 2.5 ml INH TID 07/20/20 [History] Isosorbide Mononitrate [Imdur] 120 mg PO DAILY 07/20/20 [History] Latanoprost/Pf [Latanoprost 0.005% Eye Drop] 1 drop EYEBOTH DAILY 07/20/20 [History] Metoprolol Succinate [Kapspargo Sprinkle] 25 mg PO DAILY 07/20/20 [History] Multivit-Min/FA/Lycopen/Lutein [Centrum Silver Men Tablet] 1 tab PO DAILY [History] Pantoprazole [ProTONIX IV] 40 mg PO DAILY 07/20/20 [History] Potassium Chloride 20 meq PO DAILY 07/20/20 [History] Vit A/Vit C/Vit E/Zinc/Copper [Preservision Areds Softgel] 2 tab PO DAILY 07/20/20 [History] amLODIPine [Norvasc] 2.5 mg PO DAILY 07/20/20 [History] atorvaSTATin [Lipitor] 40 mg PO DAILY 07/20/20 [History] cilostazoL [Cilostazol] 100 mg PO BID 07/20/20 [History] oxyCODONE 7.5 mg PO Q4HR PRN 07/20/20 [History] traMADol [Ultram] 50 mg PO BID 07/20/20 [History] predniSONE 2.5 mg PO BID #0 07/21/20 [Rx] predniSONE 40 mg PO WITHBREAKFAST #6 tablet 07/21/20 [Rx] Past Medical History HEENT History: Reports: Glaucoma, Macular Degeneration Other HEENT History: wears glasses, top and bottom dentures Cardiovascular History: Reports: CAD, High Cholesterol, Hypertension, Stents Other Cardiovascular History: Stents placed "last Spring" Respiratory History: Reports: COPD Other Respiratory History: continuous 02 3L at home Gastrointestinal History: Reports: Other (See Below) Other Gastrointestinal History: epigastric pain Genitourinary History: Reports: None Musculoskeletal History: Reports: Arthritis Other Musculoskeletal History: neck pain, rt elbow pain Neurological History: Reports: TIA Other Neuro History: "several TIAs", "memory issues" Psychiatric History: Reports: Dementia Endocrine/Metabolic History: Reports: Diabetes, Type II Hematologic History: Reports: None Immunologic History: Reports: None Oncologic (Cancer) History: Reports: None Dermatologic History: Reports: Other (See Below) Other Dermatologic History: dermatitis - Infectious Disease History Infectious Disease History: Reports: Other (See Below) Other Infectious Disease History: unknown - Past Surgical History Head Surgeries/Procedures: Reports: None HEENT Surgical History: Reports: Cataract Surgery Other HEENT Surgeries/Procedures: laryngoscopy with stripping of vocal cords, vocal cord dysfunction s/p stripping Cardiovascular Surgical History: Reports: Coronary Artery Stent Respiratory Surgical History: Reports: None GI Surgical History: Reports: Appendectomy, Other (See Below) Other GI Surgeries/Procedures: laryngoscopy with stripping of vocal cords Male Surgical History: Reports: None Endocrine Surgical History: Reports: None Neurological Surgical History: Reports: None Musculoskeletal Surgical History: Reports: None Oncologic Surgical History: Reports: None Dermatological Surgical History: Reports: None Social & Family History - Family History Family Medical History: No Pertinent Family History - Tobacco Use Tobacco Use Status *Q: Never Tobacco User Second Hand Smoke Exposure: No - Caffeine Use Caffeine Use: Reports: None Caffeine Use Comment: 2 cups a day - Recreational Drug Use Recreational Drug Use: No - Living Situation & Occupation Living situation: Reports: Occupation: Retired H&P Review of Systems - Review of Systems: Review Of Systems: Comprehensive ROS is negative, except as noted in HPI. Exam - Exam Exam: See Below - Vital Signs Vital Signs: Last Vital Signs Temp 36.3 C 07/20/20 21:41 Pulse 100 07/20/20 21:41 Resp 16 07/20/20 21:41 BP 163/68 H 07/20/20 21:41 Pulse Ox 93 L 07/20/20 21:41 Weight: 73.981 kg - Exam General: Cooperative HEENT: Conjunctiva Clear Neck: Supple Lungs: Decreased Breath Sounds, Wheezing Cardiovascular: Regular Rate, Regular Rhythm GI/Abdominal Exam: Normal Bowel Sounds, Soft, Non-Tender Extremities: Non-Tender, No Pedal Edema Skin: Warm, Dry, Intact Neurological: Cranial Nerves Intact. No: Focal Deficit - Patient Data Lab Results Last 24 hrs: Laboratory Results - last 24 hr 07/20/20 07/20/20 07/20/20 Range/Units 16:32 16:33 16:33 WBC 9.40 (4.0-11.0) K/uL RBC 3.79 L (4.50-5.90) M/uL Hgb 12.0 L (13.0-17.0) g/dL Hct 36.1 L (38.0-50.0) % MCV 95.3 (80.0-98.0) fL MCH 31.7 (27.0-32.0) pg MCHC 33.2 (31.0-37.0) g/dL RDW Std Deviation 48.3 (28.0-62.0) fl RDW Coeff of Juancho 14 (11.0-15.0) % Plt Count 207 (150-400) K/uL MPV 9.70 (7.40-12.00) fL Neut % (Auto) 70.1 (48.0-80.0) % Lymph % (Auto) 14.5 L (16.0-40.0) % [place] % (Auto) 9.1 (0.0-15.0) % Eos % (Auto) 6.0 (0.0-7.0) % Baso % (Auto) 0.3 (0.0-1.5) % Neut # (Auto) 6.6 H (1.4-5.7) K/uL Lymph # (Auto) 1.4 (0.6-2.4) K/uL [place] # (Auto) 0.9 H (0.0-0.8) K/uL Eos # (Auto) 0.6 (0.0-0.7) K/uL Baso # (Auto) 0.0 (0.0-0.1) K/uL Nucleated RBC % 0.0 /100WBC Nucleated RBCs # 0 K/uL ABG pH 7.44 (7.35-7.45) ABG pCO2 42 (35-45) mmHG ABG pO2 51 L (80-105) mmHG ABG HCO3 28 H (22-26) mEq/L ABG Total CO2 25.9 (23-27) mmol/L ABG Base Excess 3.7 H (-2.0-3.0) Sodium 139 (136-148) mmol/L Potassium 4.2 (3.5-5.1) mmol/L Chloride 103 (98-107) mmol/L Carbon Dioxide 26.3 (21.0-32.0) mmol/L BUN 18 (7.0-18.0) mg/dL Creatinine 1.4 H (0.8-1.3) mg/dL Est Cr Clr Drug Dosing TNP Estimated GFR (MDRD) 47.7 ml/min Glucose 137 H (74-106) mg/dL Calcium 8.3 L (8.5-10.1) mg/dL Magnesium 2.1 (1.8-2.4) mg/dL Total Bilirubin 0.6 (0.2-1.0) mg/dL AST 18 (15-37) IU/L ALT 26 (14-63) IU/L Alkaline Phosphatase 87 (46-116) U/L Troponin I < 0.050 (0.000-0.056) ng/mL B-Natriuretic Peptide (<100) PG/ML Total Protein 7.5 (6.4-8.2) g/dL Albumin 3.5 (3.4-5.0) g/dL Globulin 4.0 (2.6-4.0) g/dL Albumin/Globulin Ratio 0.9 (0.9-1.6) SARS-CoV-2 RNA (WILFRED) (NEGATIVE) 07/20/20 07/20/20 07/20/20 Range/Units 16:57 19:29 19:59 WBC (4.0-11.0) K/uL RBC (4.50-5.90) M/uL Hgb (13.0-17.0) g/dL Hct (38.0-50.0) % MCV (80.0-98.0) fL MCH (27.0-32.0) pg MCHC (31.0-37.0) g/dL RDW Std Deviation (28.0-62.0) fl RDW Coeff of Juancho (11.0-15.0) % Plt Count (150-400) K/uL MPV (7.40-12.00) fL Neut % (Auto) (48.0-80.0) % Lymph % (Auto) (16.0-40.0) % [place] % (Auto) (0.0-15.0) % Eos % (Auto) (0.0-7.0) % Baso % (Auto) (0.0-1.5) % Neut # (Auto) (1.4-5.7) K/uL Lymph # (Auto) (0.6-2.4) K/uL [place] # (Auto) (0.0-0.8) K/uL Eos # (Auto) (0.0-0.7) K/uL Baso # (Auto) (0.0-0.1) K/uL Nucleated RBC % /100WBC Nucleated RBCs # K/uL ABG pH (7.35-7.45) ABG pCO2 (35-45) mmHG ABG pO2 (80-105) mmHG ABG HCO3 (22-26) mEq/L ABG Total CO2 (23-27) mmol/L ABG Base Excess (-2.0-3.0) Sodium (136-148) mmol/L Potassium (3.5-5.1) mmol/L Chloride (98-107) mmol/L Carbon Dioxide (21.0-32.0) mmol/L BUN (7.0-18.0) mg/dL Creatinine (0.8-1.3) mg/dL Est Cr Clr Drug Dosing Estimated GFR (MDRD) ml/min Glucose (74-106) mg/dL Calcium (8.5-10.1) mg/dL Magnesium (1.8-2.4) mg/dL Total Bilirubin (0.2-1.0) mg/dL AST (15-37) IU/L ALT (14-63) IU/L Alkaline Phosphatase (46-116) U/L Troponin I < 0.050 (0.000-0.056) ng/mL B-Natriuretic Peptide 107 H (<100) PG/ML Total Protein (6.4-8.2) g/dL Albumin (3.4-5.0) g/dL Globulin (2.6-4.0) g/dL Albumin/Globulin Ratio (0.9-1.6) SARS-CoV-2 RNA (WILFRED) NEGATIVE (NEGATIVE) Result Diagrams: 07/21/20 05:20 07/21/20 05:20 Sepsis Event Note - Evaluation Sepsis Screening Result: No Definite Risk - Focused Exam Vital Signs: Vital Signs Temp Pulse Resp BP Pulse Ox 07/20/20 21:41 36.3 C 100 16 163/68 H 93 L 07/20/20 20:55 95 18 132/82 95 07/20/20 19:37 93 16 122/78 95 07/20/20 17:59 91 18 135/67 96 07/20/20 17:45 101 H 18 149/85 H 95 07/20/20 17:14 98 18 153/96 H 98 07/20/20 16:47 36.6 C 99 17 165/73 H 99 Problem List Initiated/Reviewed/Updated: Yes Orders Last 24hrs: Active Orders 24 hr Category Date Time Status Patient Status [ADT] Routine ADT 07/20/20 20:43 Active Antiembolic Devices [RC] PER UNIT ROUTINE Care 07/20/20 23:39 Ordered Blood Glucose Check, Bedside [RC] TIDAC Care 07/20/20 23:40 Ordered Oxygen Therapy [RC] PRN Care 07/20/20 23:39 Ordered RT Aerosol Therapy [RC] ASDIRECTED Care 07/20/20 16:42 Active RT Aerosol Therapy [RC] ASDIRECTED Care 07/20/20 23:39 Ordered Up ad Emily [RC] ASDIRECTED Care 07/20/20 23:38 Ordered VTE/DVT Education [RC] PER UNIT ROUTINE Care 07/20/20 23:39 Ordered Vital Signs [RC] Q4H Care 07/20/20 23:39 Ordered Regular Diet [DIET] Diet 07/20/20 Breakfast Ordered BASIC METABOLIC PANEL,BMP [CHEM] AM Lab 07/21/20 05:11 Ordered CBC W/O DIFF,HEMOGRAM [HEME] AM Lab 07/21/20 05:11 Ordered Albuterol/Ipratropium [DuoNeb 3.0-0.5 MG/3 ML] Med 07/21/20 02:00 Ordered 3 ml NEB Q4HRRT Apixaban [Eliquis] Med 07/21/20 09:00 Ordered 2.5 mg PO BID Azithromycin Med 07/20/20 23:45 Ordered 250 mg PO ASDIRECTED Clopidogrel [Plavix] Med 07/21/20 09:00 Ordered 75 mg PO DAILY Dextrose 50% in Water Med 07/20/20 23:40 Ordered 50 ml IV ASDIRECTED PRN Furosemide [Lasix] Med 07/21/20 09:00 Ordered 20 mg PO DAILY Glucagon,Human Recombinant [GlucaGen] Med 07/20/20 23:40 Ordered 1 mg IM ASDIRECTED PRN Insulin Aspart [NovoLOG] Med 07/21/20 07:30 Ordered See Protocol SUBCUT TIDAC Isosorbide Mononitrate [Imdur] Med 07/21/20 09:00 Ordered 120 mg PO DAILY Metoprolol Succinate [Kapspargo Sprinkle] Med 07/21/20 09:00 Ordered 25 mg PO DAILY Potassium Chloride [Klor-Con] Med 07/21/20 09:00 Ordered 20 meq PO DAILY amLODIPine [Norvasc] Med 07/21/20 09:00 Ordered 2.5 mg PO DAILY atorvaSTATin [Lipitor] Med 07/21/20 09:00 Ordered 40 mg PO DAILY cilostazoL Med 07/21/20 09:00 Ordered 100 mg PO DAILY predniSONE Med 07/21/20 09:00 Ordered 2.5 mg PO BID traMADol [Ultram] Med 07/20/20 23:35 Ordered 50 mg PO BID PRN Sequential Compression Device [OM.PC] Per Unit Routine Oth 07/20/20 23:39 Ordered Resuscitation Status Routine Resus Stat 07/20/20 23:38 Ordered Medication Orders Albuterol/Ipratropium (Albuterol/Ipratropium 3.0-0.5 Mg/3 Ml Neb Soln) 3 ml NEB Q4HRRT SHANELL Amlodipine Besylate (Amlodipine 2.5 Mg Tab) 2.5 mg PO DAILY SHANELL Apixaban (Apixaban 2.5 Mg Tab) 2.5 mg PO BID SHANELL Atorvastatin Calcium (Atorvastatin 40 Mg Tab) 40 mg PO DAILY SHANELL Clopidogrel Bisulfate (Clopidogrel 75 Mg Tab) 75 mg PO DAILY SHANELL Furosemide (Furosemide 20 Mg Tab) 20 mg PO DAILY SHANELL Non-Formulary Medication (Azithromycin) 250 mg PO ASDIRECTED SHANELL Non-Formulary Medication (Cilostazol) 100 mg PO DAILY SHANELL Non-Formulary Medication (Isosorbide Mononitrate [Imdur]) 120 mg PO DAILY SHANELL Non-Formulary Medication (Metoprolol Succinate [Kapspargo Sprinkle]) 25 mg PO DAILY SHANELL Potassium Chloride (Potassium Chloride 20 Meq Packet) 20 meq PO DAILY SHANELL Prednisone (Prednisone 5 Mg Tab) 2.5 mg PO BID SHANELL Tramadol HCl (Tramadol 50 Mg Tab) 50 mg PO BID PRN PRN Reason: Pain Assessment/Plan Comment:: 89 yo male who presented with acute hypoxic respiratory failure and encephalopathy due to COPD exacerbation. We will treat with duonebs and prednisone. will stay with patient overnight as patient may . believes he is back to his baseline and wants to take him home tomorrow morning.
[2020-07-21] MEDS: Albuterol/Ipratropium 3.0-0.5 MG/3 ML Neb Soln NEB SCH ×3 (03:00→09:53)
[2020-07-21 06:12] LABS: CARBON DIOXIDE,CO2 27.2 mmol/L (21.0-32.0); POTASSIUM,K 4.5 mmol/L (3.5-5.1)
[2020-07-21] MEDS ORDERED: Insulin Aspart 100 Units/ML 3 ML Pen SUBCUT SCH (07:30)
[2020-07-21 08:17] VITALS: BP 144/77; PULSE 107
[2020-07-21] MEDS ORDERED: amLODIPine 2.5 MG Tab PO SCH (09:00)
[2020-07-21] MEDS ORDERED: predniSONE 5 MG Tab PO SCH (09:00)
[2020-07-21] MEDS ORDERED: Clopidogrel 75 MG Tab PO SCH (09:00)
[2020-07-21] MEDS ORDERED: atorvaSTATin 40 MG Tab PO SCH (09:00)
[2020-07-21] MEDS ORDERED: Potassium Chloride 20 MEQ Tab.ER PO SCH (09:00)
[2020-07-21] MEDS ORDERED: Azithromycin 250 MG Tab PO SCH (09:00)
[2020-07-21] MEDS ORDERED: Apixaban 2.5 MG Tab PO SCH (09:00)
[2020-07-21] MEDS ORDERED: Furosemide 20 MG Tab PO SCH (09:00)
[2020-07-21] MEDS ORDERED: Isosorbide Mononitrate 60 MG Tab.ER PO SCH (09:00)
[2020-07-21] MEDS ORDERED: Metoprolol Succinate 25 MG Tab.ER PO SCH (09:00)
[2020-07-21] MEDS ORDERED: predniSONE 20 MG Tab PO SCH (09:23)
--- NOTE | 2020-07-21 10:56 | PCM.DCSUM1 ---
Discharge Summary - Hospital Course Brief History: 89 yo male with pmh of severe emphysema on chronic steroids, home oxygen and azithromycin, TIA, CAD, s/s stents, PVD, DM, HTN, dementia who presented to the ED with complaints of altered mental status and hypoxia. at bedside reports patient had increased work of breathing for several hours before becoming unresponsive at home. IN the ED patient was noted to be tachypnic with some respiratory distress. A stroke code was called in the ED but it was later thought he was encephalopathic from his hypoxia. He was treated with duonebs and prednisone it did have improvement in his breathing and his mental status. Diagnosis: Stroke: No - Discharge Data Discharge Date: 07/21/20 Discharge Disposition: Home, W Home Health Agency 06 Condition: Stable - Referral to Home Health Date of Face to Face Encounter: 07/21/20 Reason for Homebound Status: Resume Primary Care Physician: PCP None Skilled Need: Resume HH - Discharge Diagnosis/Problem(s) (1) End stage COPD SNOMED Code(s): 960301812 ICD Code: J44.9 - CHRONIC OBSTRUCTIVE PULMONARY DISEASE, UNSPECIFIED Status: Acute (2) Oxygen dependent SNOMED Code(s): 889294620464 ICD Code: Z99.81 - DEPENDENCE ON SUPPLEMENTAL OXYGEN Status: Acute (3) Acute and chronic respiratory failure with hypoxia SNOMED Code(s): 07355333, 856831147 ICD Code: J96.21 - ACUTE AND CHRONIC RESPIRATORY FAILURE WITH HYPOXIA Status: Acute (4) COPD (chronic obstructive pulmonary disease) SNOMED Code(s): 73630330 ICD Code: J44.9 - CHRONIC OBSTRUCTIVE PULMONARY DISEASE, UNSPECIFIED Status: Acute Qualifiers: COPD type: emphysema (5) COPD exacerbation SNOMED Code(s): 445254556 ICD Code: J44.1 - CHRONIC OBSTRUCTIVE PULMONARY DISEASE W (ACUTE) EXACERBATION Status: Acute (6) HTN (hypertension) SNOMED Code(s): 53785317 ICD Code: I10 - ESSENTIAL (PRIMARY) HYPERTENSION Status: Acute (7) TIA (transient ischemic attack) SNOMED Code(s): 798904715 ICD Code: G45.9 - TRANSIENT CEREBRAL ISCHEMIC ATTACK, UNSPECIFIED Status: Acute (8) CAD (coronary artery disease) SNOMED Code(s): 99097539 ICD Code: I25.10 - ATHSCL HEART DISEASE OF [place] CORONARY ARTERY W/O ANG PCTRS Status: Chronic Qualifiers: Coronary Disease-Associated Artery/Lesion type: eek artery [place] vs. transplanted heart: eek heart Associated angina: without angina Qualified Code(s): I25.10 - Atherosclerotic heart disease of [place] coronary artery without angina pectoris (9) DM type 2 (diabetes mellitus, type 2) SNOMED Code(s): 00140297 ICD Code: E11.9 - TYPE 2 DIABETES MELLITUS WITHOUT COMPLICATIONS Status: Chronic Qualifiers: Diabetes mellitus termination clerk insulin use: without termination clerk use Diabetes mellitus complication status: without complication Qualified Code(s): E11.9 - Type 2 diabetes mellitus without complications (10) Hx-TIA (transient ischemic attack) SNOMED Code(s): 174407905 ICD Code: Z86.73 - PRSNL HX OF TIA (TIA), AND CEREB INFRC W/O RESID DEFICITS Status: Chronic (11) Osteoarthritis SNOMED Code(s): 610334837 ICD Code: M19.90 - UNSPECIFIED OSTEOARTHRITIS, UNSPECIFIED SITE Status: Chronic - Patient Summary/Data Hospital Course: Admission diagnosis End-stage COPD COPD exacerbation Encephalopathy secondary to COPD exacerbation. Discharge diagnoses End-stage COPD COPD exacerbation Encephalopathy secondary to COPD exacerbation. Octavio was admitted secondary to worsening shortness of breath and respiratory distress at home. He was noted to be encephalopathic likely secondary to hypoxia. He was treated with prednisone as well as duo nebs in the ER and complaints of mental status and hypoxia improved. The feels like he is doing much improved this morning and is requesting discharge home due to his s everity of dementia. Patient lung sounds within normal limits patient does not appear to be any in distress. He remains on 3 L nasal cannula continuously which is his home dose. We will continue prednisone 40 mg for 3 more days of 5- day taper and then he is to resume home dosing of 2.5 mg daily. He is to follow-up with PCP in 1 week return to the ER/clinic if concerns should arise. - Patient Instructions Diet: Usual Diet as Tolerated Activity: As Tolerated, No Strenuous Activities Driving: Do Not Drive Showering/Bathing: May Shower Notify Provider of: Fever, Increased Pain, Swelling and Redness, Drainage, Nausea and/or Vomiting - Discharge Plan *PRESCRIPTION DRUG MONITORING PROGRAM REVIEWED*: Not Applicable *COPY OF PRESCRIPTION DRUG MONITORING REPORT IN PATIENT JOELLE: Not Applicable Prescriptions/Med Rec: predniSONE 40 mg PO WITHBREAKFAST #6 tablet Home Medications: Home Meds Albuterol Sulfate 1 dose INH QID 07/20/20 [History] Apixaban [Eliquis] 2.5 mg PO BID 07/20/20 [History] Ascorbic Acid [Vitamin C] 1,000 mg PO DAILY 07/20/20 [History] Aspirin [Esme Chewable Aspirin] 81 mg PO DAILY 07/20/20 [History] Azithromycin 250 mg PO MOWEFR 07/20/20 [History] Brimonidine [Alphagan P 0.15% Ophth Soln] 1 drop EYEBOTH ACBREAKFAST 07/20/20 [History] Cholecalciferol (Vitamin D3) [Vitamin D] 25 mcg PO DAILY 07/20/20 [History] Clopidogrel [Plavix] 75 mg PO DAILY 07/20/20 [History] Erythromycin Base [Erythromycin 0.5% Ophth Oint] 1 drop EYEBOTH DAILY 07/20/20 [History] Fluticasone/Umeclidin/Vilanter [Trelegy Ellipta 100-62.5-25] 1 puff INH DAILY 07/20/20 [History] Furosemide [Lasix] 20 mg PO DAILY 07/20/20 [History] Ipratropium [Atrovent] 2.5 ml INH TID 07/20/20 [History] Isosorbide Mononitrate [Imdur] 120 mg PO DAILY 07/20/20 [History] Latanoprost/Pf [Latanoprost 0.005% Eye Drop] 1 drop EYEBOTH DAILY 07/20/20 [History] Metoprolol Succinate [K[place]sp[place] Sprinkle] 25 mg PO DAILY 07/20/20 [History] Multivit-Min/FA/Lycopen/Lutein [Centrum Silver Men Tablet] 1 tab PO DAILY 07/20/20 [History] Pantoprazole [ProTONIX IV] 40 mg PO DAILY 07/20/20 [History] Potassium Chloride 20 meq PO DAILY 07/20/20 [History] Vit A/Vit C/Vit E/Zinc/Copper [Preservision Areds Softgel] 2 tab PO DAILY 07/20/20 [History] amLODIPine [Norvasc] 2.5 mg PO DAILY 07/20/20 [History] atorvaSTATin [Lipitor] 40 mg PO DAILY 07/20/20 [History] cilostazoL [Cilostazol] 100 mg PO BID 07/20/20 [History] oxyCODONE 7.5 mg PO Q4HR PRN 07/20/20 [History] traMADol [Ultram] 50 mg PO BID 07/20/20 [History] predniSONE 2.5 mg PO BID #0 07/21/20 [Rx] predniSONE 40 mg PO WITHBREAKFAST #6 tablet 07/21/20 [Rx] Oxygen Therapy Mode: Nasal Cannula Patient Handouts: Chronic Obstructive Pulmonary Disease Exacerbation, [id number], Prednisone tablets Referrals: Rebeka Caro MD [Resident] - 07/29/20 1:30 pm - Discharge Summary/Plan Comment DC Time >30 min.: No - Patient Data Vitals - Most Recent: Last Vital Signs Temp 97.9 F 07/21/20 07:33 Pulse 107 H 07/21/20 08:14 Resp 22 H 07/21/20 07:33 BP 144/77 H 07/21/20 08:14 Pulse Ox 95 07/21/20 07:33 Weight - Most Recent: 73.981 kg I&O - Last 24 hours: Intake & Output 07/20/20 07/21/20 07/21/20 22:59 06:59 14:59 Intake Total 400 Output Total 0 Balance 400 Lab Results - Last 24 hrs: Laboratory Results - last 24 hr 07/20/20 07/20/20 07/20/20 Range/Units 16:32 16:33 16:33 WBC 9.40 (4.0-11.0) K/uL RBC 3.79 L (4.50-5.90) M/uL Hgb 12.0 L (13.0-17.0) g/dL Hct 36.1 L (38.0-50.0) % MCV 95.3 (80.0-98.0) fL MCH 31.7 (27.0-32.0) pg MCHC 33.2 (31.0-37.0) g/dL RDW Std Deviation 48.3 (28.0-62.0) fl RDW Coeff of [place] 14 (11.0-15.0) % Plt Count 207 (150-400) K/uL MPV 9.70 (7.40-12.00) fL Neut % (Auto) 70.1 (48.0-80.0) % Lymph % (Auto) 14.5 L (16.0-40.0) % [place] % (Auto) 9.1 (0.0-15.0) % Eos % (Auto) 6.0 (0.0-7.0) % Baso % (Auto) 0.3 (0.0-1.5) % Neut # (Auto) 6.6 H (1.4-5.7) K/uL Lymph # (Auto) 1.4 (0.6-2.4) K/uL [place] # (Auto) 0.9 H (0.0-0.8) K/uL Eos # (Auto) 0.6 (0.0-0.7) K/uL Baso # (Auto) 0.0 (0.0-0.1) K/uL Nucleated RBC % 0.0 /100WBC Nucleated RBCs # 0 K/uL ABG pH 7.44 (7.35-7.45) ABG pCO2 42 (35-45) mmHG ABG pO2 51 L (80-105) mmHG ABG HCO3 28 H (22-26) mEq/L ABG Total CO2 25.9 (23-27) mmol/L ABG Base Excess 3.7 H (-2.0-3.0) Sodium 139 (136-148) mmol/L Potassium 4.2 (3.5-5.1) mmol/L Chloride 103 (98-107) mmol/L Carbon Dioxide 26.3 (21.0-32.0) mmol/L BUN 18 (7.0-18.0) mg/dL Creatinine 1.4 H (0.8-1.3) mg/dL Est Cr Clr Drug Dosing TNP Estimated GFR (MDRD) 47.7 ml/min Glucose 137 H (74-106) mg/dL POC Glucose (70-99) mg/dL Calcium 8.3 L (8.5-10.1) mg/dL Magnesium 2.1 (1.8-2.4) mg/dL Total Bilirubin 0.6 (0.2-1.0) mg/dL AST 18 (15-37) IU/L ALT 26 (14-63) IU/L Alkaline Phosphatase 87 (46-116) U/L Troponin I < 0.050 (0.000-0.056) ng/mL B-Natriuretic Peptide (<100) PG/ML Total Protein 7.5 (6.4-8.2) g/dL Albumin 3.5 (3.4-5.0) g/dL Globulin 4.0 (2.6-4.0) g/dL Albumin/Globulin Ratio 0.9 (0.9-1.6) SARS-CoV-2 RNA (WILFRED) (NEGATIVE) 07/20/20 07/20/20 07/20/20 Range/Units 16:57 19:29 19:59 WBC (4.0-11.0) K/uL RBC (4.50-5.90) M/uL Hgb (13.0-17.0) g/dL Hct (38.0-50.0) % MCV (80.0-98.0) fL MCH (27.0-32.0) pg MCHC (31.0-37.0) g/dL RDW Std Deviation (28.0-62.0) fl RDW Coeff of [place] (11.0-15.0) % Plt Count (150-400) K/uL MPV (7.40-12.00) fL Neut % (Auto) (48.0-80.0) % Lymph % (Auto) (16.0-40.0) % [place] % (Auto) (0.0-15.0) % Eos % (Auto) (0.0-7.0) % Baso % (Auto) (0.0-1.5) % Neut # (Auto) (1.4-5.7) K/uL Lymph # (Auto) (0.6-2.4) K/uL [place] # (Auto) (0.0-0.8) K/uL Eos # (Auto) (0.0-0.7) K/uL Baso # (Auto) (0.0-0.1) K/uL Nucleated RBC % /100WBC Nucleated RBCs # K/uL ABG pH (7.35-7.45) ABG pCO2 (35-45) mmHG ABG pO2 (80-105) mmHG ABG HCO3 (22-26) mEq/L ABG Total CO2 (23-27) mmol/L ABG Base Excess (-2.0-3.0) Sodium (136-148) mmol/L Potassium (3.5-5.1) mmol/L Chloride (98-107) mmol/L Carbon Dioxide (21.0-32.0) mmol/L BUN (7.0-18.0) mg/dL Creatinine (0.8-1.3) mg/dL Est Cr Clr Drug Dosing Estimated GFR (MDRD) ml/min Glucose (74-106) mg/dL POC Glucose (70-99) mg/dL Calcium (8.5-10.1) mg/dL Magnesium (1.8-2.4) mg/dL Total Bilirubin (0.2-1.0) mg/dL AST (15-37) IU/L ALT (14-63) IU/L Alkaline Phosphatase (46-116) U/L Troponin I < 0.050 (0.000-0.056) ng/mL B-Natriuretic Peptide 107 H (<100) PG/ML Total Protein (6.4-8.2) g/dL Albumin (3.4-5.0) g/dL Globulin (2.6-4.0) g/dL Albumin/Globulin Ratio (0.9-1.6) SARS-CoV-2 RNA (WILFRED) NEGATIVE (NEGATIVE) 07/21/20 07/21/20 07/21/20 Range/Units 05:20 05:20 06:54 WBC 6.42 (4.0-11.0) K/uL RBC 3.65 L (4.50-5.90) M/uL Hgb 11.5 L (13.0-17.0) g/dL Hct 34.7 L (38.0-50.0) % MCV 95.1 (80.0-98.0) fL MCH 31.5 (27.0-32.0) pg MCHC 33.1 (31.0-37.0) g/dL RDW Std Deviation 47.8 (28.0-62.0) fl RDW Coeff of [place] 14 (11.0-15.0) % Plt Count 217 (150-400) K/uL MPV 9.90 (7.40-12.00) fL Neut % (Auto) (48.0-80.0) % Lymph % (Auto) (16.0-40.0) % [place] % (Auto) (0.0-15.0) % Eos % (Auto) (0.0-7.0) % Baso % (Auto) (0.0-1.5) % Neut # (Auto) (1.4-5.7) K/uL Lymph # (Auto) (0.6-2.4) K/uL [place] # (Auto) (0.0-0.8) K/uL Eos # (Auto) (0.0-0.7) K/uL Baso # (Auto) (0.0-0.1) K/uL Nucleated RBC % 0.0 /100WBC Nucleated RBCs # 0 K/uL ABG pH (7.35-7.45) ABG pCO2 (35-45) mmHG ABG pO2 (80-105) mmHG ABG HCO3 (22-26) mEq/L ABG Total CO2 (23-27) mmol/L ABG Base Excess (-2.0-3.0) Sodium 137 (136-148) mmol/L Potassium 4.5 (3.5-5.1) mmol/L Chloride 101 (98-107) mmol/L Carbon Dioxide 27.2 (21.0-32.0) mmol/L BUN 21 H (7.0-18.0) mg/dL Creatinine 1.5 H (0.8-1.3) mg/dL Est Cr Clr Drug Dosing 34.94 Estimated GFR (MDRD) 44.1 ml/min Glucose 251 H (74-106) mg/dL POC Glucose 200 H (70-99) mg/dL Calcium 8.0 L (8.5-10.1) mg/dL Magnesium (1.8-2.4) mg/dL Total Bilirubin (0.2-1.0) mg/dL AST (15-37) IU/L ALT (14-63) IU/L Alkaline Phosphatase (46-116) U/L Troponin I (0.000-0.056) ng/mL B-Natriuretic Peptide (<100) PG/ML Total Protein (6.4-8.2) g/dL Albumin (3.4-5.0) g/dL Globulin (2.6-4.0) g/dL Albumin/Globulin Ratio (0.9-1.6) SARS-CoV-2 RNA ([place]ILFRED) (NEGATIVE) Med Orders - Current: Current Medications Albuterol/Ipratropium (Albuterol/Ipratropium 3.0-0.5 Mg/3 Ml Neb Soln) 3 ml NEB Q4HRRT [facility] Last Admin: 07/21/20 09:53 Dose: 3 ml Documented by: Amlodipine Besylate (Amlodipine 2.5 Mg Tab) 2.5 mg PO DAILY [facility] Last Admin: 07/21/20 08:13 Dose: 2.5 mg Documented by: Apixaban (Apixaban 2.5 Mg Tab) 2.5 mg PO BID [facility] Last Admin: 07/21/20 08:13 Dose: 2.5 mg Documented by: Atorvastatin Calcium (Atorvastatin 40 Mg Tab) 40 mg PO DAILY [facility] Last Admin: 07/21/20 08:13 Dose: 40 mg Documented by: Azithromycin (Azithromycin 250 Mg Tab) 250 mg PO MoWeFr [facility] Last Admin: 07/21/20 08:48 Dose: Not Given Documented by: Clopidogrel Bisulfate (Clopidogrel 75 Mg Tab) 75 mg PO DAILY [facility] Last Admin: 07/21/20 08:13 Dose: 75 mg Documented by: Dextrose/Water (50% Dextrose In Water 50 Ml Syringe) 50 ml IV ASDIRECTED PRN PRN Reason: Hypoglycemia Furosemide (Furosemide 20 Mg Tab) 20 mg PO DAILY [facility] Last Admin: 07/21/20 08:14 Dose: 20 mg Documented by: Glucagon (Glucagon,Human Recombinant 1 Mg Vial) 1 mg IM ASDIRECTED PRN PRN Reason: Hypoglycemia Insulin Aspart (Insulin Aspart 100 Units/Ml 3 Ml Pen) 0 unit SUBCUT TIDAC [facility]; Protocol Last Admin: 07/21/20 08:21 Dose: 2 units Documented by: Isosorbide Mononitrate (Isosorbide Mononitrate 60 Mg Tab.Er) 120 mg PO DAILY [facility] Last Admin: 07/21/20 08:13 Dose: 120 mg Documented by: Metoprolol Succinate (Metoprolol Succinate 25 Mg Tab.Er) 25 mg PO DAILY [facility] Last Admin: 07/21/20 08:14 Dose: 25 mg Documented by: Cilostazol 100 Mg (Tablet) 1 each PO ACBREAKFAST [facility] Last Admin: 07/21/20 08:24 Dose: Not Given Documented by: Potassium Chloride (Potassium Chloride 20 Meq Tab.Er) 20 meq PO DAILY [facility] Last Admin: 07/21/20 08:21 Dose: 20 meq Documented by: Prednisone (Prednisone 20 Mg Tab) 40 mg PO WITHBREAKFAST [facility] Last Admin: 07/21/20 09:48 Dose: 40 mg Documented by: Tramadol HCl (Tramadol 50 Mg Tab) 50 mg PO BID PRN PRN Reason: Pain Discontinued Medications Albuterol/Ipratropium (Albuterol/Ipratropium 3.0-0.5 Mg/3 Ml Neb Soln) Confirm Administered Dose 3 ml .ROUTE .STK-MED ONE Stop: 07/20/20 16:37 Last Admin: 07/20/20 16:45 Dose: Not Given Documented by: Albuterol/Ipratropium (Albuterol/Ipratropium 3.0-0.5 Mg/3 Ml Neb Soln) 3 ml NEB ONETIME ONE Stop: 07/20/20 16:43 Last Admin: 07/20/20 16:45 Dose: 3 ml Documented by: Prednisone (Prednisone 20 Mg Tab) 60 mg PO ONETIME ONE Stop: 07/20/20 18:49 Last Admin: 07/20/20 19:11 Dose: 60 mg Documented by: Prednisone (Prednisone 5 Mg Tab) 2.5 mg PO BID [facility] Last Admin: 07/21/20 08:13 Dose: 2.5 mg Documented by:
== END 2020-07-21 10:30 | disposition home health service (06) ==
LOC: MW.ED 16:20 → MW.MS 20:43
PROVIDERS: ADMIT Internal Medicine; ATTEND Internal Medicine
DX: J96.21 Acute and chronic respiratory failure with hypoxia (principal); J44.1 Chronic obstructive pulmonary disease with (acute) exacerbation; G93.49 Other encephalopathy; I25.10 Atherosclerotic heart disease of native coronary artery without angina pectoris; E11.9 Type 2 diabetes mellitus without complications; I73.9 Peripheral vascular disease, unspecified; Z86.73 Personal history of transient ischemic attack (TIA), and cerebral infarction without residual deficits; I10 Essential (primary) hypertension; M19.90 Unspecified osteoarthritis, unspecified site; F03.90 Unspecified dementia, unspecified severity, without behavioral disturbance, psychotic disturbance, mood disturbance, and anxiety; E78.00 Pure hypercholesterolemia, unspecified; Z20.822 Contact with and (suspected) exposure to COVID-19; Z99.81 Dependence on supplemental oxygen; Z79.899 Other long term (current) drug therapy; Z95.5 Presence of coronary angioplasty implant and graft; Z88.8 Allergy status to other drugs, medicaments and biological substances; Z91.09 Other allergy status, other than to drugs and biological substances; Z87.09 Personal history of other diseases of the respiratory system
CPT/HCPCS: 36415; 36600; 70450; 70496; 70498; 71045; 80048; 80053; 82803; 82947; 83735; 83880; 84484; 85025; 85027; 93005; 94640; A9270; G0378; J1815; J7512; U0002; 99291; J7620-GY

== ENCOUNTER 2020-08-06 08:12 | Emergency (ER) | payer MEDICARE, BC ==
[2020-08-06] MEDS ORDERED: Sodium Chloride 0.9% 2.5 ML Syringe FLUSH PRN (08:14)
[2020-08-06] MEDS ORDERED: Sodium Chloride 0.9% 10 ML Syringe FLUSH PRN (08:14)
[2020-08-06] MEDS ORDERED: Piperacillin/Tazobactam 4.5 GM in Sodium Chloride 0.9% 100 ML IV ONE (08:20)
[2020-08-06] MEDS ORDERED: Sodium Chloride 0.9% 1,000 ML IV ONE ×2 (08:20)
--- NOTE | 2020-08-06 08:40 | EDM.PDOC ---
ED HPI GENERAL MEDICAL PROBLEM - General Stated Complaint: UNCONCIOUS Time Seen by Provider: 08/06/20 08:14 - History of Present Illness INITIAL COMMENTS - FREE TEXT/NARRATIVE: History of present illness: [] This patient had a fall yesterday afternoon around 3 PM. He fell from standing hit his head and had a knot on the occiput. The said he took something to drink and then fell asleep in the chair. He did wake up since. She last saw moving around and talking at 3 PM. He is both on clopidogrel and high risk for head injury and he has a history of coronary vessel disease and COPD. It could be CO2 retention at first awake told me he does not want to be intubated but then considering had an injury that might be reversible she said it was okay with taking him to the trauma center where they can manage and intubated patient and have water resources project manager and neurosurgeons. Helicopter was summoned because the patient was going to need intubation. We do not have 24 respiratory therapy here. We do not have neurosurgery here. Helicopter ride before had imaging. I discussed the case with Dr. Shakir Escudero and he accepted the patient in transfer for emergency evaluation. Review of systems: As per history of present illness and below otherwise all systems reviewed and negative. Past medical history: As per history of present illness and as reviewed below otherwise noncontributory. Surgical history: As per history of present illness and as reviewed below otherwise noncontributory. Social history: No reported history of drug or alcohol abuse. Family history: As per history of present illness and as reviewed below otherwise noncon tributory. Physical exam: Constitutional - well developed, well-nourished and in no acute distress HEENT - normocephalic, no evidence of trauma on initial superficial exam. C- collar was placed immediately.- external nose and mouth normal - no mass in neck and no JVD - mucosae moist EYES -patient does not respond to deep pressure. Patient does not respond at all. Patient does not have any pupillary movement. Respiratory -breathing on his own, equal bilateral expansion, lungs clear to auscultation and no abnormal lung sounds Cardiovascular - Regular Rhythm with S1 and S2 appreciated and no murmur, gallop or rub. GI - abdomen soft but with significant distension - normal bowel sounds Musculoskeletal no gross deformity of long bones or joints - no tenderness, swelling or edema Neurologic -unable to assess. Patient not responding to deep pressure at this time. Psychiatric -unconscious Hematologic - No petechiae or purpura - mucosa appropriate color and sclera not pale - normal nail bed color and refill Integument - no rash or evidence of trauma - normal turgor Diagnostics: [] Therapeutics: [] Impression: [] Plan: [] Definitive disposition and diagnosis as appropriate pending reevaluation and review of above. Patient had a Sukhdev Coma Scale of 3. Intubation done with fiberoptic laryngoscope. When I looked at the larynx there was a lot of edema. There was also black vomitus in the posterior pharynx. I suctioned the best I could let Dr. Ruiz from anesthesia take over while I continued my initial assessment. He intubated the patient successfully. - Related Data Allergies Allergy/AdvReac Type Severity Reaction Status Date / Time levofloxacin [From Levaquin] Allergy Severe Hives Verified 07/21/20 03:32 Animal Dander Allergy Mild Cough Uncoded 07/21/20 03:32 smoke Allergy Cough Uncoded 07/21/20 03:32 Home Meds: Home Meds Albuterol Sulfate 1 dose INH QID 07/20/20 [History] Apixaban [Eliquis] 2.5 mg PO BID 07/20/20 [History] Ascorbic Acid [Vitamin C] 1,000 mg PO DAILY 07/20/20 [History] Aspirin [Esme Chewable Aspirin] 81 mg PO DAILY 07/20/20 [History] Azithromycin 250 mg PO MOWEFR 07/20/20 [History] Brimonidine [Alphagan P 0.15% Ophth Soln] 1 drop EYEBOTH ACBREAKFAST 07/20/20 [History] Cholecalciferol (Vitamin D3) [Vitamin D] 25 mcg PO DAILY 07/20/20 [History] Clopidogrel [Plavix] 75 mg PO DAILY 07/20/20 [History] Erythromycin Base [Erythromycin 0.5% Ophth Oint] 1 drop EYEBOTH DAILY 07/20/20 [History] Fluticasone/Umeclidin/Vilanter [Trelegy Ellipta 100-62.5-25] 1 puff INH DAILY 07/20/20 [History] Furosemide [Lasix] 20 mg PO DAILY 07/20/20 [History] Ipratropium [Atrovent] 2.5 ml INH TID 07/20/20 [History] Isosorbide Mononitrate [Imdur] 120 mg PO DAILY 07/20/20 [History] Latanoprost/Pf [Latanoprost 0.005% Eye Drop] 1 drop EYEBOTH DAILY 07/20/20 [History] Metoprolol Succinate [Kapspargo Sprinkle] 25 mg PO DAILY 07/20/20 [History] Multivit-Min/FA/Lycopen/Lutein [Centrum Silver Men Tablet] 1 tab PO DAILY 07/20/20 [History] Pantoprazole [ProTONIX IV] 40 mg PO DAILY 07/20/20 [History] Potassium Chloride 20 meq PO DAILY 07/20/20 [History] Vit A/Vit C/Vit E/Zinc/Copper [Preservision Areds Softgel] 2 tab PO DAILY 07/20/20 [History] amLODIPine [Norvasc] 2.5 mg PO DAILY 07/20/20 [History] atorvaSTATin [Lipitor] 40 mg PO DAILY 07/20/20 [History] cilostazoL [Cilostazol] 100 mg PO BID 07/20/20 [History] oxyCODONE 7.5 mg PO Q4HR PRN 07/20/20 [History] traMADol [Ultram] 50 mg PO BID 07/20/20 [History] predniSONE 2.5 mg PO BID #0 07/21/20 [Rx] predniSONE 40 mg PO WITHBREAKFAST #6 tablet 07/21/20 [Rx] Past Medical History HEENT History: Reports: Glaucoma, Macular Degeneration Other HEENT History: wears glasses, top and bottom dentures Cardiovascular History: Reports: CAD, High Cholesterol, Hypertension, Stents Other Cardiovascular History: Stents placed "last Spring" Respiratory History: Reports: COPD Other Respiratory History: continuous 02 3L at home Gastrointestinal History: Reports: Other (See Below) Other Gastrointestinal History: epigastric pain Genitourinary History: Reports: None Musculoskeletal History: Reports: Arthritis Other Musculoskeletal History: neck pain, rt elbow pain Neurological History: Reports: TIA Other Neuro History: "several TIAs", "memory issues" Psychiatric History: Reports: Dementia Endocrine/Metabolic History: Reports: Diabetes, Type II Hematologic History: Reports: None Immunologic History: Reports: None Oncologic (Cancer) History: Reports: None Dermatologic History: Reports: Other (See Below) Other Dermatologic History: dermatitis - Infectious Disease History Infectious Disease History: Reports: Other (See Below) Other Infectious Disease History: unknown - Past Surgical History Head Surgeries/Procedures: Reports: None HEENT Surgical History: Reports: Cataract Surgery Other HEENT Surgeries/Procedures: laryngoscopy with stripping of vocal cords, vocal cord dysfunction s/p stripping Cardiovascular Surgical History: Reports: Coronary Artery Stent Respiratory Surgical History: Reports: None GI Surgical History: Reports: Appendectomy, Other (See Below) Other GI Surgeries/Procedures: laryngoscopy with stripping of vocal cords Male Surgical History: Reports: None Endocrine Surgical History: Reports: None Neurological Surgical History: Reports: None Musculoskeletal Surgical History: Reports: None Oncologic Surgical History: Reports: None Dermatological Surgical History: Reports: None Social & Family History - Family History Family Medical History: No Pertinent Family History - Caffeine Use Caffeine Use: Reports: None Caffeine Use Comment: 2 cups a day - Living Situation & Occupation Living situation: Reports: Occupation: Retired ED ROS GENERAL - Review of Systems Review Of Systems: Unable To Obtain Reason Not Obtained: unresponsive ED EXAM, GENERAL - Physical Exam Exam: See Below Free Text/Narrative:: ` My physical exam is in the HPI #1 Interpretation EKG Interpretation Comments: EKG sinus tachycardia heart rate 100 MN interval 84 axis -87 QT duration 487. Right bundle branch and left anterior fascicular block. Not compared to prior because patient is being transported to the helicopter immediately right now. Impression tachycardia no other obvious injury Course - Vital Signs Text/Narrative:: at first said she did not want the patient resuscitated but then she said since we do not have a diagnosis to continue with respiratory support and do the evaluation. Discussed with Dr. Billy at [facility] and accepted Chest chest x-ray shows pneumonia on the right side good endotracheal tube placement. - Orders/Labs/Meds Orders: Active Orders 24 hr Category Date Time Status EKG Documentation Completion [RC] AM Care 08/06/20 08:14 Active Cervical Spine wo Cont [CT] Stat Exams 08/06/20 08:27 Ordered Chest 1V Frontal [CR] Stat Exams 08/06/20 08:16 Taken Head wo Cont [CT] Stat Exams 08/06/20 08:27 Ordered BLOOD GAS ARTERIAL [BG] Stat Lab 08/06/20 08:15 Ordered CBC WITH AUTO DIFF [HEME] Stat Lab 08/06/20 08:14 Ordered COMPREHENSIVE METABOLIC PN,CMP [CHEM] Stat Lab 08/06/20 08:14 Ordered COVID-19/FLU A+B [MOLEC] Stat Lab 08/06/20 08:32 Ordered CULTURE BLOOD [BC] Stat Lab 08/06/20 08:15 Ordered CULTURE BLOOD [BC] Stat Lab 08/06/20 08:15 Ordered CULTURE URINE [MREF] Stat Lab 08/06/20 08:33 Ordered INR,PT,PROTHROMBIN TIME [COAG] Stat Lab 08/06/20 08:14 Ordered LACTATE SEPSIS W/ REFLEX [CHEM] Stat Lab 08/06/20 08:14 Ordered PTT,PARTIAL THROMBOPLSTIN TIME [COAG] Stat Lab 08/06/20 08:14 Ordered TROPONIN I [CHEM] Stat Lab 08/06/20 08:14 Ordered TYPE AND SCREEN [BBK] Stat Lab 08/06/20 08:16 Ordered UA W/SHELIA RFLX IF INDICATED [URIN] Stat Lab 08/06/20 08:33 Ordered Piperacillin/Tazobactam [Piperacil-Tazobact] 4.5 gm Med 08/06/20 08:20 Active Sodium Chloride 0.9% [Normal Saline] 100 ml IV ONETIME Sodium Chloride 0.9% [Normal Saline] 1,000 ml Med 08/06/20 08:20 Active IV .Bolus Sodium Chloride 0.9% [Normal Saline] 1,000 ml Med 08/06/20 08:20 Active IV .Bolus Sodium Chloride 0.9% [Saline Flush] Med 08/06/20 08:14 Active 10 ml FLUSH ASDIRECTED PRN Sodium Chloride 0.9% [Saline Flush] Med 08/06/20 08:14 Active 2.5 ml FLUSH ASDIRECTED PRN Blood Culture x2 Reflex Set [OM.PC] Stat Oth 08/06/20 08:15 Ordered Saline Lock Insert [OM.PC] Stat Oth 08/06/20 08:14 Ordered Medication Orders Piperacillin Sod/Tazobactam (Sod 4.5 gm/ Sodium Chloride) 100 mls @ 100 mls/hr IV ONETIME ONE Stop: 08/06/20 09:19 Sodium Chloride (Normal Saline) 1,000 mls @ 1,000 mls/hr IV .Bolus ONE Stop: 08/06/20 09:19 Sodium Chloride (Normal Saline) 1,000 mls @ 1,000 mls/hr IV .Bolus ONE Stop: 08/06/20 09:19 Sodium Chloride (Sodium Chloride 0.9% 10 Ml Syringe) 10 ml FLUSH ASDIRECTED PRN PRN Reason: Keep Vein Open Sodium Chloride (Sodium Chloride 0.9% 2.5 Ml Syringe) 2.5 ml FLUSH ASDIRECTED PRN PRN Reason: Keep Vein Open Meds: Medications Generic Name Dose Route Start Last Admin Trade Name Freq PRN Reason Stop Dose Admin Piperacillin Sod/Tazobactam 100 mls @ 100 mls/hr 08/06/20 08:20 Sod 4.5 gm/ Sodium Chloride IV 08/06/20 09:19 ONETIME ONE Sodium Chloride 1,000 mls @ 1,000 mls/hr 08/06/20 08:20 Normal Saline IV 08/06/20 09:19 .Bolus ONE Sodium Chloride 1,000 mls @ 1,000 mls/hr 08/06/20 08:20 Normal Saline IV 08/06/20 09:19 .Bolus ONE Sodium Chloride 10 ml 08/06/20 08:14 Sodium Chloride 0.9% 10 Ml Syringe FLUSH ASDIRECTED PRN Keep Vein Open Sodium Chloride 2.5 ml 08/06/20 08:14 Sodium Chloride 0.9% 2.5 Ml Syringe FLUSH ASDIRECTED PRN Keep Vein Open Departure - Departure Time of Disposition: 08:44 Disposition: DC/Tfer to [facility] Clinical Impression: Fall from standing, Coma, On clopidogrel therapy COPD (chronic obstructive pulmonary disease) Qualifiers: COPD type: emphysema - Discharge Information Referrals: Hannah Gan MD [Primary Care Provider] - - My Orders Last 24 Hours: My Active Orders 08/06/20 08:14 EKG Documentation Completion [RC] AM CBC WITH AUTO DIFF [HEME] Stat COMPREHENSIVE METABOLIC PN,CMP [CHEM] Stat INR,PT,PROTHROMBIN TIME [COAG] Stat LACTATE SEPSIS W/ REFLEX [CHEM] Stat PTT,PARTIAL THROMBOPLSTIN TIME [COAG] Stat TROPONIN I [CHEM] Stat Sodium Chloride 0.9% [Saline Flush] 10 ml FLUSH ASDIRECTED PRN Sodium Chloride 0.9% [Saline Flush] 2.5 ml FLUSH ASDIRECTED PRN Saline Lock Insert [OM.PC] Stat 08/06/20 08:15 BLOOD GAS ARTERIAL [BG] Stat CULTURE BLOOD [BC] Stat CULTURE BLOOD [BC] Stat Blood Culture x2 Reflex Set [OM.PC] Stat 08/06/20 08:16 Chest 1V Frontal [CR] Stat TYPE AND SCREEN [BBK] Stat 08/06/20 08:20 Piperacillin/Tazobactam [Piperacil-Tazobact] 4.5 gm Sodium Chloride 0.9% [Normal Saline] 100 ml IV ONETIME Sodium Chloride 0.9% [Normal Saline] 1,000 ml IV .Bolus Sodium Chloride 0.9% [Normal Saline] 1,000 ml IV .Bolus 08/06/20 08:27 Cervical Spine wo Cont [CT] Stat Head wo Cont [CT] Stat 08/06/20 08:32 COVID-19/FLU A+B [MOLEC] Stat 08/06/20 08:33 CULTURE URINE [MREF] Stat UA W/SHELIA RFLX IF INDICATED [URIN] Stat - Assessment/Plan Last 24 Hours: My Active Orders 08/06/20 08:14 EKG Documentation Completion [RC] AM CBC WITH AUTO DIFF [HEME] Stat COMPREHENSIVE METABOLIC PN,CMP [CHEM] Stat INR,PT,PROTHROMBIN TIME [COAG] Stat LACTATE SEPSIS W/ REFLEX [CHEM] Stat PTT,PARTIAL THROMBOPLSTIN TIME [COAG] Stat TROPONIN I [CHEM] Stat Sodium Chloride 0.9% [Saline Flush] 10 ml FLUSH ASDIRECTED PRN Sodium Chloride 0.9% [Saline Flush] 2.5 ml FLUSH ASDIRECTED PRN Saline Lock Insert [OM.PC] Stat 08/06/20 08:15 BLOOD GAS ARTERIAL [BG] Stat CULTURE BLOOD [BC] Stat CULTURE BLOOD [BC] Stat Blood Culture x2 Reflex Set [OM.PC] Stat 08/06/20 08:16 Chest 1V Frontal [CR] Stat TYPE AND SCREEN [BBK] Stat 08/06/20 08:20 Piperacillin/Tazobactam [Piperacil-Tazobact] 4.5 gm Sodium Chloride 0.9% [Normal Saline] 100 ml IV ONETIME Sodium Chloride 0.9% [Normal Saline] 1,000 ml IV .Bolus Sodium Chloride 0.9% [Normal Saline] 1,000 ml IV .Bolus 08/06/20 08:27 Cervical Spine wo Cont [CT] Stat Head wo Cont [CT] Stat 08/06/20 08:32 COVID-19/FLU A+B [MOLEC] Stat 08/06/20 08:33 CULTURE URINE [MREF] Stat UA W/SHELIA RFLX IF INDICATED [URIN] Stat
[2020-08-06 08:41] VITALS: BP 131/94; PULSE 113
--- NOTE | 2020-08-06 08:45 | CR ---
Indication: ET tube placement Comparison: Single view chest July 20, 2020 Technique: Single AP view chest Findings: There is hyperinflation and chronic interstitial change. Satisfactory position of endotracheal tube with the tip just at the level of the clavicles. Again seen is moderate emphysematous changes of the bilateral hemithoraces with moderate interstitial prominence likely representing superimposed pulmonary edema and/or developing infiltrates. Stable cardiac silhouette. The bony thorax is grossly intact. Impression: Hyperinflation and chronic interstitial changes with mildly increased interstitial markings likely representing worsening pulmonary edema. Interval placement of endotracheal tube in satisfactory position within the mid trachea. Dictated by Ayad Miles MD @ 08/06/2020 8:43:[address] Ayad Miles @ Aug 06 2020 8:43AM
[2020-08-06 08:48] LABS: BLOOD UREA NITROGEN,BUN 31 mg/dL (7.0-18.0); CARBON DIOXIDE,CO2 21.8 mmol/L (21.0-32.0); CHLORIDE,CL 102 mmol/L (98-107); GLUCOSE RANDOM 119 mg/dL (74-106); POTASSIUM,K 4.5 mmol/L (3.5-5.1); SODIUM,NA 135 mmol/L (136-148)
[2020-08-06 09:13] LABS: CORONAVIRUS COVID-19 NAA NEGATIVE (NEGATIVE); INFLUENZA A NAA NEGATIVE (NEGATIVE); INFLUENZA B NAA NEGATIVE (NEGATIVE)
[2020-08-06] MEDS ORDERED: propofoL 100 ML IV SCH (09:30)
--- NOTE | 2020-08-06 09:41 | PCM.SN.2 ---
- Free Text/Narrative Note: Called to the ER for a trauma activation at 0820. Arrived to the ER at 0825. ER physician attempting to intubate patient. This provider took over the airway. Glidescope 3 blade used with stylet. 8.0 tube. Grade I indirect view. Pt. had gastric contents in the oropharynx. Suctioned out. 8.0ETT passed atraumatically. Secured at 22cm at the teeth with a tube rojas. ETCO2 positive. Bilateral breath sounds. Confirmation of tube placement with chest x-ray. Pt. placed on vent with pressure support of 15. FIo2 of 50%. PEEP 5. PT. pulling tidal volumes of 450mls. Deep suction of trachea with green thin secretions suctioned out. See RN charting for vitals and times. Care taken over by the flight team.
== END 2020-08-06 09:08 ==
LOC: MW.ED 08:12
DX: J43.9 Emphysema, unspecified (principal); I25.10 Atherosclerotic heart disease of native coronary artery without angina pectoris; I10 Essential (primary) hypertension; E78.00 Pure hypercholesterolemia, unspecified; E11.9 Type 2 diabetes mellitus without complications; Z79.01 Long term (current) use of anticoagulants; Z79.899 Other long term (current) drug therapy; Z88.1 Allergy status to other antibiotic agents; Z91.048 Other nonmedicinal substance allergy status; Z91.09 Other allergy status, other than to drugs and biological substances; Z79.02 Long term (current) use of antithrombotics/antiplatelets; Z20.822 Contact with and (suspected) exposure to COVID-19; W18.09XA Striking against other object with subsequent fall, initial encounter
CPT/HCPCS: 0240U; 31500; 36415; 43752; 51702; 71045; 80053; 81001; 82947; 83605; 84484; 85025; 85610; 85730; 86850; 86900; 86901; 87040; 87086; 93005; 94002; 96365; 96368; 96376; 99285; J2543; J7030; 93010